=== PATIENT | female | born 1930 | race Caucasian/White ===

== ENCOUNTER 2016-11-28 15:18 | Inpatient (IN) | payer MEDICARE, MEDICAID ==
--- NOTE | 2016-11-28 15:43 | C.PDOC ---
History Of Present Illness Patient TATE from [place] for evaluation of SOB. As per daughter, who visits her daily, patient appeared to be breathing more quickly than usual and appeared SOB. Patient has h/o advanced Alzheimer's dementia, HTN, hyperlipidemia, hypothyroidism. Time Seen by Provider: 11/28/16 15:21 Chief Complaint (Nursing): Shortness Of Breath History Per: Family History/Exam Limitations: clinical condition Current Respiratory Medications: See Home Med List Severity: Moderate Past Medical History Reviewed: Historical Data, Nursing Documentation, Vital Signs Vital Signs: Last Vital Signs Temp 97.9 F 12/01/16 15:10 Pulse 69 12/01/16 16:00 Resp 20 12/01/16 15:10 BP 123/75 12/01/16 15:10 Pulse Ox 98 12/04/16 11:09 - Medical History PMH: Alzheimer's Disease, HTN, Hypercholesterolemia, Hypothyroidism, Chronic Kidney Disease (PT BORN WITH ONE KIDNEY) Family History: States: Other (noncontributory ) Review Of Systems Review Of Systems: ROS cannot be obtained secondary to pt's inabilty to answer questions. Physical Exam - Physical Exam Appears: Non-toxic, In Acute Distress (in mild repsiratory distress), Chronically Ill Skin: No Rash Oral Mucosa: Dry Cardiovascular: Rhythm Regular Respiratory: Accessory Muscle Use (mild), No Rales, No Rhonchi, No Wheezing Gastrointestinal/Abdominal: Normal Exam, Bowel Sounds, Soft, No Tenderness, Other (PEG tube intact, no surrounding erythema) Extremity: Other (right heel approx 2cm ulcer without erythema/fluctuance/ induration) ED Course And Treatment - Laboratory Results Result Diagrams: 12/01/16 06:30 12/01/16 06:47 ECG: Interpreted By Me, Viewed By Me (NSR 84 bpm, normal axis, Q waves III, aVF , no acute ST changes) O2 Sat by Pulse Oximetry: 98 (RA) Pulse Ox Interpretation: Normal Progress Note: Blood work, UA, CXR, influenza swab ordered. Code sepsis called. Patient given tylenol OK, IV NS bolus, broad spectrum IV antibiotics. senior living papers and daughter at bedside confirm DNR/DNI status. 5:30PM- Spoke with patient's daughter (Marcus Trejo) who is at bedside. Explained that patient's hypotension is not significantly improving with bolus of IV fluids. Second bolus ordered and discussed central line placement/vasopressors with daughter. She states she does not want central line inserted/vasopressors started. 5:45pm- Spoke with patient's son on the phone, Drew Tobar, he is in agreement with his sister, does not want central line inserted or pressors started. Patient's PMD Dr. Denny made aware of patient's condition - requests hospitalist admission. Spoke with Dr. Quintanilla (5:45pm), he agrees with admission to his service, is aware of patient's DNA/DNR status and decision of children to have central line inserted/poressors started. - Physician Consult Information Physician Contacted: Rosa Conde Outcome Of Conversation: Discussed patient with director of outreach at approx 5:20pm- he recommends no ICU admission at this time. Critical Care Time - Critical Care Note Total Time (in mins): 45 Documented critical care: time excludes all time spent performing seperately billable procedures. Disposition - Disposition Disposition: HOSPITALIZED Disposition Time: 17:51 Condition: STABLE - Clinical Impression Clinical Impression: Septic shock
[2016-11-28 15:45] VITALS: BMI 28.1
[2016-11-28] MEDS ORDERED: Cefepime 1 GM in Sodium Chloride 0.9% 50 ML IVPB STA (15:50)
[2016-11-28] MEDS ORDERED: Moxifloxacin IV 400mg/250ml NS 250 ML IVPB STA (15:50)
[2016-11-28 16:00] LABS: BASO # 0.2 K/uL (0.0-0.2); BASO % 1.6 % (0.0-2.0); EOS # 0.2 K/uL (0.0-0.7); EOS % 1.9 % (0.0-4.0); HEMATOCRIT 42.5 % (34.0-47.0); LYMPH % 20.6 % (20.0-40.0); MEAN CORPUSCULAR HEMOGLOBIN 30.3 pg (27.0-31.0); MEAN CORPUSCULAR HGB CONC 31.6 g/dL (33.0-37.0); MEAN PLATELET VOLUME 10.7 fL (7.2-11.7); MONO # 0.5 K/uL (0.0-0.8); MONO % 4.9 % (0.0-10.0); NRBC % 0.1 % (0.0-2.0); RED CELL DISTRIBUTION WIDTH 16.4 % (11.5-14.5); WHITE BLOOD COUNT 9.9 K/uL (4.8-10.8)
[2016-11-28 16:02] LABS: VENOUS BLOOD GAS BASE EXCESS 4.8 mmol/L (0.0-2.0); VENOUS BLOOD GAS PCO2 45 mmHg (40-60); VENOUS BLOOD PH 7.43 (7.32-7.43)
[2016-11-28 16:20] LABS: POTASSIUM 5.2 mmol/L (3.6-5.2)
[2016-11-28 16:22] LABS: ALB/GLOB RATIO 0.9 (1.0-2.1); BILIRUBIN,TOTAL 0.7 mg/dL (0.2-1.3); TOTAL PROTEIN 7.6 g/dL (6.3-8.3)
[2016-11-28 16:23] LABS: CALCIUM 8.8 mg/dl (8.6-10.4); MAGNESIUM 2.9 mg/dL (1.6-2.3); PHOSPHOROUS 4.5 mg/dL (2.5-4.5)
[2016-11-28] MEDS ORDERED: Cefepime IV 1 gm in Dextrose 50 ML IVPB STA (16:26)
[2016-11-28] MEDS ORDERED: Sodium Chloride 0.9% 2,000 ML ONE ×2 (16:27→17:27)
[2016-11-28 16:34] LABS: TROPONIN I 0.014 ng/mL (0.00-0.120)
[2016-11-28 16:54] LABS: RBC URINE 1 /hpf (0-3); URINE BACTERIA OCC (<OCC); URINE BILIRUBIN NEGATIVE (NEGATIVE); URINE BLOOD NEGATIVE (NEGATIVE); URINE COLOR YELLOW (YELLOW); URINE GLUCOSE (UA) 3+ mg/dL (Normal); URINE KETONE TRACE mg/dL (NEGATIVE); URINE LEUKOCYTE ESTERASE NEG Leu/uL (Negative); URINE PROTEIN 1+ mg/dL (NEGATIVE); WBC URINE 1 /hpf (0-5)
[2016-11-28] MEDS ORDERED: Moxifloxacin IV 400mg/250ml NS 250 ML IVPB ONE (16:55)
[2016-11-28] MEDS ORDERED: (Novolin R) Insulin Human Regular 100 units/ml vial IV ONE (17:00)
[2016-11-28] MEDS ORDERED: (Novolin R) Insulin Human Regular 100 units/ml vial ONE (17:27)
--- NOTE | 2016-11-28 17:29 | RAD ---
PROCEDURE: CHEST RADIOGRAPH, 1 VIEW HISTORY: SOB COMPARISON: None available. FINDINGS: LUNGS: Minor bibasilar atelectasis PLEURA: No pneumothorax or pleural fluid seen. CARDIOVASCULAR: Normal. OSSEOUS STRUCTURES: No significant abnormalities. VISUALIZED UPPER ABDOMEN: Normal. OTHER FINDINGS: None. IMPRESSION: Minor bibasilar atelectasis
--- NOTE | 2016-11-28 18:04 | CP.PCM.HP ---
<Rhys Davis - Last Filed: 11/28/16 18:37> History of Present Illness - History of Present Illness History of Present Illness: CC: "short of breath" HPI: Patient is a 86 year old female with a history of alziemer's dementia, htn , hyperlipedemia, nephrectomy, and hypothyroidism is here from the retirement because her daughter noticed she was very short of breath. Patient has been in retirement for 6 years due to her worsening dementia, she is non verbal. Patient's daughter is at bedside providing her history. PMH: see above PSH: feeding tube placed 7 months ago, nephrectomy FH: denies SH: Lives in retirement, is bed bound Present on Admission - Present on Admission Any Indicators Present on Admission: No History of DVT/PE: No History of Uncontrolled Diabetes: No Urinary Catheter: No Decubitus Ulcer Present: No History Surgical Site Infection Following: None Review of Systems - Review of Systems Systems not reviewed;Unavailable: Acuity of Condition, Dementia Past Patient History - Infectious Disease Hx of Infectious Diseases: None - Past Medical History & Family History Past Medical History?: Yes - Past Social History Smoking Status: Never Smoked - CARDIAC Hx Hypercholesterolemia: Yes Hx Hypertension: Yes - PULMONARY Hx Respiratory Disorders: No - NEUROLOGICAL Hx Alzheimer's Disease: Yes - HEENT Hx HEENT Problems: Yes Hx Cataracts: Yes - RENAL 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) - ENDOCRINE/METABOLIC Hx Hypothyroidism: Yes - HEMATOLOGICAL/ONCOLOGICAL Hx Blood Disorders: No - INTEGUMENTARY Hx Dermatological Problems: No - MUSCULOSKELETAL/RHEUMATOLOGICAL Hx Musculoskeletal Disorders: No - GASTROINTESTINAL Hx Gastrointestinal Disorders: Yes (WT LOSS, LOSS OF APPETITE) - GENITOURINARY/GYNECOLOGICAL Hx Genitourinary Disorders: Yes (BORN WITH 1 KIDNEY) - PSYCHIATRIC Hx Psychophysiologic Disorder: Yes Hx Substance Use: No - SURGICAL HISTORY Hx Surgeries: Yes Hx Hysterectomy: Yes Hx Orthopedic Surgery: Yes (LT HAND ) Other/Comment: PEG TUBE INSERTION - ANESTHESIA Hx Anesthesia: Yes Hx Anesthesia Reactions: No Hx Malignant Hyperthermia: No Meds Allergies/Adverse Reactions: Allergies Allergy/AdvReac Type Severity Reaction Status Date / Time No Known Allergies Allergy Verified 11/28/16 15:44 Physical Exam - Constitutional Appears: Toxic, In Acute Distress - Head Exam Head Exam: ATRAUMATIC, NORMAL INSPECTION, NORMOCEPHALIC - Eye Exam Eye Exam: absent: Scleral icterus Pupil Exam: NORMAL ACCOMODATION - ENT Exam ENT Exam: Mucous Membranes Dry - Respiratory Exam Respiratory Exam: Decreased Breath Sounds, Rales, Rhonchi. absent: Clear to Auscultation Bilateral, Wheezes - Cardiovascular Exam Additional comments: very soft heart sounds - GI/Abdominal Exam GI & Abdominal Exam: Soft Additional comments: feeding tube in place - Extremities Exam Extremities exam: Negative for: pedal edema - Back Exam Back exam: NORMAL INSPECTION - Psychiatric Exam Additional comments: non verbal - Skin Skin Exam: Dry Results - Vital Signs Recent Vital Signs: Last Vital Signs Temp 99.7 F H 11/28/16 17:00 Pulse 64 11/28/16 17:45 Resp 25 H 11/28/16 17:45 BP 81/39 L 11/28/16 17:45 Pulse Ox 98 11/28/16 17:50 - Labs Result Diagrams: 11/28/16 15:55 11/28/16 15:55 Assessment & Plan (1) Sepsis Assessment and Plan: Patient is admitted to tele/inp. She was given IV antibiotics in the ED and IV fluids. She had a fever and is also hypotensive and tachypenic. Will need to find the source of the infection, ordered CT of the chest/abdomen/pelvis with IV contrast. Patient on NS at 100 cc/hr Primaxin 500mg Q6h and Vanc 250mg q12h started Blood and urine cultures drawn Dr. Leggett consulted and his answering called with a message left. ABG, procalcintonin Patient is DNR/DNI! Status: Acute (2) Hypotension Status: Acute Comment: Patient has low voltage on the EKG, show may have preicardial effusion and or tamponade, no prior ekg avaliable to compare, ordered an echo and kenia panels. Monitor on Tele, follow up CT of the head. Patient also has a high risk for PE due to immobility and age. (3) Hypernatremia Assessment and Plan: Na is 159 Status: Acute (4) Hyperchloremia Assessment and Plan: Chlorine is 122 Status: Acute (5) History of nephrectomy, unilateral Status: Chronic (6) Dementia in Alzheimer's disease Assessment and Plan: continue her home Aricept, patient as feeding tube in place Status: Chronic (7) Hypothyroidism Assessment and Plan: TSH is 6.99, follow up free T4, continue home synthroid Status: Chronic (8) Diabetes mellitus Assessment and Plan: continue her home medication, sliding scale with accu checks, follow up a1c. Status: Chronic (9) Hyperlipidemia Assessment and Plan: continue home statin Status: Acute (10) Prophylactic measure Assessment and Plan: Protonix 40mg IVP Heparin 5000 untis sc q8h scd reposition every 2 hours, will need to look for pressure ulcers Status: Acute <Lionel Quintanilla H - Last Filed: 11/29/16 10:16> Results - Vital Signs Recent Vital Signs: Last Vital Signs Temp 97.1 F L 11/29/16 07:35 Pulse 57 L 11/29/16 07:35 Resp 18 11/29/16 07:35 BP 92/58 L 11/29/16 07:35 Pulse Ox 98 11/29/16 07:35 - Labs Result Diagrams: 11/29/16 07:56 11/29/16 07:56 Labs: Laboratory Results - last 24 hr 11/28/16 11/28/16 11/29/16 19:15 20:31 01:02 WBC RBC Hgb Hct MCV MCH MCHC RDW Plt Count MPV Neut % (Auto) Lymph % (Auto) [place] % (Auto) Eos % (Auto) Baso % (Auto) Neut # Lymph # [place] # Eos # Baso # Puncture Site Lra pCO2 42 pO2 120 H HCO3 20.2 L ABG pH 7.29 L ABG Total CO2 21.5 L ABG O2 Saturation 99.8 H ABG Base Excess -6.1 L Eddie Test Pos ABG Potassium 3.4 L Sodium 160.0 H* Chloride 133.0 H Glucose 151 H Lactate 1.4 Liter Flow 3.0 Crit Value Called To Dr kolton mc Crit Value Called By Isacc reddy Crit Value Read Back Y Blood Gas Notified Time 1924 Potassium Carbon Dioxide Anion Gap BUN Creatinine Est GFR ( Amer) Est GFR (Non-Af Amer) POC Glucose (mg/dL) 228 H Random Glucose Calcium Phosphorus Magnesium Total Bilirubin AST ALT Alkaline Phosphatase Total Creatine Kinase 281 H CK-MB (Mass) 2.33 Troponin I, Quant < 0.0120 Total Protein Albumin Globulin Albumin/Globulin Ratio Procalcitonin 0.10 L TSH 3rd Generation Arterial Blood Potassium 3.4 L Stool Leukocytes, Qual 11/29/16 11/29/16 11/29/16 06:38 07:56 08:10 WBC 7.1 RBC 3.24 L Hgb 10.0 L D Hct 31.3 L MCV 96.6 MCH 30.8 MCHC 31.9 L RDW 15.8 H Plt Count 156 MPV 10.8 Neut % (Auto) 63.5 Lymph % (Auto) 25.5 [place] % (Auto) 5.5 Eos % (Auto) 5.0 H Baso % (Auto) 0.5 Neut # 4.5 Lymph # 1.8 [place] # 0.4 Eos # 0.4 Baso # 0.0 Puncture Site pCO2 pO2 HCO3 ABG pH ABG Total CO2 ABG O2 Saturation ABG Base Excess Eddie Test ABG Potassium Sodium 154 H Chloride 127 H Glucose Lactate Liter Flow Crit Value Called To Crit Value Called By Crit Value Read Back Blood Gas Notified Time Potassium 3.1 L Carbon Dioxide 18 L Anion Gap 12 BUN 50 H Creatinine 0.7 Est GFR ( Amer) > 60 Est GFR (Non-Af Amer) > 60 POC Glucose (mg/dL) 128 H Random Glucose 99 Calcium 6.2 L Phosphorus 3.0 Magnesium 2.0 Total Bilirubin 0.2 AST 33 ALT 68 H D Alkaline Phosphatase 41 Total Creatine Kinase CK-MB (Mass) Troponin I, Quant Total Protein 5.2 L Albumin 2.2 L D Globulin 3.0 Albumin/Globulin Ratio 0.7 L Procalcitonin TSH 3rd Generation 3.24 Arterial Blood Potassium Stool Leukocytes, Qual Negative Attending/Attestation - Attestation I have personally seen and examined this patient.: Yes I have fully participated in the care of the patient.: Yes I have reviewed all pertinent clinical information: Yes Notes (Text): Medical Attending: Patient was seen and examined by me in the ER bed 9. Family member who is also staff at hospital, was present with me at bedside and we had an extensive conversation. I explained to family member that it did seem that she was having severe hypotenstion secondary from sepsis - the source of which was not entirely clear when we saw her - it may have been UTI however the UA while it does seem infection - isn't overwhelming terrible. This being said it is possible that given her age and comorbidites that even a small UTI can cause her to be very urosepsis. She does not have a WBC. She will need to be on abx as well as IVF bolus. We need to follow I and O - she will need a neal cath There also appears to be dehydration as well - the Na was very elevated as was the BUN. She has had several boluses in ER and continued on IVF From discussion with family, the patient is DNR and DNI, they do not want central line or pressor medications. The ER spoke with ICU and because of this ICU has advised to admit patient to the medical/telemetry floor instead. So I explained to family we will get additional imaging. There is a high likley [place] she could at any given moment. Besides what has been mentioned above , a PE is also a very real possibility. thank you Lionel Quintanilla
[2016-11-28] MEDS ORDERED: Sodium Chloride 0.45% 1,000 ML IV SCH (18:30)
[2016-11-28 19:27] LABS: ABG ALLEN TEST POS; DRAW SITE LRA
[2016-11-28] MEDS ORDERED: Iodixanol 320 MG/ML 100 ML BOTTLE IV ONE (19:42)
[2016-11-28] MEDS: Vancomycin 500mg/D5W 100 ml 100 ML IVPB SCH (19:43)
[2016-11-28] MEDS: (Novolin R) Insulin Human Regular 100 units/ml vial SC SCH (22:36)
[2016-11-29] MEDS: (Novolin R) Insulin Human Regular 100 units/ml vial SC SCH (07:30)
[2016-11-29] MEDS: Vancomycin 500mg/D5W 100 ml 100 ML IVPB SCH ×2 (07:40→19:30)
[2016-11-29] MEDS: Levothyroxine 125 MCG TAB PO SCH (07:45)
[2016-11-29 08:18] LABS: BASO % 0.5 % (0.0-2.0); EOS # 0.4 K/uL (0.0-0.7); HEMATOCRIT 31.3 % (34.0-47.0); LYMPH # 1.8 K/uL (1.0-4.3); LYMPH % 25.5 % (20.0-40.0); MEAN CELL VOLUME 96.6 fL (81.0-99.0); MEAN CORPUSCULAR HEMOGLOBIN 30.8 pg (27.0-31.0); MEAN CORPUSCULAR HGB CONC 31.9 g/dL (33.0-37.0); MEAN PLATELET VOLUME 10.8 fL (7.2-11.7); MONO # 0.4 K/uL (0.0-0.8); MONO % 5.5 % (0.0-10.0); RED CELL DISTRIBUTION WIDTH 15.8 % (11.5-14.5); WHITE BLOOD COUNT 7.1 K/uL (4.8-10.8)
[2016-11-29 08:19] LABS: CHLORIDE 127 mmol/L (98-107); POTASSIUM 3.1 mmol/L (3.6-5.2); SODIUM 154 mmol/L (132-148)
[2016-11-29 08:21] LABS: AST/SGOT 33 U/L (14-36); BILIRUBIN,TOTAL 0.2 mg/dL (0.2-1.3); CARBON DIOXIDE 18 mmol/L (22-30); GFR AFRICAN-AMERICAN > 60
[2016-11-29 08:22] LABS: ALKALINE PHOSPHATASE 41 U/L (38-126); ALT/SGPT 68 U/L (9-52); BLOOD UREA NITROGEN 50 mg/dL (7-17); CALCIUM 6.2 mg/dl (8.6-10.4); GLUCOSE,RANDOM 99 mg/dL (65-105); TOTAL PROTEIN 5.2 g/dL (6.3-8.3)
[2016-11-29 08:26] LABS: ALB/GLOB RATIO 0.7 (1.0-2.1)
[2016-11-29] MEDS ORDERED: Potassium Chloride 20 mEq/15 ml LIQ UD PEG ONE ×2 (08:36→12:00)
[2016-11-29 08:50] LABS: THYROID STIMULATING HORMONE 3.24 mIU/L (0.46-4.68)
[2016-11-29] MEDS ORDERED: Potassium Chloride 40 MEQ in Sodium Chloride 0.45% 1,000 ML IV SCH (09:00)
[2016-11-29 09:11] LABS: FECAL LEUKOCYTES NEGATIVE (NEGATIVE)
[2016-11-29] MEDS ORDERED: [UNRECOGNIZED DRUG - OTHER] TOP SCH (10:00)
[2016-11-29] MEDS ORDERED: ALOE TOP SCH (10:00)
[2016-11-29] MEDS ORDERED: ZINC OX TOP SCH (10:00)
[2016-11-29] MEDS ORDERED: VITS A D TOP SCH (10:00)
[2016-11-29] MEDS: Vitamin B Complex/Vitamin C Tab PO SCH ×2 (10:00→12:07)
[2016-11-29] MEDS ORDERED: Sodium Chloride 0.45% 1,000 ML IV SCH (10:32)
[2016-11-29 11:04] LABS: C DIFF TOXIN A B NEGATIVE (NEGATIVE)
--- NOTE | 2016-11-29 11:20 | CP.PCM.PN ---
<Sarahi Juan V - Last Filed: 11/29/16 14:27> Objective - Vital Signs/Intake and Output Vital Signs (last 24 hours): Temp Pulse Resp BP Pulse Ox 97.1 F L 57 L 18 92/58 L 98 11/29/16 07:35 11/29/16 07:35 11/29/16 07:35 11/29/16 07:35 11/29/16 07:35 - Medications Medications: Current Medications Donepezil HCl (Aricept) 10 mg PO DAILY [facility] Last Admin: 11/29/16 12:07 Dose: 10 mg Glipizide (Glucotrol) 5 mg PO BID [facility] Last Admin: 11/29/16 10:00 Dose: Not Given Heparin Sodium (Porcine) (Heparin) 5,000 units SC Q8 [facility] Last Admin: 11/29/16 07:46 Dose: 5,000 units Vancomycin HCl/Dextrose (Vancocin) 100 mls @ 67 mls/hr IVPB Q12H [facility] Stop: 12/03/16 19:01 Last Admin: 11/29/16 07:40 Dose: 67 mls/hr Imipenem/Cilastatin Sodium 500 (mg/ Sodium Chloride) 100 mls @ 100 mls/hr IVPB Q6H [facility] Last Admin: 11/29/16 12:30 Dose: 100 mls/hr Sodium Chloride (Sodium Chloride 0.45%) 1,000 mls @ 100 mls/hr IV .Q10H [facility] Last Admin: 11/29/16 10:35 Dose: Not Given Potassium Chloride/Dextrose/Sod Cl (Potassium Chl 20 Meq In D5-1/2ns) 1,000 mls @ 70 mls/hr IV .[id number] [facility] Levothyroxine Sodium (Synthroid) 125 mcg PO DAILY@0630 [facility] Last Admin: 11/29/16 07:45 Dose: 125 mcg Pantoprazole Sodium (Protonix Ec Tab) 40 mg PO DAILY [facility] Last Admin: 11/29/16 12:08 Dose: 40 mg Rosuvastatin Calcium (Crestor) 5 mg PO [facility] Vitamin B Complex/Vitamin C (Berocca) 1 tab PO DAILY [facility] Last Admin: 11/29/16 12:07 Dose: 1 tab - Labs Labs: 11/29/16 07:56 11/29/16 07:56 PT 11.3 SECONDS (9.7-12.2) 11/28/16 15:55 INR 1.0 11/28/16 15:55 APTT 28 SECONDS (21-34) 11/28/16 15:55 Attending/Attestation - Attestation I have personally seen and examined this patient.: Yes I have fully participated in the care of the patient.: Yes I have reviewed all pertinent clinical information, including history, physical exam and plan: Yes Notes (Text): Patient seen, examined, and case discussed with day-time resident. Patient seen this morning. Patient is nonverbal, bed bound four about 7 years, withdraws to pain. When I discuss with patient's daughter, Malissa, this is more or less how her mother has been for the past 7 years. She reports she was told by a doctor, cannot recall the name, that her mother has dementia, and she herself reports she had to take her mother to a long-term quite some time ago , because she had fallen twice and can no longer take care of herself. Daughter herself is unaware if patient has had a prior CT head done recently within the past 7 years when I approached her regarding CT head findings. She reports her mother did have a mini-stroke in the past. She also emphasized with me, she wants her mom to be comfortable and for nothing aggressive such as surgery but to keep her peaceful. I explained to her that if part of this is sepsis due to infection, it may be treatable with antibiotics and with fluid replacement with can bring the sodium down slowly. Given this hydrocephalus noted on CT head, its hard to determine how long she has had this with overlapping diagnoses of dementia. (1) Sepsis Assessment and Plan: * Patient is admitted to [facility]. She was given IV antibiotics in the ED and IV fluids. She had a fever and is also hypotensive and tachypenic. Will need to find the source of the infection, ordered CT of the chest/abdomen/pelvis with IV contrast, which is pending. * Blood cultures (11/28) pending * Urine culture (11/28): no growth * Ova and parasite: pending * Wound culture (Sacral): pending * Chest xray (11/29/16): poor inspiration with low lung volumes, mild crowded bronchovascular markings and mild bibasilar atelectasis * Chest xray (11/28/16): minor bibasilar atelectasis * Procalcitonin: 0.10 (low) * D51/2 NS 70 cc/hr * Primaxin 500mg IV Q 6hours (active 11/28/16) and Vancomycin 1 gram IV Q 12hours (active since 11/28/16) * Pending CT chest/abdomen/pelvis report Status: suspected (2) Obstructive hydrocephalus Status: Acute Comment: * CT head (11/28): extensive diffuse/coalescent low-attenuation changes extending from the periventricular into at deep and subcortical white matter both cerebral hemispheres. Significant dilatation of the lateral and 3rd ventricles with relatively normal appearing 4th ventricle~may represent extensive chronic white matter ischemic changes w severe ex vacuo dilatation of the ventricular system (more in further report) * No prior to compare to (3) Hypernatremia Assessment and Plan: * Nephrology (Dr. 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 Assessment and Plan: * Daughter reports she was told by a medical doctor she has about 7 years ago * Aricept 10mg PO daily Status: Chronic (7) Hypothyroidism Assessment and Plan: * TSH is 6.99, follow up free T4-->pending * Synthroid 125mcg PO qAM Status: Chronic (8) Diabetes mellitus Assessment and Plan: * [id number] ordered * held glipizide since patient was not on her feedings over night * Patient restarted feedings today; Isosource 20cc/hr monitor residual; goal is 60cc/hr * off sliding scale * accuchecks QAC and HS Status: Chronic (9) Hyperlipidemia Assessment and Plan: * Crestor 5mg POqHS * Order for fasting lipid panel Status: Acute (10) Prophylactic measure Assessment and Plan: * Protonix 40mg IVP * Heparin 5000 untis sc q8h * scds b/l * reposition every 2 hours, will need to look for pressure ulcers * Wound care for possible stage 2 sacral ulcer * Palliative care consult * DNR/DNI * Guerra inserted * monitor intake and outputs Status: Acute <Rhys Davis H - Last Filed: 11/29/16 17:27> Subjective - Date & Time of Evaluation Date of Evaluation: 11/29/16 Time of Evaluation: 10:00 - Subjective Subjective: Dr. Juan service note: Patient seen in room. She is non verbal but sems to be in breathing comfortable. She responds to painful stimuli and withdraws to pain Objective - Vital Signs/Intake and Output Vital Signs (last 24 hours): Temp Pulse Resp BP Pulse Ox 97.1 F L 57 L 18 92/58 L 98 11/29/16 07:35 11/29/16 07:35 11/29/16 07:35 11/29/16 07:35 11/29/16 07:35 - Medications Medications: Current Medications Donepezil HCl (Aricept) 10 mg PO DAILY [facility] Glipizide (Glucotrol) 5 mg PO BID [facility] Heparin Sodium (Porcine) (Heparin) 5,000 units SC Q8 [facility] Last Admin: 11/29/16 07:46 Dose: 5,000 units Vancomycin HCl/Dextrose (Vancocin) 100 mls @ 67 mls/hr IVPB Q12H [facility] Stop: 12/03/16 19:01 Last Admin: 11/29/16 07:40 Dose: 67 mls/hr Imipenem/Cilastatin Sodium 500 (mg/ Sodium Chloride) 100 mls @ 100 mls/hr IVPB Q6H [facility] Last Admin: 11/29/16 06:30 Dose: 100 mls/hr Sodium Chloride (Sodium Chloride 0.45%) 1,000 mls @ 100 mls/hr IV .Q10H [facility] Dextrose (Dextrose 5% In Water 1000 Ml) 1,000 mls @ 80 mls/hr IV .[id number] [facility] Levothyroxine Sodium (Synthroid) 125 mcg PO DAILY@0630 [facility] Last Admin: 11/29/16 07:45 Dose: 125 mcg Pantoprazole Sodium (Protonix Ec Tab) 40 mg PO DAILY [facility] Potassium Chloride (Potassium Chloride Oral Soln) 40 meq PEG ONCE ONE Stop: 11/29/16 12:01 Rosuvastatin Calcium (Crestor) 5 mg PO HS [facility] Vitamin B Complex/Vitamin C (Berocca) 1 tab PO DAILY [facility] - Labs Labs: 11/29/16 07:56 11/29/16 07:56 PT 11.3 SECONDS (9.7-12.2) 11/28/16 15:55 INR 1.0 11/28/16 15:55 APTT 28 SECONDS (21-34) 11/28/16 15:55 - Constitutional Appears: Chronically Ill - Head Exam Head Exam: NORMAL INSPECTION, NORMOCEPHALIC - Eye Exam Eye Exam: Normal appearance, PERRL Pupil Exam: NORMAL ACCOMODATION - Respiratory Exam Respiratory Exam: Clear to Ausculation Bilateral, Wheezes. absent: Rhonchi - Cardiovascular Exam Cardiovascular Exam: REGULAR RHYTHM, RRR, +S1, +S2. absent: Gallop, Rubs - GI/Abdominal Exam GI & Abdominal Exam: Soft Additional comments: Peg tube in place no signs of swelling, redness, or purluent discharge - Extremities Exam Extremities Exam: absent: Pedal Edema - Neurological Exam Neurological Exam: absent: Alert, Awake Additional comments: responds to painful stimuli - Skin Additional comments: stage 2 pressure ulcer around her sacrum. Assessment and Plan - Assessment and Plan (Free Text) Assessment: (1) Sepsis Assessment and Plan: 11/29: Will need to follow up on the blood, urine, and wound culture from the sacral ulcer, CT of the chest/abdomen/pelvis official read is pending. Blood pressure is stable. Procalcintonin level is low. Guerra was inserted this morning will need to monitor I&O closely. Follow up Vanc trough and also monitor kidney function as well. Day 2 of IV antibiotics Previous note Patient is admitted to [facility]. She was given IV antibiotics in the ED and IV fluids. She had a fever and is also hypotensive and tachypenic. Will need to find the source of the infection, ordered CT of the chest/abdomen/pelvis with IV contrast. Patient on NS at 100 cc/hr Primaxin 500mg Q6h and Vanc 250mg q12h started Blood and urine cultures drawn Dr. Leggett consulted and his answering called with a message left. ABG, procalcintonin Patient is DNR/DNI! Status: Acute 2. Hydrocephalus CT of the head shows evidence of hydrocephalus, will need to get a copy of an old CT scan to compare with. 3. Pressure ulcer: This could be source of infection, will get culture, follow up sensetivity and culture. Also reposition patient q2h and also have wound care nurse evaluation. (3) Hypotension Status: Acute Comment: 11/29: Echo is still pending, continue IV fluids. Patient has low voltage on the EKG, show may have preicardial effusion and or tamponade, no prior ekg avaliable to compare, ordered an echo and kenia panels. Monitor on Tele, follow up CT of the head. Patient also has a high risk for PE due to immobility and age. (4) Hypernatremia Assessment and Plan: 11/29: Na is 154 this am follow up chemistry labs q12h per Nephrology consult, Dr. Schmidt help appreciated. Follow urin lytes as well. Na is 159 Status: Acute (5) Hyperchloremia Assessment and Plan: 11/29: Chlorine is 127, continue to monitor. d/c half normal saline. 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 Status: Chronic (10) Hyperlipidemia Assessment and Plan: continue home statin Status: Chronic (11) Prophylactic measure Assessment and Plan: Protonix 40mg IVP Heparin 5000 untis sc q8h scd reposition every 2 hours, will need to look for pressure ulcers Status: Acute Plan: (1) Sepsis Assessment and Plan: 11/29: Turned patient over she has a stage 2 decubitis ulcer, continue with IV Primaxin and Vanc day 2, wound culture and nursing wound care continue to have her turned every 2 hours. Procalcintonin was low, ABG shows patient to be acidodic. Patient is admitted to tele/inp. She was given IV antibiotics in the ED and IV fluids. She had a fever and is also hypotensive and tachypenic. Will need to find the source of the infection, ordered CT of the chest/abdomen/pelvis with IV contrast. Patient on NS at 100 cc/hr Primaxin 500mg Q6h and Vanc 250mg q12h started Blood and urine cultures drawn Dr. Leggett consulted and his answering called with a message left. ABG, procalcintonin Patient is DNR/DNI! Status: Acute (2) Hypotension Status: Acute Comment: 11/29: Echo is pending, CT scan of the head shows enlarged ventricles, will consult Patient has low voltage on the EKG, show may have preicardial effusion and or tamponade, no prior ekg avaliable to compare, ordered an echo and kenia panels. Monitor on Tele, follow up CT of the head. Patient also has a high risk for PE due to immobility and age. (3) Hypernatremia Assessment and Plan: 11/29: Na today is 154, Nephrology consulted. Have started D5W 80 cc/hr per Dr. Pérez Nephrology consult. Urine lytes ordered as well. 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 Status: Chronic (9) Hyperlipidemia Assessment and Plan: continue home statin Status: Acute (10) Prophylactic measure Assessment and Plan: Protonix 40mg IVP Heparin 5000 untis sc q8h scd reposition every 2 hours, will need to look for pressure ulcers Status: Acute
--- NOTE | 2016-11-29 11:47 | CT ---
PROCEDURE: CT HEAD WITHOUT CONTRAST. HISTORY: ams, hypotensive COMPARISON: None available. TECHNIQUE: Axial computed tomography images were obtained through the head/brain without intravenous contrast. Radiation dose: Total exam DLP = 998.89 mGy-cm. This CT exam was performed using one or more of the following dose reduction techniques: Automated exposure control, adjustment of the mA and/or kV according to patient size, and/or use of iterative reconstruction technique. FINDINGS: HEMORRHAGE: No intracranial hemorrhage. BRAIN: Extensive diffuse/coalescent low-attenuation changes extending from the periventricular into the at deep and subcortical white matter both cerebral hemispheres. Changes could represent chronic sequela of small vessel disease. Note that the possibility of extensive white matter gliosis due to longstanding transependymal edema in not excluded. VENTRICLES: Significant dilatation of the lateral and 3rd ventricles with relatively normal-appearing 4th ventricle. Findings may represent extensive chronic white matter ischemic changes with a the severe ex vacuo dilatation of the ventricular system however the possibility of gliosis from chronic transependymal edema related to longstanding obstructive hydrocephalus to be considered as well. Normal pressure hydrocephalus may be considered if the clinical triad of dementia, ataxia and incontinence present. CALVARIUM: Unremarkable. PARANASAL SINUSES: Minor mucosal thickening seen within a few ethmoid air cells MASTOID AIR CELLS: Unremarkable as visualized. No inflammatory changes. OTHER FINDINGS: None. IMPRESSION: Extensive diffuse/coalescent low-attenuation changes extending from the periventricular into the at deep and subcortical white matter both cerebral hemispheres . Significant dilatation of the lateral and 3rd ventricles with relatively normal-appearing 4th ventricle. Findings may represent extensive chronic white matter ischemic changes with severe ex vacuo dilatation of the ventricular system however the possibility of gliosis from chronic transependymal edema related to longstanding obstructive hydrocephalus to be considered as well. Normal pressure hydrocephalus may be considered if the clinical triad of dementia, ataxia and incontinence present
[2016-11-29] MEDS: Pantoprazole 40 mg EC Tab PO SCH (12:08)
--- NOTE | 2016-11-29 13:42 | RAD ---
HISTORY: pleural effusions COMPARISON: 11/28/16 FINDINGS: LUNGS: Poor inspiration with low lung volumes, mild crowded bronchovascular markings and mild bibasilar atelectasis PLEURA: No significant pleural effusion identified, no pneumothorax apparent. CARDIOVASCULAR: Normal. OSSEOUS STRUCTURES: No significant abnormalities. VISUALIZED UPPER ABDOMEN: Normal. OTHER FINDINGS: None. IMPRESSION: Poor inspiration with low lung volumes, mild crowded bronchovascular markings and mild bibasilar atelectasis
--- NOTE | 2016-11-29 13:58 | CP.PCM.CON ---
History of Present Illness - History of Present Illness History of Present Illness: pt seen and examined, full consult is dictated #[id number] 1.hypernatremia, corrected na on admission was 161-162, and na today is 154 2.prerenal azotemia/ CAITLYN check urine lytes, osm, change ivf d5w to d51/2 ns 70- at 80 ml/hr f/u bmp q 12 hrs try to correct na not more than 8-10 meq/day Past Patient History - Infectious Disease Hx of Infectious Diseases: None - Past Medical History & Family History Past Medical History?: Yes - Past Social History Smoking Status: Never Smoked - CARDIAC Hx Hypercholesterolemia: Yes Hx Hypertension: Yes - PULMONARY Hx Respiratory Disorders: No - NEUROLOGICAL Hx Alzheimer's Disease: Yes - HEENT Hx HEENT Problems: Yes Hx Cataracts: Yes - RENAL 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) - ENDOCRINE/METABOLIC Hx Hypothyroidism: Yes - HEMATOLOGICAL/ONCOLOGICAL Hx Blood Disorders: No - INTEGUMENTARY Hx Dermatological Problems: No - MUSCULOSKELETAL/RHEUMATOLOGICAL Hx Musculoskeletal Disorders: No Hx Falls: No - GASTROINTESTINAL Hx Gastrointestinal Disorders: Yes (WT LOSS, LOSS OF APPETITE) - GENITOURINARY/GYNECOLOGICAL Hx Genitourinary Disorders: Yes (BORN WITH 1 KIDNEY) - PSYCHIATRIC Hx Psychophysiologic Disorder: Yes Hx Substance Use: No - SURGICAL HISTORY Hx Surgeries: Yes Hx Hysterectomy: Yes Hx Orthopedic Surgery: Yes (LT HAND ) Other/Comment: PEG TUBE INSERTION - ANESTHESIA Hx Anesthesia: Yes Hx Anesthesia Reactions: No Hx Malignant Hyperthermia: No Meds Allergies/Adverse Reactions: Allergies Allergy/AdvReac Type Severity Reaction Status Date / Time No Known Allergies Allergy Verified 11/28/16 15:44 - Medications Medications: Current Medications Donepezil HCl (Aricept) 10 mg PO DAILY [facility] Last Admin: 11/29/16 12:07 Dose: 10 mg Glipizide (Glucotrol) 5 mg PO BID [facility] Last Admin: 11/29/16 10:00 Dose: Not Given Heparin Sodium (Porcine) (Heparin) 5,000 units SC Q8 [facility] Last Admin: 11/29/16 07:46 Dose: 5,000 units Vancomycin HCl/Dextrose (Vancocin) 100 mls @ 67 mls/hr IVPB Q12H [facility] Stop: 12/03/16 19:01 Last Admin: 11/29/16 07:40 Dose: 67 mls/hr Imipenem/Cilastatin Sodium 500 (mg/ Sodium Chloride) 100 mls @ 100 mls/hr IVPB Q6H [facility] Last Admin: 11/29/16 12:30 Dose: 100 mls/hr Sodium Chloride (Sodium Chloride 0.45%) 1,000 mls @ 100 mls/hr IV .Q10H [facility] Last Admin: 11/29/16 10:35 Dose: Not Given Dextrose (Dextrose 5% In Water 1000 Ml) 1,000 mls @ 80 mls/hr IV .[id number] [facility] Last Admin: 11/29/16 11:15 Dose: 80 mls/hr Levothyroxine Sodium (Synthroid) 125 mcg PO DAILY@0630 [facility] Last Admin: 11/29/16 07:45 Dose: 125 mcg Pantoprazole Sodium (Protonix Ec Tab) 40 mg PO DAILY [facility] Last Admin: 11/29/16 12:08 Dose: 40 mg Rosuvastatin Calcium (Crestor) 5 mg PO [facility] Vitamin B Complex/Vitamin C (Berocca) 1 tab PO DAILY [facility] Last Admin: 11/29/16 12:07 Dose: 1 tab Results - Vital Signs Recent Vital Signs: Last Vital Signs Temp 97.1 F L 11/29/16 07:35 Pulse 57 L 11/29/16 07:35 Resp 18 11/29/16 07:35 BP 92/58 L 11/29/16 07:35 Pulse Ox 98 11/29/16 07:35 - Labs Result Diagrams: 11/29/16 07:56 11/29/16 07:56 Labs: Laboratory Results - last 24 hr 11/28/16 11/28/16 11/29/16 19:15 20:31 01:02 WBC RBC Hgb Hct MCV MCH MCHC RDW Plt Count MPV Neut % (Auto) Lymph % (Auto) [place] % (Auto) Eos % (Auto) Baso % (Auto) Neut # Lymph # [place] # Eos # Baso # Puncture Site Lra pCO2 42 pO2 120 H HCO3 20.2 L ABG pH 7.29 L ABG Total CO2 21.5 L ABG O2 Saturation 99.8 H ABG Base Excess -6.1 L Eddie Test Pos ABG Potassium 3.4 L Sodium 160.0 H* Chloride 133.0 H Glucose 151 H Lactate 1.4 Liter Flow 3.0 Crit Value Called To Dr kolton mc Crit Value Called By Isacc reddy Crit Value Read Back Y Blood Gas Notified Time 1924 Potassium Carbon Dioxide Anion Gap BUN Creatinine Est GFR ( Amer) Est GFR (Non-Af Amer) POC Glucose (mg/dL) 228 H Random Glucose Calcium Phosphorus Magnesium Total Bilirubin AST ALT Alkaline Phosphatase Total Creatine Kinase 281 H CK-MB (Mass) 2.33 Troponin I, Quant < 0.0120 Total Protein Albumin Globulin Albumin/Globulin Ratio Procalcitonin 0.10 L TSH 3rd Generation Arterial Blood Potassium 3.4 L Urine Osmolality Ur Random Sodium Stool Leukocytes, Qual C. difficile Ag & Toxin 11/29/16 11/29/16 11/29/16 06:38 07:56 08:10 WBC 7.1 RBC 3.24 L Hgb 10.0 L D Hct 31.3 L MCV 96.6 MCH 30.8 MCHC 31.9 L RDW 15.8 H Plt Count 156 MPV 10.8 Neut % (Auto) 63.5 Lymph % (Auto) 25.5 [place] % (Auto) 5.5 Eos % (Auto) 5.0 H Baso % (Auto) 0.5 Neut # 4.5 Lymph # 1.8 [place] # 0.4 Eos # 0.4 Baso # 0.0 Puncture Site pCO2 pO2 HCO3 ABG pH ABG Total CO2 ABG O2 Saturation ABG Base Excess Eddie Test ABG Potassium Sodium 154 H Chloride 127 H Glucose Lactate Liter Flow Crit Value Called To Crit Value Called By Crit Value Read Back Blood Gas Notified Time Potassium 3.1 L Carbon Dioxide 18 L Anion Gap 12 BUN 50 H Creatinine 0.7 Est GFR ( Amer) > 60 Est GFR (Non-Af Amer) > 60 POC Glucose (mg/dL) 128 H Random Glucose 99 Calcium 6.2 L Phosphorus 3.0 Magnesium 2.0 Total Bilirubin 0.2 AST 33 ALT 68 H D Alkaline Phosphatase 41 Total Creatine Kinase CK-MB (Mass) Troponin I, Quant Total Protein 5.2 L Albumin 2.2 L D Globulin 3.0 Albumin/Globulin Ratio 0.7 L Procalcitonin TSH 3rd Generation 3.24 Arterial Blood Potassium Urine Osmolality Ur Random Sodium Stool Leukocytes, Qual Negative C. difficile Ag & Toxin Negative 11/29/16 11/29/16 11:28 11:57 WBC RBC Hgb Hct MCV MCH MCHC RDW Plt Count MPV Neut % (Auto) Lymph % (Auto) [place] % (Auto) Eos % (Auto) Baso % (Auto) Neut # Lymph # [place] # Eos # Baso # Puncture Site pCO2 pO2 HCO3 ABG pH ABG Total CO2 ABG O2 Saturation ABG Base Excess Eddie Test ABG Potassium Sodium Chloride Glucose Lactate Liter Flow Crit Value Called To Crit Value Called By Crit Value Read Back Blood Gas Notified Time Potassium Carbon Dioxide Anion Gap BUN Creatinine Est GFR ( Amer) Est GFR (Non-Af Amer) POC Glucose (mg/dL) 146 H Random Glucose Calcium Phosphorus Magnesium Total Bilirubin AST ALT Alkaline Phosphatase Total Creatine Kinase CK-MB (Mass) Troponin I, Quant Total Protein Albumin Globulin Albumin/Globulin Ratio Procalcitonin TSH 3rd Generation Arterial Blood Potassium Urine Osmolality 742 Ur Random Sodium 60 Stool Leukocytes, Qual C. difficile Ag & Toxin
[2016-11-29] MEDS ORDERED: Potassium Ch 20mEq in D5-1/2NS 1,000 ML IV SCH (14:30)
--- NOTE | 2016-11-29 14:52 | CP.PCM.CON ---
History of Present Illness - History of Present Illness History of Present Illness: 86 year old female admitted from the assisted because of increasing SOB Found to be congested and hypotensive admitted for sepsis, dehydration ID consulted for this cultures still pending Patient has been in assisted for 6 years due to her worsening dementia, she is non verbal. PMH: alziemer's dementia, htn, hyperlipedemia, nephrectomy, and hypothyroidism PSH: feeding tube placed 7 months ago, nephrectomy FH: denies SH: Lives in assisted, is bed bound Review of Systems - Review of Systems Systems not reviewed;Unavailable: Altered Mental Status - Constitutional Constitutional: absent: As Per HPI, Anorexia, Chills, Daytime Sleepiness, Excessive Sweating, Fatigue, Fever, Frequent Falls, Headache, Increased Appetite , Lethargy, Malaise, Night Sweats, Snoring, Sleep Apnea, Weight Gain, Weight Loss, Weakness, Other - EENT Eyes: absent: As Per HPI, Blind Spots, Blurred Vision, Change in Vision, Decreased Night Vision, Diplopia, Discharge, Dry Eye, Exophthalmos, Floaters, Irritation, Itchy Eyes, Loss of Peripheral Vision, Pain, Photophobia, Requires Corrective Lenses, Sees Flashes, Spots in Vision, Tunnel Vision, Other Visual Disturbances, Loss of Vision, Other Ears: absent: As Per HPI, Decreased Hearing, Ear Discharge, Ear Pain, Tinnitus, Abnormal Hearing, Disequilibrium, Dizziness, Other Nose/Mouth/Throat: absent: As Per HPI, Epistaxis, Nasal Congestion, Nasal Discharge, Nasal Obstruction, Nasal Trauma, Nose Pain, Post Nasal Drip, Sinus Pain, Sinus Pressure, Bleeding Gums, Change in Voice, Dental Pain, Dry Mouth, Dysphagia, Halitosis, Hoarsness, Lip Swelling, Mouth Lesions, Mouth Pain, Odynophagia, Sore Throat, Throat Swelling, Tongue Swelling, Facial Pain, Neck Pain, Neck Mass, Other - Breasts Breasts: absent: As Per HPI, Change in Shape, Mass, Pain, Nipple Discharge, Nipple Inversion, Skin Changes, Swelling, Other - Cardiovascular Cardiovascular: As Per HPI - Respiratory Respiratory: Dyspnea - Gastrointestinal Gastrointestinal: absent: As Per HPI, Abdominal Pain, Belching, Bloating, Change in Bowel Habits, Change in Stool Character, Coffee Ground Emesis, Constipation, Cramping, Diarrhea, Dyspepsia, Dysphagia, Early Satiety, Excessive Flatus, Fecal Incontinence, Heartburn, Hematemesis, Hematochezia, Loose Stools, Melena, Nausea, Odynophagia, Temesmus, Vomiting, Other - Genitourinary Genitourinary: absent: As Per HPI, Change in Urinary Stream, Difficulty Urinating, Dysuria, Flank Pain, Hematuria, Pyuria, Nocturia, Urinary Incontinence, Urinary Frequency, Urinary Hesitance, Urinary Urgency, Voiding Freq/Small Amts, Freq UTI, Hx Renal/Bladder Calculi, Hx /Renal Surgery, Bladder Distension, Other - Reproductive: Female Reproductive:Female: absent: As Per HPI, Amenorrhea, Amenorrhea/ Control, Currently Menstual, Cycle <21 Days, Cycle >35 Days, Cycle Variable, Menses 1-7 Days, Menses >/= 8 Days, Menses Variable, Cycle > 4 Weeks Between, No Menses for 6 Months, Heavy Menses, Light Menses, Normal Menses, Spotting Between Cycles , S/P Hysterectomy, Menopausal, Post Menopausal, Premenarche, Abnormal Vaginal Bleeding, Dysmenorrhea, Dyspareunia, Genital Lesions, Genital Pruritis, Pelvic Pain, Prolapse Symptoms, Sexual Dysfunction, Vaginal Discharge, Vaginal Dryness , Vaginal Odor, Vaginal Pruritis, Other - Menstruation Menstruation: absent: As Per HPI, Amenorrhea, Amenorrhea/ Control, Currently Menstual, Cycle <21 Days, Cycle >35 Days, Cycle Variable, Menses 1-7 Days, Menses >/= 8 Days, Menses Variable, Cycle > 4 Weeks Between, No Menses for 6 Months, Heavy Menses, Light Menses, Normal Menses, Spotting Between Cycles , S/P Hysterectomy, Menopausal, Post Menopausal, Premenarche, Abnormal Vaginal Bleeding, Dysmenorrhea, Other - Musculoskeletal Musculoskeletal: absent: As Per HPI, Abnormal Gait, Arthralgias, Atrophy, Back Pain, Deformity, Joint Swelling, Limited Range of Motion, Loss of Height, Muscle Cramps, Muscle Weakness, Myalgias, Neck Pain, Numbness, Radiating Pain into Limb, Stiffness, Tingling, Other - Integumentary Integumentary: absent: As Per HPI, Acne, Alopecia, Bleeding Lesions, Change in Hair, Change in Nails, Change in Pigmentation, Changing Lesions, Dry Skin, Erythema, Furuncle, Hirsutism, Lesions, New Lesions, Non-Healing Lesions, Photosensitivity, Pruritus, Rash, Skin Pain, Skin Ulcer, Sores, Striae, Swelling , Unusual Bruising, Wounds, Jaundice, Other - Neurological Neurological: As Per HPI - Psychiatric Psychiatric: absent: As Per HPI, Abnormal Sleep Pattern, Anhedonia, Anxiety, Auditory Hallucinations, Behavioral Changes, Change in Appetite, Change in Libido, Confusion, Depression, Difficulty Concentrating, Hallucinations, Homicidal Ideation, Hopelessness, Irritability, Memory Loss, Mood Swings, Panic Attacks, Paranoia, Suicidal Ideation, Visual Hallucinations, Tactile Hallucinations, Other - Endocrine Endocrine: absent: As Per HPI, Change in Body Appearance, Change in Libido, Cold Intolorance, Deepening of Voice, Excessive Sweating, Fatigue, Flushing, Heat Intolorance, Increase in Ring/Shoe/Hat Size, Palpitations, Polydipsia, Polyphagia, Polyuria, Other - Hematologic/Lymphatic Hematologic: absent: As Per HPI, Easy Bleeding, Easy Bruising, Lymphadenopathy, Other Past Patient History - Infectious Disease Hx of Infectious Diseases: None - Past Medical History & Family History Past Medical History?: Yes - Past Social History Smoking Status: Never Smoked - CARDIAC Hx Hypercholesterolemia: Yes Hx Hypertension: Yes - PULMONARY Hx Respiratory Disorders: No - NEUROLOGICAL Hx Alzheimer's Disease: Yes - HEENT Hx HEENT Problems: Yes Hx Cataracts: Yes - RENAL 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) - ENDOCRINE/METABOLIC Hx Hypothyroidism: Yes - HEMATOLOGICAL/ONCOLOGICAL Hx Blood Disorders: No - INTEGUMENTARY Hx Dermatological Problems: No - MUSCULOSKELETAL/RHEUMATOLOGICAL Hx Musculoskeletal Disorders: No Hx Falls: No - GASTROINTESTINAL Hx Gastrointestinal Disorders: Yes (WT LOSS, LOSS OF APPETITE) - GENITOURINARY/GYNECOLOGICAL Hx Genitourinary Disorders: Yes (BORN WITH 1 KIDNEY) - PSYCHIATRIC Hx Psychophysiologic Disorder: Yes Hx Substance Use: No - SURGICAL HISTORY Hx Surgeries: Yes Hx Hysterectomy: Yes Hx Orthopedic Surgery: Yes (LT HAND ) Other/Comment: PEG TUBE INSERTION - ANESTHESIA Hx Anesthesia: Yes Hx Anesthesia Reactions: No Hx Malignant Hyperthermia: No Meds Allergies/Adverse Reactions: Allergies Allergy/AdvReac Type Severity Reaction Status Date / Time No Known Allergies Allergy Verified 11/28/16 15:44 - Medications Medications: Current Medications Donepezil HCl (Aricept) 10 mg PO DAILY NITIN Last Admin: 11/29/16 12:07 Dose: 10 mg Heparin Sodium (Porcine) (Heparin) 5,000 units SC Q8 [facility] Last Admin: 11/29/16 07:46 Dose: 5,000 units Vancomycin HCl/Dextrose (Vancocin) 100 mls @ 67 mls/hr IVPB Q12H [facility] Stop: 12/03/16 19:01 Last Admin: 11/29/16 07:40 Dose: 67 mls/hr Imipenem/Cilastatin Sodium 500 (mg/ Sodium Chloride) 100 mls @ 100 mls/hr IVPB Q6H [facility] Last Admin: 11/29/16 12:30 Dose: 100 mls/hr Sodium Chloride (Sodium Chloride 0.45%) 1,000 mls @ 100 mls/hr IV .Q10H [facility] Last Admin: 11/29/16 10:35 Dose: Not Given Potassium Chloride/Dextrose/Sod Cl (Potassium Chl 20 Meq In D5-1/2ns) 1,000 mls @ 70 mls/hr IV .[id number] [facility] Levothyroxine Sodium (Synthroid) 125 mcg PO DAILY@0630 [facility] Last Admin: 11/29/16 07:45 Dose: 125 mcg Pantoprazole Sodium (Protonix Ec Tab) 40 mg PO DAILY [facility] Last Admin: 11/29/16 12:08 Dose: 40 mg Rosuvastatin Calcium (Crestor) 5 mg PO [facility] Vitamin B Complex/Vitamin C (Berocca) 1 tab PO DAILY [facility] Last Admin: 11/29/16 12:07 Dose: 1 tab Physical Exam - Constitutional Appears: Confused, Cachectic, Chronically Ill - Head Exam Head Exam: ATRAUMATIC, NORMAL INSPECTION, NORMOCEPHALIC - Eye Exam Eye Exam: EOMI, PERRL. absent: Scleral icterus - ENT Exam ENT Exam: Mucous Membranes Dry, Normal External Ear Exam, Normal Oropharynx - Neck Exam Neck exam: Negative for: Lymphadenopathy, Thyromegaly - Respiratory Exam Respiratory Exam: Decreased Breath Sounds, Rales, Rhonchi - Cardiovascular Exam Cardiovascular Exam: Tachycardia, REGULAR RHYTHM, +S1, +S2 - GI/Abdominal Exam GI & Abdominal Exam: Diminished Bowel Sounds, Soft. absent: Tenderness - Rectal Exam Rectal Exam: Deferred - Exam Exam: NORMAL INSPECTION - Extremities Exam Extremities exam: Positive for: pedal pulses present. Negative for: calf tenderness, pedal edema, tenderness - Back Exam Back exam: absent: CVA tenderness (L), CVA tenderness (R), paraspinal tenderness - Neurological Exam Neurological exam: Altered - Psychiatric Exam Psychiatric exam: Depressed - Skin Skin Exam: Dry Results - Vital Signs Recent Vital Signs: Last Vital Signs Temp 97.1 F L 11/29/16 07:35 Pulse 57 L 11/29/16 07:35 Resp 18 11/29/16 07:35 BP 92/58 L 11/29/16 07:35 Pulse Ox 98 11/29/16 07:35 - Labs Result Diagrams: 11/29/16 07:56 11/29/16 07:56 Labs: Laboratory Results - last 24 hr 11/28/16 11/28/16 11/29/16 19:15 20:31 01:02 WBC RBC Hgb Hct MCV MCH MCHC RDW Plt Count MPV Neut % (Auto) Lymph % (Auto) Lamar % (Auto) Eos % (Auto) Baso % (Auto) Neut # Lymph # Lamar # Eos # Baso # Puncture Site Lra pCO2 42 pO2 120 H HCO3 20.2 L ABG pH 7.29 L ABG Total CO2 21.5 L ABG O2 Saturation 99.8 H ABG Base Excess -6.1 L Eddie Test Pos ABG Potassium 3.4 L Sodium 160.0 H* Chloride 133.0 H Glucose 151 H Lactate 1.4 Liter Flow 3.0 Crit Value Called To Dr kolton mc Crit Value Called By Isacc reddy Crit Value Read Back Y Blood Gas Notified Time 1924 Potassium Carbon Dioxide Anion Gap BUN Creatinine Est GFR ( Amer) Est GFR (Non-Af Amer) POC Glucose (mg/dL) 228 H Random Glucose Calcium Phosphorus Magnesium Total Bilirubin AST ALT Alkaline Phosphatase Total Creatine Kinase 281 H CK-MB (Mass) 2.33 Troponin I, Quant < 0.0120 Total Protein Albumin Globulin Albumin/Globulin Ratio Procalcitonin 0.10 L TSH 3rd Generation Arterial Blood Potassium 3.4 L Urine Osmolality Ur Random Sodium Stool Leukocytes, Qual C. difficile Ag & Toxin 11/29/16 11/29/16 11/29/16 06:38 07:56 08:10 WBC 7.1 RBC 3.24 L Hgb 10.0 L D Hct 31.3 L MCV 96.6 MCH 30.8 MCHC 31.9 L RDW 15.8 H Plt Count 156 MPV 10.8 Neut % (Auto) 63.5 Lymph % (Auto) 25.5 Lamar % (Auto) 5.5 Eos % (Auto) 5.0 H Baso % (Auto) 0.5 Neut # 4.5 Lymph # 1.8 Lamar # 0.4 Eos # 0.4 Baso # 0.0 Puncture Site pCO2 pO2 HCO3 ABG pH ABG Total CO2 ABG O2 Saturation ABG Base Excess Eddie Test ABG Potassium Sodium 154 H Chloride 127 H Glucose Lactate Liter Flow Crit Value Called To Crit Value Called By Crit Value Read Back Blood Gas Notified Time Potassium 3.1 L Carbon Dioxide 18 L Anion Gap 12 BUN 50 H Creatinine 0.7 Est GFR ( Amer) > 60 Est GFR (Non-Af Amer) > 60 POC Glucose (mg/dL) 128 H Random Glucose 99 Calcium 6.2 L Phosphorus 3.0 Magnesium 2.0 Total Bilirubin 0.2 AST 33 ALT 68 H D Alkaline Phosphatase 41 Total Creatine Kinase CK-MB (Mass) Troponin I, Quant Total Protein 5.2 L Albumin 2.2 L D Globulin 3.0 Albumin/Globulin Ratio 0.7 L Procalcitonin TSH 3rd Generation 3.24 Arterial Blood Potassium Urine Osmolality Ur Random Sodium Stool Leukocytes, Qual Negative C. difficile Ag & Toxin Negative 11/29/16 11/29/16 11:28 11:57 WBC RBC Hgb Hct MCV MCH MCHC RDW Plt Count MPV Neut % (Auto) Lymph % (Auto) Lamar % (Auto) Eos % (Auto) Baso % (Auto) Neut # Lymph # Lamar # Eos # Baso # Puncture Site pCO2 pO2 HCO3 ABG pH ABG Total CO2 ABG O2 Saturation ABG Base Excess Eddie Test ABG Potassium Sodium Chloride Glucose Lactate Liter Flow Crit Value Called To Crit Value Called By Crit Value Read Back Blood Gas Notified Time Potassium Carbon Dioxide Anion Gap BUN Creatinine Est GFR ( Amer) Est GFR (Non-Af Amer) POC Glucose (mg/dL) 146 H Random Glucose Calcium Phosphorus Magnesium Total Bilirubin AST ALT Alkaline Phosphatase Total Creatine Kinase CK-MB (Mass) Troponin I, Quant Total Protein Albumin Globulin Albumin/Globulin Ratio Procalcitonin TSH 3rd Generation Arterial Blood Potassium Urine Osmolality 742 Ur Random Sodium 60 Stool Leukocytes, Qual C. difficile Ag & Toxin Assessment & Plan - Assessment and Plan (Free Text) Plan: dehydration r/o sepsis hx nephrectomy azotemia advanced OBS hypothyroid cont iv rx , hydration, supportive care
[2016-11-29 15:42] VITALS: RESP 20
--- NOTE | 2016-11-29 18:01 | CT ---
PROCEDURE: CT Abdomen and Pelvis . HISTORY: sepsis, hypotensive COMPARISON: CT abdomen pelvis dated 04/29/2016 TECHNIQUE: Contiguous axial images of the chest, abdomen and pelvi following intravenous injection of approximately 100 cc Visipaque 320 contrast material. Coronal and Sagittal reformats generated. Radiation dose: Total exam DLP = 1168.96 mGy-cm. This CT exam was performed using one or more of the following dose reduction techniques: Automated exposure control, adjustment of the mA and/or kV according to patient size, and/or use of iterative reconstruction technique. FINDINGS: THORAX: Heart size normal. Mild left ventricular hypertrophy No significant pericardial effusion. Coronary artery calcifications. Ascending thoracic aorta measures approximately 2.8 cm and descending thoracic aorta measures approximately 2.1 cm. Three-vessel arch. Pulmonary trunk measures approximately 2.3 cm No significant mediastinal or hilar adenopathy. Air is present throughout of good portion of the esophagus. Mild right basilar atelectasis and or scarring with lesser changes seen in the lingular and middle lobe regions. 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 There also appears to be a fusion anomaly of the L3 segment. Anterior subluxation L4 over L5 with significant degenerative spondylosis. LIVER: Liver exhibits normal size. Moderate diffuse fatty hepatic infiltration. Re- demonstrated are several small low-attenuation foci within the right and left lobes of the liver the largest on the right lobe measuring up to 11.5 mm. Too small characterize though probably represent small cysts or hemangiomas. See go to GALLBLADDER AND BILE DUCTS: Gallbladder is physiologically distended. No evidence of intraluminal gallbladder calculi. PANCREAS: Pancreas is atrophic and fatty replaced. The is mild dilatation of the distal pancreatic duct however no obvious intraluminal gallbladder calculus identified SPLEEN: Unremarkable. No splenomegaly. Few small splenules. . ADRENALS: Unremarkable. KIDNEYS AND URETERS: Absent left kidney likely due to prior nephrectomy however clinical correlation recommended. . There is a small cyst upper pole right kidney measuring approximately 16 mm BLADDER: Urinary bladder is incompletely distended which may account for thick-walled appearance. Rule out cystitis REPRODUCTIVE: Status post hysterectomy APPENDIX: No evidence of acute appendicitis BOWEL: Evaluation of the bowel is limited due to the lack of oral contrast material. In situ gastric PEG tube. . Visualized loops of small bowel exhibit normal contour and caliber. No evidence acute mechanical small bowel obstruction. Large amount of stool is present within the sigmoid and rectum consistent with fecal retention/ constipation there are scattered colonic diverticula however no radiographic evidence of acute diverticulitis PERITONEUM: Unremarkable. No fluid collection. No free air. LYMPH NODES: Unremarkable. No enlarged lymph nodes. VASCULATURE: Calcified atherosclerotic plaque seen along the abdominal aorta and iliac arteries the. No aortic aneurysm. BONES: No fracture or destructive lesion. OTHER FINDINGS: None. IMPRESSION: Mild bibasilar atelectasis and/or scarring changes CT right greater than left. Mild fatty hepatic infiltration. Multiple low-attenuation foci scattered throughout the hepatic parenchyma on as above. In situ PEG tube. Absent left kidney possibly due to nephrectomy however clinical correlation recommended. Small cyst right kidney Congenital vertebral body anomalies. Degenerative spondylosis L4-L5 level as above.
--- NOTE | 2016-11-29 21:53 | CON ---
DATE: 11/29/2016 The patient is located in room 662, bed B. REQUESTING PHYSICIAN: Dr. Sarahi Juan REASON FOR RENAL CONSULTATION: Hyponatremia and acute renal failure, dehydration. HISTORY OF PRESENT ILLNESS: The patient is an 86-year-old elderly female with a past medical history significant for Alzheimer dementia, hypertension, hyperlipidemia, and hypothyroidism, resident of [facility] for the last 7 years, history of questionable CVA in the past, on PEG feeding for the last 7 months, bedbound, who was sent from the [facility] after her daughter noticing patient was having shortness of breath. Unable to get any history from the patient and chart reviewed and history obtained from the review of the chart and from the patient's daughter at bedside. The patient is nonverbal and bedridden all the time. The patient is not in acute distress. No history of vomiting. No history of swelling of the legs. PAST MEDICAL HISTORY: Significant for Alzheimer dementia, hypertension, hyperlipidemia and single functioning kidney, hypothyroidism and resident of [facility], questionable CVA, no history of coronary artery disease. PAST SURGICAL HISTORY: Status post PEG tube placement about 7 months ago. ALLERGIES: No known drug allergies. SOCIAL HISTORY: No smoking, no alcohol, no drugs. Resident of [facility]. FAMILY HISTORY: Not significant. CURRENT MEDICATIONS: Include, as follows: Aricept 10 mg daily and Crestor 5 mg at bedtime and subQ heparin 5000 q.8 hours and imipenem with cilastatin 500 mg IV q.6 hours, IV fluids D5 half normal saline with 20 mEq KCl at 70 mL per hour and Protonix 40 mg p.o. daily and Synthroid 125 mcg p.o. daily and vancomycin 500 mg q.12 hours. REVIEW OF SYSTEMS: Significant for shortness of breath and bedridden. Resident of [facility]. Nonverbal. All other review of systems reviewed and are negative. PHYSICAL EXAMINATION: As follows: VITAL SIGNS: Blood pressure this morning 92/58, pulse 57, respiration 18, temperature 97.1, saturation 98%. Height 4 feet 9 inches and weight is 130 pounds. GENERAL: The patient is an 86-year-old elderly female, moderately built, moderately nourished, not in acute distress. HEENT Conjunctivae pink. Sclerae anicteric. The patient is resisting to open her eyes. Pupils appear normal. Unable to open the mouth. NECK: No thyroid enlargement. LUNGS: Symmetric on both sides. Bilateral breath sounds present. No crackles. CARDIOVASCULAR: [place] at the fifth intercostal space midclavicular line. S1 and S2 audible. No murmur or gallop. ABDOMEN: The patient has a PEG tube present. Abdomen is soft, tympanic, no guarding, no rigidity, no hepatosplenomegaly. CENTRAL NERVOUS SYSTEM: The patient is not in acute distress, not responding to verbal stimuli. The patient is moving all extremities for painful stimuli. EXTREMITIES: No cyanosis, no clubbing, no edema. SKIN: Turgor is fair. LABORATORY DATA: Include, as follows: As of 11/28/2016, WBC 9.9, hemoglobin 13.4, hematocrit is 42.5, platelets 234. VBG, pH of 7.43, pCO2 of 45, pO2 of 31 and bicarb is 28.2. Sodium is 159, potassium 5.2, chloride 122, CO2 of 27, BUN 80, creatinine 1.2, and glucose 343 and calcium 8.8, phosphorus 4.5, magnesium 2.9, total bili 0.7, AST 73, ALT 121, alkaline phosphatase 157. Troponin 0.014. Total protein 7.6, albumin is 3.7. Venous blood potassium is 4.6 and TSH is 6.99 and second set of the troponins are 0.012. Corrected sodium on admission was 162. ABG, pH of 7.29 and pCO2 of 42 and pO2 of 120, bicarb is 20.2 and saturation 99.8. As of 11/29/2016, WBC 7.1, hemoglobin 10, hematocrit is 31.3, platelets 156. The sodium is 154, potassium 3.1 and chloride 127, CO2 of 18, BUN 50, creatinine 0.7, and glucose 128. Calcium is 6.2, phosphorus 3.0, magnesium 2.0 and AST 33, ALT 68, alkaline phosphatase 41. Total protein 5.2, albumin is 2.2 and repeat TSH is 3.24. Urinalysis as of 11/28, yellow, hazy, pH of 5, specific gravity 1.023, protein 1+, glucose 3+, ketones trace, blood negative, nitrites negative, bilirubin negative, urobilinogen 2.0, leukocyte esterase negative, WBC 1, RBC 1, bacteria occasional. OTHER LABORATORY DATA: Chest x-ray as of 11/28/2016, minor bibasilar atelectasis. CT of the abdomen, chest and pelvis impression absent left kidney , possibly due to nephrectomy; however, clinical correlation is recommended. Small cyst right kidney and congenital vertebral body anomalies, degenerative spondylosis L4-L5 level. Large amount of stool is present within the sigmoid and rectum consistent with fecal retention or constipation and scattered colonic diverticula. No radiographic evidence of acute diverticulitis. CT of the head, as of 11/28/2016, CT of the head impression, extensive diffuse and low attenuation changes extending from the periventricular into the deep and subcortical white matter of both cerebral hemispheres, significant dilatation of the lateral and third ventricles with relatively normal appearing fourth ventricle. Findings may represent extensive chronic white matter ischemic changes with severe dilatation of the ventricular system. The possibility of gliosis from chronic transependymal edema related to the longstanding obstructive hydrocephalus to be considered as well as normal pressure hydrocephalus. if Clinical triad of dementia, ataxia and incontinence present. SUMMARY: The patient is an 86-year-old elderly female with a history of hypertension, hyperlipidemia, hypothyroidism, dementia, resident of [facility] for the last 7 years. Was admitted with shortness of breath and found to have increased BUN and creatinine and also increased serum sodium. Corrected sodium was 164 on admission. 1. Hyponatremia, most likely secondary to intravascular volume depletion secondary to dehydration. 2. Acute renal failure. Picture consistent with acute renal failure and prerenal azotemia secondary to intravascular depletion. 3. Hypertension. 4. Hypothyroidism. 5. Dementia. 6. Hypokalemia. PLAN: Continue IV fluids D5W with half normal saline at 20 mEq KCl at 70-80 mL per hour. Continue D5W half normal saline with KCl and repeat BMP and magnesium level in a.m. Overall prognosis is guarded. Case discussed with the patient's family and attending, Dr. Sarahi Juan. Thank you for allowing me to participate in your patient's care. Rosario Andres MD cc: [id number] TT: 11/29/2016 21:52:07 Confirmation # [id number] Dictation # [id number] [facility] Center[facility]uel
[2016-11-30] MEDS: Levothyroxine 125 MCG TAB PO SCH (06:04)
[2016-11-30] MEDS: Vancomycin 500mg/D5W 100 ml 100 ML IVPB SCH ×2 (07:30→18:00)
[2016-11-30 07:36] LABS: FREE T4 0.84 ng/dL (0.78-2.19)
[2016-11-30] MEDS: Vitamin B Complex/Vitamin C Tab PO SCH (11:37)
[2016-11-30] MEDS: Pantoprazole 40 mg EC Tab PO SCH (11:37)
--- NOTE | 2016-11-30 12:02 | CP.PCM.PN ---
Subjective - Date & Time of Evaluation Date of Evaluation: 11/30/16 Time of Evaluation: 08:00 - Subjective Subjective: weak, bedridden, unresponsive congestwed Objective - Vital Signs/Intake and Output Vital Signs (last 24 hours): Temp Pulse Resp BP Pulse Ox 98.4 F 70 20 112/80 98 11/30/16 07:02 11/30/16 07:30 11/30/16 07:02 11/30/16 07:02 11/30/16 07:02 Intake and Output: 11/30/16 11/30/16 06:59 18:59 Intake Total 1510 Output Total 400 Balance 1110 - Medications Medications: Current Medications Donepezil HCl (Aricept) 10 mg PO DAILY [facility] Last Admin: 11/30/16 11:37 Dose: 10 mg Heparin Sodium (Porcine) (Heparin) 5,000 units SC Q8 [facility] Last Admin: 11/30/16 06:02 Dose: 5,000 units Vancomycin HCl/Dextrose (Vancocin) 100 mls @ 67 mls/hr IVPB Q12H [facility] Stop: 12/03/16 19:01 Last Admin: 11/30/16 07:30 Dose: 67 mls/hr Imipenem/Cilastatin Sodium 500 (mg/ Sodium Chloride) 100 mls @ 100 mls/hr IVPB Q6H [facility] Last Admin: 11/30/16 00:40 Dose: 100 mls/hr Sodium Chloride (Sodium Chloride 0.45%) 1,000 mls @ 100 mls/hr IV .Q10H [facility] Last Admin: 11/29/16 10:35 Dose: Not Given Potassium Chloride/Dextrose/Sod Cl (Potassium Chl 20 Meq In D5-1/2ns) 1,000 mls @ 70 mls/hr IV .[id number] [facility] Last Admin: 11/29/16 14:59 Dose: 70 mls/hr Levothyroxine Sodium (Synthroid) 125 mcg PO DAILY@0630 [facility] Last Admin: 11/30/16 06:04 Dose: 125 mcg Pantoprazole Sodium (Protonix Ec Tab) 40 mg PO DAILY [facility] Last Admin: 11/30/16 11:37 Dose: 40 mg Rosuvastatin Calcium (Crestor) 5 mg PO HS [facility] Last Admin: 11/29/16 22:03 Dose: 5 mg Vitamin B Complex/Vitamin C (Berocca) 1 tab PO DAILY [facility] Last Admin: 11/30/16 11:37 Dose: 1 tab - Labs Labs: 11/29/16 07:56 11/29/16 07:56 PT 11.3 SECONDS (9.7-12.2) 11/28/16 15:55 INR 1.0 11/28/16 15:55 APTT 28 SECONDS (21-34) 11/28/16 15:55 - Constitutional Appears: Confused, Chronically Ill - Head Exam Head Exam: NORMOCEPHALIC - Eye Exam Eye Exam: PERRL. absent: Scleral icterus - ENT Exam ENT Exam: Mucous Membranes Dry - Neck Exam Neck Exam: absent: Lymphadenopathy - Respiratory Exam Respiratory Exam: Decreased Breath Sounds, Rhonchi - Cardiovascular Exam Cardiovascular Exam: REGULAR RHYTHM, +S1, +S2 - GI/Abdominal Exam GI & Abdominal Exam: Distended, Soft. 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
--- NOTE | 2016-11-30 12:49 | CP.PCM.CON ---
History of Present Illness - History of Present Illness History of Present Illness: Palliative consult requested by Drake SUGGS Reason: Goals of care discussion Patient is a 86 yo female admitted from [facility] where her daughter, who visits daily, noticed patient being SOB. CXR on admission showed minor B/l atelectasis. The sacral wound pressure sore was positive for Gram + Cocci. Patient is on Vanco IV and Primaxin IV. Patient is afebrile, WBC 7.1 today. PMH: advanced Alzheimers, dementia, HTN, PEG, born with one kidney only Soc. Hx: NH resident Fam. Hx unknown Review of Systems - Review of Systems Systems not reviewed;Unavailable: Altered Mental Status Past Patient History - Infectious Disease Hx of Infectious Diseases: None - Past Medical History & Family History Past Medical History?: Yes - Past Social History Smoking Status: Never Smoked - CARDIAC Hx Hypercholesterolemia: Yes Hx Hypertension: Yes - PULMONARY Hx Respiratory Disorders: No - NEUROLOGICAL Hx Alzheimer's Disease: Yes - HEENT Hx HEENT Problems: Yes Hx Cataracts: Yes - RENAL 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) - ENDOCRINE/METABOLIC Hx Hypothyroidism: Yes - HEMATOLOGICAL/ONCOLOGICAL Hx Blood Disorders: No - INTEGUMENTARY Hx Dermatological Problems: No - MUSCULOSKELETAL/RHEUMATOLOGICAL Hx Musculoskeletal Disorders: No Hx Falls: No - GASTROINTESTINAL Hx Gastrointestinal Disorders: Yes (WT LOSS, LOSS OF APPETITE) - GENITOURINARY/GYNECOLOGICAL Hx Genitourinary Disorders: Yes (BORN WITH 1 KIDNEY) - PSYCHIATRIC Hx Psychophysiologic Disorder: Yes Hx Substance Use: No - SURGICAL HISTORY Hx Surgeries: Yes Hx Hysterectomy: Yes Hx Orthopedic Surgery: Yes (LT HAND ) Other/Comment: PEG TUBE INSERTION - ANESTHESIA Hx Anesthesia: Yes Hx Anesthesia Reactions: No Hx Malignant Hyperthermia: No Meds Allergies/Adverse Reactions: Allergies Allergy/AdvReac Type Severity Reaction Status Date / Time No Known Allergies Allergy Verified 11/28/16 15:44 - Medications Medications: Current Medications Donepezil HCl (Aricept) 10 mg PO DAILY [facility] Last Admin: 11/30/16 11:37 Dose: 10 mg Heparin Sodium (Porcine) (Heparin) 5,000 units SC Q8 [facility] Last Admin: 11/30/16 06:02 Dose: 5,000 units Vancomycin HCl/Dextrose (Vancocin) 100 mls @ 67 mls/hr IVPB Q12H [facility] Stop: 12/03/16 19:01 Last Admin: 11/30/16 07:30 Dose: 67 mls/hr Imipenem/Cilastatin Sodium 500 (mg/ Sodium Chloride) 100 mls @ 100 mls/hr IVPB Q6H [facility] Last Admin: 11/30/16 00:40 Dose: 100 mls/hr Sodium Chloride (Sodium Chloride 0.45%) 1,000 mls @ 100 mls/hr IV .Q10H [facility] Last Admin: 11/29/16 10:35 Dose: Not Given Potassium Chloride/Dextrose/Sod Cl (Potassium Chl 20 Meq In D5-1/2ns) 1,000 mls @ 70 mls/hr IV .[id number] [facility] Last Admin: 11/29/16 14:59 Dose: 70 mls/hr Levothyroxine Sodium (Synthroid) 125 mcg PO DAILY@0630 [facility] Last Admin: 11/30/16 06:04 Dose: 125 mcg Pantoprazole Sodium (Protonix Ec Tab) 40 mg PO DAILY [facility] Last Admin: 11/30/16 11:37 Dose: 40 mg Rosuvastatin Calcium (Crestor) 5 mg PO HS [facility] Last Admin: 11/29/16 22:03 Dose: 5 mg Vitamin B Complex/Vitamin C (Berocca) 1 tab PO DAILY [facility] Last Admin: 11/30/16 11:37 Dose: 1 tab Physical Exam - Constitutional Appears: Chronically Ill - Head Exam Head Exam: ATRAUMATIC, NORMAL INSPECTION, NORMOCEPHALIC - Eye Exam Eye Exam: EOMI, Normal appearance, PERRL Pupil Exam: NORMAL ACCOMODATION - ENT Exam ENT Exam: Mucous Membranes Dry, Normal Exam - Respiratory Exam Respiratory Exam: Decreased Breath Sounds, NORMAL BREATHING PATTERN - Cardiovascular Exam Cardiovascular Exam: REGULAR RHYTHM, +S1, +S2 - GI/Abdominal Exam GI & Abdominal Exam: Normal Bowel Sounds Additional comments: PEG - Rectal Exam Rectal Exam: Deferred - Exam Additional comments: Incontinent - Extremities Exam Additional comments: pressure sore to B/L heels, stage 1 to 2, Limited ROM to all extremities - Back Exam Back exam: NORMAL INSPECTION Additional comments: Sacral pressure sore - Neurological Exam Neurological exam: Alert, Motor Sensory Deficit - Psychiatric Exam Psychiatric exam: Flat Affect - Skin Skin Exam: Normal Color Additional comments: Sacral pressure sore Results - Vital Signs Recent Vital Signs: Last Vital Signs Temp 98.4 F 11/30/16 07:02 Pulse 70 04/24/17 11:48 Resp 20 11/30/16 07:02 BP 112/80 11/30/16 07:02 Pulse Ox 98 11/30/16 11:48 - Labs Result Diagrams: 11/29/16 07:56 11/29/16 07:56 Labs: Laboratory Results - last 24 hr 11/29/16 11/29/16 11/29/16 07:56 17:03 20:57 POC Glucose (mg/dL) 159 H 172 H Hemoglobin A1c 8.1 H Serum Osmolality Free T4 Vancomycin Trough C. difficile Ag & Toxin 11/30/16 11/30/16 11/30/16 00:36 06:40 06:41 POC Glucose (mg/dL) 242 H 279 H Hemoglobin A1c Serum Osmolality 328 H Free T4 0.84 Vancomycin Trough 14.9 H C. difficile Ag & Toxin 11/30/16 11/30/16 08:00 11:46 POC Glucose (mg/dL) 326 H Hemoglobin A1c Serum Osmolality Free T4 Vancomycin Trough C. difficile Ag & Toxin Negative Assessment & Plan - Assessment and Plan (Free Text) Assessment: Palliative consult Code status DNR/DNI as per face sheet from [place], but no supporting document on chart. PPS 10%. ROS unobtained due to AMS. I reviewed medical records, all diagnostic studies, examined patient in the bed and discussed goals of care with her daughter at bed side. ROS obtained frm the daughter. Patient is alert, reacting to touch, keeps eyes closed and is non verbal. Patient is not fallowing commends. Skin is pale, Hb 10.0 from 13.4 on admission. sacral presure sore infected with Gram + Cocci. patient is afebrile. patient resumes favorable position in bed and needs max assistance with repositioning. There is mild contraction of right hand. There is a foot droop. Right heel with DTI dry dressing. Left heel soft and tender to touch with DTI. Absent active ROM, some resistance with passive ROM. PEG in place, patient is not taking PO intake. Patient's daughter is very concerned with her mother's over all being , especially with sacral pressure sore. She understands her mother's complex Past medical Hx and is very rational with her expectations. Daughter wants all possible comfort provided for her mother and to allow her natural when her time comes. Daughter stated that she " signed some papers at [place]" , but did not know the name of it. She fully understands the DNR meaning and I assisted her with completing the POLST form calling for DNR/DNI. The daughter also wanted ICU to be avoided. Impression * Chronically ill patient with significantly destroyed quality of life due to advanced chronic disease * Daughter Marcus is very involved with care and concerned with mother's comfort * Daughter advocates for promotion of Natural without use of aggressive measures and would want us to avoid ICU care * Patient's profile from [place] indicate DNR/DNI with out supporting documents * Code status discussed again with daughter and DNR/DNI signed * Infected sacral pressure sore Suggestion * Agree with DNR/DNI * Would initiated Passive ROM Q shift to each extremity X 5 set each * Avoid pressure to sacral area, reposition to sides using wedge, Q 2 hr * Refer to wound nurse * Off load B/L heels * Aspiration precautions Thank you for consulting Palliative care. I will continue to fallow up with this patient on as needed basis.
--- NOTE | 2016-11-30 15:46 | CARD ---
APPROVED REPORT EXAM: Two-dimensional and M-mode echocardiogram with Doppler and color Doppler. Other Information Quality : LimitedRhythm : NSR INDICATION Dyspnea RISK FACTORS Hypertension Hyperlipidemia Diabetes M-Mode DIMENSIONS RVDd0.96 (2.1-3.2cm)Left Atrium (MM)3.12 (2.5-4.0cm) IVSd1.18 (0.7-1.1cm)Aortic Root2.73 (2.2-3.7cm) LVDd4.54 (4.0-5.6cm)Aortic Cusp Exc.1.64 (1.5-2.0cm) PWd0.96 (0.7-1.1cm)FS (%) 35 % LVDs2.95 (2.0-3.8cm)LVEF (%)64 (>50%) Aortic Valve AoV Peak Oxtzljml26.4cm/Neena Peak GR.3mmHg Mitral Valve MV E Mhlzhqwq64.9cm/sMV A Mlqxhzkk748.6cm/sE/A ratio0.7 TDI E/Lateral E'0.0E/Medial E'0.0 Tricuspid Valve TR Peak Cvelwrta741cg/sTR Peak Gr.[id number] LEFT VENTRICLE The left ventricle is normal size. There is borderline concentric left ventricular hypertrophy. The left ventricular function is normal. The left ventricular ejection fraction is within the normal range. There is normal LV segmental wall motion. Transmitral Doppler flow pattern is Grade I-abnormal relaxation pattern. RIGHT VENTRICLE The right ventricle is normal size. The right ventricle is mildly hypertrophied. The right ventricular systolic function is normal. ATRIA The left atrium size is normal. The right atrium size is normal. AORTIC VALVE The aortic valve is not well visualized. MITRAL VALVE There is no evidence of mitral valve prolapse. TRICUSPID VALVE There is mild to moderate pulmonary hypertension. GREAT VESSELS The aortic root is normal in size. The IVC is dilated. PERICARDIAL EFFUSION There is a trace loculated anterior pericardial effusion. <Conclusion> Poor Echo window The left ventricle is normal size. There is borderline concentric left ventricular hypertrophy. The left ventricular function is normal. The left ventricular ejection fraction is within the normal range. Transmitral Doppler flow pattern is Grade I-abnormal relaxation pattern. There is mild to moderate pulmonary hypertension.
[2016-11-30] MEDS ORDERED: Vitamins A & D Oint UD Foilpak TOP PRN (16:54)
--- NOTE | 2016-11-30 18:07 | CARD ---
APPROVED REPORT EKG Measurement Heart [id number] OK [id number] <Conclusion> Poor data quality, interpretation may be adversely affected Normal sinus rhythm Low voltage QRS Prolonged QT Abnormal ECG
--- NOTE | 2016-11-30 18:29 | CP.PCM.PN ---
<Jadon Lawler - Last Filed: 11/30/16 18:27> Subjective - Date & Time of Evaluation Date of Evaluation: 11/30/16 Time of Evaluation: 09:40 - Subjective Subjective: 86 year old female with a history of alziemer's dementia, HTN, HLD, nephrectomy , and hypothyroidism is here from the residential because her daughter noticed she was very short of breath. She is non verbal but seems to be in breathing comfortable. She responds to painful stimuli and withdraws to pain. However a ROS was unobtainable. Objective - Vital Signs/Intake and Output Vital Signs (last 24 hours): Temp Pulse Resp BP Pulse Ox 98.5 F 63 20 106/55 L 100 11/30/16 15:00 11/30/16 15:47 11/30/16 15:00 11/30/16 15:00 11/30/16 15:00 Intake and Output: 11/30/16 11/30/16 06:59 18:59 Intake Total 1510 Output Total 400 Balance 1110 - Medications Medications: Current Medications Donepezil HCl (Aricept) 10 mg PO DAILY [facility] Last Admin: 11/30/16 11:37 Dose: 10 mg Heparin Sodium (Porcine) (Heparin) 5,000 units SC Q8 [facility] Last Admin: 11/30/16 14:00 Dose: Not Given Vancomycin HCl/Dextrose (Vancocin) 100 mls @ 67 mls/hr IVPB Q12H [facility] Stop: 12/03/16 19:01 Last Admin: 11/30/16 18:00 Dose: 67 mls/hr Imipenem/Cilastatin Sodium 500 (mg/ Sodium Chloride) 100 mls @ 100 mls/hr IVPB Q6H [facility] Last Admin: 11/30/16 17:57 Dose: 100 mls/hr Sodium Chloride (Sodium Chloride 0.45%) 1,000 mls @ 100 mls/hr IV .Q10H [facility] Last Admin: 11/29/16 10:35 Dose: Not Given Levothyroxine Sodium (Synthroid) 125 mcg PO DAILY@0630 [facility] Last Admin: 11/30/16 06:04 Dose: 125 mcg Pantoprazole Sodium (Protonix Ec Tab) 40 mg PO DAILY [facility] Last Admin: 11/30/16 11:37 Dose: 40 mg Rosuvastatin Calcium (Crestor) 5 mg PO HS [facility] Last Admin: 11/29/16 22:03 Dose: 5 mg Vitamin A (Vitamin A & D Oint Ud Foilpak) 0.5 ea TOP Q4 PRN PRN Reason: Dry mouth Vitamin B Complex/Vitamin C (Berocca) 1 tab PO DAILY [facility] Last Admin: 11/30/16 11:37 Dose: 1 tab - Labs Labs: 11/29/16 07:56 11/29/16 07:56 PT 11.3 SECONDS (9.7-12.2) 11/28/16 15:55 INR 1.0 11/28/16 15:55 APTT 28 SECONDS (21-34) 11/28/16 15:55 - Constitutional Appears: No Acute Distress - Head Exam Head Exam: ATRAUMATIC - ENT Exam ENT Exam: Mucous Membranes Moist - Respiratory Exam Respiratory Exam: Wheezes, NORMAL BREATHING PATTERN - Cardiovascular Exam Cardiovascular Exam: REGULAR RHYTHM, RRR, +S1, +S2. absent: JVD - GI/Abdominal Exam GI & Abdominal Exam: Soft, Normal Bowel Sounds. absent: Tenderness - Extremities Exam Extremities Exam: Joint Swelling. absent: Pedal Edema - Neurological Exam Neurological Exam: Altered - Skin Skin Exam: Dry, Intact, Normal Color, Warm Assessment and Plan - Assessment and Plan (Free Text) Plan: (1) Sepsis Assessment and Plan: * Patient is [facility] [place] [facility]. She was given IV antibiotics in the ED and IV fluids. She had a fever and is also hypotensive and tachypenic. Will need to find the source of the infection, ordered CT of the chest/abdomen/pelvis with IV contrast, which is pending. * Blood cultures (11/28) No growth 24hrs * Urine culture (11/28): no growth * Ova and parasite: negative * Wound culture (Sacral): gram + cocci * Chest xray (11/29/16): poor inspiration with low lung volumes, mild crowded bronchovascular markings and mild bibasilar atelectasis * Chest xray (11/28/16): minor bibasilar atelectasis * Procalcitonin: 0.10 (low) * D51/2 NS 70 cc/hr * ID Consult -Dr. 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 Significant dilatation of the lateral and 3rd ventricles with relatively normal appearing 4th ventricle~may represent extensive chronic white matter ischemic changes w severe ex vacuo dilatation of the ventricular system (more in further report) * No prior to compare to, followed up with [facility] and no other imaging was obtainable (3) Hypernatremia Assessment and Plan: * Nephrology (Dr. Javier) on board -likely 2/2 to dehydration -D5 1/2 NS 100 cc/hr -prerenal azotemia/CAITLYN -monitor sodium Status: Acute (4) History of nephrectomy, unilateral Status: Chronic * monitor BUN/Cr while on Vancomycin * Vanco trough level 14.9 high (6) Dementia in Alzheimer's disease Assessment and Plan: * Daughter reports the pt. is currently at baseline and has been non verbal for 6 years -Pt. is starting to mumble now * Aricept 10mg PO daily Status: Chronic (7) Hypothyroidism Assessment and Plan: * TSH is 6.99, follow up free T4-->.84 normal * Synthroid 125mcg PO qAM Status: Chronic (8) Diabetes mellitus Assessment and Plan: * Gkesmqjptdy3h 8.1 high * started glipizide since patient on PEG feedings * Patient restarted feedings today;Diabetisource started at 20cc/hr with increase of 5cc/hr monitor residual; goal is 45cc/hr * off sliding scale * accuchecks QAC and HS Status: Chronic (9) Hyperlipidemia Assessment and Plan: * Crestor 5mg POqHS * Order for fasting lipid panel Status: Acute (10) Prophylactic measure Assessment and Plan: * Protonix 40mg IVP * Heparin 5000 untis sc q8h * scds b/l * reposition every 2 hours, will need to look for pressure ulcers * Wound care for possible stage 2 sacral ulcer * Palliative care consult * DNR/DNI * Guerra inserted * monitor intake and outputs <Marco Crews M - Last Filed: 12/01/16 16:31> Objective - Vital Signs/Intake and Output Vital Signs (last 24 hours): Temp Pulse Resp BP Pulse Ox 98.3 F 68 20 124/73 100 12/01/16 07:51 12/01/16 07:51 12/01/16 07:51 12/01/16 07:51 12/01/16 07:51 Intake and Output: 12/01/16 12/01/16 06:59 18:59 Intake Total 1320 Output Total 1025 Balance 295 - Medications Medications: Current Medications Donepezil HCl (Aricept) 10 mg PO DAILY [facility] Last Admin: 12/01/16 10:21 Dose: 10 mg Glipizide (Glucotrol) 2.5 mg PEG BID [facility] Last Admin: 12/01/16 10:21 Dose: 2.5 mg Heparin Sodium (Porcine) (Heparin) 5,000 units SC Q8 [facility] Last Admin: 12/01/16 14:00 Dose: Not Given Vancomycin HCl/Dextrose (Vancocin) 100 mls @ 67 mls/hr IVPB Q12H [facility] Stop: 12/03/16 19:01 Last Admin: 11/30/16 18:00 Dose: 67 mls/hr Imipenem/Cilastatin Sodium 500 (mg/ Sodium Chloride) 100 mls @ 100 mls/hr IVPB Q6H [facility] Last Admin: 12/01/16 12:30 Dose: 100 mls/hr Levothyroxine Sodium (Synthroid) 125 mcg PO DAILY@0630 [facility] Last Admin: 12/01/16 06:15 Dose: 125 mcg Pantoprazole Sodium (Protonix Ec Tab) 40 mg PO DAILY [facility] Last Admin: 12/01/16 10:21 Dose: 40 mg Rosuvastatin Calcium (Crestor) 5 mg PO HS [facility] Last Admin: 11/30/16 22:03 Dose: 5 mg Vitamin A (Vitamin A & D Oint Ud Foilpak) 0.5 ea TOP Q4 PRN PRN Reason: Dry mouth Last Admin: 11/30/16 22:03 Dose: 0.5 ea Vitamin B Complex/Vitamin C (Berocca) 1 tab PO DAILY [facility] Last Admin: 12/01/16 10:21 Dose: 1 tab - Labs Labs: 12/01/16 06:30 12/01/16 06:47 PT 11.3 SECONDS (9.7-12.2) 11/28/16 15:55 INR 1.0 11/28/16 15:55 APTT 28 SECONDS (21-34) 11/28/16 15:55 Attending/Attestation - Attestation I have personally seen and examined this patient.: Yes I have fully participated in the care of the patient.: Yes I have reviewed all pertinent clinical information, including history, physical exam and plan: Yes Notes (Text): 12/01/16 16:31 Patient was seen and examined at bedside with the resident I discussed the plan of care with the resident. Agree with the above-mentioned physical and assessment/plan by the resident.
[2016-11-30] MEDS ORDERED: GlipiZIDE 2.5 mg Tab PEG SCH ×2 (18:45→18:51)
--- NOTE | 2016-11-30 19:33 | CP.PCM.PN ---
Subjective - Date & Time of Evaluation Date of Evaluation: 11/30/16 Time of Evaluation: 19:33 - Subjective Subjective: pt seen and examined, follow up consult is dictated #[id number] c/w ivf bmp in am Objective - Vital Signs/Intake and Output Vital Signs (last 24 hours): Temp Pulse Resp BP Pulse Ox 98.5 F 63 20 106/55 L 100 11/30/16 15:00 11/30/16 15:47 11/30/16 15:00 11/30/16 15:00 11/30/16 15:00 - Medications Medications: Current Medications Donepezil HCl (Aricept) 10 mg PO DAILY [facility] Last Admin: 11/30/16 11:37 Dose: 10 mg Glipizide (Glucotrol) 2.5 mg PEG BID [facility] Heparin Sodium (Porcine) (Heparin) 5,000 units SC Q8 [facility] Last Admin: 11/30/16 14:00 Dose: Not Given Vancomycin HCl/Dextrose (Vancocin) 100 mls @ 67 mls/hr IVPB Q12H [facility] Stop: 12/03/16 19:01 Last Admin: 11/30/16 18:00 Dose: 67 mls/hr Imipenem/Cilastatin Sodium 500 (mg/ Sodium Chloride) 100 mls @ 100 mls/hr IVPB Q6H [facility] Last Admin: 11/30/16 17:57 Dose: 100 mls/hr Sodium Chloride (Sodium Chloride 0.45%) 1,000 mls @ 100 mls/hr IV .Q10H [facility] Last Admin: 11/29/16 10:35 Dose: Not Given Levothyroxine Sodium (Synthroid) 125 mcg PO DAILY@0630 [facility] Last Admin: 11/30/16 06:04 Dose: 125 mcg Pantoprazole Sodium (Protonix Ec Tab) 40 mg PO DAILY [facility] Last Admin: 11/30/16 11:37 Dose: 40 mg Rosuvastatin Calcium (Crestor) 5 mg PO HS [facility] Last Admin: 11/29/16 22:03 Dose: 5 mg Vitamin A (Vitamin A & D Oint Ud Foilpak) 0.5 ea TOP Q4 PRN PRN Reason: Dry mouth Vitamin B Complex/Vitamin C (Berocca) 1 tab PO DAILY [facility] Last Admin: 11/30/16 11:37 Dose: 1 tab - Labs Labs: 11/29/16 07:56 11/29/16 07:56 PT 11.3 SECONDS (9.7-12.2) 11/28/16 15:55 INR 1.0 11/28/16 15:55 APTT 28 SECONDS (21-34) 11/28/16 15:55
[2016-11-30 19:36] LABS: BASO % 0.7 % (0.0-2.0); EOS # 0.3 K/uL (0.0-0.7); HEMATOCRIT 30.7 % (34.0-47.0); LYMPH # 1.3 K/uL (1.0-4.3); LYMPH % 22.1 % (20.0-40.0); MEAN CELL VOLUME 95.2 fL (81.0-99.0); MEAN CORPUSCULAR HEMOGLOBIN 30.9 pg (27.0-31.0); MEAN CORPUSCULAR HGB CONC 32.5 g/dL (33.0-37.0); MEAN PLATELET VOLUME 10.6 fL (7.2-11.7); MONO # 0.4 K/uL (0.0-0.8); RED CELL DISTRIBUTION WIDTH 15.3 % (11.5-14.5); WHITE BLOOD COUNT 5.8 K/uL (4.8-10.8)
[2016-11-30 19:44] LABS: CHLORIDE 121 mmol/L (98-107)
[2016-11-30 19:45] LABS: POTASSIUM 3.8 mmol/L (3.6-5.2); SODIUM 147 mmol/L (132-148)
[2016-11-30 19:47] LABS: ALB/GLOB RATIO 0.8 (1.0-2.1); ALKALINE PHOSPHATASE 54 U/L (38-126); AST/SGOT 25 U/L (14-36); BILIRUBIN,TOTAL 0.2 mg/dL (0.2-1.3); BLOOD UREA NITROGEN 21 mg/dL (7-17); CARBON DIOXIDE 21 mmol/L (22-30); GFR AFRICAN-AMERICAN > 60; TOTAL PROTEIN 5.4 g/dL (6.3-8.3)
[2016-11-30 19:48] LABS: ALT/SGPT 44 U/L (9-52); CALCIUM 6.4 mg/dl (8.6-10.4); GLUCOSE,RANDOM 200 mg/dL (65-105)
--- NOTE | 2016-11-30 23:59 | CON ---
DATE: 11/30/2016 REQUESTING PHYSICIAN: Dr. Sarahi Juan. REASON FOR RENAL CONSULTATION: Acute renal failure, dehydration, hypernatremia. HISTORY OF PRESENT ILLNESS: The patient is an 86-year-old elderly female with a past medical history significant for dementia, hypertension, hyperlipidemia, single functioning kidney, hypothyroidism, and resident of a [facility] for the last 6 to 7 years, status post PEG tube placement about 7 months ago, who was admitted through the Emergency Room with shortness of breath and the patient was found to have hyponatremia and also increased BUN and creatinine. The patient is being hydrated and renal function is improving. The patient opens eyes for painful stimuli. PHYSICAL EXAMINATION: VITAL SIGNS: Blood pressure 106/55, pulse 70, respirations 20, temperature 98.5 , and saturation 100%. Height 4 feet 9 inches and weight is 130 pounds. GENERAL: The patient is an 86-year-old elderly female, moderately built, moderately nourished, not in any distress. HEENT: Conjunctivae pink. Sclerae anicteric. No thyroid enlargement. Trachea is midline. LUNGS: Symmetric on both sides. Bilateral breath sounds present. No crackles. CARDIOVASCULAR: [place] in the fifth intercostal space midclavicular line. S1 and S2 audible. No murmur or gallop. ABDOMEN: Normal in appearance, soft, tympanic. No guarding, no rigidity, no hepatosplenomegaly. CENTRAL NERVOUS SYSTEM: The patient is a very drowsy, tried to open eyes to deep painful stimuli. EXTREMITIES: No cyanosis, no clubbing, no edema. CURRENT MEDICATIONS: Include as follows: Aricept 10 mg daily, Crestor 5 mg p.o. at bedtime, subcutaneous heparin 5000 units q. 8 hours, imipenem with cilastatin 500 mg q. 6 hours, Protonix 40 mg p.o. daily, Synthroid 125 mcg p.o. daily, vancomycin 500 mg q. 12 hours and A and D ointment topical. LABORATORY DATA: Include as follows: As of 11/30/2016, WBC 5.8, hemoglobin 10, hematocrit is 30.7, and platelets 176. Sodium is 147, potassium 3.8, chloride 121, CO2 21, BUN 21, creatinine 0.6, and glucose is 200, total protein 5.4, albumin is 2.4. Alkaline phosphatase is 54, ALT 44, AST 25, total bilirubin 0.2 , calcium is 6.4 and corrected calcium is 7.628. Other laboratory data: Blood culture x 2 negative day 1 and urine culture is negative. Wound culture gram- positive cocci sacral wound, stool for ova and parasites negative. SUMMARY: The patient is an 86-year-old elderly female with a history of hypertension, hyperlipidemia, hypothyroidism, dementia, resident of [facility] for 7 years and bedridden, was admitted with shortness of breath and found to have increased BUN and creatinine and dehydration and acute renal failure. ASSESSMENT AND PLAN: 1. Hyponatremia secondary to intravascular depletion and dehydration. Renal serum sodium is improving gradually. 2. Acute renal failure, picture consistent with prerenal azotemia. Renal function also improving with gentle hydration. 3. Hypertension. Blood pressure is stable. Continue her current medication. 4. Dementia. Continue Aricept. 5. Sacral wound infection, positive for gram-positive cocci. Continue imipenem with cilastatin. Follow up with ID. Thank you for allowing me to participate in your patient's care. Rosario Andres MD cc: [id number] TT: 11/30/2016 23:59:13 Confirmation # [id number] Dictation # [id number] marilynn TREVINO
[2016-12-01] MEDS: Levothyroxine 125 MCG TAB PO SCH (06:15)
[2016-12-01 06:28] LABS: ALB/GLOB RATIO 0.9 (1.0-2.1); ALKALINE PHOSPHATASE 62 U/L (38-126); ALT/SGPT 45 U/L (9-52); AST/SGOT 28 U/L (14-36); BILIRUBIN,TOTAL 0.2 mg/dL (0.2-1.3); BLOOD UREA NITROGEN 16 mg/dL (7-17); CALCIUM 6.9 mg/dl (8.6-10.4); CARBON DIOXIDE 21 mmol/L (22-30); CHLORIDE 120 mmol/L (98-107); GFR AFRICAN-AMERICAN > 60; GLUCOSE,RANDOM 134 mg/dL (65-105); POTASSIUM 3.5 mmol/L (3.6-5.2); SODIUM 148 mmol/L (132-148); TOTAL PROTEIN 5.8 g/dL (6.3-8.3)
[2016-12-01 06:40] LABS: BASO % 0.4 % (0.0-2.0); EOS # 0.3 K/uL (0.0-0.7); EOS % 4.9 % (0.0-4.0); HEMATOCRIT 33.8 % (34.0-47.0); LYMPH # 1.3 K/uL (1.0-4.3); LYMPH % 21.8 % (20.0-40.0); MEAN CELL VOLUME 94.3 fL (81.0-99.0); MEAN CORPUSCULAR HEMOGLOBIN 30.4 pg (27.0-31.0); MEAN CORPUSCULAR HGB CONC 32.3 g/dL (33.0-37.0); MONO # 0.4 K/uL (0.0-0.8); MONO % 7.1 % (0.0-10.0); RED CELL DISTRIBUTION WIDTH 15.3 % (11.5-14.5); WHITE BLOOD COUNT 6.1 K/uL (4.8-10.8)
--- NOTE | 2016-12-01 09:52 | RAD ---
HISTORY: congestion COMPARISON: 11/29/2016 FINDINGS: LUNGS: Elevated right hemidiaphragm. Mild venous congestion. Biapical pleural thickening with upper lobe granulomatous changes. PLEURA: No significant pleural effusion identified, no pneumothorax apparent. CARDIOVASCULAR: Tortuous ectatic aorta. Calcification at the aortic knob. OSSEOUS STRUCTURES: No significant abnormalities. VISUALIZED UPPER ABDOMEN: Normal. OTHER FINDINGS: None. IMPRESSION: Elevated right hemidiaphragm. Mild venous congestion. Biapical pleural thickening with upper lobe granulomatous changes.
--- NOTE | 2016-12-01 10:14 | CP.PCM.PN ---
Subjective - Date & Time of Evaluation Date of Evaluation: 12/01/16 Time of Evaluation: 06:20 Objective - Vital Signs/Intake and Output Vital Signs (last 24 hours): Temp Pulse Resp BP Pulse Ox 98.3 F 68 20 124/73 100 12/01/16 07:51 12/01/16 07:51 12/01/16 07:51 12/01/16 07:51 12/01/16 07:51 Intake and Output: 12/01/16 12/01/16 06:59 18:59 Intake Total 1320 Output Total 1025 Balance 295 - Medications Medications: Current Medications Donepezil HCl (Aricept) 10 mg PO DAILY FORMERLY [facility], [facility] Last Admin: 11/30/16 11:37 Dose: 10 mg Glipizide (Glucotrol) 2.5 mg PEG BID [facility], [facility]1983 Heparin Sodium (Porcine) (Heparin) 5,000 units SC Q8 [facility], [facility] Last Admin: 12/01/16 06:15 Dose: 5,000 units Vancomycin HCl/Dextrose (Vancocin) 100 mls @ 67 mls/hr IVPB Q12H [facility], [facility]1983 Stop: 12/03/16 19:01 Last Admin: 11/30/16 18:00 Dose: 67 mls/hr Imipenem/Cilastatin Sodium 500 (mg/ Sodium Chloride) 100 mls @ 100 mls/hr IVPB Q6H [facility], [facility] Last Admin: 12/01/16 06:00 Dose: 100 mls/hr Levothyroxine Sodium (Synthroid) 125 mcg PO DAILY@0630 [facility], [facility] Last Admin: 12/01/16 06:15 Dose: 125 mcg Pantoprazole Sodium (Protonix Ec Tab) 40 mg PO DAILY [facility] Last Admin: 11/30/16 11:37 Dose: 40 mg Potassium Chloride (Potassium Chloride Oral Soln) 20 meq PEG ONCE ONE Stop: 12/01/16 10:16 Rosuvastatin Calcium (Crestor) 5 mg PO HS [facility] Last Admin: 11/30/16 22:03 Dose: 5 mg Vitamin A (Vitamin A & D Oint Ud Foilpak) 0.5 ea TOP Q4 PRN PRN Reason: Dry mouth Last Admin: 11/30/16 22:03 Dose: 0.5 ea Vitamin B Complex/Vitamin C (Berocca) 1 tab PO DAILY [facility] Last Admin: 11/30/16 11:37 Dose: 1 tab - Labs Labs: 12/01/16 06:30 04/25/17 06:47 PT 11.3 SECONDS (9.7-12.2) 11/28/16 15:55 INR 1.0 11/28/16 15:55 APTT 28 SECONDS (21-34) 11/28/16 15:55 - Constitutional Appears: No Acute Distress - Head Exam Head Exam: ATRAUMATIC, NORMOCEPHALIC - Respiratory Exam Respiratory Exam: Wheezes - Cardiovascular Exam Cardiovascular Exam: REGULAR RHYTHM, RRR. absent: JVD - GI/Abdominal Exam GI & Abdominal Exam: Soft, Normal Bowel Sounds - Skin Skin Exam: Dry, Intact, Normal Color, Warm
[2016-12-01] MEDS ORDERED: Potassium Chloride 20 mEq/15 ml LIQ UD PEG ONE (10:15)
[2016-12-01] MEDS: Vitamin B Complex/Vitamin C Tab PO SCH (10:21)
[2016-12-01] MEDS: Pantoprazole 40 mg EC Tab PO SCH (10:21)
[2016-12-01 11:03] LABS: CHLORIDE URINE 40 mmol/L (32-290)
[2016-12-01 16:58] VITALS: BP 123/75; TEMP 97.9
--- NOTE | 2016-12-01 18:13 | CP.PCM.DIS ---
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 Hospital Course - Lab Results Lab Results: Micro Results 11/29/16 12:02 Sacral Gram Stain - Final 11/29/16 12:02 Sacral Wound Culture - Preliminary Enterococcus Faecalis Gram Positive Cocci 11/29/16 08:10 Stool Ova and Parasite Concentrate Exam - Final Most Recent Lab Values WBC 6.1 K/uL (4.8-10.8) 12/01/16 06:30 RBC 3.59 Mil/uL (3.80-5.20) L 12/01/16 06:30 Hgb 10.9 g/dL (11.0-16.0) L 12/01/16 06:30 Hct 33.8 % (34.0-47.0) L 12/01/16 06:30 MCV 94.3 fL (81.0-99.0) 12/01/16 06:30 MCH 30.4 pg (27.0-31.0) 12/01/16 06:30 MCHC 32.3 g/dL (33.0-37.0) L 12/01/16 06:30 RDW 15.3 % (11.5-14.5) H 12/01/16 06:30 Plt Count 189 K/uL (130-400) 12/01/16 06:30 MPV 11.0 fL (7.2-11.7) 12/01/16 06:30 Neut % (Auto) 65.8 % (50.0-75.0) 12/01/16 06:30 Lymph % (Auto) 21.8 % (20.0-40.0) 12/01/16 06:30 [place] % (Auto) 7.1 % (0.0-10.0) 12/01/16 06:30 Eos % (Auto) 4.9 % (0.0-4.0) H 12/01/16 06:30 Baso % (Auto) 0.4 % (0.0-2.0) 12/01/16 06:30 Neut # 4.0 K/uL (1.8-7.0) 12/01/16 06:30 Lymph # 1.3 K/uL (1.0-4.3) 12/01/16 06:30 [place] # 0.4 K/uL (0.0-0.8) 12/01/16 06:30 Eos # 0.3 K/uL (0.0-0.7) 12/01/16 06:30 Baso # 0.0 K/uL (0.0-0.2) 12/01/16 06:30 PT 11.3 SECONDS (9.7-12.2) 11/28/16 15:55 INR 1.0 11/28/16 15:55 APTT 28 SECONDS (21-34) 11/28/16 15:55 Puncture Site Lra 11/28/16 19:15 pCO2 42 mm/Hg (35-45) 11/28/16 19:15 pO2 120 mm/Hg (80-100) H 11/28/16 19:15 HCO3 20.2 mmol/L (21-28) L 11/28/16 19:15 ABG pH 7.29 (7.35-7.45) L 11/28/16 19:15 ABG Total CO2 21.5 mmol/L (22-28) L 11/28/16 19:15 ABG O2 Saturation 99.8 % (95-98) H 11/28/16 19:15 ABG Base Excess -6.1 mmol/L (-2.0-3.0) L 11/28/16 19:15 Eddie Test Pos 11/28/16 19:15 ABG Potassium 3.4 mmol/L (3.6-5.2) L 11/28/16 19:15 VBG pH 7.43 (7.32-7.43) 11/28/16 15:55 VBG pCO2 45 mmHg (40-60) 11/28/16 15:55 VBG HCO3 28.2 mmol/L 11/28/16 15:55 VBG Total CO2 31.3 mmol/L (22-28) H 11/28/16 15:55 VBG O2 Sat (Calc) 82.2 % (40-65) H 11/28/16 15:55 VBG Base Excess 4.8 mmol/L (0.0-2.0) H 11/28/16 15:55 VBG Potassium 4.6 mmol/L (3.6-5.2) 11/28/16 15:55 Sodium 160.0 mmol/l (132-148) H* 11/28/16 19:15 Chloride 133.0 mmol/L (98-107) H 11/28/16 19:15 Glucose 151 mg/dl (65-105) H 11/28/16 19:15 Lactate 1.4 mmol/L (0.7-2.1) 11/28/16 19:15 Liter Flow 3.0 11/28/16 19:15 Crit Value Called To Dr kolton mc 11/28/16 19:15 Crit Value Called By Isacc reddy 11/28/16 19:15 Crit Value Read Back Y 11/28/16 19:15 Blood Gas Notified Time 192411/28/16 19:15 Sodium 148 mmol/L (132-148) 12/01/16 06:47 Potassium 3.5 mmol/L (3.6-5.2) L 12/01/16 06:47 Chloride 120 mmol/L (98-107) H 12/01/16 06:47 Carbon Dioxide 21 mmol/L (22-30) L 12/01/16 06:47 Anion Gap 11 (10-20) 12/01/16 06:47 BUN 16 mg/dL (7-17) 12/01/16 06:47 Creatinine 0.5 MG/DL (0.7-1.2) L 12/01/16 06:47 Est GFR ( Amer) > 60 12/01/16 06:47 Est GFR (Non-Af Amer) > 60 12/01/16 06:47 POC Glucose (mg/dL) 91 mg/dL (65-110) 12/01/16 16:16 Random Glucose 134 mg/dL (65-105) H 12/01/16 06:47 Hemoglobin A1c 8.1 % (4.2-6.5) H 11/29/16 07:56 Serum Osmolality 328 mosm/kg (272-300) H 11/30/16 06:40 Calcium 6.9 mg/dl (8.6-10.4) L 12/01/16 06:47 Phosphorus 3.0 mg/dL (2.5-4.5) 11/29/16 07:56 Magnesium 2.0 mg/dL (1.6-2.3) 11/29/16 07:56 Total Bilirubin 0.2 mg/dL (0.2-1.3) 12/01/16 06:47 AST 28 U/L (14-36) 12/01/16 06:47 ALT 45 U/L (9-52) 12/01/16 06:47 Alkaline Phosphatase 62 U/L (38-126) 12/01/16 06:47 Total Creatine Kinase 281 U/L (30-135) H 11/29/16 01:02 CK-MB (Mass) 2.33 ng/mL (0.0-3.38) 11/29/16 01:02 Troponin I 0.0140 ng/mL (0.00-0.120) 11/28/16 15:55 Troponin I, Quant < 0.0120 ng/mL (0.00-0.120) 11/29/16 01:02 Total Protein 5.8 g/dL (6.3-8.3) L 12/01/16 06:47 Albumin 2.7 g/dL (3.5-5.0) L 12/01/16 06:47 Globulin 3.1 gm/dL (2.2-3.9) 12/01/16 06:47 Albumin/Globulin Ratio 0.9 (1.0-2.1) L 12/01/16 06:47 Procalcitonin 0.10 NG/ML (0.19-0.49) L 11/29/16 01:02 Free T4 0.84 ng/dL (0.78-2.19) 11/30/16 06:40 TSH 3rd Generation 3.24 mIU/L (0.46-4.68) 11/29/16 07:56 Arterial Blood Potassium 3.4 mmol/L (3.6-5.2) L 11/28/16 19:15 Venous Blood Potassium 4.6 mmol/L (3.6-5.2) 11/28/16 15:55 Urine Color Yellow (YELLOW) 11/28/16 16:39 Urine Clarity Hazy (Clear) 11/28/16 16:39 Urine pH 5.0 (5.0-8.0) 11/28/16 16:39 Ur Specific [place] 1.023 (1.003-1.030) 11/28/16 16:39 Urine Protein 1+ mg/dL (NEGATIVE) H 11/28/16 16:39 Urine Glucose (UA) 3+ mg/dL (Normal) H 11/28/16 16:39 Urine Ketones Trace mg/dL (NEGATIVE) 11/28/16 16:39 Urine Blood Negative (NEGATIVE) 11/28/16 16:39 Urine Nitrate Negative (NEGATIVE) 11/28/16 16:39 Urine Bilirubin Negative (NEGATIVE) 11/28/16 16:39 Urine Urobilinogen 2.0 mg/dL (0.2-1.0) H 11/28/16 16:39 Ur Leukocyte Esterase Neg [place]/uL (Negative) 11/28/16 16:39 Urine WBC (Auto) 1 /hpf (0-5) 11/28/16 16:39 Urine RBC (Auto) 1 /hpf (0-3) 11/28/16 16:39 Ur Squamous Epith Cells 9 /hpf (0-5) H 11/28/16 16:39 Urine Bacteria Occ (<OCC) H 11/28/16 16:39 Hyaline Casts 6-10 /lpf (0-2) H 11/28/16 16:39 Urine Osmolality 742 mosm/kg (300-1000) 11/29/16 11:57 Ur Random Sodium 60 mmol/L 11/29/16 11:57 Urine Chloride 40 mmol/L (32-290) 11/29/16 13:03 Stool Leukocytes, Qual Negative (NEGATIVE) 11/29/16 08:10 Vancomycin Trough 16.2 ug/mL (5.0-10.0) H 12/01/16 06:47 C. difficile Ag & Toxin Negative (NEGATIVE) 11/30/16 08:00 Influenza Typ A,B (EIA) Negative for flu a/b (NEGATIVE) 11/28/16 15:59 - Hospital Course Hospital Course: 86 year old female with a history of alziemer's dementia, htn, hyperlipedemia, nephrectomy, and hypothyroidism was brought from the [facility] because her daughter noticed she was very short of breath. Patient has been in [facility] for 6 years due to her worsening dementia including being non verbal. She was given IV antibiotics in the ED and IV fluids. She had a fever and was hypotensive and tachypenic. 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 Pt. was also given IV fluids to help her hypotension and likely dehydration. During her stay her BP improved. She did have a sacral wound which was positive for Gram + cocci, which was likely normal bayron. CT head showed evidence of significant dilatation of the lateral and 3rd ventricles with relatively normal appearing 4th ventricle. A previous head CT was unavailable. 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 Nephrology was consulted and changed fluids to 1/2 normal saline. Over her course here, her labs/BP improved and fluids were eventually stopped. Blood/Urine/Stool cultures were negative for any type of infection. She was medically stable to be discharged back to the [facility] and per pt's daughter stated she was at her baseline. This is a brief account of her stay. For more details please refer to her chart. - Date & Time of H&P Date of H&P: 12/01/16 Time of H&P: 06:20 Discharge Exam - Head Exam Head Exam: ATRAUMATIC, NORMOCEPHALIC - Respiratory Exam Respiratory Exam: Wheezes, NORMAL BREATHING PATTERN - Cardiovascular Exam Cardiovascular Exam: REGULAR RHYTHM, RRR, +S1, +S2. absent: JVD - GI/Abdominal Exam GI & Abdominal Exam: Normal Bowel Sounds, Soft, Unremarkable. absent: Tenderness - Neurological Exam Neurological exam: Altered - Skin Skin Exam: Dry, Intact, Normal Color, Warm Discharge Plan - Discharge Medications Prescriptions: Ciprofloxacin [Cipro] 500 mg PEG BID #14 tab - Follow Up Plan Condition: SERIOUS Disposition: TRANSF TO SNF Instructions: Sepsis (GEN), Hypertension (DC) Additional Instructions: Pt. medically stable for discharge to [facility] Please take Ciprofloxacin twice daily for [address] 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 (5) Hypothyroidism Status: Chronic Hospital Course - Lab Results Lab Results: Micro Results 11/29/16 12:02 Sacral Gram Stain - Final 11/29/16 12:02 Sacral Wound Culture - Final Enterococcus Faecalis Methicillin Resistant S Aureus 11/29/16 08:10 Stool Ova and Parasite Concentrate Exam - Final Most Recent Lab Values WBC 6.1 K/uL (4.8-10.8) 12/01/16 06:30 RBC 3.59 Mil/uL (3.80-5.20) L 12/01/16 06:30 Hgb 10.9 g/dL (11.0-16.0) L 12/01/16 06:30 Hct 33.8 % (34.0-47.0) L 12/01/16 06:30 MCV 94.3 fL (81.0-99.0) 12/01/16 06:30 MCH 30.4 pg (27.0-31.0) 12/01/16 06:30 MCHC 32.3 g/dL (33.0-37.0) L 12/01/16 06:30 RDW 15.3 % (11.5-14.5) H 12/01/16 06:30 Plt Count 189 K/uL (130-400) 12/01/16 06:30 MPV 11.0 fL (7.2-11.7) 12/01/16 06:30 Neut % (Auto) 65.8 % (50.0-75.0) 12/01/16 06:30 Lymph % (Auto) 21.8 % (20.0-40.0) 12/01/16 06:30 [place] % (Auto) 7.1 % (0.0-10.0) 12/01/16 06:30 Eos % (Auto) 4.9 % (0.0-4.0) H 12/01/16 06:30 Baso % (Auto) 0.4 % (0.0-2.0) 12/01/16 06:30 Neut # 4.0 K/uL (1.8-7.0) 12/01/16 06:30 Lymph # 1.3 K/uL (1.0-4.3) 12/01/16 06:30 [place] # 0.4 K/uL (0.0-0.8) 12/01/16 06:30 Eos # 0.3 K/uL (0.0-0.7) 12/01/16 06:30 Baso # 0.0 K/uL (0.0-0.2) 12/01/16 06:30 PT 11.3 SECONDS (9.7-12.2) 11/28/16 15:55 INR 1.0 11/28/16 15:55 APTT 28 SECONDS (21-34) 11/28/16 15:55 Puncture Site Lra 11/28/16 19:15 pCO2 42 mm/Hg (35-45) 11/28/16 19:15 pO2 120 mm/Hg (80-100) H 11/28/16 19:15 HCO3 20.2 mmol/L (21-28) L 11/28/16 19:15 ABG pH 7.29 (7.35-7.45) L 11/28/16 19:15 ABG Total CO2 21.5 mmol/L (22-28) L 11/28/16 19:15 ABG O2 Saturation 99.8 % (95-98) H 11/28/16 19:15 ABG Base Excess -6.1 mmol/L (-2.0-3.0) L 11/28/16 19:15 Eddie Test Pos 11/28/16 19:15 ABG Potassium 3.4 mmol/L (3.6-5.2) L 11/28/16 19:15 VBG pH 7.43 (7.32-7.43) 11/28/16 15:55 VBG pCO2 45 mmHg (40-60) 11/28/16 15:55 VBG HCO3 28.2 mmol/L 11/28/16 15:55 VBG Total CO2 31.3 mmol/L (22-28) H 11/28/16 15:55 VBG O2 Sat (Calc) 82.2 % (40-65) H 11/28/16 15:55 VBG Base Excess 4.8 mmol/L (0.0-2.0) H 11/28/16 15:55 VBG Potassium 4.6 mmol/L (3.6-5.2) 11/28/16 15:55 Sodium 160.0 mmol/l (132-148) H* 11/28/16 19:15 Chloride 133.0 mmol/L (98-107) H 11/28/16 19:15 Glucose 151 mg/dl (65-105) H 11/28/16 19:15 Lactate 1.4 mmol/L (0.7-2.1) 11/28/16 19:15 Liter Flow 3.0 11/28/16 19:15 Crit Value Called To Dr kolton mc 11/28/16 19:15 Crit Value Called By Isacc reddy 11/28/16 19:15 Crit Value Read Back Y 11/28/16 19:15 Blood Gas Notified Time 192411/28/16 19:15 Sodium 148 mmol/L (132-148) 12/01/16 06:47 Potassium 3.5 mmol/L (3.6-5.2) L 12/01/16 06:47 Chloride 120 mmol/L (98-107) H 12/01/16 06:47 Carbon Dioxide 21 mmol/L (22-30) L 12/01/16 06:47 Anion Gap 11 (10-20) 12/01/16 06:47 BUN 16 mg/dL (7-17) 12/01/16 06:47 Creatinine 0.5 MG/DL (0.7-1.2) L 12/01/16 06:47 Est GFR ( Amer) > 60 12/01/16 06:47 Est GFR (Non-Af Amer) > 60 12/01/16 06:47 POC Glucose (mg/dL) 91 mg/dL (65-110) 12/01/16 16:16 Random Glucose 134 mg/dL (65-105) H 12/01/16 06:47 Hemoglobin A1c 8.1 % (4.2-6.5) H 11/29/16 07:56 Serum Osmolality 328 mosm/kg (272-300) H 11/30/16 06:40 Calcium 6.9 mg/dl (8.6-10.4) L 12/01/16 06:47 Phosphorus 3.0 mg/dL (2.5-4.5) 11/29/16 07:56 Magnesium 2.0 mg/dL (1.6-2.3) 11/29/16 07:56 Total Bilirubin 0.2 mg/dL (0.2-1.3) 12/01/16 06:47 AST 28 U/L (14-36) 12/01/16 06:47 ALT 45 U/L (9-52) 12/01/16 06:47 Alkaline Phosphatase 62 U/L (38-126) 12/01/16 06:47 Total Creatine Kinase 281 U/L (30-135) H 11/29/16 01:02 CK-MB (Mass) 2.33 ng/mL (0.0-3.38) 11/29/16 01:02 Troponin I 0.0140 ng/mL (0.00-0.120) 11/28/16 15:55 Troponin I, Quant < 0.0120 ng/mL (0.00-0.120) 11/29/16 01:02 Total Protein 5.8 g/dL (6.3-8.3) L 12/01/16 06:47 Albumin 2.7 g/dL (3.5-5.0) L 12/01/16 06:47 Globulin 3.1 gm/dL (2.2-3.9) 12/01/16 06:47 Albumin/Globulin Ratio 0.9 (1.0-2.1) L 12/01/16 06:47 Procalcitonin 0.10 NG/ML (0.19-0.49) L 11/29/16 01:02 Free T4 0.84 ng/dL (0.78-2.19) 11/30/16 06:40 TSH 3rd Generation 3.24 mIU/L (0.46-4.68) 11/29/16 07:56 Arterial Blood Potassium 3.4 mmol/L (3.6-5.2) L 11/28/16 19:15 Venous Blood Potassium 4.6 mmol/L (3.6-5.2) 11/28/16 15:55 Urine Color Yellow (YELLOW) 11/28/16 16:39 Urine Clarity Hazy (Clear) 11/28/16 16:39 Urine pH 5.0 (5.0-8.0) 11/28/16 16:39 Ur Specific [place] 1.023 (1.003-1.030) 11/28/16 16:39 Urine Protein 1+ mg/dL (NEGATIVE) H 11/28/16 16:39 Urine Glucose (UA) 3+ mg/dL (Normal) H 11/28/16 16:39 Urine Ketones Trace mg/dL (NEGATIVE) 11/28/16 16:39 Urine Blood Negative (NEGATIVE) 11/28/16 16:39 Urine Nitrate Negative (NEGATIVE) 11/28/16 16:39 Urine Bilirubin Negative (NEGATIVE) 11/28/16 16:39 Urine Urobilinogen 2.0 mg/dL (0.2-1.0) H 11/28/16 16:39 Ur Leukocyte Esterase Neg [place]/uL (Negative) 11/28/16 16:39 Urine WBC (Auto) 1 /hpf (0-5) 11/28/16 16:39 Urine RBC (Auto) 1 /hpf (0-3) 11/28/16 16:39 Ur Squamous Epith Cells 9 /hpf (0-5) H 11/28/16 16:39 Urine Bacteria Occ (<OCC) H 11/28/16 16:39 Hyaline Casts 6-10 /lpf (0-2) H 11/28/16 16:39 Urine Osmolality 742 mosm/kg (300-1000) 11/29/16 11:57 Ur Random Sodium 60 mmol/L 11/29/16 11:57 Urine Chloride 40 mmol/L (32-290) 11/29/16 13:03 Stool Leukocytes, Qual Negative (NEGATIVE) 11/29/16 08:10 Vancomycin Trough 16.2 ug/mL (5.0-10.0) H 12/01/16 06:47 C. difficile Ag & Toxin Negative (NEGATIVE) 11/30/16 08:00 Influenza Typ A,B (EIA) Negative for flu a/b (NEGATIVE) 11/28/16 15:59 Attending/Attestation - Attestation I have personally seen and examined this patient.: Yes I have fully participated in the care of the patient.: Yes I have reviewed all pertinent clinical information, including history, physical exam and plan: Yes Notes (Text): 12/02/16 18:02 Patient was seen and examined at bedside with the resident Patient is stable and at her baseline Hyponatremia resolved. We will discharge the patient to [facility] I discussed the discharge plan with the patient's family and they verbalized understanding I agree with the above discharge note by the resident with the necessary amendments.
[2016-12-01 18:20] VITALS: PULSE 69
--- NOTE | 2016-12-01 18:31 | CP.PCM.PN ---
Subjective - Date & Time of Evaluation Date of Evaluation: 12/01/16 Time of Evaluation: 18:29 - Subjective Subjective: pt seen and examined, follow up consult is dictated#[id number] serum na is 148 c/w free water by oeg 200 ml q 4 hrsd/w pt's daughter at bed side Objective - Vital Signs/Intake and Output Vital Signs (last 24 hours): Temp Pulse Resp BP Pulse Ox 97.9 F 69 20 123/75 99 12/01/16 15:10 12/01/16 16:00 12/01/16 15:10 12/01/16 15:10 12/01/16 15:10 Intake and Output: 12/01/16 12/01/16 06:59 18:59 Intake Total 1320 Output Total 1025 Balance 295 - Medications Medications: Current Medications Donepezil HCl (Aricept) 10 mg PO DAILY [facility] Last Admin: 12/01/16 10:21 Dose: 10 mg Glipizide (Glucotrol) 2.5 mg PEG BID [facility] Last Admin: 12/01/16 10:21 Dose: 2.5 mg Heparin Sodium (Porcine) (Heparin) 5,000 units SC Q8 [facility] Last Admin: 12/01/16 14:00 Dose: Not Given Vancomycin HCl/Dextrose (Vancocin) 100 mls @ 67 mls/hr IVPB Q12H [facility] Stop: 12/03/16 19:01 Last Admin: 11/30/16 18:00 Dose: 67 mls/hr Imipenem/Cilastatin Sodium 500 (mg/ Sodium Chloride) 100 mls @ 100 mls/hr IVPB Q6H [facility] Last Admin: 12/01/16 12:30 Dose: 100 mls/hr Levothyroxine Sodium (Synthroid) 125 mcg PO DAILY@0630 [facility] Last Admin: 12/01/16 06:15 Dose: 125 mcg Pantoprazole Sodium (Protonix Ec Tab) 40 mg PO DAILY [facility] Last Admin: 12/01/16 10:21 Dose: 40 mg Rosuvastatin Calcium (Crestor) 5 mg PO HS [facility] Last Admin: 11/30/16 22:03 Dose: 5 mg Vitamin A (Vitamin A & D Oint Ud Foilpak) 0.5 ea TOP Q4 PRN PRN Reason: Dry mouth Last Admin: 11/30/16 22:03 Dose: 0.5 ea Vitamin B Complex/Vitamin C (Berocca) 1 tab PO DAILY [facility] Last Admin: 12/01/16 10:21 Dose: 1 tab - Labs Labs: 12/01/16 06:30 12/01/16 06:47 PT 11.3 SECONDS (9.7-12.2) 11/28/16 15:55 INR 1.0 11/28/16 15:55 APTT 28 SECONDS (21-34) 11/28/16 15:55
--- NOTE | 2016-12-01 23:41 | PN ---
DATE: 12/01/2016 FOLLOWUP RENAL CONSULTATION LOCATION: The patient is located in room 662, bed B. REQUESTING PHYSICIAN: Dr. Sarahi Juan. REASON FOR FOLLOWUP: Hyponatremia and acute renal failure. HISTORY OF PRESENT ILLNESS: The patient is an 86-year-old elderly female with a past medical history significant for Alzheimer dementia, hypertension, hyperlipidemia, single functioning kidney, hypothyroidism, history of questionable CVA and bedridden for the last 6-7 years, status post PEG tube placement about 6-7 months ago, who was admitted with shortness of breath. The patient was found to have increased BUN and creatinine and also hyponatremia and dehydration. The patient was started on IV fluids. Serum sodium is improving. The patient is not in acute distress. Tried to respond to the patient's daughter's voice only. The patient is not in acute distress. PHYSICAL EXAMINATION: VITAL SIGNS: As follows: Blood pressure 123/75, pulse 68, respiration 20, temperature 97.9, saturation 99%, height 4 feet 9 inches and weight is 130 pounds. GENERAL: The patient is an 86-year-old female, moderately built, moderately nourished, not in distress. HEENT: Conjunctivae pink. Sclerae anicteric. Tongue is moist. NECK: Trachea is midline. LUNGS: Symmetric on both sides. Bilateral breath sounds present. No crackles. CARDIOVASCULAR: [place] in the fifth intercostal space midclavicular line. S1 and S2 audible. No murmur or gallop. ABDOMEN: Normal in appearance, soft, tympanic. No guarding, no rigidity. No hepatosplenomegaly. CENTRAL NERVOUS SYSTEM: The patient is arousable, not responding to verbal stimuli, sometimes tried to open eyes for the patient's daughter's voice. CURRENT MEDICATIONS: Include as follows: Aricept 10 mg daily, calcium gluconate IV piggyback x 1, Crestor 5 mg at bedtime, Glucotrol 2.5 mg p.o. b.i.d. by PEG, subcutaneous heparin 5000 q. 8 hours, imipenem and cilastatin 500 mg q. 6 hours, Protonix 40 mg daily, levothyroxine 125 mcg daily, vancomycin 500 mg q. 12 hours, vitamin E ointment topical q. 4 hours p.r.n. LABORATORY DATA: Include as follows: As of 12/01/2016, WBC 6.1, hemoglobin 10.9 , hematocrit is 33.8, platelets 189. Sodium 140, potassium 4.5, chloride 120, CO2 of 21, BUN 16, creatinine 0.5, glucose 134, calcium 6.9, total bilirubin 0.2 , AST 28 , alkaline phosphatase 62, total protein 5.8 and albumin is 2.7 and vancomycin trough level is 16.2. Urine culture is negative. Blood cultures negative. Wound culture positive for Enterococcus faecalis, sensitive to vancomycin. SUMMARY: The patient is an 86-year-old elderly female with a history of hypertension, hyperlipidemia, hypothyroidism, dementia, questionable CVA, bedridden and status post PEG tube placement about 6-7 months ago, was admitted with shortness of breath with increased BUN and creatinine and elevated serum sodium level. 1. Hyponatremia. Serum sodium is improving gradually. 2. Status post acute renal failure. Renal function is within normal limits. 3. Sacral decubiti. Continue antibiotics as per ID recommendations. 4. Hypertension. Blood pressure is stable. 5. Hypothyroidism. Continue levothyroxine. The patient is being discharged this evening back to the half-way. Continue antibiotics as per ID recommendation. We will follow with you. Thank you for allowing me to participate in your patient's care. I discussed with the patient's daughter at bedside and continue free water by PEG tube q. 4 hours 200 mL. Rosario Andres MD cc: [id number] TT: 12/01/2016 23:40:54 Confirmation # [id number] Dictation # [id number] marilynn TREVINO
[2016-12-04 11:04] VITALS: O2SAT 98
== END 2016-12-01 18:53 | DRG 872 ==
LOC: C.ER 15:18 → C.9E 17:51 → C.6T 21:21
PROVIDERS: ADMIT Hospitalist; ATTEND Hospitalist
DX: A41.9 Sepsis, unspecified organism (principal); N17.9 Acute kidney failure, unspecified; G91.1 Obstructive hydrocephalus; L89.159 Pressure ulcer of sacral region, unspecified stage; E87.0 Hyperosmolality and hypernatremia; Q60.0 Renal agenesis, unilateral; N39.0 Urinary tract infection, site not specified; E87.8 Other disorders of electrolyte and fluid balance, not elsewhere classified; G30.9 Alzheimer's disease, unspecified; F02.80 Dementia in other diseases classified elsewhere, unspecified severity, without behavioral disturbance, psychotic disturbance, mood disturbance, and anxiety; R65.20 Severe sepsis without septic shock; I10 Essential (primary) hypertension; E78.5 Hyperlipidemia, unspecified; E03.9 Hypothyroidism, unspecified; Z74.01 Bed confinement status; Z93.1 Gastrostomy status; Z66 Do not resuscitate; E11.9 Type 2 diabetes mellitus without complications; E86.0 Dehydration; E87.6 Hypokalemia; L89.622 Pressure ulcer of left heel, stage 2; L89.612 Pressure ulcer of right heel, stage 2; Z51.5 Encounter for palliative care

== ENCOUNTER 2016-12-15 21:55 | Inpatient (IN) | payer MEDICARE, MEDICAID ==
[2016-12-15 21:55] VITALS: BMI 28.1
[2016-12-15] MEDS ORDERED: Sodium Chloride 0.9% 1,000 ML IV ONE ×2 (22:21→23:57)
[2016-12-15] MEDS ORDERED: Piperacillin/Tazobact 3.375 gm 100 ML IVPB STA (22:21)
--- NOTE | 2016-12-15 22:35 | C.PDOC ---
History Of Present Illness A 86 year old female with a Hx of dementia, HTN, and Hyperlipidemia, presents to the ER for abnormal labs of elevated WBC count of 22, elevated BUN, and elevated creatinine levels. Patient came from a [facility] and family is at bed side and request no aggressive measures. No central line, request DNI/DNR. Patient is bed bound and confused and cannot give further hx at this time. noted recent admission for similar Time Seen by Provider: 12/15/16 22:13 Chief Complaint (Nursing): Abnormal Labs History Per: Family History/Exam Limitations: clinical condition Onset/Duration Of Symptoms: Hrs Current Symptoms Are (Timing): Still Present Severity: Mild Additional History Per: Family Past Medical History Reviewed: Historical Data, Nursing Documentation, Vital Signs Vital Signs: Last Vital Signs Temp 100.6 F H 12/15/16 23:29 Pulse 67 12/15/16 22:09 Resp 48 H 12/15/16 22:09 BP Pulse Ox 99 12/15/16 23:24 - Medical History PMH: Alzheimer's Disease, HTN, Hypercholesterolemia, Hyperlipidemia, Hypothyroidism, Chronic Kidney Disease (PT BORN WITH ONE KIDNEY) Family History: States: Unknown Family Hx - Social History Hx Alcohol Use: No Hx Substance Use: No - Immunization History Hx Tetanus Toxoid Vaccination: No Hx Influenza Vaccination: No Hx Pneumococcal Vaccination: No (2009) Review Of Systems Review Of Systems: ROS cannot be obtained secondary to pt's inabilty to answer questions. Constitutional: Positive for: Other (Abnormal labs) Physical Exam - Physical Exam Appears: Non-toxic, No Acute Distress, Confused Skin: Warm, Dry Head: Atraumatic, Normacephalic Respiratory: No Normal Breath Sounds (Tachypneic mild increase work of breathing. Course breathing sounds bilaterally.), Accessory Muscle Use Gastrointestinal/Abdominal: Soft, Other (Peg tube in abdomen) ED Course And Treatment - Laboratory Results Result Diagrams: 12/15/16 22:37 12/15/16 22:37 O2 Sat by Pulse Oximetry: 99 (RA) Pulse Ox Interpretation: Normal Medical Decision Making Medical Decision Making: sepsis/renal failure - will look for source, antibiotics, hydration, reassess Plans: -Bloods labs -EKG -CXR -Tylenol -IV fluids -Vancocin -Piperacillin -Reassess and disposition 1120: code sepsis called on arrival to er, with la 2.2, and sirs criteria. antibiotics, fluids ordered. pt still received 1st bolus of fluids, b/p improving from 86 systolic to 94 systolic. family requests no aggressive measures, no central line, dni dnr. cxr neg as read by me. pt accepted by hospitalist. will place on tele, as family does not wish for aggresive measures. b/p improving on 1st 500 ml. at this time, does not need 30/cc/kg bolus. will reassess after 1st liter Disposition - Disposition Disposition: HOSPITALIZED Disposition Time: 23:23 Condition: CRITICAL - Clinical Impression Clinical Impression: Sepsis, Renal failure - Scribe Statement The provider has reviewed the documentation as recorded by the Scribe Lizet amador All medical record entries made by the Scribe were at my direction and personally dictated by me. I have reviewed the chart and agree that the record accurately reflects my personal performance of the history, physical exam, medical decision making, and the department course for this patient. I have also personally directed, reviewed, and agree with the discharge instructions and disposition. Decision To Admit - Pt Status Changed To: Hospital Disposition Of: Inpatient - Admit Certification Admit to Inpatient:: After my assessment, the patient will require hospitalization for at least two midnights. This is because of the severity of symptoms shown, intensity of services needed, and/or the medical risk in this patient being treated as an outpatient. - InPatient: Physician Admission Certification: I certify that this patient requires 2 or more midnights of care for the following reason:: pt hypotensive, septic, new renal falure - . Bed Request Type: Telemetry Admitting Physician: Bob Pak Patient Diagnosis: Sepsis, Renal failure
[2016-12-15 22:40] LABS: VENOUS BLOOD GAS BASE EXCESS -1.8 mmol/L (0.0-2.0); VENOUS BLOOD GAS PCO2 48 mmHg (40-60); VENOUS BLOOD PH 7.32 (7.32-7.43)
[2016-12-15 22:40] LABS: BASO # 0.1 K/uL (0.0-0.2); BASO % 0.3 % (0.0-2.0); EOS % 0.2 % (0.0-4.0); LYMPH # 1.6 K/uL (1.0-4.3); MEAN PLATELET VOLUME 9.9 fL (7.2-11.7)
[2016-12-15 22:43] LABS: HEMATOCRIT 37.4 % (34.0-47.0); MEAN CELL VOLUME 95.6 fL (81.0-99.0); MEAN CORPUSCULAR HEMOGLOBIN 29.8 pg (27.0-31.0); MEAN CORPUSCULAR HGB CONC 31.2 g/dL (33.0-37.0); MONO % 4.5 % (0.0-10.0); RED CELL DISTRIBUTION WIDTH 17.1 % (11.5-14.5)
[2016-12-15 22:44] LABS: PLATELET COUNT 308 K/uL (130-400); WHITE BLOOD COUNT 22.3 K/uL (4.8-10.8)
[2016-12-15 22:53] LABS: POTASSIUM 4.8 mmol/L (3.6-5.2)
[2016-12-15 22:55] LABS: BILIRUBIN,TOTAL 0.6 mg/dL (0.2-1.3)
[2016-12-15 22:56] LABS: ALB/GLOB RATIO 0.9 (1.0-2.1); CALCIUM 7.3 mg/dl (8.6-10.4); TOTAL PROTEIN 7.6 g/dL (6.3-8.3)
[2016-12-15] MEDS ORDERED: Piperacillin/Tazobact 3.375 gm 100 ML IVPB ONE (23:00)
[2016-12-15 23:07] LABS: TROPONIN I 0.013 ng/mL (0.00-0.120)
[2016-12-15 23:13] LABS: RBC URINE 7 /hpf (0-3); TRANSITIONAL EPITHIAL < 1 /hpf (0-3); URINE BACTERIA OCC (<OCC); WBC URINE 5 /hpf (0-5)
[2016-12-15 23:14] LABS: URINE BLOOD 1+ (NEGATIVE)
[2016-12-15 23:14] LABS: BASOPHIL 1 % (0-2); TOTAL CELLS COUNTED 100
[2016-12-15 23:15] LABS: NEUTROPHIL 69 % (50-75)
[2016-12-15 23:15] LABS: URINE BILIRUBIN MODERATE (NEGATIVE); URINE COLOR YELLOW (YELLOW); URINE GLUCOSE (UA) 250 mg/dL (Normal); URINE KETONE 15 mg/dL (NEGATIVE); URINE LEUKOCYTE ESTERASE NEGATIVE Leu/uL (Negative); URINE PROTEIN NEGATIVE (NEGATIVE)
[2016-12-15 23:51] LABS: MYELOCYTE 1 % (0-0); REACTIVE LYMPHOCYTES 2 % (0-0)
[2016-12-15] MEDS ORDERED: Magnesium Hydroxide Susp 30 ml UD PEG PRN (23:59)
[2016-12-16] MEDS ORDERED: Albuterol-Ipratrop 3 mg / 0.5 (3 ml) UD INH STA (01:29)
[2016-12-16] MEDS: Sodium Chloride 0.9% 1,000 ML IV SCH ×3 (02:07→21:34)
--- NOTE | 2016-12-16 02:08 | CP.PCM.HP ---
<Enoc Prince - Last Filed: 12/16/16 02:05> History of Present Illness - History of Present Illness History of Present Illness: CC: Leukocytosis, Hypotension and Dehydration 86 F with past medical history of alziemer's dementia, htn, hyperlipedemia, nephrectomy, and hypothyroidism was brought in from the care home because her Leukocytosis, Hypotension and Dehydration. She was recently admitted for sepsis. Patient has been in care home for 6 years due to her worsening dementia, she is non verbal. Patient's daughter and grandaughter is at bedside providing her history. PMH: alziemer's dementia, htn, hyperlipedemia, nephrectomy, and hypothyroidism Meds: See EMR Allergy: NKDA PSH: feeding tube placed 7 months ago, nephrectomy Hosp: recently hospitalized for SOB and sepsis FH: denies SH: Lives in care home, is bed bound Present on Admission - Present on Admission Any Indicators Present on Admission: Yes History of DVT/PE: No History of Uncontrolled Diabetes: Yes Urinary Catheter: No Decubitus Ulcer Present: Yes (healed ulcer from previous admission) Decubitus Ulcer Location: sacrum Decubitus Ulcer Stage: Unstageable Review of Systems - Review of Systems Systems not reviewed;Unavailable: Acuity of Condition, Dementia Past Patient History - Infectious Disease Hx of Infectious Diseases: None - Past Medical History & Family History Past Medical History?: Yes - Past Social History Smoking Status: Never Smoked - CARDIAC Hx Hypercholesterolemia: Yes Hx Hypertension: Yes - PULMONARY Hx Respiratory Disorders: No - NEUROLOGICAL Hx Alzheimer's Disease: Yes - HEENT Hx HEENT Problems: Yes Hx Cataracts: Yes - RENAL 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) - ENDOCRINE/METABOLIC Hx Hypothyroidism: Yes - HEMATOLOGICAL/ONCOLOGICAL Hx Blood Disorders: No - INTEGUMENTARY Hx Dermatological Problems: No - MUSCULOSKELETAL/RHEUMATOLOGICAL Hx Musculoskeletal Disorders: No Hx Falls: No - GASTROINTESTINAL Hx Gastrointestinal Disorders: Yes (WT LOSS, LOSS OF APPETITE) - GENITOURINARY/GYNECOLOGICAL Hx Genitourinary Disorders: Yes (BORN WITH 1 KIDNEY) - PSYCHIATRIC Hx Substance Use: No - SURGICAL HISTORY Hx Surgeries: Yes Hx Hysterectomy: Yes Hx Orthopedic Surgery: Yes (LT HAND ) Other/Comment: PEG TUBE INSERTION - ANESTHESIA Hx Anesthesia: Yes Hx Anesthesia Reactions: No Hx Malignant Hyperthermia: No Meds Allergies/Adverse Reactions: Allergies Allergy/AdvReac Type Severity Reaction Status Date / Time No Known Allergies Allergy Verified 11/28/16 15:44 Physical Exam - Constitutional Appears: Toxic, In Acute Distress (shallow breathing) - Head Exam Head Exam: ATRAUMATIC, NORMOCEPHALIC - Eye Exam Eye Exam: Normal appearance - ENT Exam ENT Exam: Mucous Membranes Dry - Neck Exam Neck exam: Positive for: Normal Inspection - Respiratory Exam Respiratory Exam: Accessory Muscle Use, Decreased Breath Sounds, Rales, Rhonchi , Wheezes - Cardiovascular Exam Additional comments: faint heart sounds - GI/Abdominal Exam GI & Abdominal Exam: Soft Additional comments: feeding tube in place - Extremities Exam Extremities exam: Negative for: pedal edema - Neurological Exam Neurological exam: Altered - Psychiatric Exam Psychiatric exam: Flat Affect Additional comments: non verbal - Skin Skin Exam: Dry Results - Vital Signs Recent Vital Signs: Last Vital Signs Temp 99 F 12/16/16 00:57 Pulse 75 12/16/16 00:57 Resp 21 12/16/16 00:57 BP 94/40 L 12/16/16 00:57 Pulse Ox 100 12/16/16 00:57 - Labs Result Diagrams: 12/15/16 22:37 12/15/16 22:37 Labs: Laboratory Results - last 24 hr 12/16/16 00:28 Influenza Typ A,B (EIA) Negative for flu a/b Assessment & Plan - Assessment and Plan (Free Text) Plan: (1) Leukocytosis Assessment and Plan: Telemetry WBC 22.3 hypotensive and tachypenic. Will need to find the source of the infection NS 100 cc/hr Primaxin 500mg Q6h and Vancomycin started Blood and urine cultures drawn Infectious disease, Dr. Leggett consulted Patient is DNR/DNI (2) Hypotension NS 100 cc/hr Monitor BP (3) Dehydration Assessment and Plan: Na 142 BUN/Cr 128/4.2 NS 100 cc/hr (4) History of nephrectomy, unilateral Assessment and Plan: BUn/Cr 128/4.2 (5) Dementia in Alzheimer's disease Assessment and Plan: continue her home Aricept, patient as feeding tube in place (6) Hypothyroidism Assessment and Plan: TSH/T4 continue home synthroid (7) Diabetes mellitus Assessment and Plan: continue her home medication, sliding scale with accu checks, follow up Ha1c. (8) Hyperlipidemia Assessment and Plan: Crestor 10 mg PO HS (9) Prophylactic measure Assessment and Plan: Protonix 40mg IVP Heparin 5000 untis sc q8h scd reposition every 2 hours, will need to look for pressure ulcers Continue home medications <PakBob - Last Filed: 12/16/16 06:05> Results - Vital Signs Recent Vital Signs: Last Vital Signs Temp 99.8 F H 12/16/16 01:00 Pulse 73 12/16/16 01:00 Resp 22 12/16/16 01:00 BP 91/58 L 12/16/16 01:00 Pulse Ox 94 L 12/16/16 01:30 - Labs Result Diagrams: 12/15/16 22:37 12/15/16 22:37 Labs: Laboratory Results - last 24 hr 12/16/16 12/16/16 00:28 03:42 Lactic Acid 1.9 Influenza Typ A,B (EIA) Negative for flu a/b Assessment & Plan - Date & Time Date: 12/16/16 (I have seen and examined the patient. I agree with the findings and plan of care as documented by Dr. Prince. Patient meets SIRS criteria. Source of infection unknown. Check blood cultures x2. Consult to ID. Vanco and Primaxin for now. IVF for hypotension and dehydration. Monitor renal function. Patient DNR/DNI. Monitor for acute changes.) Time: 06:03 Attending/Attestation - Attestation I have personally seen and examined this patient.: Yes I have fully participated in the care of the patient.: Yes I have reviewed all pertinent clinical information: Yes
[2016-12-16] MEDS: Albuterol 0.083% Inhal Sol (2.5 mg/3 mL) UD IH SCH ×4 (02:29→20:19)
[2016-12-16] MEDS: Zinc Oxide Topical 30 gm Tube TOP SCH ×3 (05:09→21:32)
[2016-12-16] MEDS: Levothyroxine 125 MCG TAB PEG SCH (05:30)
[2016-12-16 06:40] LABS: BASO # 0.1 K/uL (0.0-0.2); BASO % 0.2 % (0.0-2.0); EOS # 0.1 K/uL (0.0-0.7); EOS % 0.3 % (0.0-4.0); HEMATOCRIT 34.6 % (34.0-47.0); LYMPH # 1.2 K/uL (1.0-4.3); LYMPH % 5.9 % (20.0-40.0); MEAN CELL VOLUME 96.3 fL (81.0-99.0); MEAN CORPUSCULAR HEMOGLOBIN 30.5 pg (27.0-31.0); MEAN CORPUSCULAR HGB CONC 31.6 g/dL (33.0-37.0); MEAN PLATELET VOLUME 9.5 fL (7.2-11.7); MONO # 0.9 K/uL (0.0-0.8); MONO % 4.5 % (0.0-10.0); PLATELET COUNT 221 K/uL (130-400); RED CELL DISTRIBUTION WIDTH 17.1 % (11.5-14.5)
[2016-12-16] MEDS: (Novolin R) Insulin Human Regular 100 units/ml vial SC SCH ×3 (08:22→21:34)
[2016-12-16 08:59] LABS: NEUTROPHIL 73 % (50-75); TOTAL CELLS COUNTED 100
[2016-12-16] MEDS: GlipiZIDE 2.5 mg Tab PEG SCH (09:35)
[2016-12-16] MEDS ORDERED: Enoxaparin 30 mg Syringe SC SCH (10:00)
[2016-12-16] MEDS ORDERED: Albuterol 0.083% Inhal Sol (2.5 mg/3 mL) UD IH SCH (10:00)
[2016-12-16] MEDS ORDERED: DEXTROSE 5% IVPB SCH (10:00)
[2016-12-16] MEDS ORDERED: IMIPENEM IVPB SCH (10:00)
[2016-12-16] MEDS ORDERED: Vancomycin 1 gm/NS 200 ml 1 GM/200 ML BAG IVPB ONE (10:00)
[2016-12-16] MEDS ORDERED: CILASTATIN IVPB SCH (10:00)
[2016-12-16] MEDS ORDERED: WATER IVPB SCH (10:00)
[2016-12-16 10:39] LABS: POTASSIUM 4.6 mmol/L (3.6-5.2)
[2016-12-16 10:41] LABS: ALB/GLOB RATIO 0.9 (1.0-2.1); BILIRUBIN,TOTAL 0.6 mg/dL (0.2-1.3); TOTAL PROTEIN 6.4 g/dL (6.3-8.3)
[2016-12-16 10:42] LABS: CALCIUM 6.5 mg/dl (8.6-10.4)
[2016-12-16 10:48] LABS: FECAL LEUKOCYTES NEGATIVE (NEGATIVE)
[2016-12-16 10:59] LABS: T4 5.11 ug/dL (5.5-11.0)
--- NOTE | 2016-12-16 10:59 | RAD ---
PROCEDURE: CHEST RADIOGRAPH, 1 VIEW HISTORY: chest pain COMPARISON: Comparison is made to 11/30/2016 FINDINGS: LUNGS: No evidence of new infiltrate or consolidation in the lungs. PLEURA: No pneumothorax or pleural fluid seen. CARDIOVASCULAR: Normal. OSSEOUS STRUCTURES: No significant abnormalities. VISUALIZED UPPER ABDOMEN: Normal. OTHER FINDINGS: None. IMPRESSION: No active disease.
[2016-12-16 11:13] LABS: THYROID STIMULATING HORMONE 4.11 mIU/L (0.46-4.68)
[2016-12-16 12:32] LABS: C DIFF TOXIN A B NEGATIVE (NEGATIVE)
[2016-12-16] MEDS: Enoxaparin 30 mg Syringe SC SCH (13:34)
[2016-12-16] MEDS ORDERED: Piperacill/Tazo 2.25gm in Dex 2.25 GM/50 ML BAG IVPB SCH (14:00)
[2016-12-16] MEDS: Piperacill/Tazo 2.25gm in Dex 2.25 GM/50 ML BAG IVPB SCH (15:37)
--- NOTE | 2016-12-16 15:49 | CP.PCM.CON ---
History of Present Illness - History of Present Illness History of Present Illness: history from chart and patient's daughter. pt is non verbal consulted for elevated bun / creatinine CC: Leukocytosis, Hypotension and Dehydration 86 F with past medical history of alziemer's dementia, htn, hyperlipedemia, nephrectomy, and hypothyroidism was brought in from the [facility] because her Leukocytosis, Hypotension and Dehydration. She was recently admitted for sepsis. Patient has been in [facility] for 6 years due to her worsening dementia, she is non verbal. Pt has a peg tube and gets tube feeds for the last 7 months. PMH: alziemer's dementia, htn, hyperlipedemia, nephrectomy, and hypothyroidism Meds: See EMR Allergy: NKDA PSH: feeding tube placed 7 months ago, nephrectomy Hosp: recently hospitalized for SOB and sepsis FH: denies SH: Lives in [facility], is bed bound Review of Systems - Review of Systems Systems not reviewed;Unavailable: Altered Mental Status Past Patient History - Infectious Disease Hx of Infectious Diseases: None - Past Medical History & Family History Past Medical History?: Yes - Past Social History Smoking Status: Never Smoked - CARDIAC Hx Hypercholesterolemia: Yes Hx Hypertension: Yes - PULMONARY Hx Respiratory Disorders: No - NEUROLOGICAL Hx Alzheimer's Disease: Yes - HEENT Hx HEENT Problems: Yes Hx Cataracts: Yes - RENAL 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) - ENDOCRINE/METABOLIC Hx Hypothyroidism: Yes - HEMATOLOGICAL/ONCOLOGICAL Hx Blood Disorders: No - INTEGUMENTARY Hx Dermatological Problems: No - MUSCULOSKELETAL/RHEUMATOLOGICAL Hx Musculoskeletal Disorders: No Hx Falls: No - GASTROINTESTINAL Hx Gastrointestinal Disorders: Yes (WT LOSS, LOSS OF APPETITE) - GENITOURINARY/GYNECOLOGICAL Hx Genitourinary Disorders: Yes (BORN WITH 1 KIDNEY) - PSYCHIATRIC Hx Substance Use: No - SURGICAL HISTORY Hx Surgeries: Yes Hx Hysterectomy: Yes Hx Orthopedic Surgery: Yes (LT HAND ) Other/Comment: PEG TUBE INSERTION - ANESTHESIA Hx Anesthesia: Yes Hx Anesthesia Reactions: No Hx Malignant Hyperthermia: No Meds Allergies/Adverse Reactions: Allergies Allergy/AdvReac Type Severity Reaction Status Date / Time No Known Allergies Allergy Verified 11/28/16 15:44 - Medications Medications: Current Medications Acetaminophen (Tylenol 650mg/20.3ml Solution Ud) 650 mg PEG Q6 PRN PRN Reason: Temperature Albuterol Sulfate (Albuterol 0.083% Inhal Erika (2.5 Mg/3 Ml) Ud) 2.5 mg IH RQ6 [facility] Last Admin: 12/16/16 13:30 Dose: 2.5 mg Carvedilol (Coreg) 3.125 mg PEG BID [facility] Clopidogrel Bisulfate (Plavix) 75 mg PEG DAILY [facility] Last Admin: 12/16/16 11:54 Dose: Not Given Donepezil HCl (Aricept) 10 mg PEG HS [facility] Enoxaparin Sodium (Lovenox) 30 mg SC DAILY [facility] Last Admin: 12/16/16 13:34 Dose: 30 mg Gemfibrozil (Lopid) 600 mg PO BID [facility] Last Admin: 12/16/16 11:54 Dose: Not Given Glipizide (Glucotrol) 0.5 mg PEG BID [facility] Last Admin: 12/16/16 09:35 Dose: Not Given Sodium Chloride (Sodium Chloride 0.9%) 1,000 mls @ 100 mls/hr IV .Q10H [facility] Last Admin: 12/16/16 02:07 Dose: 100 mls/hr Piperacillin Sod/Tazobactam Sod (Zosyn 2.25 Gm Iv Premix) 2.25 gm in 50 mls @ 100 mls/hr IVPB Q8H [facility] Last Admin: 12/16/16 15:37 Dose: 100 mls/hr Insulin Human Regular (Novolin R) 0 unit SC ACHS [facility] PRN Reason: Protocol Last Admin: 12/16/16 12:44 Dose: Not Given Levothyroxine Sodium (Synthroid) 125 mcg PEG DAILY@0630 [facility] Last Admin: 12/16/16 05:30 Dose: 125 mcg Loratadine (Claritin) 10 mg PO DAILY [facility] Last Admin: 12/16/16 11:54 Dose: Not Given Magnesium Hydroxide (Milk Of Magnesia) 30 ml PEG DAILY PRN PRN Reason: Constipation Modafinil (Provigil) 150 mg PEG DAILY [facility] Last Admin: 12/16/16 11:54 Dose: Not Given Petrolatum (Desitin Original) 0 gm TOP QSHIFT [facility] Last Admin: 12/16/16 05:09 Dose: 1 applic Rosuvastatin Calcium (Crestor) 10 mg PO [facility] Physical Exam - Constitutional Appears: Non-toxic, No Acute Distress, Chronically Ill - Head Exam Head Exam: NORMAL INSPECTION - Eye Exam Eye Exam: Normal appearance - ENT Exam ENT Exam: Mucous Membranes Dry - Neck Exam Neck exam: Positive for: Normal Inspection - Respiratory Exam Respiratory Exam: Decreased Breath Sounds, NORMAL BREATHING PATTERN - Cardiovascular Exam Cardiovascular Exam: REGULAR RHYTHM, RRR - GI/Abdominal Exam GI & Abdominal Exam: Distended (peg tube), Soft - Exam Exam: NORMAL INSPECTION (neal) - Back Exam Back exam: NORMAL INSPECTION - Neurological Exam Additional comments: lethargic, per daughter baseline Results - Vital Signs Recent Vital Signs: Last Vital Signs Temp 99.3 F 12/16/16 15:42 Pulse 98 H 12/16/16 15:42 Resp 20 12/16/16 15:42 BP 116/69 12/16/16 15:42 Pulse Ox 95 12/16/16 15:42 - Labs Result Diagrams: 12/16/16 06:25 12/16/16 06:25 Labs: Laboratory Results - last 24 hr 12/16/16 12/16/16 12/16/16 00:28 03:24 03:42 WBC RBC Hgb Hct MCV MCH MCHC RDW Plt Count MPV Neut % (Auto) Lymph % (Auto) [place] % (Auto) Eos % (Auto) Baso % (Auto) Neut # Lymph # [place] # Eos # Baso # Neutrophils % (Manual) Band Neutrophils % Lymphocytes % (Manual) Monocytes % (Manual) Platelet Estimate Hypochromasia (manual) Poikilocytosis (manual Anisocytosis (manual) PT INR APTT Sodium Potassium Chloride Carbon Dioxide Anion Gap BUN Creatinine Est GFR ( Amer) Est GFR (Non-Af Amer) POC Glucose (mg/dL) Random Glucose Lactic Acid 1.9 Calcium Total Bilirubin AST ALT Alkaline Phosphatase Total Creatine Kinase CK-MB (Mass) Troponin I, Quant Total Protein Albumin Globulin Albumin/Globulin Ratio Triglycerides Cholesterol LDL Cholesterol Direct HDL Cholesterol Procalcitonin Thyroxine (T4) TSH 3rd Generation Stool Leukocytes, Qual Negative C. difficile Ag & Toxin Negative Influenza Typ A,B (EIA) Negative for flu a/b 12/16/16 12/16/16 12/16/16 06:25 06:25 06:25 WBC 21.0 H RBC 3.59 L Hgb 11.0 Hct 34.6 MCV 96.3 MCH 30.5 MCHC 31.6 L RDW 17.1 H Plt Count 221 MPV 9.5 Neut % (Auto) 89.1 H Lymph % (Auto) 5.9 L [place] % (Auto) 4.5 Eos % (Auto) 0.3 Baso % (Auto) 0.2 Neut # 18.7 H Lymph # 1.2 [place] # 0.9 H Eos # 0.1 Baso # 0.1 Neutrophils % (Manual) 73 Band Neutrophils % 13 H* Lymphocytes % (Manual) 9 L Monocytes % (Manual) 5 Platelet Estimate Normal Hypochromasia (manual) Slight Poikilocytosis (manual Slight Anisocytosis (manual) Slight PT 11.2 INR 1.0 APTT 28 Sodium 147 Potassium 4.6 Chloride 113 H Carbon Dioxide 18 L Anion Gap 21 H BUN 139 H* D Creatinine 3.4 H Est GFR ( Amer) 16 Est GFR (Non-Af Amer) 13 POC Glucose (mg/dL) Random Glucose 176 H Lactic Acid Calcium 6.5 L Total Bilirubin 0.6 AST 35 ALT 25 Alkaline Phosphatase 57 Total Creatine Kinase 517 H CK-MB (Mass) 2.34 Troponin I, Quant 0.0230 Total Protein 6.4 Albumin 3.0 L Globulin 3.4 Albumin/Globulin Ratio 0.9 L Triglycerides 205 H Cholesterol 121 LDL Cholesterol Direct 49 HDL Cholesterol 21 L Procalcitonin Thyroxine (T4) 5.11 L TSH 3rd Generation 4.11 Stool Leukocytes, Qual C. difficile Ag & Toxin Influenza Typ A,B (EIA) 12/16/16 12/16/16 12/16/16 06:25 06:36 11:11 WBC RBC Hgb Hct MCV MCH MCHC RDW Plt Count MPV Neut % (Auto) Lymph % (Auto) [place] % (Auto) Eos % (Auto) Baso % (Auto) Neut # Lymph # [place] # Eos # Baso # Neutrophils % (Manual) Band Neutrophils % Lymphocytes % (Manual) Monocytes % (Manual) Platelet Estimate Hypochromasia (manual) Poikilocytosis (manual Anisocytosis (manual) PT INR APTT Sodium Potassium Chloride Carbon Dioxide Anion Gap BUN Creatinine Est GFR ( Amer) Est GFR (Non-Af Amer) POC Glucose (mg/dL) 233 H 260 H Random Glucose Lactic Acid Calcium Total Bilirubin AST ALT Alkaline Phosphatase Total Creatine Kinase CK-MB (Mass) Troponin I, Quant Total Protein Albumin Globulin Albumin/Globulin Ratio Triglycerides Cholesterol LDL Cholesterol Direct HDL Cholesterol Procalcitonin 1.30 H Thyroxine (T4) TSH 3rd Generation Stool Leukocytes, Qual C. difficile Ag & Toxin Influenza Typ A,B (EIA) 12/16/16 11:43 WBC RBC Hgb Hct MCV MCH MCHC RDW Plt Count MPV Neut % (Auto) Lymph % (Auto) [place] % (Auto) Eos % (Auto) Baso % (Auto) Neut # Lymph # [place] # Eos # Baso # Neutrophils % (Manual) Band Neutrophils % Lymphocytes % (Manual) Monocytes % (Manual) Platelet Estimate Hypochromasia (manual) Poikilocytosis (manual Anisocytosis (manual) PT INR APTT Sodium Potassium Chloride Carbon Dioxide Anion Gap BUN Creatinine Est GFR ( Amer) Est GFR (Non-Af Amer) POC Glucose (mg/dL) Random Glucose Lactic Acid Calcium Total Bilirubin AST ALT Alkaline Phosphatase Total Creatine Kinase 447 H CK-MB (Mass) 1.70 Troponin I, Quant 0.0140 Total Protein Albumin Globulin Albumin/Globulin Ratio Triglycerides Cholesterol LDL Cholesterol Direct HDL Cholesterol Procalcitonin Thyroxine (T4) TSH 3rd Generation Stool Leukocytes, Qual C. difficile Ag & Toxin Influenza Typ A,B (EIA) Assessment & Plan (1) Renal failure Status: Acute (2) Sepsis Status: Acute (3) Dehydration Status: Acute (4) Hypernatremia Status: Acute (5) Hypotension Status: Acute - Assessment and Plan (Free Text) Assessment: -recommend switch to 1/2NS, hypernatremic -renal tube feeds -recommend switch to heparin for dvt prophylaxis -urine and blood cultures -renal dosing of antibiotics -improving urine output and creatinine. watch renal function closely. Discussed condition w/ pt's daughter and poa. -poor prognosis
--- NOTE | 2016-12-16 15:54 | CP.PCM.CON ---
History of Present Illness - History of Present Illness History of Present Illness: 86 F with past medical history of alziemer's dementia, htn, hyperlipedemia, nephrectomy, and hypothyroidism was brought in from the alf because her Leukocytosis, Hypotension and Dehydration. She was recently admitted for sepsis. Patient has been in alf for 6 years due to her worsening dementia, she is non verbal. Patient's daughter and grandaughter is at bedside providing her history. PMH: alziemer's dementia, htn, hyperlipedemia, nephrectomy, and hypothyroidism Meds: See EMR Allergy: NKDA PSH: feeding tube placed 7 months ago, nephrectomy Hosp: recently hospitalized for SOB and sepsis FH: denies SH: Lives in alf, is bed bound Review of Systems - Constitutional Constitutional: As Per HPI, Anorexia - EENT Eyes: absent: As Per HPI, Blind Spots, Blurred Vision, Change in Vision, Decreased Night Vision, Diplopia, Discharge, Dry Eye, Exophthalmos, Floaters, Irritation, Itchy Eyes, Loss of Peripheral Vision, Pain, Photophobia, Requires Corrective Lenses, Sees Flashes, Spots in Vision, Tunnel Vision, Other Visual Disturbances, Loss of Vision, Other Ears: absent: As Per HPI, Decreased Hearing, Ear Discharge, Ear Pain, Tinnitus, Abnormal Hearing, Disequilibrium, Dizziness, Other Nose/Mouth/Throat: absent: As Per HPI, Epistaxis, Nasal Congestion, Nasal Discharge, Nasal Obstruction, Nasal Trauma, Nose Pain, Post Nasal Drip, Sinus Pain, Sinus Pressure, Bleeding Gums, Change in Voice, Dental Pain, Dry Mouth, Dysphagia, Halitosis, Hoarsness, Lip Swelling, Mouth Lesions, Mouth Pain, Odynophagia, Sore Throat, Throat Swelling, Tongue Swelling, Facial Pain, Neck Pain, Neck Mass, Other - Breasts Breasts: absent: As Per HPI, Change in Shape, Mass, Pain, Nipple Discharge, Nipple Inversion, Skin Changes, Swelling, Other - Cardiovascular Cardiovascular: absent: As Per HPI, Acrocyanosis, Chest Pain, Chest Pain at Rest , Chest Pain with Activity, Claudication, Diaphoresis, Dyspnea, Dyspnea on Exertion, Edema, Irregular Heart Rhythm, Pain Radiating to Arm/Neck/Jaw, Leg Edema, Leg Ulcers, Lightheadedness, Orthopnea, Palpitations, Paroxysmal Nocturnal Dyspnea, Pedal Edema, Radiating Pain, Rapid Heart Rate, Slow Heart Rate, Syncope, Other - Respiratory Respiratory: absent: As Per HPI, Cough, Dyspnea, Hemoptysis, Dyspnea on Exertion , Wheezing, Snoring, Stridor, Pain on Inspiration, Chest Congestion, Excessive Mucous Production, Change in Mucous Color, Pain with Coughing, Other - Gastrointestinal Gastrointestinal: absent: As Per HPI, Abdominal Pain, Belching, Bloating, Change in Bowel Habits, Change in Stool Character, Coffee Ground Emesis, Constipation, Cramping, Diarrhea, Dyspepsia, Dysphagia, Early Satiety, Excessive Flatus, Fecal Incontinence, Heartburn, Hematemesis, Hematochezia, Loose Stools, Melena, Nausea, Odynophagia, Temesmus, Vomiting, Other - Genitourinary Genitourinary: absent: As Per HPI, Change in Urinary Stream, Difficulty Urinating, Dysuria, Flank Pain, Hematuria, Pyuria, Nocturia, Urinary Incontinence, Urinary Frequency, Urinary Hesitance, Urinary Urgency, Voiding Freq/Small Amts, Freq UTI, Hx Renal/Bladder Calculi, Hx /Renal Surgery, Bladder Distension, Other - Reproductive: Female Reproductive:Female: absent: As Per HPI, Amenorrhea, Amenorrhea/ Control, Currently Menstual, Cycle <21 Days, Cycle >35 Days, Cycle Variable, Menses 1-7 Days, Menses >/= 8 Days, Menses Variable, Cycle > 4 Weeks Between, No Menses for 6 Months, Heavy Menses, Light Menses, Normal Menses, Spotting Between Cycles , S/P Hysterectomy, Menopausal, Post Menopausal, Premenarche, Abnormal Vaginal Bleeding, Dysmenorrhea, Dyspareunia, Genital Lesions, Genital Pruritis, Pelvic Pain, Prolapse Symptoms, Sexual Dysfunction, Vaginal Discharge, Vaginal Dryness , Vaginal Odor, Vaginal Pruritis, Other - Menstruation Menstruation: absent: As Per HPI, Amenorrhea, Amenorrhea/ Control, Currently Menstual, Cycle <21 Days, Cycle >35 Days, Cycle Variable, Menses 1-7 Days, Menses >/= 8 Days, Menses Variable, Cycle > 4 Weeks Between, No Menses for 6 Months, Heavy Menses, Light Menses, Normal Menses, Spotting Between Cycles , S/P Hysterectomy, Menopausal, Post Menopausal, Premenarche, Abnormal Vaginal Bleeding, Dysmenorrhea, Other - Musculoskeletal Musculoskeletal: absent: As Per HPI, Abnormal Gait, Arthralgias, Atrophy, Back Pain, Deformity, Joint Swelling, Limited Range of Motion, Loss of Height, Muscle Cramps, Muscle Weakness, Myalgias, Neck Pain, Numbness, Radiating Pain into Limb, Stiffness, Tingling, Other - Integumentary Integumentary: absent: As Per HPI, Acne, Alopecia, Bleeding Lesions, Change in Hair, Change in Nails, Change in Pigmentation, Changing Lesions, Dry Skin, Erythema, Furuncle, Hirsutism, Lesions, New Lesions, Non-Healing Lesions, Photosensitivity, Pruritus, Rash, Skin Pain, Skin Ulcer, Sores, Striae, Swelling , Unusual Bruising, Wounds, Jaundice, Other - Neurological Neurological: absent: As Per HPI, Abnormal Gait, Abnormal Hearing, Abnormal Movements, Abnormal Speech, Behavioral Changes, Burning Sensations, Confusion, Convulsions, Disequilibrium, Dizziness, Numbness, Focal Weakness, Frequent Falls , Headaches, Lack of Coordination, Loss of Vision, Memory Loss, Paresthesias, Radicular Pain, Restless Legs, Sensory Deficit, Syncope, Tingling, Tremor, Vertigo, Weakness, Other Visual Disturbances, Other - Psychiatric Psychiatric: absent: As Per HPI, Abnormal Sleep Pattern, Anhedonia, Anxiety, Auditory Hallucinations, Behavioral Changes, Change in Appetite, Change in Libido, Confusion, Depression, Difficulty Concentrating, Hallucinations, Homicidal Ideation, Hopelessness, Irritability, Memory Loss, Mood Swings, Panic Attacks, Paranoia, Suicidal Ideation, Visual Hallucinations, Tactile Hallucinations, Other - Endocrine Endocrine: absent: As Per HPI, Change in Body Appearance, Change in Libido, Cold Intolorance, Deepening of Voice, Excessive Sweating, Fatigue, Flushing, Heat Intolorance, Increase in Ring/Shoe/Hat Size, Palpitations, Polydipsia, Polyphagia, Polyuria, Other - Hematologic/Lymphatic Hematologic: absent: As Per HPI, Easy Bleeding, Easy Bruising, Lymphadenopathy, Other Past Patient History - Infectious Disease Hx of Infectious Diseases: None - Past Medical History & Family History Past Medical History?: Yes - Past Social History Smoking Status: Never Smoked - CARDIAC Hx Hypercholesterolemia: Yes Hx Hypertension: Yes - PULMONARY Hx Respiratory Disorders: No - NEUROLOGICAL Hx Alzheimer's Disease: Yes - HEENT Hx HEENT Problems: Yes Hx Cataracts: Yes - RENAL 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) - ENDOCRINE/METABOLIC Hx Hypothyroidism: Yes - HEMATOLOGICAL/ONCOLOGICAL Hx Blood Disorders: No - INTEGUMENTARY Hx Dermatological Problems: No - MUSCULOSKELETAL/RHEUMATOLOGICAL Hx Musculoskeletal Disorders: No Hx Falls: No - GASTROINTESTINAL Hx Gastrointestinal Disorders: Yes (WT LOSS, LOSS OF APPETITE) - GENITOURINARY/GYNECOLOGICAL Hx Genitourinary Disorders: Yes (BORN WITH 1 KIDNEY) - PSYCHIATRIC Hx Substance Use: No - SURGICAL HISTORY Hx Surgeries: Yes Hx Hysterectomy: Yes Hx Orthopedic Surgery: Yes (LT HAND ) Other/Comment: PEG TUBE INSERTION - ANESTHESIA Hx Anesthesia: Yes Hx Anesthesia Reactions: No Hx Malignant Hyperthermia: No Meds Allergies/Adverse Reactions: Allergies Allergy/AdvReac Type Severity Reaction Status Date / Time No Known Allergies Allergy Verified 11/28/16 15:44 - Medications Medications: Current Medications Acetaminophen (Tylenol 650mg/20.3ml Solution Ud) 650 mg PEG Q6 PRN PRN Reason: Temperature Albuterol Sulfate (Albuterol 0.083% Inhal Erika (2.5 Mg/3 Ml) Ud) 2.5 mg IH RQ6 [facility] Last Admin: 12/16/16 13:30 Dose: 2.5 mg Carvedilol (Coreg) 3.125 mg PEG BID [facility] Clopidogrel Bisulfate (Plavix) 75 mg PEG DAILY [facility] Last Admin: 12/16/16 11:54 Dose: Not Given Donepezil HCl (Aricept) 10 mg PEG HS [facility] Enoxaparin Sodium (Lovenox) 30 mg SC DAILY [facility] Last Admin: 12/16/16 13:34 Dose: 30 mg Gemfibrozil (Lopid) 600 mg PO BID [facility] Last Admin: 12/16/16 11:54 Dose: Not Given Glipizide (Glucotrol) 0.5 mg PEG BID [facility] Last Admin: 12/16/16 09:35 Dose: Not Given Sodium Chloride (Sodium Chloride 0.9%) 1,000 mls @ 100 mls/hr IV .Q10H [facility] Last Admin: 12/16/16 02:07 Dose: 100 mls/hr Piperacillin Sod/Tazobactam Sod (Zosyn 2.25 Gm Iv Premix) 2.25 gm in 50 mls @ 100 mls/hr IVPB Q8H [facility] Last Admin: 12/16/16 15:37 Dose: 100 mls/hr Insulin Human Regular (Novolin R) 0 unit SC ACHS [facility] PRN Reason: Protocol Last Admin: 12/16/16 12:44 Dose: Not Given Levothyroxine Sodium (Synthroid) 125 mcg PEG DAILY@0630 [facility] Last Admin: 12/16/16 05:30 Dose: 125 mcg Loratadine (Claritin) 10 mg PO DAILY [facility] Last Admin: 12/16/16 11:54 Dose: Not Given Magnesium Hydroxide (Milk Of Magnesia) 30 ml PEG DAILY PRN PRN Reason: Constipation Modafinil (Provigil) 150 mg PEG DAILY [facility] Last Admin: 12/16/16 11:54 Dose: Not Given Petrolatum (Desitin Original) 0 gm TOP QSHIFT [facility] Last Admin: 12/16/16 05:09 Dose: 1 applic Rosuvastatin Calcium (Crestor) 10 mg PO [facility] Physical Exam - Constitutional Appears: Non-toxic, Cachectic, Chronically Ill - Head Exam Head Exam: NORMOCEPHALIC - Eye Exam Eye Exam: PERRL. absent: Scleral icterus - ENT Exam ENT Exam: Mucous Membranes Dry, Normal External Ear Exam, Normal Oropharynx - Neck Exam Neck exam: Negative for: Lymphadenopathy, Thyromegaly - Respiratory Exam Respiratory Exam: Decreased Breath Sounds, Clear to Auscultation Bilateral - Cardiovascular Exam Cardiovascular Exam: REGULAR RHYTHM, +S1, +S2 - GI/Abdominal Exam GI & Abdominal Exam: Diminished Bowel Sounds, Soft. absent: Tenderness - Rectal Exam Rectal Exam: Deferred - Exam Exam: NORMAL INSPECTION - Extremities Exam Extremities exam: Negative for: calf tenderness, pedal edema - Back Exam Back exam: absent: CVA tenderness (L), CVA tenderness (R) - Neurological Exam Neurological exam: Altered - Psychiatric Exam Psychiatric exam: Depressed Results - Vital Signs Recent Vital Signs: Last Vital Signs Temp 99.3 F 12/16/16 15:42 Pulse 98 H 12/16/16 15:42 Resp 20 12/16/16 15:42 BP 116/69 12/16/16 15:42 Pulse Ox 95 12/16/16 15:42 - Labs Result Diagrams: 12/16/16 06:25 12/16/16 06:25 Labs: Laboratory Results - last 24 hr 12/16/16 12/16/16 12/16/16 00:28 03:24 03:42 WBC RBC Hgb Hct MCV MCH MCHC RDW Plt Count MPV Neut % (Auto) Lymph % (Auto) [place] % (Auto) Eos % (Auto) Baso % (Auto) Neut # Lymph # [place] # Eos # Baso # Neutrophils % (Manual) Band Neutrophils % Lymphocytes % (Manual) Monocytes % (Manual) Platelet Estimate Hypochromasia (manual) Poikilocytosis (manual Anisocytosis (manual) PT INR APTT Sodium Potassium Chloride Carbon Dioxide Anion Gap BUN Creatinine Est GFR ( Amer) Est GFR (Non-Af Amer) POC Glucose (mg/dL) Random Glucose Lactic Acid 1.9 Calcium Total Bilirubin AST ALT Alkaline Phosphatase Total Creatine Kinase CK-MB (Mass) Troponin I, Quant Total Protein Albumin Globulin Albumin/Globulin Ratio Triglycerides Cholesterol LDL Cholesterol Direct HDL Cholesterol Procalcitonin Thyroxine (T4) TSH 3rd Generation Stool Leukocytes, Qual Negative C. difficile Ag & Toxin Negative Influenza Typ A,B (EIA) Negative for flu a/b 12/16/16 12/16/16 12/16/16 06:25 06:25 06:25 WBC 21.0 H RBC 3.59 L Hgb 11.0 Hct 34.6 MCV 96.3 MCH 30.5 MCHC 31.6 L RDW 17.1 H Plt Count 221 MPV 9.5 Neut % (Auto) 89.1 H Lymph % (Auto) 5.9 L [place] % (Auto) 4.5 Eos % (Auto) 0.3 Baso % (Auto) 0.2 Neut # 18.7 H Lymph # 1.2 [place] # 0.9 H Eos # 0.1 Baso # 0.1 Neutrophils % (Manual) 73 Band Neutrophils % 13 H* Lymphocytes % (Manual) 9 L Monocytes % (Manual) 5 Platelet Estimate Normal Hypochromasia (manual) Slight Poikilocytosis (manual Slight Anisocytosis (manual) Slight PT 11.2 INR 1.0 APTT 28 Sodium 147 Potassium 4.6 Chloride 113 H Carbon Dioxide 18 L Anion Gap 21 H BUN 139 H* D Creatinine 3.4 H Est GFR ( Amer) 16 Est GFR (Non-Af Amer) 13 POC Glucose (mg/dL) Random Glucose 176 H Lactic Acid Calcium 6.5 L Total Bilirubin 0.6 AST 35 ALT 25 Alkaline Phosphatase 57 Total Creatine Kinase 517 H CK-MB (Mass) 2.34 Troponin I, Quant 0.0230 Total Protein 6.4 Albumin 3.0 L Globulin 3.4 Albumin/Globulin Ratio 0.9 L Triglycerides 205 H Cholesterol 121 LDL Cholesterol Direct 49 HDL Cholesterol 21 L Procalcitonin Thyroxine (T4) 5.11 L TSH 3rd Generation 4.11 Stool Leukocytes, Qual C. difficile Ag & Toxin Influenza Typ A,B (EIA) 12/16/16 12/16/16 12/16/16 06:25 06:36 11:11 WBC RBC Hgb Hct MCV MCH MCHC RDW Plt Count MPV Neut % (Auto) Lymph % (Auto) [place] % (Auto) Eos % (Auto) Baso % (Auto) Neut # Lymph # [place] # Eos # Baso # Neutrophils % (Manual) Band Neutrophils % Lymphocytes % (Manual) Monocytes % (Manual) Platelet Estimate Hypochromasia (manual) Poikilocytosis (manual Anisocytosis (manual) PT INR APTT Sodium Potassium Chloride Carbon Dioxide Anion Gap BUN Creatinine Est GFR ( Amer) Est GFR (Non-Af Amer) POC Glucose (mg/dL) 233 H 260 H Random Glucose Lactic Acid Calcium Total Bilirubin AST ALT Alkaline Phosphatase Total Creatine Kinase CK-MB (Mass) Troponin I, Quant Total Protein Albumin Globulin Albumin/Globulin Ratio Triglycerides Cholesterol LDL Cholesterol Direct HDL Cholesterol Procalcitonin 1.30 H Thyroxine (T4) TSH 3rd Generation Stool Leukocytes, Qual C. difficile Ag & Toxin Influenza Typ A,B (EIA) 12/16/16 11:43 WBC RBC Hgb Hct MCV MCH MCHC RDW Plt Count MPV Neut % (Auto) Lymph % (Auto) [place] % (Auto) Eos % (Auto) Baso % (Auto) Neut # Lymph # [place] # Eos # Baso # Neutrophils % (Manual) Band Neutrophils % Lymphocytes % (Manual) Monocytes % (Manual) Platelet Estimate Hypochromasia (manual) Poikilocytosis (manual Anisocytosis (manual) PT INR APTT Sodium Potassium Chloride Carbon Dioxide Anion Gap BUN Creatinine Est GFR ( Amer) Est GFR (Non-Af Amer) POC Glucose (mg/dL) Random Glucose Lactic Acid Calcium Total Bilirubin AST ALT Alkaline Phosphatase Total Creatine Kinase 447 H CK-MB (Mass) 1.70 Troponin I, Quant 0.0140 Total Protein Albumin Globulin Albumin/Globulin Ratio Triglycerides Cholesterol LDL Cholesterol Direct HDL Cholesterol Procalcitonin Thyroxine (T4) TSH 3rd Generation Stool Leukocytes, Qual C. difficile Ag & Toxin Influenza Typ A,B (EIA) Assessment & Plan - Assessment and Plan (Free Text) Plan: SEPSIS DECUBITI OBS ESRD UTI POOR PROGNOSIS ADD ANA
[2016-12-16] MEDS: Acetaminophen 650mg/20.3ml solution UD PEG PRN (21:32)
[2016-12-17] MEDS: Albuterol 0.083% Inhal Sol (2.5 mg/3 mL) UD IH SCH ×4 (01:12→19:06)
[2016-12-17] MEDS: Piperacill/Tazo 2.25gm in Dex 2.25 GM/50 ML BAG IVPB SCH ×3 (03:20→16:42)
[2016-12-17] MEDS: Levothyroxine 125 MCG TAB PEG SCH (06:29)
[2016-12-17] MEDS: Zinc Oxide Topical 30 gm Tube TOP SCH ×3 (06:29→21:54)
[2016-12-17] MEDS: Sodium Chloride 0.9% 1,000 ML IV SCH (06:54)
[2016-12-17 08:44] LABS: BASO % 0.3 % (0.0-2.0); EOS % 0.1 % (0.0-4.0); HEMATOCRIT 32.1 % (34.0-47.0); LYMPH # 0.8 K/uL (1.0-4.3); LYMPH % 4.9 % (20.0-40.0); MEAN CELL VOLUME 95.9 fL (81.0-99.0); MEAN CORPUSCULAR HEMOGLOBIN 30.1 pg (27.0-31.0); MEAN CORPUSCULAR HGB CONC 31.4 g/dL (33.0-37.0); MEAN PLATELET VOLUME 10.3 fL (7.2-11.7); MONO # 0.9 K/uL (0.0-0.8); MONO % 5.5 % (0.0-10.0); PLATELET COUNT 227 K/uL (130-400); WHITE BLOOD COUNT 16.9 K/uL (4.8-10.8)
[2016-12-17 08:55] LABS: POTASSIUM 3.6 mmol/L (3.6-5.2)
[2016-12-17 08:57] LABS: ALB/GLOB RATIO 0.8 (1.0-2.1); BILIRUBIN,TOTAL 0.7 mg/dL (0.2-1.3); PHOSPHOROUS 2.4 mg/dL (2.5-4.5); TOTAL PROTEIN 6.5 g/dL (6.3-8.3)
[2016-12-17 08:58] LABS: CALCIUM 6.9 mg/dl (8.6-10.4)
[2016-12-17] MEDS: Enoxaparin 30 mg Syringe SC SCH (09:40)
[2016-12-17 09:43] LABS: NEUTROPHIL 82 % (50-75); TOTAL CELLS COUNTED 100
[2016-12-17] MEDS: (Novolog) Insulin Aspart, Recombinant 100 u/ml 10 ml vial SC SCH ×3 (09:48→21:51)
[2016-12-17] MEDS: Sodium Chloride 0.45% 1,000 ML IV SCH ×2 (09:58→20:17)
--- NOTE | 2016-12-17 10:47 | CP.PCM.PN ---
Subjective - Date & Time of Evaluation Date of Evaluation: 12/17/16 Time of Evaluation: 10:44 - Subjective Subjective: Renal function improving with IV fluids Changed to 1/2NS due to hypernatremia Source of sepsis unclear- discussed with PMD Remains nonverbal Objective - Vital Signs/Intake and Output Vital Signs (last 24 hours): Temp Pulse Resp BP Pulse Ox 99.6 F 96 H 18 121/71 100 12/17/16 07:20 12/17/16 07:20 12/17/16 07:20 12/17/16 07:20 12/17/16 07:20 Intake and Output: 12/17/16 12/17/16 06:59 18:59 Intake Total 410 Output Total 450 Balance -40 - Medications Medications: Current Medications Acetaminophen (Tylenol 650mg/20.3ml Solution Ud) 650 mg PEG Q6 PRN PRN Reason: Temperature Last Admin: 12/16/16 21:32 Dose: 650 mg Albuterol Sulfate (Albuterol 0.083% Inhal Erika (2.5 Mg/3 Ml) Ud) 2.5 mg IH RQ6 [facility] Last Admin: 12/17/16 07:28 Dose: 2.5 mg Carvedilol (Coreg) 3.125 mg PEG BID [facility] Clopidogrel Bisulfate (Plavix) 75 mg PEG DAILY [facility] Last Admin: 12/17/16 09:40 Dose: 75 mg Donepezil HCl (Aricept) 10 mg PEG HS [facility] Last Admin: 12/16/16 21:33 Dose: 10 mg Enoxaparin Sodium (Lovenox) 30 mg SC DAILY [facility] Last Admin: 12/17/16 09:40 Dose: 30 mg Gemfibrozil (Lopid) 600 mg PO BID [facility] Last Admin: 12/16/16 11:54 Dose: Not Given Glipizide (Glucotrol) 0.5 mg PEG BID [facility] Last Admin: 12/16/16 09:35 Dose: Not Given Piperacillin Sod/Tazobactam Sod (Zosyn 2.25 Gm Iv Premix) 2.25 gm in 50 mls @ 100 mls/hr IVPB Q8H [facility] Last Admin: 12/17/16 09:41 Dose: 100 mls/hr Sodium Chloride (Sodium Chloride 0.45%) 1,000 mls @ 100 mls/hr IV .Q10H [facility] Last Admin: 12/17/16 09:58 Dose: 100 mls/hr Vancomycin/Sodium Chloride (Vancocin) 1 gm in 200 mls @ 133.333 mls/hr IVPB Q24H [facility] Insulin Aspart (Novolog) 0 unit SC Q6H [facility] PRN Reason: Protocol Last Admin: 12/17/16 09:48 Dose: 6 unit Levothyroxine Sodium (Synthroid) 125 mcg PEG DAILY@0630 [facility] Last Admin: 12/17/16 06:29 Dose: 125 mcg Loratadine (Claritin) 10 mg PO DAILY [facility] Last Admin: 12/17/16 09:40 Dose: 10 mg Magnesium Hydroxide (Milk Of Magnesia) 30 ml PEG DAILY PRN PRN Reason: Constipation Modafinil (Provigil) 150 mg PEG DAILY [facility] Last Admin: 12/16/16 11:54 Dose: Not Given Petrolatum (Desitin Original) 0 gm TOP QSHIFT [facility] Last Admin: 12/17/16 06:29 Dose: 1 applic Rosuvastatin Calcium (Crestor) 10 mg PO HS [facility] Last Admin: 12/16/16 21:33 Dose: 10 mg - Labs Labs: 12/17/16 08:09 12/17/16 08:09 PT 11.2 SECONDS (9.7-12.2) 12/16/16 06:25 INR 1.0 12/16/16 06:25 APTT 28 SECONDS (21-34) 12/16/16 06:25 - Constitutional Appears: Chronically Ill - Head Exam Head Exam: ATRAUMATIC, NORMAL INSPECTION - Eye Exam Eye Exam: EOMI, Normal appearance - Neck Exam Neck Exam: Normal Inspection. absent: Tenderness - Respiratory Exam Respiratory Exam: Decreased Breath Sounds, Clear to Ausculation Bilateral - Cardiovascular Exam Cardiovascular Exam: REGULAR RHYTHM, +S1 - GI/Abdominal Exam GI & Abdominal Exam: Distended, Soft - Extremities Exam Extremities Exam: Normal Inspection. absent: Tenderness - Neurological Exam Neurological Exam: Altered, Motor Sensory Deficit - Skin Skin Exam: Dry, Warm Assessment and Plan (1) CAITLYN (acute kidney injury) Status: Acute (2) Sepsis Status: Acute (3) Dementia in Alzheimer's disease Status: Chronic (4) History of nephrectomy, unilateral Status: Chronic - Assessment and Plan (Free Text) Plan: Same IV fluids Follow up chemistries closely IV ABs as per primary
--- NOTE | 2016-12-17 10:51 | US ---
Limited abdomen/renal ultrasound Indication: Renal failure Comparison: CT of the chest, abdomen, and pelvis with contrast performed 11/28/16 Findings: Examination is markedly limited due to patient condition and difficulty with breath hold. The liver measures approximately 15.4 cm in sagittal dimension. Echogenic liver may be seen in setting of hepatic parenchymal disease or fatty infiltration. Multiple hepatic lesions demonstrated on CT performed 422 2016 could not be appreciated for further assessed on this limited study. The main portal vein appears patent with normal directional flow. There is no evidence of intrahepatic ductal dilatation. The common bile duct appears within normal limits of caliber, measuring 5 mm. There is no evidence of gallbladder-wall thickening, pericholecystic fluid, or stones. The patient was not focally tender over the gallbladder. The pancreas was not visualized. The right kidney measures 10.1 x 5.4 x 5.3 cm. No obstructing calculus or hydronephrosis identified. Right upper pole probable renal cyst measures approximately 1.9 x 1.4 x 2.2 cm. The left kidney is not visualized. The abdominal aorta and IVC are not visualized. Impression: Limited study as above. Echogenic liver may be seen in setting of hepatic parenchymal disease or fatty infiltration. Probable right upper pole renal cyst measures approximately 1.9 x 1.4 x 2.2 cm. The left kidney is not visualized ; correlate clinically.
[2016-12-17] MEDS: GlipiZIDE 2.5 mg Tab PEG SCH (11:26)
[2016-12-17] MEDS: Vancomycin 1 gm/NS 200 ml 1 GM/200 ML BAG IVPB SCH (13:20)
--- NOTE | 2016-12-17 13:28 | CP.PCM.PN ---
<Haja Barney - Last Filed: 12/17/16 13:28> Subjective - Date & Time of Evaluation Date of Evaluation: 12/17/16 Time of Evaluation: 13:25 - Subjective Subjective: Med progress note. Attending: Dr. Crews Pt seen and examined at bedside. No acute distress. Pt non verbal. Pt does have fever today, still no source of infection. Will order CT chest. Objective - Vital Signs/Intake and Output Vital Signs (last 24 hours): Temp Pulse Resp BP Pulse Ox 99.6 F 96 H 18 121/71 100 12/17/16 07:20 12/17/16 07:20 12/17/16 07:20 12/17/16 07:20 12/17/16 07:20 Intake and Output: 12/17/16 12/17/16 06:59 18:59 Intake Total 410 Output Total 450 Balance -40 - Medications Medications: Current Medications Acetaminophen (Tylenol 650mg/20.3ml Solution Ud) 650 mg PEG Q6 PRN PRN Reason: Temperature Last Admin: 12/16/16 21:32 Dose: 650 mg Albuterol Sulfate (Albuterol 0.083% Inhal Erika (2.5 Mg/3 Ml) Ud) 2.5 mg IH RQ6 [facility] Last Admin: 12/17/16 07:28 Dose: 2.5 mg Carvedilol (Coreg) 3.125 mg PEG BID [facility] Clopidogrel Bisulfate (Plavix) 75 mg PEG DAILY [facility] Last Admin: 12/17/16 09:40 Dose: 75 mg Donepezil HCl (Aricept) 10 mg PEG HS [facility] Last Admin: 12/16/16 21:33 Dose: 10 mg Enoxaparin Sodium (Lovenox) 30 mg SC DAILY [facility] Last Admin: 12/17/16 09:40 Dose: 30 mg Gemfibrozil (Lopid) 600 mg PO BID [facility] Last Admin: 12/16/16 11:54 Dose: Not Given Glipizide (Glucotrol) 0.5 mg PEG BID [facility] Last Admin: 12/17/16 11:26 Dose: Not Given Piperacillin Sod/Tazobactam Sod (Zosyn 2.25 Gm Iv Premix) 2.25 gm in 50 mls @ 100 mls/hr IVPB Q8H [facility] Last Admin: 12/17/16 09:41 Dose: 100 mls/hr Sodium Chloride (Sodium Chloride 0.45%) 1,000 mls @ 100 mls/hr IV .Q10H [facility] Last Admin: 12/17/16 09:58 Dose: 100 mls/hr Vancomycin/Sodium Chloride (Vancocin) 1 gm in 200 mls @ 133.333 mls/hr IVPB Q24H [facility] Last Admin: 12/17/16 13:20 Dose: 133.333 mls/hr Insulin Aspart (Novolog) 0 unit SC Q6H [facility] PRN Reason: Protocol Last Admin: 12/17/16 09:48 Dose: 6 unit Levothyroxine Sodium (Synthroid) 125 mcg PEG DAILY@0630 [facility] Last Admin: 12/17/16 06:29 Dose: 125 mcg Loratadine (Claritin) 10 mg PO DAILY [facility] Last Admin: 12/17/16 09:40 Dose: 10 mg Magnesium Hydroxide (Milk Of Magnesia) 30 ml PEG DAILY PRN PRN Reason: Constipation Modafinil (Provigil) 150 mg PEG DAILY [facility] Last Admin: 12/16/16 11:54 Dose: Not Given Petrolatum (Desitin Original) 0 gm TOP QSHIFT [facility] Last Admin: 12/17/16 06:29 Dose: 1 applic Rosuvastatin Calcium (Crestor) 10 mg PO HS [facility] Last Admin: 12/16/16 21:33 Dose: 10 mg - Labs Labs: 12/17/16 08:09 12/17/16 08:09 PT 11.2 SECONDS (9.7-12.2) 12/16/16 06:25 INR 1.0 12/16/16 06:25 APTT 28 SECONDS (21-34) 12/16/16 06:25 - Constitutional Appears: Non-toxic, No Acute Distress - Head Exam Head Exam: ATRAUMATIC, NORMAL INSPECTION, NORMOCEPHALIC - Eye Exam Eye Exam: EOMI - ENT Exam ENT Exam: Mucous Membranes Moist - Neck Exam Neck Exam: Full ROM, Normal Inspection - Respiratory Exam Respiratory Exam: NORMAL BREATHING PATTERN. absent: Respiratory Distress - Cardiovascular Exam Cardiovascular Exam: +S1, +S2 - GI/Abdominal Exam GI & Abdominal Exam: Soft, Normal Bowel Sounds. absent: Tenderness - Extremities Exam Extremities Exam: Normal Inspection. absent: Pedal Edema - Neurological Exam Neurological Exam: Altered. absent: Alert, Oriented x3 - Psychiatric Exam Additional comments: Unable to assess- pt non verbal - Skin Skin Exam: Dry, Intact, Normal Color, Warm Assessment and Plan - Assessment and Plan (Free Text) Assessment: (1) Leukocytosis Telemetry WBC 16.9, trending down initially hypotensive and tachypenic. Will need to find the source of the infection 1/2 NS 100 cc/hr continue vanco day 1 and zosyn day 2 Blood and urine cultures drawn, negative thus far Infectious disease, Dr. Leggett consulted Patient is DNR/DNI we are ordering ct chest without contrast (2) Hypotension/hypernatremia 1/2 NS 100 cc/hr Monitor BP pt no longer hypotensive (3) Dehydration nephro has been consulted recs (4) solitary kidney nephrology consult. recs appreciated. 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 (8) Hyperlipidemia Crestor 10 mg PO HS (9) Prophylactic measure lovenox daily we will increase tube feeds to [address] Crews <Marco Crews - Last Filed: 12/18/16 15:44> Objective - Vital Signs/Intake and Output Vital Signs (last 24 hours): Temp Pulse Resp BP Pulse Ox 99.6 F 90 40 H 148/75 96 12/18/16 11:00 12/18/16 09:54 12/18/16 09:54 12/18/16 09:54 12/18/16 09:54 Intake and Output: 12/18/16 12/18/16 06:59 18:59 Intake Total 1040 Output Total 800 Balance 240 - Medications Medications: Current Medications Acetaminophen (Tylenol 650mg/20.3ml Solution Ud) 650 mg PEG Q6 PRN PRN Reason: Temperature Last Admin: 12/18/16 10:00 Dose: 650 mg Albuterol Sulfate (Albuterol 0.083% Inhal Erika (2.5 Mg/3 Ml) Ud) 2.5 mg IH RQ6 [facility] Last Admin: 12/18/16 07:55 Dose: 2.5 mg Carvedilol (Coreg) 3.125 mg PEG BID [facility] Clopidogrel Bisulfate (Plavix) 75 mg PEG DAILY [facility] Last Admin: 12/18/16 10:50 Dose: 75 mg Enoxaparin Sodium (Lovenox) 30 mg SC DAILY [facility] Last Admin: 12/18/16 10:50 Dose: 30 mg Glipizide (Glucotrol) 0.5 mg PEG BID [facility] Last Admin: 12/17/16 11:26 Dose: Not Given Vancomycin/Sodium Chloride (Vancocin) 1 gm in 200 mls @ 133.333 mls/hr IVPB Q24H [facility] Last Admin: 12/18/16 10:00 Dose: 133.333 mls/hr Piperacillin Sod/Tazobactam Sod (Zosyn 3.375 Gm Iv Premix) 3.375 gm in 50 mls @ 100 mls/hr IVPB Q6H [facility] Last Admin: 12/18/16 14:33 Dose: 100 mls/hr Dextrose (Dextrose 5% In Water 1000 Ml) 1,000 mls @ 75 mls/hr IV .[id number] [facility] Insulin Aspart (Novolog) 0 unit SC Q6 [facility] PRN Reason: Protocol Levothyroxine Sodium (Synthroid) 125 mcg PEG DAILY@0630 [facility] Last Admin: 12/18/16 05:33 Dose: 125 mcg Loratadine (Claritin) 10 mg PO DAILY [facility] Last Admin: 12/18/16 09:54 Dose: Not Given Magnesium Hydroxide (Milk Of Magnesia) 30 ml PEG DAILY PRN PRN Reason: Constipation Modafinil (Provigil) 150 mg PEG DAILY [facility] Last Admin: 12/16/16 11:54 Dose: Not Given Petrolatum (Desitin Original) 0 gm TOP QSHIFT [facility] Last Admin: 12/18/16 14:15 Dose: 1 applic Rosuvastatin Calcium (Crestor) 10 mg PO HS [facility] Last Admin: 12/17/16 21:53 Dose: 10 mg - Labs Labs: 12/18/16 06:23 12/18/16 06:23 PT 11.2 SECONDS (9.7-12.2) 12/16/16 06:25 INR 1.0 12/16/16 06:25 APTT 28 SECONDS (21-34) 12/16/16 06:25 Attending/Attestation - Attestation I have personally seen and examined this patient.: Yes I have fully participated in the care of the patient.: Yes I have reviewed all pertinent clinical information, including history, physical exam and plan: Yes Notes (Text): 12/18/16 15:43 Patient was seen and examined at bedside with the resident Continue IV antibiotics for sepsis Follow up CT scan of the abdomen and pelvis report. Renal function is improving. Patient remains hypernatremic. Change the fluid to half normal saline. Nephrology and ID evaluation and follow-up seen and appreciated. I discussed the plan of care with the resident and agree with the above history and physical and assessment/plan by the resident.
--- NOTE | 2016-12-17 15:08 | CT ---
CT chest without IV contrast Indication: Leukocytosis Technique: Contiguous axial images were obtained through the chest without intravenous contrast enhancement. Sagittal and coronal reconstructions were generated and reviewed. This CT exam was performed using 1 or more of the falling dose reduction techniques: Automated exposure control, adjustment of the MAA and/or kV according to patient size, and/or use of iterative reconstruction technique. Radiation dose (DLP): 578.75 MGy-cm. Comparison: CT of the chest, abdomen, and pelvis with contrast performed 11/28/16 Findings: The noncontrast mediastinal and hilar vascular structures appear grossly unremarkable. Cardiomegaly. Dense atherosclerotic calcifications of the aorta. Evaluation limited by respiratory artifact. Bibasilar atelectasis. Trace bilateral pleural effusions. No pneumothorax. Limited visualization of the noncontrast upper abdomen demonstrates extensive peripancreatic inflammatory stranding and pancreatic edema at the pancreatic head/uncinate process suspicious for acute pancreatitis. Probable splenules. Several low-density hepatic lesions, possibly cysts or hemangiomas. Left kidney is not identified. Peg tube tract noted without gastrostomy tube present. Degenerative changes. Scoliosis. T12 vertebral body abnormality, presumably related to remote fracture. Impression: Bibasilar atelectasis. Trace bilateral pleural effusions. Limited visualization of the noncontrast upper abdomen reveals extensive peripancreatic inflammatory stranding and pancreatic edema at the pancreatic head/uncinate process suspicious for acute pancreatitis. Recommend correlation with amylase and lipase. Peg tube tract noted without gastrostomy tube present. Correlate clinically. T12 vertebral body abnormality presumably related to remote fracture.
--- NOTE | 2016-12-17 16:50 | CARD ---
APPROVED REPORT EKG Measurement Heart [id number] <Conclusion> Normal sinus rhythm Low voltage QRS Cannot rule out Anterior infarct, age undetermined Abnormal ECG
[2016-12-17] MEDS: Acetaminophen 650mg/20.3ml solution UD PEG PRN (18:21)
--- NOTE | 2016-12-17 19:08 | CP.PCM.PN ---
Subjective - Date & Time of Evaluation Date of Evaluation: 12/17/16 Time of Evaluation: 08:00 - Subjective Subjective: cultures neg thuds far iv rx reordered cont rx Objective - Vital Signs/Intake and Output Vital Signs (last 24 hours): Temp Pulse Resp BP Pulse Ox 99.0 F 89 24 134/74 98 12/17/16 18:21 12/17/16 16:00 12/17/16 17:41 12/17/16 15:51 12/17/16 15:51 - Medications Medications: Current Medications Acetaminophen (Tylenol 650mg/20.3ml Solution Ud) 650 mg PEG Q6 PRN PRN Reason: Temperature Last Admin: 12/17/16 18:21 Dose: 650 mg Albuterol Sulfate (Albuterol 0.083% Inhal Erika (2.5 Mg/3 Ml) Ud) 2.5 mg IH RQ6 [facility] Last Admin: 12/17/16 19:06 Dose: 2.5 mg Carvedilol (Coreg) 3.125 mg PEG BID [facility] Clopidogrel Bisulfate (Plavix) 75 mg PEG DAILY [facility] Last Admin: 12/17/16 09:40 Dose: 75 mg Donepezil HCl (Aricept) 10 mg PEG HS [facility] Last Admin: 12/16/16 21:33 Dose: 10 mg Enoxaparin Sodium (Lovenox) 30 mg SC DAILY [facility] Last Admin: 12/17/16 09:40 Dose: 30 mg Gemfibrozil (Lopid) 600 mg PO BID [facility] Last Admin: 12/16/16 11:54 Dose: Not Given Glipizide (Glucotrol) 0.5 mg PEG BID [facility] Last Admin: 12/17/16 11:26 Dose: Not Given Piperacillin Sod/Tazobactam Sod (Zosyn 2.25 Gm Iv Premix) 2.25 gm in 50 mls @ 100 mls/hr IVPB Q8H [facility] Last Admin: 12/17/16 16:42 Dose: 100 mls/hr Sodium Chloride (Sodium Chloride 0.45%) 1,000 mls @ 100 mls/hr IV .Q10H [facility] Last Admin: 12/17/16 09:58 Dose: 100 mls/hr Vancomycin/Sodium Chloride (Vancocin) 1 gm in 200 mls @ 133.333 mls/hr IVPB Q24H [facility] Last Admin: 12/17/16 13:20 Dose: 133.333 mls/hr Insulin Aspart (Novolog) 0 unit SC Q6H [facility] PRN Reason: Protocol Last Admin: 12/17/16 17:35 Dose: 3 unit Levothyroxine Sodium (Synthroid) 125 mcg PEG DAILY@0630 [facility] Last Admin: 12/17/16 06:29 Dose: 125 mcg Loratadine (Claritin) 10 mg PO DAILY [facility] Last Admin: 12/17/16 09:40 Dose: 10 mg Magnesium Hydroxide (Milk Of Magnesia) 30 ml PEG DAILY PRN PRN Reason: Constipation Modafinil (Provigil) 150 mg PEG DAILY [facility] Last Admin: 12/16/16 11:54 Dose: Not Given Petrolatum (Desitin Original) 0 gm TOP QSHIFT [facility] Last Admin: 12/17/16 14:30 Dose: 1 applic Rosuvastatin Calcium (Crestor) 10 mg PO HS [facility] Last Admin: 12/16/16 21:33 Dose: 10 mg - Labs Labs: 12/17/16 08:09 12/17/16 08:09 PT 11.2 SECONDS (9.7-12.2) 12/16/16 06:25 INR 1.0 12/16/16 06:25 APTT 28 SECONDS (21-34) 12/16/16 06:25 - Constitutional Appears: Non-toxic, Confused, Cachectic, Chronically Ill - Head Exam Head Exam: NORMOCEPHALIC - Eye Exam Eye Exam: PERRL. absent: Scleral icterus - ENT Exam ENT Exam: Mucous Membranes Dry - Neck Exam Neck Exam: absent: Lymphadenopathy - Respiratory Exam Respiratory Exam: Decreased Breath Sounds, Rhonchi - Cardiovascular Exam Cardiovascular Exam: REGULAR RHYTHM, +S1, +S2 - GI/Abdominal Exam GI & Abdominal Exam: Distended, Soft. absent: Tenderness - Rectal Exam Rectal Exam: Deferred Assessment and Plan - Assessment and Plan (Free Text) Plan: cont empiric rx for sepsis
[2016-12-18] MEDS: Piperacill/Tazo 2.25gm in Dex 2.25 GM/50 ML BAG IVPB SCH ×2 (00:33→08:35)
[2016-12-18] MEDS: Acetaminophen 650mg/20.3ml solution UD PEG PRN ×2 (00:37→10:00)
[2016-12-18] MEDS: Albuterol 0.083% Inhal Sol (2.5 mg/3 mL) UD IH SCH ×4 (01:00→21:34)
[2016-12-18] MEDS: Zinc Oxide Topical 30 gm Tube TOP SCH ×3 (05:31→21:54)
[2016-12-18] MEDS: Levothyroxine 125 MCG TAB PEG SCH (05:33)
[2016-12-18] MEDS: Sodium Chloride 0.45% 1,000 ML IV SCH (05:41)
[2016-12-18 06:33] LABS: BASO # 0.1 K/uL (0.0-0.2); BASO % 0.4 % (0.0-2.0); EOS # 0.1 K/uL (0.0-0.7); EOS % 0.4 % (0.0-4.0); HEMATOCRIT 31.4 % (34.0-47.0); LYMPH % 5.8 % (20.0-40.0); MEAN CORPUSCULAR HEMOGLOBIN 30.3 pg (27.0-31.0); MEAN CORPUSCULAR HGB CONC 31.2 g/dL (33.0-37.0); MEAN PLATELET VOLUME 11.2 fL (7.2-11.7); MONO % 5.7 % (0.0-10.0); PLATELET COUNT 194 K/uL (130-400); RED CELL DISTRIBUTION WIDTH 17.4 % (11.5-14.5); WHITE BLOOD COUNT 18.1 K/uL (4.8-10.8)
[2016-12-18 06:42] LABS: CHLORIDE 128 mmol/L (98-107); POTASSIUM 3.2 mmol/L (3.6-5.2); SODIUM 155 mmol/L (132-148)
[2016-12-18 06:44] LABS: ALB/GLOB RATIO 0.8 (1.0-2.1); ALKALINE PHOSPHATASE 68 U/L (38-126); AST/SGOT 28 U/L (14-36); BILIRUBIN,TOTAL 0.6 mg/dL (0.2-1.3); CARBON DIOXIDE 22 mmol/L (22-30); GFR AFRICAN-AMERICAN > 60
[2016-12-18 06:45] LABS: ALT/SGPT 28 U/L (9-52); BLOOD UREA NITROGEN 50 mg/dL (7-17); CALCIUM 6.9 mg/dl (8.6-10.4); GLUCOSE,RANDOM 267 mg/dL (65-105); MAGNESIUM 2.7 mg/dL (1.6-2.3); PHOSPHOROUS 2.3 mg/dL (2.5-4.5)
[2016-12-18 08:25] LABS: NEUTROPHIL 81 % (50-75); TOTAL CELLS COUNTED 100
[2016-12-18] MEDS: (Novolog) Insulin Aspart, Recombinant 100 u/ml 10 ml vial SC SCH ×3 (08:54→18:26)
[2016-12-18] MEDS: Vancomycin 1 gm/NS 200 ml 1 GM/200 ML BAG IVPB SCH (10:00)
[2016-12-18] MEDS ORDERED: Sodium Chloride 0.45% 1,000 ML IV SCH (10:18)
[2016-12-18] MEDS: Enoxaparin 30 mg Syringe SC SCH (10:50)
[2016-12-18] MEDS ORDERED: Potassium Chloride 20 mEq/15 ml LIQ UD PEG STA (11:01)
--- NOTE | 2016-12-18 11:20 | CP.PCM.PN ---
<Haja Barney - Last Filed: 12/18/16 11:20> Subjective - Date & Time of Evaluation Date of Evaluation: 12/18/16 Time of Evaluation: 11:20 - Subjective Subjective: Med progress note. Attending: Dr. Crews Objective - Vital Signs/Intake and Output Vital Signs (last 24 hours): Temp Pulse Resp BP Pulse Ox 100.2 F H 90 40 H 148/75 96 12/18/16 10:00 12/18/16 09:54 12/18/16 09:54 12/18/16 09:54 12/18/16 09:54 Intake and Output: 12/18/16 12/18/16 06:59 18:59 Intake Total 1040 Output Total 800 Balance 240 - Medications Medications: Current Medications Acetaminophen (Tylenol 650mg/20.3ml Solution Ud) 650 mg PEG Q6 PRN PRN Reason: Temperature Last Admin: 12/18/16 10:00 Dose: 650 mg Albuterol Sulfate (Albuterol 0.083% Inhal Erika (2.5 Mg/3 Ml) Ud) 2.5 mg IH RQ6 [facility] Last Admin: 12/18/16 07:55 Dose: 2.5 mg Carvedilol (Coreg) 3.125 mg PEG BID [facility] Clopidogrel Bisulfate (Plavix) 75 mg PEG DAILY [facility] Last Admin: 12/18/16 10:50 Dose: 75 mg Donepezil HCl (Aricept) 10 mg PEG HS [facility] Last Admin: 12/17/16 21:53 Dose: 10 mg Enoxaparin Sodium (Lovenox) 30 mg SC DAILY [facility] Last Admin: 12/18/16 10:50 Dose: 30 mg Gemfibrozil (Lopid) 600 mg PO BID [facility] Last Admin: 12/16/16 11:54 Dose: Not Given Glipizide (Glucotrol) 0.5 mg PEG BID [facility] Last Admin: 12/17/16 11:26 Dose: Not Given Vancomycin/Sodium Chloride (Vancocin) 1 gm in 200 mls @ 133.333 mls/hr IVPB Q24H [facility] Last Admin: 12/18/16 10:00 Dose: 133.333 mls/hr Piperacillin Sod/Tazobactam Sod (Zosyn 3.375 Gm Iv Premix) 3.375 gm in 50 mls @ 100 mls/hr IVPB Q6H [facility] Sodium Chloride (Sodium Chloride 0.45%) 1,000 mls @ 125 mls/hr IV .Q8H [facility] Last Admin: 12/18/16 10:37 Dose: 125 mls/hr Insulin Aspart (Novolog) 0 unit SC Q6H [facility] PRN Reason: Protocol Last Admin: 12/18/16 08:54 Dose: 6 unit Levothyroxine Sodium (Synthroid) 125 mcg PEG DAILY@0630 [facility] Last Admin: 12/18/16 05:33 Dose: 125 mcg Loratadine (Claritin) 10 mg PO DAILY [facility] Last Admin: 12/18/16 09:54 Dose: Not Given Magnesium Hydroxide (Milk Of Magnesia) 30 ml PEG DAILY PRN PRN Reason: Constipation Modafinil (Provigil) 150 mg PEG DAILY [facility] Last Admin: 12/16/16 11:54 Dose: Not Given Petrolatum (Desitin Original) 0 gm TOP QSHIFT [facility] Last Admin: 12/18/16 05:31 Dose: 1 applic Rosuvastatin Calcium (Crestor) 10 mg PO HS [facility] Last Admin: 12/17/16 21:53 Dose: 10 mg - Labs Labs: 12/18/16 06:23 12/18/16 06:23 PT 11.2 SECONDS (9.7-12.2) 12/16/16 06:25 INR 1.0 12/16/16 06:25 APTT 28 SECONDS (21-34) 12/16/16 06:25 - Constitutional Appears: Non-toxic, No Acute Distress - Head Exam Head Exam: ATRAUMATIC, NORMAL INSPECTION, NORMOCEPHALIC - Eye Exam Eye Exam: EOMI - ENT Exam ENT Exam: Mucous Membranes Moist - Neck Exam Neck Exam: Full ROM, Normal Inspection. absent: Lymphadenopathy - Respiratory Exam Additional comments: Tachypneic - Cardiovascular Exam Cardiovascular Exam: REGULAR RHYTHM, +S1, +S2 - GI/Abdominal Exam GI & Abdominal Exam: Tenderness Additional comments: Tenderness epigastric area - Extremities Exam Extremities Exam: Normal Inspection - Neurological Exam Neurological Exam: absent: Alert, Awake, Oriented x3 - Psychiatric Exam Additional comments: Unable to assess - Skin Skin Exam: Dry, Intact, Normal Color, Warm Assessment and Plan - Assessment and Plan (Free Text) Assessment: (1) Leukocytosis Telemetry WBC now 18.1, trending up initially hypotensive and tachypenic. Will need to find the source of white count 1/2 NS 100 cc/hr>>> increase to 125 continue vanco day 2 and zosyn day 3 Blood and urine cultures drawn, negative thus far Infectious disease, Dr. Leggett consulted Patient is DNR/DNI we are ordering ct chest without contrast>>> ct chest shows bibasilar atelectasis, trace b/l effusions, suspicious for acute pancreatitis continue tylenol prn (2) Hypotension/hypernatremia 1/2 NS 125 cc/hr Monitor BP pt no longer hypotensive (3) Dehydration nephro has been consulted recs appreciated. -CR normal today (4) solitary kidney nephrology consult. recs appreciated. 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 (8) Hyperlipidemia Crestor 10 mg PO HS (9) Prophylactic measure lovenox daily we will stop tube feeds we will dc telemetry discussed with Dr. Crews <Marco Crews - Last Filed: 12/28/16 13:31> Objective - Vital Signs/Intake and Output Vital Signs (last 24 hours): Temp Pulse Resp BP Pulse Ox 98 F 78 20 145/72 96 12/28/16 07:15 12/28/16 07:15 12/28/16 07:15 12/28/16 07:15 12/28/16 07:15 - Medications Medications: Current Medications Acetaminophen (Tylenol 650mg/20.3ml Solution Ud) 650 mg PEG Q6 PRN PRN Reason: Temperature Last Admin: 12/24/16 21:00 Dose: 650 mg Albuterol/Ipratropium (Duoneb 3 Mg/0.5 Mg (3 Ml) Ud) 3 ml INH RQ6 [facility] Last Admin: 12/28/16 01:36 Dose: Not Given Bacitracin (Bacitracin) 1 gm TOP QSHIFT [facility] Last Admin: 12/28/16 05:38 Dose: 1 applic Carvedilol (Coreg) 3.125 mg PEG DAILY [facility] Clopidogrel Bisulfate (Plavix) 75 mg PEG DAILY [facility] Last Admin: 12/28/16 10:38 Dose: 75 mg Glipizide (Glucotrol) 0.5 mg PEG BID [facility] Last Admin: 12/17/16 11:26 Dose: Not Given Piperacillin Sod/Tazobactam Sod (Zosyn 3.375 Gm Iv Premix) 3.375 gm in 50 mls @ 100 mls/hr IVPB Q6H [facility] Last Admin: 12/28/16 10:38 Dose: 100 mls/hr Vancomycin HCl 1 gm/ Sodium (Chloride) 250 mls @ 166.7 mls/hr IVPB Q24H [facility] Last Admin: 12/27/16 14:28 Dose: 166.7 mls/hr Potassium Chloride 20 meq/ (Dextrose/Sodium Chloride) 1,010 mls @ 80 mls/hr IV .[id number] [facility] Last Admin: 12/28/16 12:37 Dose: 80 mls/hr Insulin Aspart (Novolog) 0 unit SC Q6 [facility] PRN Reason: Protocol Last Admin: 12/28/16 12:37 Dose: 4 unit Levothyroxine Sodium (Synthroid) 125 mcg PEG DAILY@0630 [facility] Last Admin: 12/28/16 05:38 Dose: 125 mcg Loratadine (Claritin) 10 mg PO DAILY [facility] Last Admin: 12/28/16 10:38 Dose: 10 mg Magnesium Hydroxide (Milk Of Magnesia) 30 ml PEG DAILY PRN PRN Reason: Constipation Metronidazole (Flagyl) 500 mg PEG Q8 [facility] Last Admin: 12/28/16 05:38 Dose: 500 mg Modafinil (Provigil) 150 mg PEG DAILY [facility] Last Admin: 12/16/16 11:54 Dose: Not Given Petrolatum (Desitin Original) 0 gm TOP QSHIFT [facility] Last Admin: 12/28/16 05:34 Dose: 1 applic Rosuvastatin Calcium (Crestor) 10 mg PO HS [facility] Last Admin: 12/27/16 22:25 Dose: 10 mg Sodium Phosphate (K-Phos Neutral) 250 mg PO DAILY [facility] Last Admin: 12/28/16 10:38 Dose: 250 mg - Labs Labs: 12/28/16 06:56 12/28/16 06:56 PT 11.2 SECONDS (9.7-12.2) 12/16/16 06:25 INR 1.0 12/16/16 06:25 APTT 28 SECONDS (21-34) 12/16/16 06:25 Attending/Attestation - Attestation I have personally seen and examined this patient.: Yes I have fully participated in the care of the patient.: Yes I have reviewed all pertinent clinical information, including history, physical exam and plan: Yes Notes (Text): 12/28/16 13:30 Patient was seen and examined at bedside with the resident This a late computer entry I discussed the plan of care with the resident and agree with with the history and physical and assessment/plan by the resident.
--- NOTE | 2016-12-18 14:18 | CP.PCM.PN ---
Subjective - Date & Time of Evaluation Date of Evaluation: 12/18/16 Time of Evaluation: 14:16 - Subjective Subjective: Remains lethargic Off GT feeds - CT scan suggestive of pancreatitis CAITLYN improved; BUN still elevated Hypernatremia worse- will need IV D5W fluis- cannot obtain free water as pt NPO Objective - Vital Signs/Intake and Output Vital Signs (last 24 hours): Temp Pulse Resp BP Pulse Ox 100.2 F H 90 40 H 148/75 96 12/18/16 10:00 12/18/16 09:54 12/18/16 09:54 12/18/16 09:54 12/18/16 09:54 Intake and Output: 12/18/16 12/18/16 06:59 18:59 Intake Total 1040 Output Total 800 Balance 240 - Medications Medications: Current Medications Acetaminophen (Tylenol 650mg/20.3ml Solution Ud) 650 mg PEG Q6 PRN PRN Reason: Temperature Last Admin: 12/18/16 10:00 Dose: 650 mg Albuterol Sulfate (Albuterol 0.083% Inhal Erika (2.5 Mg/3 Ml) Ud) 2.5 mg IH RQ6 [facility] Last Admin: 12/18/16 07:55 Dose: 2.5 mg Carvedilol (Coreg) 3.125 mg PEG BID [facility] Clopidogrel Bisulfate (Plavix) 75 mg PEG DAILY [facility] Last Admin: 12/18/16 10:50 Dose: 75 mg Donepezil HCl (Aricept) 10 mg PEG HS [facility] Last Admin: 12/17/16 21:53 Dose: 10 mg Enoxaparin Sodium (Lovenox) 30 mg SC DAILY [facility] Last Admin: 12/18/16 10:50 Dose: 30 mg Gemfibrozil (Lopid) 600 mg PO BID [facility] Last Admin: 12/16/16 11:54 Dose: Not Given Glipizide (Glucotrol) 0.5 mg PEG BID [facility] Last Admin: 12/17/16 11:26 Dose: Not Given Vancomycin/Sodium Chloride (Vancocin) 1 gm in 200 mls @ 133.333 mls/hr IVPB Q24H [facility] Last Admin: 12/18/16 10:00 Dose: 133.333 mls/hr Piperacillin Sod/Tazobactam Sod (Zosyn 3.375 Gm Iv Premix) 3.375 gm in 50 mls @ 100 mls/hr IVPB Q6H [facility] Sodium Chloride (Sodium Chloride 0.45%) 1,000 mls @ 125 mls/hr IV .Q8H [facility] Last Admin: 12/18/16 10:37 Dose: 125 mls/hr Insulin Aspart (Novolog) 0 unit SC Q6H [facility] PRN Reason: Protocol Last Admin: 12/18/16 11:58 Dose: 6 unit Levothyroxine Sodium (Synthroid) 125 mcg PEG DAILY@0630 [facility] Last Admin: 12/18/16 05:33 Dose: 125 mcg Loratadine (Claritin) 10 mg PO DAILY [facility] Last Admin: 12/18/16 09:54 Dose: Not Given Magnesium Hydroxide (Milk Of Magnesia) 30 ml PEG DAILY PRN PRN Reason: Constipation Modafinil (Provigil) 150 mg PEG DAILY [facility] Last Admin: 12/16/16 11:54 Dose: Not Given Petrolatum (Desitin Original) 0 gm TOP QSHIFT [facility] Last Admin: 12/18/16 14:15 Dose: 1 applic Rosuvastatin Calcium (Crestor) 10 mg PO HS [facility] Last Admin: 12/17/16 21:53 Dose: 10 mg - Labs Labs: 12/18/16 06:23 12/18/16 06:23 PT 11.2 SECONDS (9.7-12.2) 12/16/16 06:25 INR 1.0 12/16/16 06:25 APTT 28 SECONDS (21-34) 12/16/16 06:25 - Constitutional Appears: No Acute Distress, Chronically Ill - Head Exam Head Exam: ATRAUMATIC, NORMAL INSPECTION - Neck Exam Neck Exam: Normal Inspection. absent: Tenderness - Respiratory Exam Respiratory Exam: Clear to Ausculation Bilateral, NORMAL BREATHING PATTERN - Cardiovascular Exam Cardiovascular Exam: REGULAR RHYTHM, +S1 - GI/Abdominal Exam GI & Abdominal Exam: Soft. absent: Tenderness - Extremities Exam Extremities Exam: Normal Inspection. absent: Tenderness - Neurological Exam Neurological Exam: Altered, Motor Sensory Deficit - Skin Skin Exam: Dry, Warm Assessment and Plan (1) CAITLYN (acute kidney injury) Status: Acute (2) Sepsis Status: Acute (3) Dementia in Alzheimer's disease Status: Chronic (4) History of nephrectomy, unilateral Status: Chronic (5) Hypernatremia Status: Acute - Assessment and Plan (Free Text) Plan: Change IVs to D5W fluids- 75 ml qh- cover BSs Stop lopid, aricept Monitor lytes, renal function closely
[2016-12-18] MEDS: Piperacill/Tazo 3.375gm in Dex 3.375 GM/50 ML BAG IVPB SCH ×2 (14:33→20:30)
--- NOTE | 2016-12-18 18:44 | CP.PCM.PN ---
Subjective - Date & Time of Evaluation Date of Evaluation: 12/18/16 Time of Evaluation: 08:00 - Subjective Subjective: cultures neg thus far remains obtunded Objective - Vital Signs/Intake and Output Vital Signs (last 24 hours): Temp Pulse Resp BP Pulse Ox 98.8 F 82 20 144/75 98 12/18/16 15:25 12/18/16 15:25 12/18/16 15:25 12/18/16 15:25 12/18/16 15:25 Intake and Output: 12/18/16 12/18/16 06:59 18:59 Intake Total 1040 1065 Output Total 800 400 Balance 240 665 - Medications Medications: Current Medications Acetaminophen (Tylenol 650mg/20.3ml Solution Ud) 650 mg PEG Q6 PRN PRN Reason: Temperature Last Admin: 12/18/16 10:00 Dose: 650 mg Albuterol Sulfate (Albuterol 0.083% Inhal Erika (2.5 Mg/3 Ml) Ud) 2.5 mg IH RQ6 [facility] Last Admin: 12/18/16 15:25 Dose: 2.5 mg Carvedilol (Coreg) 3.125 mg PEG BID [facility] Clopidogrel Bisulfate (Plavix) 75 mg PEG DAILY [facility] Last Admin: 12/18/16 10:50 Dose: 75 mg Enoxaparin Sodium (Lovenox) 30 mg SC DAILY [facility] Last Admin: 12/18/16 10:50 Dose: 30 mg Glipizide (Glucotrol) 0.5 mg PEG BID [facility] Last Admin: 12/17/16 11:26 Dose: Not Given Vancomycin/Sodium Chloride (Vancocin) 1 gm in 200 mls @ 133.333 mls/hr IVPB Q24H [facility] Last Admin: 12/18/16 10:00 Dose: 133.333 mls/hr Piperacillin Sod/Tazobactam Sod (Zosyn 3.375 Gm Iv Premix) 3.375 gm in 50 mls @ 100 mls/hr IVPB Q6H [facility] Last Admin: 12/18/16 14:33 Dose: 100 mls/hr Dextrose (Dextrose 5% In Water 1000 Ml) 1,000 mls @ 75 mls/hr IV .[id number] [facility] Last Admin: 12/18/16 16:18 Dose: 75 mls/hr Insulin Aspart (Novolog) 0 unit SC Q6 [facility] PRN Reason: Protocol Last Admin: 12/18/16 18:26 Dose: 3 unit Levothyroxine Sodium (Synthroid) 125 mcg PEG DAILY@0630 [facility] Last Admin: 12/18/16 05:33 Dose: 125 mcg Loratadine (Claritin) 10 mg PO DAILY [facility] Last Admin: 12/18/16 09:54 Dose: Not Given Magnesium Hydroxide (Milk Of Magnesia) 30 ml PEG DAILY PRN PRN Reason: Constipation Modafinil (Provigil) 150 mg PEG DAILY [facility] Last Admin: 12/16/16 11:54 Dose: Not Given Petrolatum (Desitin Original) 0 gm TOP QSHIFT [facility] Last Admin: 12/18/16 14:15 Dose: 1 applic Rosuvastatin Calcium (Crestor) 10 mg PO HS [facility] Last Admin: 12/17/16 21:53 Dose: 10 mg - Labs Labs: 12/18/16 06:23 12/18/16 06:23 PT 11.2 SECONDS (9.7-12.2) 12/16/16 06:25 INR 1.0 12/16/16 06:25 APTT 28 SECONDS (21-34) 12/16/16 06:25 - Constitutional Appears: Non-toxic, Confused, Chronically Ill - Head Exam Head Exam: NORMOCEPHALIC - Eye Exam Eye Exam: PERRL. absent: Scleral icterus - ENT Exam ENT Exam: Mucous Membranes Dry - Neck Exam Neck Exam: absent: Lymphadenopathy - Respiratory Exam Respiratory Exam: Decreased Breath Sounds, Rhonchi - Cardiovascular Exam Cardiovascular Exam: REGULAR RHYTHM, +S1, +S2 - GI/Abdominal Exam GI & Abdominal Exam: Distended, Soft. absent: Tenderness - Rectal Exam Rectal Exam: Deferred - Exam Exam: NORMAL INSPECTION - Extremities Exam Extremities Exam: absent: Pedal Edema - Back Exam Back Exam: absent: CVA tenderness (L), CVA tenderness (R) - Neurological Exam Neurological Exam: Alert, Awake, Normal Gait, Oriented x3 Neuro motor strength exam: Left Upper Extremity: 4, Right Upper Extremity: 4, Left Lower Extremity: 4, Right Lower Extremity: 4 - Psychiatric Exam Psychiatric exam: Depressed - Skin Skin Exam: Dry, Intact Assessment and Plan (1) CAITLYN (acute kidney injury) Status: Acute (2) Renal failure Status: Acute (3) Sepsis Status: Acute (4) Dehydration Status: Acute - Assessment and Plan (Free Text) Assessment: iv rx renewed
[2016-12-19] MEDS: (Novolog) Insulin Aspart, Recombinant 100 u/ml 10 ml vial SC SCH ×4 (00:31→18:28)
[2016-12-19] MEDS: Piperacill/Tazo 3.375gm in Dex 3.375 GM/50 ML BAG IVPB SCH ×4 (01:45→19:24)
[2016-12-19] MEDS: Albuterol 0.083% Inhal Sol (2.5 mg/3 mL) UD IH SCH ×4 (02:10→19:38)
[2016-12-19] MEDS: Zinc Oxide Topical 30 gm Tube TOP SCH ×3 (05:16→22:00)
[2016-12-19] MEDS: Levothyroxine 125 MCG TAB PEG SCH (06:07)
[2016-12-19 08:50] LABS: BASO % 0.2 % (0.0-2.0); EOS # 0.1 K/uL (0.0-0.7); EOS % 0.8 % (0.0-4.0); HEMATOCRIT 28.7 % (34.0-47.0); LYMPH # 0.9 K/uL (1.0-4.3); LYMPH % 6.5 % (20.0-40.0); MEAN CELL VOLUME 96.7 fL (81.0-99.0); MEAN CORPUSCULAR HEMOGLOBIN 30.4 pg (27.0-31.0); MEAN CORPUSCULAR HGB CONC 31.5 g/dL (33.0-37.0); MEAN PLATELET VOLUME 10.6 fL (7.2-11.7); MONO # 0.8 K/uL (0.0-0.8); MONO % 5.9 % (0.0-10.0); PLATELET COUNT 209 K/uL (130-400); WHITE BLOOD COUNT 13.6 K/uL (4.8-10.8)
[2016-12-19 08:57] LABS: CHLORIDE 129 mmol/L (98-107)
[2016-12-19 08:58] LABS: SODIUM 159 mmol/L (132-148)
[2016-12-19 09:00] LABS: ALB/GLOB RATIO 0.7 (1.0-2.1); ALKALINE PHOSPHATASE 63 U/L (38-126); ALT/SGPT 24 U/L (9-52); AST/SGOT 26 U/L (14-36); BILIRUBIN,TOTAL 0.5 mg/dL (0.2-1.3); BLOOD UREA NITROGEN 29 mg/dL (7-17); CARBON DIOXIDE 23 mmol/L (22-30); GFR AFRICAN-AMERICAN > 60; TOTAL PROTEIN 6.1 g/dL (6.3-8.3)
[2016-12-19 09:01] LABS: CALCIUM 7.9 mg/dl (8.6-10.4); GLUCOSE,RANDOM 227 mg/dL (65-105); MAGNESIUM 2.5 mg/dL (1.6-2.3); PHOSPHOROUS 1.7 mg/dL (2.5-4.5)
--- NOTE | 2016-12-19 09:38 | CP.PCM.PN ---
Subjective - Date & Time of Evaluation Date of Evaluation: 12/19/16 Time of Evaluation: 09:36 - Subjective Subjective: Remains obtunded ZG=6052 ml More dyspneic Culture negative K, phos needs repletion Objective - Vital Signs/Intake and Output Vital Signs (last 24 hours): Temp Pulse Resp BP Pulse Ox 98.2 F 84 20 133/76 100 12/19/16 08:09 12/19/16 08:09 12/19/16 08:09 12/19/16 08:09 12/19/16 08:09 Intake and Output: 12/19/16 12/19/16 06:59 18:59 Output Total 850 Balance -850 - Medications Medications: Current Medications Acetaminophen (Tylenol 650mg/20.3ml Solution Ud) 650 mg PEG Q6 PRN PRN Reason: Temperature Last Admin: 12/18/16 10:00 Dose: 650 mg Albuterol Sulfate (Albuterol 0.083% Inhal Erika (2.5 Mg/3 Ml) Ud) 2.5 mg IH RQ6 [facility] Last Admin: 12/19/16 08:24 Dose: 2.5 mg Carvedilol (Coreg) 3.125 mg PEG BID [facility] Clopidogrel Bisulfate (Plavix) 75 mg PEG DAILY [facility] Last Admin: 12/18/16 10:50 Dose: 75 mg Enoxaparin Sodium (Lovenox) 30 mg SC DAILY [facility] Last Admin: 12/18/16 10:50 Dose: 30 mg Glipizide (Glucotrol) 0.5 mg PEG BID [facility] Last Admin: 12/17/16 11:26 Dose: Not Given Vancomycin/Sodium Chloride (Vancocin) 1 gm in 200 mls @ 133.333 mls/hr IVPB Q24H [facility] Last Admin: 12/18/16 10:00 Dose: 133.333 mls/hr Piperacillin Sod/Tazobactam Sod (Zosyn 3.375 Gm Iv Premix) 3.375 gm in 50 mls @ 100 mls/hr IVPB Q6H [facility] Last Admin: 12/19/16 01:45 Dose: 100 mls/hr Dextrose (Dextrose 5% In Water 1000 Ml) 1,000 mls @ 75 mls/hr IV .[id number] [facility] Last Admin: 12/19/16 05:18 Dose: 75 mls/hr Insulin Aspart (Novolog) 0 unit SC Q6 [facility] PRN Reason: Protocol Last Admin: 12/19/16 06:07 Dose: 6 unit Levothyroxine Sodium (Synthroid) 125 mcg PEG DAILY@0630 [facility] Last Admin: 12/19/16 06:07 Dose: 125 mcg Loratadine (Claritin) 10 mg PO DAILY [facility] Last Admin: 12/18/16 09:54 Dose: Not Given Magnesium Hydroxide (Milk Of Magnesia) 30 ml PEG DAILY PRN PRN Reason: Constipation Modafinil (Provigil) 150 mg PEG DAILY [facility] Last Admin: 12/16/16 11:54 Dose: Not Given Petrolatum (Desitin Original) 0 gm TOP QSHIFT [facility] Last Admin: 12/19/16 05:16 Dose: 1 applic Rosuvastatin Calcium (Crestor) 10 mg PO HS [facility] Last Admin: 12/18/16 21:55 Dose: 10 mg - Labs Labs: 12/19/16 08:30 12/19/16 08:30 PT 11.2 SECONDS (9.7-12.2) 12/16/16 06:25 INR 1.0 12/16/16 06:25 APTT 28 SECONDS (21-34) 12/16/16 06:25 - Constitutional Appears: Toxic, Chronically Ill - Head Exam Head Exam: ATRAUMATIC, NORMAL INSPECTION - Neck Exam Neck Exam: Normal Inspection. absent: Tenderness - Respiratory Exam Respiratory Exam: Clear to Ausculation Bilateral, Respiratory Distress - Cardiovascular Exam Cardiovascular Exam: Tachycardia, +S1 - GI/Abdominal Exam GI & Abdominal Exam: Soft, Hypoactive Bowel Sounds - Extremities Exam Extremities Exam: Normal Inspection. 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
[2016-12-19] MEDS ORDERED: Potassium Phosphate 15 MMOLE in Dextrose 5% In Water 250 ML IVPB ONE (09:41)
[2016-12-19] MEDS: Enoxaparin 30 mg Syringe SC SCH (11:06)
[2016-12-19] MEDS: Vancomycin 1 gm/NS 200 ml 1 GM/200 ML BAG IVPB SCH (11:18)
[2016-12-19 11:24] LABS: BASOPHIL 1 % (0-2); NEUTROPHIL 85 % (50-75); TOTAL CELLS COUNTED 100
[2016-12-19 11:25] LABS: LARGE PLATELETS PRESENT
--- NOTE | 2016-12-19 12:48 | CP.PCM.PN ---
<Haja Barney - Last Filed: 12/19/16 12:48> Subjective - Date & Time of Evaluation Date of Evaluation: 12/19/16 Time of Evaluation: 12:45 - Subjective Subjective: Med progress note. Attending: Dr. Martinez Pt seen and examined at bedside. No acute distress. No events overnight. pt obtunded. White count trending down, increased D5W, will order cat scan of abdomen/pelvis Objective - Vital Signs/Intake and Output Vital Signs (last 24 hours): Temp Pulse Resp BP Pulse Ox 98.2 F 84 20 133/76 100 12/19/16 08:09 12/19/16 08:09 12/19/16 08:09 12/19/16 08:09 12/19/16 08:09 Intake and Output: 12/19/16 12/19/16 06:59 18:59 Output Total 850 Balance -850 - Medications Medications: Current Medications Acetaminophen (Tylenol 650mg/20.3ml Solution Ud) 650 mg PEG Q6 PRN PRN Reason: Temperature Last Admin: 12/18/16 10:00 Dose: 650 mg Albuterol Sulfate (Albuterol 0.083% Inhal Erika (2.5 Mg/3 Ml) Ud) 2.5 mg IH RQ6 [facility] Last Admin: 12/19/16 08:24 Dose: 2.5 mg Carvedilol (Coreg) 3.125 mg PEG BID [facility] Clopidogrel Bisulfate (Plavix) 75 mg PEG DAILY [facility] Last Admin: 12/19/16 11:06 Dose: 75 mg Enoxaparin Sodium (Lovenox) 30 mg SC DAILY [facility] Last Admin: 12/19/16 11:06 Dose: 30 mg Glipizide (Glucotrol) 0.5 mg PEG BID [facility] Last Admin: 12/17/16 11:26 Dose: Not Given Vancomycin/Sodium Chloride (Vancocin) 1 gm in 200 mls @ 133.333 mls/hr IVPB Q24H [facility] Last Admin: 12/19/16 11:18 Dose: 133.333 mls/hr Piperacillin Sod/Tazobactam Sod (Zosyn 3.375 Gm Iv Premix) 3.375 gm in 50 mls @ 100 mls/hr IVPB Q6H [facility] Last Admin: 12/19/16 11:03 Dose: 100 mls/hr Dextrose (Dextrose 5% In Water 1000 Ml) 1,000 mls @ 100 mls/hr IV .Q10H [facility] Last Admin: 12/19/16 11:05 Dose: 100 mls/hr Potassium Phosphate 15 mmole/ (Dextrose) 255 mls @ 42.5 mls/hr IVPB ONCE ONE Stop: 12/19/16 15:40 Last Admin: 12/19/16 11:07 Dose: 42.5 mls/hr Insulin Aspart (Novolog) 0 unit SC Q6 [facility] PRN Reason: Protocol Last Admin: 12/19/16 06:07 Dose: 6 unit Levothyroxine Sodium (Synthroid) 125 mcg PEG DAILY@0630 [facility] Last Admin: 12/19/16 06:07 Dose: 125 mcg Loratadine (Claritin) 10 mg PO DAILY [facility] Last Admin: 12/19/16 11:06 Dose: 10 mg Magnesium Hydroxide (Milk Of Magnesia) 30 ml PEG DAILY PRN PRN Reason: Constipation Modafinil (Provigil) 150 mg PEG DAILY [facility] Last Admin: 12/16/16 11:54 Dose: Not Given Petrolatum (Desitin Original) 0 gm TOP QSHIFT [facility] Last Admin: 12/19/16 05:16 Dose: 1 applic Rosuvastatin Calcium (Crestor) 10 mg PO HS [facility] Last Admin: 12/18/16 21:55 Dose: 10 mg - Labs Labs: 12/19/16 08:30 12/19/16 08:30 PT 11.2 SECONDS (9.7-12.2) 12/16/16 06:25 INR 1.0 12/16/16 06:25 APTT 28 SECONDS (21-34) 12/16/16 06:25 - Constitutional Appears: No Acute Distress - Head Exam Head Exam: ATRAUMATIC, NORMAL INSPECTION, NORMOCEPHALIC - Eye Exam Eye Exam: EOMI - Neck Exam Neck Exam: Full ROM, Normal Inspection. absent: Lymphadenopathy - Respiratory Exam Respiratory Exam: NORMAL BREATHING PATTERN. absent: Respiratory Distress - Cardiovascular Exam Cardiovascular Exam: REGULAR RHYTHM, +S1, +S2 - GI/Abdominal Exam GI & Abdominal Exam: Soft, Tenderness Additional comments: Tender epigastric area - Extremities Exam Extremities Exam: Full ROM, Normal Inspection - Neurological Exam Neurological Exam: Altered. absent: Alert, Awake - Psychiatric Exam Additional comments: Unable to assess- obtunded - Skin Skin Exam: Dry, Intact, Normal Color, Warm Assessment and Plan - Assessment and Plan (Free Text) Assessment: This is an 86 yo female who initially presented from [facility], obtunded, with leukocytosis and hypotension (1) Leukocytosis DC Telemetry WBC now 13.6, trending down initially hypotensive and tachypenic. Will need to find the source of white count>> likely pancreatitis we change fluids to D5W 100/hr continue vanco day 3 and zosyn day 5 Blood and urine cultures drawn, negative thus far; stool culture negative Infectious disease, Dr. Leggett consulted Patient is DNR/DNI we are ordering ct chest without contrast>>> ct chest shows bibasilar atelectasis, trace b/l effusions, suspicious for acute pancreatitis f/u ct abdomen pelvis continue tylenol prn (2) Hypotension/hypernatremia fluids now D5W 100 cc/hr Monitor BP pt no longer hypotensive coreg on hold (3) Dehydration nephro has been consulted recs appreciated. -CR normal today (4) solitary kidney nephrology consult. recs appreciated. 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 (8) Hyperlipidemia Crestor 10 mg PO HS (9) Prophylactic measure lovenox daily we will stop tube feeds we will dc telemetry continue plavix daily we will replete K and Phos discussed with Dr. Crews <Marco Crews - Last Filed: 12/28/16 13:19> Objective - Vital Signs/Intake and Output Vital Signs (last 24 hours): Temp Pulse Resp BP Pulse Ox 98.8 F 79 20 141/77 98 12/20/16 08:00 12/20/16 08:00 12/20/16 08:00 12/20/16 08:00 12/20/16 08:00 Intake and Output: 12/20/16 12/20/16 06:59 18:59 Intake Total 800 Output Total 300 Balance 500 - Medications Medications: Current Medications Acetaminophen (Tylenol 650mg/20.3ml Solution Ud) 650 mg PEG Q6 PRN PRN Reason: Temperature Last Admin: 12/18/16 10:00 Dose: 650 mg Albuterol Sulfate (Albuterol 0.083% Inhal Erika (2.5 Mg/3 Ml) Ud) 2.5 mg IH RQ6 [facility] Last Admin: 12/20/16 08:12 Dose: 2.5 mg Carvedilol (Coreg) 3.125 mg PEG BID [facility] Clopidogrel Bisulfate (Plavix) 75 mg PEG DAILY [facility] Last Admin: 12/20/16 10:18 Dose: 75 mg Enoxaparin Sodium (Lovenox) 30 mg SC DAILY [facility] Last Admin: 12/20/16 10:17 Dose: 30 mg Glipizide (Glucotrol) 0.5 mg PEG BID [facility] Last Admin: 12/17/16 11:26 Dose: Not Given Vancomycin/Sodium Chloride (Vancocin) 1 gm in 200 mls @ 133.333 mls/hr IVPB Q24H [facility] Last Admin: 12/20/16 10:20 Dose: 133.333 mls/hr Piperacillin Sod/Tazobactam Sod (Zosyn 3.375 Gm Iv Premix) 3.375 gm in 50 mls @ 100 mls/hr IVPB Q6H [facility] Last Admin: 12/20/16 10:21 Dose: 100 mls/hr Dextrose (Dextrose 5% In Water 1000 Ml) 1,000 mls @ 100 mls/hr IV .Q10H [facility] Last Admin: 12/20/16 05:44 Dose: Not Given Potassium Chloride (Potassium Chloride 20 Meq/100 Ml) 20 meq in 100 mls @ 50 mls/hr IVPB ONCE ONE Stop: 12/20/16 12:30 Last Admin: 12/20/16 10:23 Dose: 50 mls/hr Insulin Aspart (Novolog) 0 unit SC Q6 [facility] PRN Reason: Protocol Last Admin: 12/20/16 07:28 Dose: 4 unit Levothyroxine Sodium (Synthroid) 125 mcg PEG DAILY@0630 [facility] Last Admin: 12/20/16 05:50 Dose: Not Given Loratadine (Claritin) 10 mg PO DAILY [facility] Last Admin: 12/20/16 10:18 Dose: 10 mg Magnesium Hydroxide (Milk Of Magnesia) 30 ml PEG DAILY PRN PRN Reason: Constipation Modafinil (Provigil) 150 mg PEG DAILY [facility] Last Admin: 12/16/16 11:54 Dose: Not Given Petrolatum (Desitin Original) 0 gm TOP QSHIFT [facility] Last Admin: 12/20/16 06:30 Dose: 1 applic Rosuvastatin Calcium (Crestor) 10 mg PO HS [facility] Last Admin: 12/19/16 21:29 Dose: Not Given - Labs Labs: 12/20/16 07:38 12/20/16 07:38 PT 11.2 SECONDS (9.7-12.2) 12/16/16 06:25 INR 1.0 12/16/16 06:25 APTT 28 SECONDS (21-34) 12/16/16 06:25 Attending/Attestation - Attestation I have personally seen and examined this patient.: Yes I have fully participated in the care of the patient.: Yes I have reviewed all pertinent clinical information, including history, physical exam and plan: Yes Notes (Text): 12/20/16 11:31 Patient was seen and examined at bedside Continue antibiotics for sepsis. No obvious source of infection. WBC is trending down. We we will obtain CT scan of the abdomen and pelvis with IV contrast to rule out acute pancreatitis Replace electrolytes as needed Patient on D5W for hypernatremia Management as per nephrology Discussed the plan of care with the resident and agree with the above history and physical and assessment/plan
[2016-12-19] MEDS ORDERED: Iodixanol 320 MG/ML 100 ML BOTTLE IV ONE (17:24)
--- NOTE | 2016-12-19 17:40 | RAD ---
HISTORY: dyspnea COMPARISON: Comparison is made to the previous study dated 12/15/2016 FINDINGS: LUNGS: Opacity at the left lower lung may represent atelectasis P PLEURA: No significant pleural effusion identified, no pneumothorax apparent. CARDIOVASCULAR: Normal. OSSEOUS STRUCTURES: No significant abnormalities. VISUALIZED UPPER ABDOMEN: Normal. OTHER FINDINGS: None. IMPRESSION: Left lower lobe opacity may represent atelectasis versus pneumonia.
--- NOTE | 2016-12-19 19:15 | CT ---
EXAM: CT Abdomen and Pelvis With Intravenous Contrast CLINICAL HISTORY: 86 years old, female; Pain; Abdominal pain; Generalized; Additional info: Pancreatitis TECHNIQUE: Axial computed tomography images of the abdomen and pelvis with intravenous contrast. This CT exam was performed using one or more of the following dose reduction techniques: automated exposure control, adjustment of the mA and/or kV according to patient size, and/or use of iterative reconstruction technique. Coronal and sagittal reformatted images were created and reviewed. CONTRAST: 100 mL of [id number] administered intravenously. EXAM DATE/TIME: 12/19/2016 6:10 PM COMPARISON: Prior CT abdomen and pelvis of 11/28/2016 FINDINGS: LIMITATIONS: Exam is limited by moderate to marked streak/motion artifact. LOWER THORAX: Very small left pleural effusion. ABDOMEN: LIVER: Scattered small low density liver lesions, most likely representing cysts. GALLBLADDER AND BILE DUCTS: No CT evidence of acute cholecystitis. No evidence of significant biliary ductal dilatation. PANCREAS: See below. Pancreatic duct is mildly dilated, in the proximal pancreas. Body and tail of the pancreas appear atrophic. No evidence of a focal peripancreatic fluid collection. SPLEEN: No acute abnormality of the spleen identified. ADRENALS: No acute abnormality of the adrenal glands identified. 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 1.7 cm low density lesion in the right kidney, most likely a cyst. STOMACH AND BOWEL: See below. Moderate wall thickening of the third duodenal segment. No free air to suggest duodenal perforation. Rectum is stool-filled and is moderately dilated. Its wall is thickened. There is infiltration of the perirectal fat. There is a small amount of nearby free fluid, in the presacral region. 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 Colon is fluid-filled, without evidence of significant wall thickening or dilatation. This finding can be seen in the setting of diarrhea. Colonic diverticulosis, with no evidence of acute diverticulitis. Otherwise, no significant abnormality of the bowel is identified. No evidence of small bowel obstruction. APPENDIX: Normal appendix is not seen, however, there are no significant inflammatory changes visualized in the expected location of the appendix to suggest appendicitis. Recommend clinical correlation. PELVIS: BLADDER: Catheter and air are seen in the bladder lumen. The bladder is decompressed. REPRODUCTIVE: Uterus is surgically absent. ABDOMEN and PELVIS: INTRAPERITONEAL SPACE: Small amount of abdominal and pelvic free fluid No evidence of free air. RETROPERITONEAL SPACE: Moderate amount of fluid is seen in the retroperitoneum, abutting the pancreatic head inferiorly and the third duodenal segment. There is also a small amount of more diffuse retroperitoneal fluid more inferiorly, in the pelvic retroperitoneal space. BONES/JOINTS: Bony structures appear demineralized. 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 Grade 1 spondylolisthesis of L4 over L5. SOFT TISSUES: Right inguinal hernia, containing small bowel loop and fluid. No evidence of associated bowel obstruction. No CT findings to suggest hernia incarceration, although clinical exam is more sensitive for detection of hernia incarceration. VASCULATURE: Atherosclerotic calcification. No evidence of abdominal aortic aneurysm or dissection. LYMPH NODES: No evidence of diffuse lymphadenopathy. TUBES, LINES AND DEVICES: Percutaneous gastrostomy is in place. This does not appear to be malpositioned. IMPRESSION: - Retroperitoneal fluid, moderate in amount, abutting the pancreatic head and duodenum. This is most likely secondary to acute pancreatitis. Recommend correlation with pancreatic enzyme values, however. If there is no laboratory evidence of acute pancreatitis, the findings could instead be secondary to duodenitis. - Findings highly suspicious for stercoral proctitis. - Small amount of abdominal and pelvic free fluid. - Very small left pleural effusion. - Otherwise, no evidence of significant acute process. - Right inguinal hernia, containing a small bowel loop and fluid. - Limited exam due to motion artifact. - See above for remaining findings.
[2016-12-20] MEDS: (Novolog) Insulin Aspart, Recombinant 100 u/ml 10 ml vial SC SCH ×4 (01:01→18:50)
[2016-12-20] MEDS: Albuterol 0.083% Inhal Sol (2.5 mg/3 mL) UD IH SCH ×4 (01:40→19:24)
[2016-12-20] MEDS: Piperacill/Tazo 3.375gm in Dex 3.375 GM/50 ML BAG IVPB SCH ×4 (01:45→21:54)
[2016-12-20] MEDS: Levothyroxine 125 MCG TAB PEG SCH (05:50)
[2016-12-20] MEDS: Zinc Oxide Topical 30 gm Tube TOP SCH ×3 (06:30→21:45)
[2016-12-20 07:52] LABS: BASO % 0.4 % (0.0-2.0); EOS # 0.3 K/uL (0.0-0.7); EOS % 2.8 % (0.0-4.0); HEMATOCRIT 27.5 % (34.0-47.0); MEAN CELL VOLUME 96.3 fL (81.0-99.0); MEAN CORPUSCULAR HEMOGLOBIN 30.6 pg (27.0-31.0); MEAN CORPUSCULAR HGB CONC 31.8 g/dL (33.0-37.0); MEAN PLATELET VOLUME 10.7 fL (7.2-11.7); MONO # 0.7 K/uL (0.0-0.8); MONO % 5.7 % (0.0-10.0); PLATELET COUNT 220 K/uL (130-400); RED CELL DISTRIBUTION WIDTH 17.1 % (11.5-14.5); WHITE BLOOD COUNT 12.4 K/uL (4.8-10.8)
[2016-12-20 08:04] LABS: POTASSIUM 2.7 mmol/L (3.6-5.2)
[2016-12-20 08:06] LABS: BILIRUBIN,TOTAL 0.6 mg/dL (0.2-1.3)
[2016-12-20 08:07] LABS: ALB/GLOB RATIO 0.7 (1.0-2.1); PHOSPHOROUS 2.5 mg/dL (2.5-4.5); TOTAL PROTEIN 5.9 g/dL (6.3-8.3)
[2016-12-20 08:08] LABS: MAGNESIUM 2.2 mg/dL (1.6-2.3)
[2016-12-20] MEDS ORDERED: Potassium Chloride 20 mEq/15 ml LIQ UD PEG STA (08:26)
[2016-12-20 10:03] LABS: EOSINOPHIL 2 % (0-4); NEUTROPHIL 77 % (50-75); TOTAL CELLS COUNTED 100
[2016-12-20] MEDS: Enoxaparin 30 mg Syringe SC SCH (10:17)
[2016-12-20] MEDS: Vancomycin 1 gm/NS 200 ml 1 GM/200 ML BAG IVPB SCH (10:20)
--- NOTE | 2016-12-20 12:46 | CP.PCM.PN ---
<Haja Barney - Last Filed: 12/20/16 12:46> Subjective - Date & Time of Evaluation Date of Evaluation: 12/20/16 Time of Evaluation: 12:45 - Subjective Subjective: Med progress note. Attending: Dr. Crews Pt seen and examined at bedside. Pt obtunded. Respirations are improved. Questionable whether pt has pancreatitis as lipase is normal. Labs improving. Afebrile, vss. Objective - Vital Signs/Intake and Output Vital Signs (last 24 hours): Temp Pulse Resp BP Pulse Ox 98.8 F 79 20 141/77 98 12/20/16 08:00 12/20/16 08:00 12/20/16 08:00 12/20/16 08:00 12/20/16 08:00 Intake and Output: 12/20/16 12/20/16 06:59 18:59 Intake Total 800 Output Total 300 Balance 500 - Medications Medications: Current Medications Acetaminophen (Tylenol 650mg/20.3ml Solution Ud) 650 mg PEG Q6 PRN PRN Reason: Temperature Last Admin: 12/18/16 10:00 Dose: 650 mg Albuterol Sulfate (Albuterol 0.083% Inhal Erika (2.5 Mg/3 Ml) Ud) 2.5 mg IH RQ6 [facility] Last Admin: 12/20/16 08:12 Dose: 2.5 mg Carvedilol (Coreg) 3.125 mg PEG BID [facility] Clopidogrel Bisulfate (Plavix) 75 mg PEG DAILY [facility] Last Admin: 12/20/16 10:18 Dose: 75 mg Enoxaparin Sodium (Lovenox) 30 mg SC DAILY [facility] Last Admin: 12/20/16 10:17 Dose: 30 mg Glipizide (Glucotrol) 0.5 mg PEG BID [facility] Last Admin: 12/17/16 11:26 Dose: Not Given Vancomycin/Sodium Chloride (Vancocin) 1 gm in 200 mls @ 133.333 mls/hr IVPB Q24H [facility] Last Admin: 12/20/16 10:20 Dose: 133.333 mls/hr Piperacillin Sod/Tazobactam Sod (Zosyn 3.375 Gm Iv Premix) 3.375 gm in 50 mls @ 100 mls/hr IVPB Q6H [facility] Last Admin: 12/20/16 10:21 Dose: 100 mls/hr Dextrose (Dextrose 5% In Water 1000 Ml) 1,000 mls @ 100 mls/hr IV .Q10H [facility] Last Admin: 12/20/16 05:44 Dose: Not Given Insulin Aspart (Novolog) 0 unit SC Q6 NITIN PRN Reason: Protocol Last Admin: 12/20/16 07:28 Dose: 4 unit Levothyroxine Sodium (Synthroid) 125 mcg PEG DAILY@0630 [facility] Last Admin: 12/20/16 05:50 Dose: Not Given Loratadine (Claritin) 10 mg PO DAILY [facility] Last Admin: 12/20/16 10:18 Dose: 10 mg Magnesium Hydroxide (Milk Of Magnesia) 30 ml PEG DAILY PRN PRN Reason: Constipation Modafinil (Provigil) 150 mg PEG DAILY [facility] Last Admin: 12/16/16 11:54 Dose: Not Given Petrolatum (Desitin Original) 0 gm TOP QSHIFT [facility] Last Admin: 12/20/16 06:30 Dose: 1 applic Rosuvastatin Calcium (Crestor) 10 mg PO HS [facility] Last Admin: 12/19/16 21:29 Dose: Not Given - Labs Labs: 12/20/16 07:38 12/20/16 07:38 PT 11.2 SECONDS (9.7-12.2) 12/16/16 06:25 INR 1.0 12/16/16 06:25 APTT 28 SECONDS (21-34) 12/16/16 06:25 - Constitutional Appears: Non-toxic, No Acute Distress - Head Exam Head Exam: ATRAUMATIC, NORMAL INSPECTION, NORMOCEPHALIC - Eye Exam Eye Exam: EOMI - ENT Exam ENT Exam: Mucous Membranes Moist - Neck Exam Neck Exam: Full ROM, Normal Inspection - Respiratory Exam Respiratory Exam: NORMAL BREATHING PATTERN. absent: Respiratory Distress - Cardiovascular Exam Cardiovascular Exam: +S1, +S2 - GI/Abdominal Exam GI & Abdominal Exam: Tenderness Additional comments: tenderness epigastric area - Extremities Exam Extremities Exam: Full ROM, Normal Inspection - Neurological Exam Neurological Exam: Altered. absent: Alert, Awake, Oriented x3 - Psychiatric Exam Additional comments: Unable to assess - Skin Skin Exam: Dry, Intact, Normal Color, Warm Assessment and Plan - Assessment and Plan (Free Text) Assessment: This is an 86 yo female who initially presented from senior care, obtunded, with leukocytosis and hypotension (1) Leukocytosis DC Telemetry WBC now 12.4, trending down initially hypotensive and tachypenic. Will need to find the source of white count>> questionable pancreatitis, lipase nl we change fluids to D5W 100/hr continue vanco day 4 and zosyn day 6 Blood and urine cultures drawn, negative thus far; stool culture negative ; ova , parasites negative Infectious disease, Dr. Leggett consulted Patient is DNR/DNI we are ordering ct chest without contrast>>> ct chest shows bibasilar atelectasis, trace b/l effusions, suspicious for acute pancreatitis f/u ct abdomen pelvis >>>> shows retroperitoneal fluid/proctitis, right inguinal hernia, small pleural effusion ( see full report) continue tylenol prn restart tube feeds (2) Hypotension/hypernatremia fluids now D5W 100 cc/hr Monitor BP pt no longer hypotensive coreg on hold (3) Dehydration nephro has been consulted recs appreciated. -CR normal today (4) solitary kidney nephrology consult. recs appreciated. 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 (8) Hyperlipidemia Crestor 10 mg PO HS (9) Prophylactic measure lovenox daily restart tube feeds we will dc telemetry continue plavix daily we will replete K and Phos, we will replete electrolytes discussed with Dr. Crews <Marco Crews - Last Filed: 12/28/16 13:36> Objective - Vital Signs/Intake and Output Vital Signs (last 24 hours): Temp Pulse Resp BP Pulse Ox 98 F 78 20 145/72 96 12/28/16 07:15 12/28/16 07:15 12/28/16 07:15 12/28/16 07:15 12/28/16 07:15 - Medications Medications: Current Medications Acetaminophen (Tylenol 650mg/20.3ml Solution Ud) 650 mg PEG Q6 PRN PRN Reason: Temperature Last Admin: 12/24/16 21:00 Dose: 650 mg Albuterol/Ipratropium (Duoneb 3 Mg/0.5 Mg (3 Ml) Ud) 3 ml INH RQ6 [facility]IT[facility] Last Admin: 12/28/16 01:36 Dose: Not Given Bacitracin (Bacitracin) 1 gm TOP QSHIFT [facility] Last Admin: 12/28/16 05:38 Dose: 1 applic Carvedilol (Coreg) 3.125 mg PEG DAILY [facility] Clopidogrel Bisulfate (Plavix) 75 mg PEG DAILY [facility] Last Admin: 12/28/16 10:38 Dose: 75 mg Glipizide (Glucotrol) 0.5 mg PEG BID [facility] Last Admin: 12/17/16 11:26 Dose: Not Given Piperacillin Sod/Tazobactam Sod (Zosyn 3.375 Gm Iv Premix) 3.375 gm in 50 mls @ 100 mls/hr IVPB Q6H [facility] Last Admin: 12/28/16 10:38 Dose: 100 mls/hr Vancomycin HCl 1 gm/ Sodium (Chloride) 250 mls @ 166.7 mls/hr IVPB Q24H [facility] Last Admin: 12/27/16 14:28 Dose: 166.7 mls/hr Potassium Chloride 20 meq/ (Dextrose/Sodium Chloride) 1,010 mls @ 80 mls/hr IV .[id number] COUNT [facility]CLUDES [facility] Last Admin: 12/28/16 12:37 Dose: 80 mls/hr Insulin Aspart (Novolog) 0 unit SC Q6 [facility] PRN Reason: Protocol Last Admin: 12/28/16 12:37 Dose: 4 unit Levothyroxine Sodium (Synthroid) 125 mcg PEG DAILY@0630 [facility] Last Admin: 12/28/16 05:38 Dose: 125 mcg Loratadine (Claritin) 10 mg PO DAILY [facility] Last Admin: 12/28/16 10:38 Dose: 10 mg Magnesium Hydroxide (Milk Of Magnesia) 30 ml PEG DAILY PRN PRN Reason: Constipation Metronidazole (Flagyl) 500 mg PEG Q8 [facility] Last Admin: 12/28/16 05:38 Dose: 500 mg Modafinil (Provigil) 150 mg PEG DAILY [facility] Last Admin: 12/16/16 11:54 Dose: Not Given [facility]rolatum (Desitin Original) [facility] Last Admin: 12/28/16 05:34 Dose: 1 applic Rosuvastatin Calcium (Crestor) 10 mg PO [facility] Last Admin: 12/27/16 22:25 Dose: 10 mg Sodium Phosphate (K-Phos Neutral) 250 mg PO DAILY [facility] Last Admin: 12/28/16 10:38 Dose: 250 mg - Labs Labs: 12/28/16 06:56 12/28/16 06:56 PT 11.2 SECONDS (9.7-12.2) 12/16/16 06:25 INR 1.0 12/16/16 06:25 APTT 28 SECONDS (21-34) 12/16/16 06:25 Attending/Attestation - Attestation I have personally seen and examined this patient.: Yes I have fully participated in the care of the patient.: Yes I have reviewed all pertinent clinical information, including history, physical exam and plan: Yes Notes (Text): 12/28/16 13:36 Patient was seen and examined at bedside with the resident This is a late computer entry I discussed the plan of care with the resident and I agree with the above history and physical and assessment/plan but the resident.
--- NOTE | 2016-12-20 14:41 | CP.PCM.PN ---
Subjective - Date & Time of Evaluation Date of Evaluation: 12/20/16 Time of Evaluation: 09:00 - Subjective Subjective: NO NEW CULTURES RX IN PROGRESS VANCO LEVEL NOTED Objective - Vital Signs/Intake and Output Vital Signs (last 24 hours): Temp Pulse Resp BP Pulse Ox 98.8 F 79 20 141/77 98 12/20/16 08:00 12/20/16 08:00 12/20/16 08:00 12/20/16 08:00 12/20/16 08:00 Intake and Output: 12/20/16 12/20/16 06:59 18:59 Intake Total 800 Output Total 300 Balance 500 - Medications Medications: Current Medications Acetaminophen (Tylenol 650mg/20.3ml Solution Ud) 650 mg PEG Q6 PRN PRN Reason: Temperature Last Admin: 12/18/16 10:00 Dose: 650 mg Albuterol Sulfate (Albuterol 0.083% Inhal Erika (2.5 Mg/3 Ml) Ud) 2.5 mg IH RQ6 [facility] Last Admin: 12/20/16 13:30 Dose: Not Given Carvedilol (Coreg) 3.125 mg PEG BID [facility] Clopidogrel Bisulfate (Plavix) 75 mg PEG DAILY [facility] Last Admin: 12/20/16 10:18 Dose: 75 mg Enoxaparin Sodium (Lovenox) 30 mg SC DAILY [facility] Last Admin: 12/20/16 10:17 Dose: 30 mg Glipizide (Glucotrol) 0.5 mg PEG BID [facility] Last Admin: 12/17/16 11:26 Dose: Not Given Vancomycin/Sodium Chloride (Vancocin) 1 gm in 200 mls @ 133.333 mls/hr IVPB Q24H [facility] Last Admin: 12/20/16 10:20 Dose: 133.333 mls/hr Piperacillin Sod/Tazobactam Sod (Zosyn 3.375 Gm Iv Premix) 3.375 gm in 50 mls @ 100 mls/hr IVPB Q6H [facility] Last Admin: 12/20/16 13:48 Dose: 100 mls/hr Dextrose (Dextrose 5% In Water 1000 Ml) 1,000 mls @ 100 mls/hr IV .Q10H [facility] Last Admin: 12/20/16 05:44 Dose: Not Given Insulin Aspart (Novolog) 0 unit SC Q6 NITIN PRN Reason: Protocol Last Admin: 12/20/16 12:15 Dose: 3 unit Levothyroxine Sodium (Synthroid) 125 mcg PEG DAILY@0630 [facility] Last Admin: 12/20/16 05:50 Dose: Not Given Loratadine (Claritin) 10 mg PO DAILY [facility] Last Admin: 12/20/16 10:18 Dose: 10 mg Magnesium Hydroxide (Milk Of Magnesia) 30 ml PEG DAILY PRN PRN Reason: Constipation Modafinil (Provigil) 150 mg PEG DAILY [facility] Last Admin: 12/16/16 11:54 Dose: Not Given Petrolatum (Desitin Original) 0 gm TOP QSHIFT [facility] Last Admin: 12/20/16 13:46 Dose: 1 applic Rosuvastatin Calcium (Crestor) 10 mg PO HS [facility] Last Admin: 12/19/16 21:29 Dose: Not Given - Labs Labs: 12/20/16 07:38 12/20/16 07:38 PT 11.2 SECONDS (9.7-12.2) 12/16/16 06:25 INR 1.0 12/16/16 06:25 APTT 28 SECONDS (21-34) 12/16/16 06:25 - Constitutional Appears: Confused, Chronically Ill - Head Exam Head Exam: ATRAUMATIC, NORMAL INSPECTION, NORMOCEPHALIC - Eye Exam Eye Exam: PERRL. absent: Scleral icterus - ENT Exam ENT Exam: Mucous Membranes Dry - Neck Exam Neck Exam: absent: Lymphadenopathy - Respiratory Exam Respiratory Exam: Decreased Breath Sounds, Rhonchi - Cardiovascular Exam Cardiovascular Exam: REGULAR RHYTHM, +S1, +S2 - GI/Abdominal Exam GI & Abdominal Exam: Distended, Soft - Rectal Exam Rectal Exam: Deferred - Exam Exam: NORMAL INSPECTION - Extremities Exam Extremities Exam: absent: Calf Tenderness, Pedal Edema - Back Exam Back Exam: absent: CVA tenderness (L) - Neurological Exam Neurological Exam: Altered - Psychiatric Exam Psychiatric exam: Depressed Assessment and Plan (1) CAITLYN (acute kidney injury) Status: Acute (2) Renal failure Status: Acute (3) Sepsis Status: Acute (4) Dehydration Status: Acute
[2016-12-20] MEDS: Acetaminophen 650mg/20.3ml solution UD PEG PRN (21:48)
[2016-12-21] MEDS: (Novolog) Insulin Aspart, Recombinant 100 u/ml 10 ml vial SC SCH ×5 (00:30→23:57)
[2016-12-21] MEDS: Piperacill/Tazo 3.375gm in Dex 3.375 GM/50 ML BAG IVPB SCH ×4 (01:16→20:00)
[2016-12-21] MEDS: Albuterol 0.083% Inhal Sol (2.5 mg/3 mL) UD IH SCH (01:36)
[2016-12-21] MEDS: Zinc Oxide Topical 30 gm Tube TOP SCH ×3 (06:29→21:51)
[2016-12-21] MEDS: Levothyroxine 125 MCG TAB PEG SCH ×2 (06:30→07:05)
[2016-12-21] MEDS: Acetaminophen 650mg/20.3ml solution UD PEG PRN (06:39)
[2016-12-21 07:13] LABS: RED CELL DISTRIBUTION WIDTH 16.9 % (11.5-14.5)
[2016-12-21 07:33] LABS: POTASSIUM 3.6 mmol/L (3.6-5.2)
[2016-12-21 07:35] LABS: ALB/GLOB RATIO 0.7 (1.0-2.1); BILIRUBIN,TOTAL 0.5 mg/dL (0.2-1.3); TOTAL PROTEIN 5.9 g/dL (6.3-8.3)
[2016-12-21 07:36] LABS: CALCIUM 8.1 mg/dl (8.6-10.4); PHOSPHOROUS 3.5 mg/dL (2.5-4.5)
[2016-12-21 07:47] LABS: HEMATOCRIT 27.5 % (34.0-47.0); MEAN CORPUSCULAR HEMOGLOBIN 30.3 pg (27.0-31.0); MEAN CORPUSCULAR HGB CONC 31.2 g/dL (33.0-37.0); MEAN PLATELET VOLUME 10.8 fL (7.2-11.7); WHITE BLOOD COUNT 11.7 K/uL (4.8-10.8)
[2016-12-21 09:38] LABS: EOS # 0.7 K/uL (0.0-0.7); LYMPH # 1.2 K/uL (1.0-4.3); MONO # 0.5 K/uL (0.0-0.8)
[2016-12-21] MEDS: Vancomycin 1 gm/NS 200 ml 1 GM/200 ML BAG IVPB SCH (10:57)
[2016-12-21] MEDS: Enoxaparin 30 mg Syringe SC SCH (10:57)
--- NOTE | 2016-12-21 11:58 | CP.PCM.PN ---
Subjective - Date & Time of Evaluation Date of Evaluation: 12/21/16 Time of Evaluation: 11:55 - Subjective Subjective: Remains nonverbal Less dyspneic CXR consistent with likely pneumonia Na sl better at 156 Renal function stable Objective - Vital Signs/Intake and Output Vital Signs (last 24 hours): Temp Pulse Resp BP Pulse Ox 99.1 F 73 20 122/63 100 12/21/16 07:10 12/21/16 07:10 12/21/16 07:10 12/21/16 07:10 12/21/16 07:10 Intake and Output: 12/21/16 12/21/16 06:59 18:59 Intake Total 1370 Output Total 600 Balance 770 - Medications Medications: Current Medications Acetaminophen (Tylenol 650mg/20.3ml Solution Ud) 650 mg PEG Q6 PRN PRN Reason: Temperature Last Admin: 12/21/16 06:39 Dose: 650 mg Carvedilol (Coreg) 3.125 mg PEG BID [facility] Clopidogrel Bisulfate (Plavix) 75 mg PEG DAILY [facility] Last Admin: 12/21/16 10:56 Dose: 75 mg Enoxaparin Sodium (Lovenox) 30 mg SC DAILY [facility] Last Admin: 12/21/16 10:57 Dose: 30 mg Glipizide (Glucotrol) 0.5 mg PEG BID [facility] Last Admin: 12/17/16 11:26 Dose: Not Given Vancomycin/Sodium Chloride (Vancocin) 1 gm in 200 mls @ 133.333 mls/hr IVPB Q24H [facility] Last Admin: 12/21/16 10:57 Dose: 133.333 mls/hr Piperacillin Sod/Tazobactam Sod (Zosyn 3.375 Gm Iv Premix) 3.375 gm in 50 mls @ 100 mls/hr IVPB Q6H [facility] Last Admin: 12/21/16 08:55 Dose: 100 mls/hr Dextrose (Dextrose 5% In Water 1000 Ml) 1,000 mls @ 100 mls/hr IV .Q10H [facility] Last Admin: 12/21/16 11:34 Dose: Not Given Insulin Aspart (Novolog) 0 unit SC Q6 NITIN PRN Reason: Protocol Last Admin: 12/21/16 07:00 Dose: 4 unit Levothyroxine Sodium (Synthroid) 125 mcg PEG DAILY@0630 [facility] Last Admin: 12/21/16 06:30 Dose: 125 mcg Loratadine (Claritin) 10 mg PO DAILY [facility] Last Admin: 12/21/16 10:57 Dose: 10 mg Magnesium Hydroxide (Milk Of Magnesia) 30 ml PEG DAILY PRN PRN Reason: Constipation Modafinil (Provigil) 150 mg PEG DAILY [facility] Last Admin: 12/16/16 11:54 Dose: Not Given Petrolatum (Desitin Original) 0 gm TOP QSHIFT [facility] Last Admin: 12/21/16 06:29 Dose: 1 applic Rosuvastatin Calcium (Crestor) 10 mg PO HS [facility] Last Admin: 12/20/16 21:45 Dose: 10 mg - Labs Labs: 12/21/16 07:05 12/21/16 07:05 PT 11.2 SECONDS (9.7-12.2) 12/16/16 06:25 INR 1.0 12/16/16 06:25 APTT 28 SECONDS (21-34) 12/16/16 06:25 - Constitutional Appears: No Acute Distress, Chronically Ill - Head Exam Head Exam: ATRAUMATIC, NORMAL INSPECTION - Neck Exam Neck Exam: Normal Inspection. absent: Tenderness - Respiratory Exam Respiratory Exam: Clear to Ausculation Bilateral, NORMAL BREATHING PATTERN - Cardiovascular Exam Cardiovascular Exam: REGULAR RHYTHM, +S1 - GI/Abdominal Exam GI & Abdominal Exam: Soft. absent: Tenderness - Extremities Exam Extremities Exam: Normal Inspection. absent: Tenderness - Neurological Exam Neurological Exam: Altered, Motor Sensory Deficit - Skin Skin Exam: Dry, Warm Assessment and Plan (1) CAITLYN (acute kidney injury) Status: Acute (2) Sepsis Status: Acute (3) Dementia in Alzheimer's disease Status: Chronic (4) History of nephrectomy, unilateral Status: Chronic (5) Hypernatremia Status: Acute - Assessment and Plan (Free Text) Plan: Continue IV D5W IV ABs as per ID Add free water via PEG follow up chemistries
--- NOTE | 2016-12-21 12:16 | CP.PCM.PN ---
Subjective - Date & Time of Evaluation Date of Evaluation: 12/21/16 Time of Evaluation: 10:00 - Subjective Subjective: rx for pneumonia in progress Objective - Vital Signs/Intake and Output Vital Signs (last 24 hours): Temp Pulse Resp BP Pulse Ox 99.1 F 73 20 122/63 100 12/21/16 07:10 12/21/16 07:10 12/21/16 07:10 12/21/16 07:10 12/21/16 07:10 Intake and Output: 12/21/16 12/21/16 06:59 18:59 Intake Total 1370 Output Total 600 Balance 770 - Medications Medications: Current Medications Acetaminophen (Tylenol 650mg/20.3ml Solution Ud) 650 mg PEG Q6 PRN PRN Reason: Temperature Last Admin: 12/21/16 06:39 Dose: 650 mg Carvedilol (Coreg) 3.125 mg PEG BID [facility] Clopidogrel Bisulfate (Plavix) 75 mg PEG DAILY [facility] Last Admin: 12/21/16 10:56 Dose: 75 mg Enoxaparin Sodium (Lovenox) 30 mg SC DAILY [facility] Last Admin: 12/21/16 10:57 Dose: 30 mg Glipizide (Glucotrol) 0.5 mg PEG BID [facility] Last Admin: 12/17/16 11:26 Dose: Not Given Vancomycin/Sodium Chloride (Vancocin) 1 gm in 200 mls @ 133.333 mls/hr IVPB Q24H [facility] Last Admin: 12/21/16 10:57 Dose: 133.333 mls/hr Piperacillin Sod/Tazobactam Sod (Zosyn 3.375 Gm Iv Premix) 3.375 gm in 50 mls @ 100 mls/hr IVPB Q6H [facility] Last Admin: 12/21/16 08:55 Dose: 100 mls/hr Dextrose (Dextrose 5% In Water 1000 Ml) 1,000 mls @ 100 mls/hr IV .Q10H [facility]PL[facility] Last Admin: 12/21/16 11:34 Dose: Not Given Insulin Aspart (Novolog) 0 unit SC Q6 NITIN PRN Reason: Protocol Last Admin: 12/21/16 07:00 Dose: 4 unit Levothyroxine Sodium (Synthroid) 125 mcg PEG DAILY@0630 [facility] Last Admin: 12/21/16 06:30 Dose: 125 mcg Loratadine (Claritin) 10 mg PO DAILY [facility] Last Admin: 12/21/16 10:57 Dose: 10 mg Magnesium Hydroxide (Milk Of Magnesia) 30 ml PEG DAILY PRN PRN Reason: Constipation Modafinil (Provigil) 150 mg PEG DAILY [facility] Last Admin: 12/16/16 11:54 Dose: Not Given Petrolatum (Desitin Original) 0 gm TOP QSHIFT [facility]PL[facility] Last Admin: 12/21/16 06:29 Dose: 1 applic Rosuvastatin Calcium (Crestor) 10 mg PO HS [facility] Last Admin: 12/20/16 21:45 Dose: 10 mg - Labs Labs: 12/21/16 07:05 12/21/16 07:05 PT 11.2 SECONDS (9.7-12.2) 12/16/16 06:25 INR 1.0 12/16/16 06:25 APTT 28 SECONDS (21-34) 12/16/16 06:25 - Constitutional Appears: Non-toxic, Confused, Cachectic - Head Exam Head Exam: NORMOCEPHALIC - Eye Exam Eye Exam: PERRL. absent: Scleral icterus - ENT Exam ENT Exam: Mucous Membranes Dry, Normal Oropharynx - Neck Exam Neck Exam: absent: Lymphadenopathy - Respiratory Exam Respiratory Exam: Decreased Breath Sounds, Rhonchi - Cardiovascular Exam Cardiovascular Exam: REGULAR RHYTHM, +S1, +S2 - GI/Abdominal Exam GI & Abdominal Exam: Distended, Soft. absent: Tenderness Assessment and Plan (1) CAITLYN (acute kidney injury) Status: Acute (2) Renal failure Status: Acute (3) Sepsis Status: Acute (4) Dehydration Status: Acute (5) Pneumonia Status: Acute (6) Pneumonia Status: Acute - Assessment and Plan (Free Text) Plan: cont iv rx
--- NOTE | 2016-12-21 18:12 | CP.PCM.PN ---
<Haja Barney - Last Filed: 12/21/16 18:13> Subjective - Date & Time of Evaluation Date of Evaluation: 12/21/16 Time of Evaluation: 18:10 - Subjective Subjective: Med progress note. Attending: Dr. Garsia Pt seen and examined at bedside. Pt obtunded but did become more alert after name was called. Continue to lower sodium, will consult GI for futher clarification regarding pancreas. Objective - Vital Signs/Intake and Output Vital Signs (last 24 hours): Temp Pulse Resp BP Pulse Ox 98.6 F 78 20 119/67 100 12/21/16 15:58 12/21/16 15:58 12/21/16 15:58 12/21/16 15:58 12/21/16 15:58 Intake and Output: 12/21/16 12/21/16 06:59 18:59 Intake Total 1370 Output Total 600 Balance 770 - Medications Medications: Current Medications Acetaminophen (Tylenol 650mg/20.3ml Solution Ud) 650 mg PEG Q6 PRN PRN Reason: Temperature Last Admin: 12/21/16 06:39 Dose: 650 mg Carvedilol (Coreg) 3.125 mg PEG BID [facility] Clopidogrel Bisulfate (Plavix) 75 mg PEG DAILY [facility] Last Admin: 12/21/16 10:56 Dose: 75 mg Enoxaparin Sodium (Lovenox) 30 mg SC DAILY [facility] Last Admin: 12/21/16 10:57 Dose: 30 mg Glipizide (Glucotrol) 0.5 mg PEG BID [facility] Last Admin: 12/17/16 11:26 Dose: Not Given Vancomycin/Sodium Chloride (Vancocin) 1 gm in 200 mls @ 133.333 mls/hr IVPB Q24H [facility] Last Admin: 12/21/16 10:57 Dose: 133.333 mls/hr Piperacillin Sod/Tazobactam Sod (Zosyn 3.375 Gm Iv Premix) 3.375 gm in 50 mls @ 100 mls/hr IVPB Q6H [facility] Last Admin: 12/21/16 13:08 Dose: 100 mls/hr Dextrose (Dextrose 5% In Water 1000 Ml) 1,000 mls @ 100 mls/hr IV .Q10H [facility] Last Admin: 12/21/16 11:34 Dose: Not Given Insulin Aspart (Novolog) 0 unit SC Q6 NITIN PRN Reason: Protocol Last Admin: 12/21/16 12:45 Dose: 4 unit Levothyroxine Sodium (Synthroid) 125 mcg PEG DAILY@0630 [facility] Last Admin: 12/21/16 06:30 Dose: 125 mcg Loratadine (Claritin) 10 mg PO DAILY [facility] Last Admin: 12/21/16 10:57 Dose: 10 mg Magnesium Hydroxide (Milk Of Magnesia) 30 ml PEG DAILY PRN PRN Reason: Constipation Modafinil (Provigil) 150 mg PEG DAILY [facility] Last Admin: 12/16/16 11:54 Dose: Not Given Petrolatum (Desitin Original) 0 gm TOP QSHIFT [facility] Last Admin: 12/21/16 13:08 Dose: 1 applic Rosuvastatin Calcium (Crestor) 10 mg PO HS [facility] Last Admin: 12/20/16 21:45 Dose: 10 mg - Labs Labs: 12/21/16 07:05 12/21/16 07:05 PT 11.2 SECONDS (9.7-12.2) 12/16/16 06:25 INR 1.0 12/16/16 06:25 APTT 28 SECONDS (21-34) 12/16/16 06:25 - Constitutional Appears: Non-toxic, No Acute Distress - Head Exam Head Exam: ATRAUMATIC, NORMAL INSPECTION, NORMOCEPHALIC - Eye Exam Eye Exam: EOMI - ENT Exam ENT Exam: Mucous Membranes Moist - Respiratory Exam Respiratory Exam: NORMAL BREATHING PATTERN. absent: Respiratory Distress - Cardiovascular Exam Cardiovascular Exam: +S1, +S2 - GI/Abdominal Exam GI & Abdominal Exam: Tenderness, Normal Bowel Sounds - Extremities Exam Extremities Exam: Full ROM, Normal Inspection - Neurological Exam Neurological Exam: Altered - Psychiatric Exam Psychiatric exam: Normal Affect, Normal Mood Additional comments: Unable to assess. - Skin Skin Exam: Dry, Intact, Normal Color, Warm Assessment and Plan - Assessment and Plan (Free Text) Assessment: This is an 86 yo female who initially presented from half-way, obtunded, with leukocytosis and hypotension (1) Leukocytosis/Pneumonia DC Telemetry WBC now 11.7, trending down initially hypotensive and tachypenic. Will need to find the source of white count>> questionable pancreatitis, lipase nl we change fluids to D5W 100/hr continue vanco day 5 and zosyn day 7 Blood and urine cultures drawn, negative thus far; stool culture negative ; ova , parasites negative Infectious disease, Dr. Leggett consulted Patient is DNR/DNI we are ordering ct chest without contrast>>> ct chest shows bibasilar atelectasis, trace b/l effusions, suspicious for acute pancreatitis f/u ct abdomen pelvis >>>> shows retroperitoneal fluid/proctitis, right inguinal hernia, small pleural effusion ( see full report) continue tylenol prn restart tube feeds , will add free water will f/u ID for length abx GI consult. Dr. Mata. recs appreciated. (2) Hypotension/hypernatremia fluids now D5W 100 cc/hr Monitor BP pt no longer hypotensive coreg on hold will not bring down na too rapidly, look for change in mental status (3) Dehydration nephro has been consulted recs appreciated. -CR normal today (4) solitary kidney nephrology consult. recs appreciated. 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 (8) Hyperlipidemia Crestor 10 mg PO HS (9) Prophylactic measure lovenox daily restart tube feeds we will dc telemetry continue plavix daily we will replete K and Phos, we will replete electrolytes discussed with Dr. Garsia <Cash Garsia - Last Filed: 01/20/17 16:19> Objective - Vital Signs/Intake and Output Vital Signs (last 24 hours): Temp Pulse Resp BP Pulse Ox 99.2 F 86 20 146/73 96 12/29/16 16:00 12/29/16 16:00 12/29/16 16:00 12/29/16 16:00 12/29/16 16:00 - Labs Labs: 12/29/16 06:15 12/29/16 06:15 PT 11.2 SECONDS (9.7-12.2) 12/16/16 06:25 INR 1.0 12/16/16 06:25 APTT 28 SECONDS (21-34) 12/16/16 06:25 Attending/Attestation - Attestation I have personally seen and examined this patient.: Yes I have fully participated in the care of the patient.: Yes I have reviewed all pertinent clinical information, including history, physical exam and plan: Yes Notes (Text): Patient Seen and examined with the resident. Agree with the resident's evaluation, assessment and plan. This is an 86 yo female who initially presented from half-way, obtunded, with leukocytosis and hypotension Leukocytosis/Pneumonia Hypotension/hypernatremia Dehydration solitary kidney Dementia in Alzheimer's disease Hypothyroidism Diabetes mellitus
[2016-12-22] MEDS: Piperacill/Tazo 3.375gm in Dex 3.375 GM/50 ML BAG IVPB SCH ×4 (02:05→23:12)
[2016-12-22] MEDS: Levothyroxine 125 MCG TAB PEG SCH (05:38)
[2016-12-22] MEDS: Zinc Oxide Topical 30 gm Tube TOP SCH ×3 (06:09→23:12)
[2016-12-22] MEDS: (Novolog) Insulin Aspart, Recombinant 100 u/ml 10 ml vial SC SCH ×4 (06:28→23:56)
[2016-12-22 08:43] LABS: BASO # 0.1 K/uL (0.0-0.2); BASO % 0.7 % (0.0-2.0); MONO # 0.5 K/uL (0.0-0.8)
[2016-12-22 08:49] LABS: EOS # 0.8 K/uL (0.0-0.7); EOS % 5.1 % (0.0-4.0); HEMATOCRIT 30.5 % (34.0-47.0); LYMPH # 1.3 K/uL (1.0-4.3); LYMPH % 8.7 % (20.0-40.0); MEAN CELL VOLUME 96.3 fL (81.0-99.0); MEAN CORPUSCULAR HEMOGLOBIN 30.6 pg (27.0-31.0); MEAN CORPUSCULAR HGB CONC 31.8 g/dL (33.0-37.0); MEAN PLATELET VOLUME 11.1 fL (7.2-11.7); MONO % 3.4 % (0.0-10.0); NRBC % 1.2 % (0.0-2.0); PLATELET COUNT 286 K/uL (130-400); RED CELL DISTRIBUTION WIDTH 16.9 % (11.5-14.5); WHITE BLOOD COUNT 14.8 K/uL (4.8-10.8)
[2016-12-22 08:59] LABS: POTASSIUM 3.8 mmol/L (3.6-5.2)
[2016-12-22 09:01] LABS: ALB/GLOB RATIO 0.6 (1.0-2.1); BILIRUBIN,TOTAL 0.8 mg/dL (0.2-1.3); TOTAL PROTEIN 6.5 g/dL (6.3-8.3)
[2016-12-22 09:02] LABS: PHOSPHOROUS 3.7 mg/dL (2.5-4.5)
[2016-12-22 09:03] LABS: MAGNESIUM 1.7 mg/dL (1.6-2.3)
[2016-12-22 09:28] LABS: EOSINOPHIL 5 % (0-4); NEUTROPHIL 79 % (50-75); TOTAL CELLS COUNTED 100
[2016-12-22] MEDS: Enoxaparin 30 mg Syringe SC SCH (10:10)
--- NOTE | 2016-12-22 10:57 | CP.PCM.PN ---
Subjective - Date & Time of Evaluation Date of Evaluation: 12/22/16 Time of Evaluation: 10:56 - Subjective Subjective: seen and examined, labs noted non verbal tube feeds Objective - Vital Signs/Intake and Output Vital Signs (last 24 hours): Temp Pulse Resp BP Pulse Ox 98.7 F 88 20 122/60 98 12/22/16 08:13 12/22/16 08:13 12/22/16 08:13 12/22/16 08:13 12/22/16 08:13 Intake and Output: 12/22/16 12/22/16 06:59 18:59 Intake Total 1500 Output Total 750 Balance 750 - Medications Medications: Current Medications Acetaminophen (Tylenol 650mg/20.3ml Solution Ud) 650 mg PEG Q6 PRN PRN Reason: Temperature Last Admin: 12/21/16 06:39 Dose: 650 mg Carvedilol (Coreg) 3.125 mg PEG BID [facility] Clopidogrel Bisulfate (Plavix) 75 mg PEG DAILY [facility] Last Admin: 12/22/16 10:11 Dose: 75 mg Enoxaparin Sodium (Lovenox) 30 mg SC DAILY [facility] Last Admin: 12/22/16 10:10 Dose: 30 mg Glipizide (Glucotrol) 0.5 mg PEG BID [facility] Last Admin: 12/17/16 11:26 Dose: Not Given Vancomycin/Sodium Chloride (Vancocin) 1 gm in 200 mls @ 133.333 mls/hr IVPB Q24H [facility] Last Admin: 12/21/16 10:57 Dose: 133.333 mls/hr Piperacillin Sod/Tazobactam Sod (Zosyn 3.375 Gm Iv Premix) 3.375 gm in 50 mls @ 100 mls/hr IVPB Q6H [facility] Last Admin: 12/22/16 08:34 Dose: 100 mls/hr Dextrose (Dextrose 5% In Water 1000 Ml) 1,000 mls @ 100 mls/hr IV .Q10H [facility] Last Admin: 12/22/16 09:03 Dose: Not Given Insulin Aspart (Novolog) 0 unit SC Q6 NITIN PRN Reason: Protocol Last Admin: 12/22/16 06:28 Dose: 4 unit Levothyroxine Sodium (Synthroid) 125 mcg PEG DAILY@0630 [facility] Last Admin: 12/22/16 05:38 Dose: 125 mcg Loratadine (Claritin) 10 mg PO DAILY [facility] Last Admin: 12/22/16 10:11 Dose: 10 mg Magnesium Hydroxide (Milk Of Magnesia) 30 ml PEG DAILY PRN PRN Reason: Constipation Metronidazole (Flagyl) 500 mg PEG Q8 [facility] Last Admin: 12/22/16 10:13 Dose: 500 mg Modafinil (Provigil) 150 mg PEG DAILY [facility] Last Admin: 12/16/16 11:54 Dose: Not Given Petrolatum (Desitin Original) 0 gm TOP QSHIFT [facility] Last Admin: 12/22/16 06:09 Dose: 1 applic Rosuvastatin Calcium (Crestor) 10 mg PO HS [facility] Last Admin: 12/21/16 21:50 Dose: 10 mg - Labs Labs: 12/22/16 08:32 12/22/16 08:32 PT 11.2 SECONDS (9.7-12.2) 12/16/16 06:25 INR 1.0 12/16/16 06:25 APTT 28 SECONDS (21-34) 12/16/16 06:25 - Constitutional Appears: No Acute Distress, Cachectic, Chronically Ill - Head Exam Head Exam: NORMAL INSPECTION - Eye Exam Eye Exam: Normal appearance - ENT Exam ENT Exam: Mucous Membranes Dry - Neck Exam Neck Exam: Normal Inspection - Respiratory Exam Respiratory Exam: Decreased Breath Sounds (bases) - Cardiovascular Exam Cardiovascular Exam: REGULAR RHYTHM, RRR - GI/Abdominal Exam GI & Abdominal Exam: Soft, Diminished Bowel Sounds (peg tube) - Back Exam Back Exam: NORMAL INSPECTION Assessment and Plan (1) Renal failure Status: Acute (2) Sepsis Status: Acute (3) Dehydration Status: Acute (4) Hypernatremia Status: Acute (5) Hypotension Status: Acute - Assessment and Plan (Free Text) Assessment: increase free water via peg maintain [id number] stble renal function ?elevated lipase
[2016-12-22] MEDS: Vancomycin 1 gm/NS 200 ml 1 GM/200 ML BAG IVPB SCH (12:08)
--- NOTE | 2016-12-22 12:29 | CP.PCM.PN ---
Subjective - Date & Time of Evaluation Date of Evaluation: 12/22/16 Time of Evaluation: 07:00 - Subjective Subjective: remians afebrile obtunded nad Objective - Vital Signs/Intake and Output Vital Signs (last 24 hours): Temp Pulse Resp BP Pulse Ox 98.7 F 88 20 122/60 98 12/22/16 08:13 12/22/16 08:13 12/22/16 08:13 12/22/16 08:13 12/22/16 08:13 Intake and Output: 12/22/16 12/22/16 06:59 18:59 Intake Total 1500 Output Total 750 Balance 750 - Medications Medications: Current Medications Acetaminophen (Tylenol 650mg/20.3ml Solution Ud) 650 mg PEG Q6 PRN PRN Reason: Temperature Last Admin: 12/21/16 06:39 Dose: 650 mg Carvedilol (Coreg) 3.125 mg PEG BID [facility] Clopidogrel Bisulfate (Plavix) 75 mg PEG DAILY [facility] Last Admin: 12/22/16 10:11 Dose: 75 mg Enoxaparin Sodium (Lovenox) 30 mg SC DAILY [facility] Last Admin: 12/22/16 10:10 Dose: 30 mg Glipizide (Glucotrol) 0.5 mg PEG BID [facility] Last Admin: 12/17/16 11:26 Dose: Not Given Vancomycin/Sodium Chloride (Vancocin) 1 gm in 200 mls @ 133.333 mls/hr IVPB Q24H [facility] Last Admin: 12/22/16 12:08 Dose: 133.333 mls/hr Piperacillin Sod/Tazobactam Sod (Zosyn 3.375 Gm Iv Premix) 3.375 gm in 50 mls @ 100 mls/hr IVPB Q6H [facility] Last Admin: 12/22/16 08:34 Dose: 100 mls/hr Dextrose (Dextrose 5% In Water 1000 Ml) 1,000 mls @ 100 mls/hr IV .Q10H [facility] Last Admin: 12/22/16 09:03 Dose: Not Given Insulin Aspart (Novolog) 0 unit SC Q6 NITIN PRN Reason: Protocol Last Admin: 12/22/16 11:47 Dose: 6 unit Levothyroxine Sodium (Synthroid) 125 mcg PEG DAILY@0630 [facility] Last Admin: 12/22/16 05:38 Dose: 125 mcg Loratadine (Claritin) 10 mg PO DAILY [facility] Last Admin: 12/22/16 10:11 Dose: 10 mg Magnesium Hydroxide (Milk Of Magnesia) 30 ml PEG DAILY PRN PRN Reason: Constipation Metronidazole (Flagyl) 500 mg PEG Q8 [facility] Last Admin: 12/22/16 10:13 Dose: 500 mg Modafinil (Provigil) 150 mg PEG DAILY [facility] Last Admin: 12/16/16 11:54 Dose: Not Given Petrolatum (Desitin Original) 0 gm TOP QSHIFT [facility] Last Admin: 12/22/16 06:09 Dose: 1 applic Rosuvastatin Calcium (Crestor) 10 mg PO HS [facility] Last Admin: 12/21/16 21:50 Dose: 10 mg - Labs Labs: 12/22/16 08:32 12/22/16 08:32 PT 11.2 SECONDS (9.7-12.2) 12/16/16 06:25 INR 1.0 12/16/16 06:25 APTT 28 SECONDS (21-34) 12/16/16 06:25 - Constitutional Appears: Non-toxic, Confused, Cachectic, Chronically Ill - Head Exam Head Exam: NORMOCEPHALIC - Eye Exam Eye Exam: absent: Scleral icterus - ENT Exam ENT Exam: Mucous Membranes Dry - Neck Exam Neck Exam: absent: Lymphadenopathy - Respiratory Exam Respiratory Exam: Decreased Breath Sounds, Rhonchi - Cardiovascular Exam Cardiovascular Exam: REGULAR RHYTHM, +S1, +S2 - GI/Abdominal Exam GI & Abdominal Exam: Distended, Soft. absent: Tenderness - Rectal Exam Rectal Exam: Deferred - Exam Exam: NORMAL INSPECTION - Extremities Exam Extremities Exam: absent: Pedal Edema - Back Exam Back Exam: absent: CVA tenderness (L), CVA tenderness (R) - Neurological Exam Neurological Exam: Altered - Skin Skin Exam: Dry Assessment and Plan (1) CAITLYN (acute kidney injury) Status: Acute (2) Renal failure Status: Acute (3) Sepsis Status: Acute (4) Dehydration Status: Acute (5) Pneumonia Status: Acute (6) Pneumonia Status: Acute - Assessment and Plan (Free Text) Assessment: cont rx pneumonia/sepsis
--- NOTE | 2016-12-22 14:18 | CP.PCM.PN ---
<Haja Barney - Last Filed: 12/22/16 14:21> Subjective - Date & Time of Evaluation Date of Evaluation: 12/22/16 Time of Evaluation: 14:15 - Subjective Subjective: Med progress note. Attending: Dr. Garsia Pt seen and examined at bedside. No acute distress. No events overnight. Will order Picc line. Pt obtunded. Na coming down. Pt afebrile, vss. Objective - Vital Signs/Intake and Output Vital Signs (last 24 hours): Temp Pulse Resp BP Pulse Ox 98.7 F 88 20 122/60 98 12/22/16 08:13 12/22/16 08:13 12/22/16 08:13 12/22/16 08:13 12/22/16 08:13 Intake and Output: 12/22/16 12/22/16 06:59 18:59 Intake Total 1500 Output Total 750 Balance 750 - Medications Medications: Current Medications Acetaminophen (Tylenol 650mg/20.3ml Solution Ud) 650 mg PEG Q6 PRN PRN Reason: Temperature Last Admin: 12/21/16 06:39 Dose: 650 mg Carvedilol (Coreg) 3.125 mg PEG BID [facility] Clopidogrel Bisulfate (Plavix) 75 mg PEG DAILY [facility] Last Admin: 12/22/16 10:11 Dose: 75 mg Enoxaparin Sodium (Lovenox) 30 mg SC DAILY [facility] Last Admin: 12/22/16 10:10 Dose: 30 mg Glipizide (Glucotrol) 0.5 mg PEG BID [facility] Last Admin: 12/17/16 11:26 Dose: Not Given Vancomycin/Sodium Chloride (Vancocin) 1 gm in 200 mls @ 133.333 mls/hr IVPB Q24H [facility] Last Admin: 12/22/16 12:08 Dose: 133.333 mls/hr Piperacillin Sod/Tazobactam Sod (Zosyn 3.375 Gm Iv Premix) 3.375 gm in 50 mls @ 100 mls/hr IVPB Q6H [facility] Last Admin: 12/22/16 08:34 Dose: 100 mls/hr Dextrose (Dextrose 5% In Water 1000 Ml) 1,000 mls @ 100 mls/hr IV .Q10H [facility] Last Admin: 12/22/16 09:03 Dose: Not Given Insulin Aspart (Novolog) 0 unit SC Q6 [facility] PRN Reason: Protocol Last Admin: 12/22/16 11:47 Dose: 6 unit Levothyroxine Sodium (Synthroid) 125 mcg PEG DAILY@0630 [facility] Last Admin: 12/22/16 05:38 Dose: 125 mcg Loratadine (Claritin) 10 mg PO DAILY [facility] Last Admin: 12/22/16 10:11 Dose: 10 mg Magnesium Hydroxide (Milk Of Magnesia) 30 ml PEG DAILY PRN PRN Reason: Constipation Metronidazole (Flagyl) 500 mg PEG Q8 [facility] Last Admin: 12/22/16 10:13 Dose: 500 mg Modafinil (Provigil) 150 mg PEG DAILY [facility] Last Admin: 12/16/16 11:54 Dose: Not Given Petrolatum (Desitin Original) 0 gm TOP QSHIFT [facility] Last Admin: 12/22/16 06:09 Dose: 1 applic Rosuvastatin Calcium (Crestor) 10 mg PO HS [facility] Last Admin: 12/21/16 21:50 Dose: 10 mg - Labs Labs: 12/22/16 08:32 12/22/16 08:32 PT 11.2 SECONDS (9.7-12.2) 12/16/16 06:25 INR 1.0 12/16/16 06:25 APTT 28 SECONDS (21-34) 12/16/16 06:25 - Constitutional Appears: Non-toxic, No Acute Distress - Head Exam Head Exam: ATRAUMATIC, NORMAL INSPECTION, NORMOCEPHALIC - Eye Exam Eye Exam: EOMI - ENT Exam ENT Exam: Mucous Membranes Moist - Neck Exam Neck Exam: Full ROM, Normal Inspection - Respiratory Exam Respiratory Exam: NORMAL BREATHING PATTERN. absent: Respiratory Distress - Cardiovascular Exam Cardiovascular Exam: +S1, +S2 - GI/Abdominal Exam GI & Abdominal Exam: Soft, Normal Bowel Sounds. absent: Tenderness - Extremities Exam Extremities Exam: Full ROM, Normal Inspection - Back Exam Back Exam: NORMAL INSPECTION - Psychiatric Exam Additional comments: Unable to assess - Skin Skin Exam: Dry, Intact, Normal Color, Warm Assessment and Plan - Assessment and Plan (Free Text) Assessment: This is an 86 yo female who initially presented from senior living, obtunded, with leukocytosis and hypotension (1) Leukocytosis/Pneumonia DC Telemetry WBC now 14.8 initially hypotensive and tachypenic. Will need to find the source of white count>> questionable pancreatitis, lipase nl we change fluids to D5W 100/hr continue vanco day 6 and zosyn day 8 Blood and urine cultures drawn, negative thus far; stool culture negative ; ova , parasites negative Infectious disease, Dr. Leggett consulted Patient is DNR/DNI we are ordering ct chest without contrast>>> ct chest shows bibasilar atelectasis, trace b/l effusions, suspicious for acute pancreatitis f/u ct abdomen pelvis >>>> shows retroperitoneal fluid/proctitis, right inguinal hernia, small pleural effusion ( see full report) continue tylenol prn we have restarted tube feeds , will add free water will f/u ID for length abx>> will order picc line GI consult. Dr. Hoffmann. recs appreciated. (2) Hypotension/hypernatremia fluids now D5W 100 cc/hr Monitor BP pt no longer hypotensive coreg on hold will not bring down na too rapidly, look for change in mental status Na trending down (3) Dehydration nephro has been consulted recs appreciated. -CR normal today (4) solitary kidney nephrology consult. recs appreciated. 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 (8) Hyperlipidemia Crestor 10 mg PO HS (9) Prophylactic measure lovenox daily we have restarted tube feeds we will dc telemetry continue plavix daily we will replete K and Phos, we will replete electrolytes discussed with Dr. Garsia <Cash Garsia - Last Filed: 01/20/17 16:19> Objective - Vital Signs/Intake and Output Vital Signs (last 24 hours): Temp Pulse Resp BP Pulse Ox 99.2 F 86 20 146/73 96 12/29/16 16:00 12/29/16 16:00 12/29/16 16:00 12/29/16 16:00 12/29/16 16:00 - Labs Labs: 12/29/16 06:15 12/29/16 06:15 PT 11.2 SECONDS (9.7-12.2) 12/16/16 06:25 INR 1.0 12/16/16 06:25 APTT 28 SECONDS (21-34) 12/16/16 06:25 Attending/Attestation - Attestation I have personally seen and examined this patient.: Yes I have fully participated in the care of the patient.: Yes I have reviewed all pertinent clinical information, including history, physical exam and plan: Yes Notes (Text): Patient Seen and examined with the resident. Agree with the resident's evaluation, assessment and plan. This is an 86 yo female who initially presented from senior living, obtunded, with leukocytosis and hypotension Leukocytosis/Pneumonia Hypotension/hypernatremia Dehydration solitary kidney Dementia in Alzheimer's disease Hypothyroidism Diabetes mellitus
--- NOTE | 2016-12-22 18:46 | CP.PCM.CON ---
History of Present Illness - History of Present Illness History of Present Illness: This is an 86 year old woman admitted from [facility] for dehydration, hypotension, and leukocystosis. GI consultation is requested for possible pancreaittis. Patient is non-verbal and history is obtained from the chart. PEG was placed by Dr. Christensen 04/29/2016 for progressive loss of weight. She was recently admitted 11/28/2016 for shortness of breath, and was found to be dehydrated. Cultures of blood and stool were negative. A CT scan 11/28/2016 showed atrophic pancreas and mild dilatation of the distal pancreatic duct. She was readmitted 12/15/2016 with the aforementioned complaints. She was febrile to 100.6 with a systolic BP 86. WBC count was 22,300. The CT scan was repeated, and again showed atrophy of the pancreas and dilatation of the pancreatic duct. In addition, fluid in the retroperitoneum next to the pancreatic head was reported. There was thickening of the wall of the rectum consistent with stercoral proctitis. A small amount of free peritoneal fluid was seen. The radioilogist suggested that the retroperitoneal fluid could be due to pancreatitis. 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) - ENDOCRINE/METABOLIC Hx Hypothyroidism: Yes - HEMATOLOGICAL/ONCOLOGICAL Hx Blood Disorders: No - INTEGUMENTARY Hx Dermatological Problems: No - MUSCULOSKELETAL/RHEUMATOLOGICAL Hx Musculoskeletal Disorders: No Hx Falls: No - GASTROINTESTINAL Hx Gastrointestinal Disorders: Yes (WT LOSS, LOSS OF APPETITE) - GENITOURINARY/GYNECOLOGICAL Hx Genitourinary Disorders: Yes (BORN WITH 1 KIDNEY) - PSYCHIATRIC Hx Substance Use: No - SURGICAL HISTORY Hx Surgeries: Yes Hx Hysterectomy: Yes Hx Orthopedic Surgery: Yes (LT HAND ) Other/Comment: PEG TUBE INSERTION - ANESTHESIA Hx Anesthesia: Yes Hx Anesthesia Reactions: No Hx Malignant Hyperthermia: No Meds Allergies/Adverse Reactions: Allergies Allergy/AdvReac Type Severity Reaction Status Date / Time No Known Allergies Allergy Verified 11/28/16 15:44 - Medications Medications: Current Medications Acetaminophen (Tylenol 650mg/20.3ml Solution Ud) 650 mg PEG Q6 PRN PRN Reason: Temperature Last Admin: 12/21/16 06:39 Dose: 650 mg Carvedilol (Coreg) 3.125 mg PEG BID [facility] Clopidogrel Bisulfate (Plavix) 75 mg PEG DAILY [facility] Last Admin: 12/22/16 10:11 Dose: 75 mg Enoxaparin Sodium (Lovenox) 30 mg SC DAILY [facility] Last Admin: 12/22/16 10:10 Dose: 30 mg Glipizide (Glucotrol) 0.5 mg PEG BID [facility] Last Admin: 12/17/16 11:26 Dose: Not Given Vancomycin/Sodium Chloride (Vancocin) 1 gm in 200 mls @ 133.333 mls/hr IVPB Q24H [facility] Last Admin: 12/22/16 12:08 Dose: 133.333 mls/hr Piperacillin Sod/Tazobactam Sod (Zosyn 3.375 Gm Iv Premix) 3.375 gm in 50 mls @ 100 mls/hr IVPB Q6H [facility] Last Admin: 12/22/16 14:31 Dose: 100 mls/hr Dextrose (Dextrose 5% In Water 1000 Ml) 1,000 mls @ 100 mls/hr IV .Q10H [facility] Last Admin: 12/22/16 17:55 Dose: 100 mls/hr Insulin Aspart (Novolog) 0 unit SC Q6 NITIN PRN Reason: Protocol Last Admin: 12/22/16 17:58 Dose: 3 unit Levothyroxine Sodium (Synthroid) 125 mcg PEG DAILY@0630 [facility] Last Admin: 12/22/16 05:38 Dose: 125 mcg Loratadine (Claritin) 10 mg PO DAILY [facility] Last Admin: 12/22/16 10:11 Dose: 10 mg Magnesium Hydroxide (Milk Of Magnesia) 30 ml PEG DAILY PRN PRN Reason: Constipation Metronidazole (Flagyl) 500 mg PEG Q8 [facility] Last Admin: 12/22/16 14:31 Dose: 500 mg Modafinil (Provigil) 150 mg PEG DAILY [facility] Last Admin: 12/16/16 11:54 Dose: Not Given Petrolatum (Desitin Original) 0 gm TOP QSHIFT [facility] Last Admin: 12/22/16 14:32 Dose: 1 applic Rosuvastatin Calcium (Crestor) 10 mg PO HS [facility] Last Admin: 12/21/16 21:50 Dose: 10 mg Physical Exam - Constitutional Appears: Confused - Head Exam Head Exam: ATRAUMATIC, NORMOCEPHALIC - Neck Exam Neck exam: Negative for: Lymphadenopathy, Thyromegaly - Respiratory Exam Respiratory Exam: NORMAL BREATHING PATTERN. absent: Rales, Rhonchi, Wheezes - Cardiovascular Exam Cardiovascular Exam: REGULAR RHYTHM, +S1, +S2. absent: Gallop, Rubs, Systolic Murmur - GI/Abdominal Exam GI & Abdominal Exam: Normal Bowel Sounds, Soft. absent: Organomegaly, Tenderness Additional comments: Gastrostomy site clean and dry. - Rectal Exam Rectal Exam: Deferred - Extremities Exam Extremities exam: Negative for: calf tenderness Results - Vital Signs Recent Vital Signs: Last Vital Signs Temp 99.3 F 12/22/16 16:00 Pulse 74 12/22/16 16:00 Resp 20 12/22/16 16:00 BP 105/56 L 12/22/16 16:00 Pulse Ox 100 12/22/16 16:00 - Labs Result Diagrams: 12/22/16 08:32 12/22/16 08:32 Labs: Laboratory Results - last 24 hr 12/21/16 12/22/16 12/22/16 23:50 06:20 08:32 WBC 14.8 H RBC 3.17 L Hgb 9.7 L Hct 30.5 L MCV 96.3 MCH 30.6 MCHC 31.8 L RDW 16.9 H Plt Count 286 MPV 11.1 Neut % (Auto) 82.1 H Lymph % (Auto) 8.7 L Lamb % (Auto) 3.4 Eos % (Auto) 5.1 H Baso % (Auto) 0.7 Neut # 12.2 H Lymph # 1.3 Lamb # 0.5 Eos # 0.8 H Baso # 0.1 Neutrophils % (Manual) 79 H Band Neutrophils % 3 H Lymphocytes % (Manual) 7 L Monocytes % (Manual) 6 Eosinophils % (Manual) 5 H Platelet Estimate Normal Hypochromasia (manual) Slight Poikilocytosis (manual Slight Anisocytosis (manual) Slight Microcytosis (manual) Slight Sodium Potassium Chloride Carbon Dioxide Anion Gap BUN Creatinine Est GFR ( Amer) Est GFR (Non-Af Amer) POC Glucose (mg/dL) 225 H 250 H Random Glucose Calcium Phosphorus Magnesium Total Bilirubin AST ALT Alkaline Phosphatase Total Protein Albumin Globulin Albumin/Globulin Ratio Amylase Lipase Vancomycin Trough 12/22/16 12/22/16 12/22/16 08:32 08:32 11:41 WBC RBC Hgb Hct MCV MCH MCHC RDW Plt Count MPV Neut % (Auto) Lymph % (Auto) Lamb % (Auto) Eos % (Auto) Baso % (Auto) Neut # Lymph # Lamb # Eos # Baso # Neutrophils % (Manual) Band Neutrophils % Lymphocytes % (Manual) Monocytes % (Manual) Eosinophils % (Manual) Platelet Estimate Hypochromasia (manual) Poikilocytosis (manual Anisocytosis (manual) Microcytosis (manual) Sodium 149 H Potassium 3.8 Chloride 116 H Carbon Dioxide 24 Anion Gap 12 BUN 25 H Creatinine 1.1 Est GFR ( Amer) 57 Est GFR (Non-Af Amer) 47 POC Glucose (mg/dL) 314 H Random Glucose 223 H Calcium 8.0 L Phosphorus 3.7 Magnesium 1.7 Total Bilirubin 0.8 AST 43 H D ALT 32 Alkaline Phosphatase 59 Total Protein 6.5 Albumin 2.5 L Globulin 4.0 H Albumin/Globulin Ratio 0.6 L Amylase 74 Lipase 302 H Vancomycin Trough 13.6 H 12/22/16 16:43 WBC RBC Hgb Hct MCV MCH MCHC RDW Plt Count MPV Neut % (Auto) Lymph % (Auto) Lamb % (Auto) Eos % (Auto) Baso % (Auto) Neut # Lymph # Lamb # Eos # Baso # Neutrophils % (Manual) Band Neutrophils % Lymphocytes % (Manual) Monocytes % (Manual) Eosinophils % (Manual) Platelet Estimate Hypochromasia (manual) Poikilocytosis (manual Anisocytosis (manual) Microcytosis (manual) Sodium Potassium Chloride Carbon Dioxide Anion Gap BUN Creatinine Est GFR ( Amer) Est GFR (Non-Af Amer) POC Glucose (mg/dL) 243 H Random Glucose Calcium Phosphorus Magnesium Total Bilirubin AST ALT Alkaline Phosphatase Total Protein Albumin Globulin Albumin/Globulin Ratio Amylase Lipase Vancomycin Trough Assessment & Plan (1) Abnormal CT of the abdomen Assessment and Plan: CT scan shows retroperitoneal fluid adjacent to the pancreas, but amylase and lipase levels are near-normal. She does not appear to have any abdominal pain, so it is difficult to make a diagnosis of acute pancreatitis. I would recommend repeating the CT scan later in the week. Status: Acute
[2016-12-23] MEDS: Piperacill/Tazo 3.375gm in Dex 3.375 GM/50 ML BAG IVPB SCH ×4 (02:39→21:25)
[2016-12-23] MEDS: Levothyroxine 125 MCG TAB PEG SCH (05:42)
[2016-12-23] MEDS: Zinc Oxide Topical 30 gm Tube TOP SCH ×3 (05:42→21:25)
[2016-12-23] MEDS: (Novolog) Insulin Aspart, Recombinant 100 u/ml 10 ml vial SC SCH ×3 (05:49→18:46)
[2016-12-23 08:14] LABS: BASO % 0.3 % (0.0-2.0); EOS # 0.4 K/uL (0.0-0.7); EOS % 2.8 % (0.0-4.0); HEMATOCRIT 24.8 % (34.0-47.0); LYMPH # 1.1 K/uL (1.0-4.3); LYMPH % 8.5 % (20.0-40.0); MEAN CELL VOLUME 94.8 fL (81.0-99.0); MEAN CORPUSCULAR HEMOGLOBIN 30.4 pg (27.0-31.0); MEAN PLATELET VOLUME 10.6 fL (7.2-11.7); MONO # 0.6 K/uL (0.0-0.8); MONO % 4.3 % (0.0-10.0); NRBC % 0.1 % (0.0-2.0); PLATELET COUNT 242 K/uL (130-400); RED CELL DISTRIBUTION WIDTH 15.4 % (11.5-14.5); WHITE BLOOD COUNT 12.9 K/uL (4.8-10.8)
[2016-12-23 08:27] LABS: CHLORIDE 108 mmol/L (98-107); SODIUM 142 mmol/L (132-148)
[2016-12-23 08:29] LABS: AST/SGOT 27 U/L (14-36); BILIRUBIN,TOTAL 0.4 mg/dL (0.2-1.3); CARBON DIOXIDE 24 mmol/L (22-30); GFR AFRICAN-AMERICAN > 60
[2016-12-23 08:30] LABS: ALKALINE PHOSPHATASE 61 U/L (38-126); ALT/SGPT 26 U/L (9-52); BLOOD UREA NITROGEN 20 mg/dL (7-17); GLUCOSE,RANDOM 243 mg/dL (65-105); PHOSPHOROUS 3.2 mg/dL (2.5-4.5); TOTAL PROTEIN 5.6 g/dL (6.3-8.3)
[2016-12-23 08:31] LABS: MAGNESIUM 1.7 mg/dL (1.6-2.3)
[2016-12-23 08:35] LABS: ALB/GLOB RATIO 0.8 (1.0-2.1)
[2016-12-23 08:36] LABS: POTASSIUM 2.7 mmol/L (3.6-5.2)
[2016-12-23 09:53] LABS: BASOPHIL 1 % (0-2); EOSINOPHIL 1 % (0-4); NEUTROPHIL 77 % (50-75); TOTAL CELLS COUNTED 100
[2016-12-23] MEDS: Enoxaparin 30 mg Syringe SC SCH (09:54)
[2016-12-23] MEDS: Vancomycin 1 gm/NS 200 ml 1 GM/200 ML BAG IVPB SCH (10:00)
--- NOTE | 2016-12-23 13:29 | RAD ---
HISTORY: verify right PICC COMPARISON: 12/19/2016 FINDINGS: LUNGS: Linear opacities adjacent to left hilum likely atelectasis. No pulmonary infiltrate. PLEURA: No significant pleural effusion identified, no pneumothorax apparent. CARDIOVASCULAR: New right PICC catheter terminates at approximately the level of the cavoatrial junction. OSSEOUS STRUCTURES: No significant abnormalities. VISUALIZED UPPER ABDOMEN: Normal. OTHER FINDINGS: None. IMPRESSION: New right PICC catheter. This terminates at approximately the level of the cavoatrial junction. Probable linear atelectasis adjacent to left hilum. .
--- NOTE | 2016-12-23 13:33 | CP.PCM.PN ---
Subjective - Date & Time of Evaluation Date of Evaluation: 12/23/16 Time of Evaluation: 13:30 - Subjective Subjective: Appears same, remains nonverbal Hypernatremia correctd; K was repleted today BP stable now Renal function stable Objective - Vital Signs/Intake and Output Vital Signs (last 24 hours): Temp Pulse Resp BP Pulse Ox 99.3 F 77 18 94/69 L 100 12/23/16 09:07 12/23/16 09:07 12/23/16 09:07 12/23/16 09:07 12/23/16 09:07 Intake and Output: 12/23/16 12/23/16 06:59 18:59 Output Total 1075 Balance -1075 - Medications Medications: Current Medications Acetaminophen (Tylenol 650mg/20.3ml Solution Ud) 650 mg PEG Q6 PRN PRN Reason: Temperature Last Admin: 12/21/16 06:39 Dose: 650 mg Carvedilol (Coreg) 3.125 mg PEG BID [facility] Clopidogrel Bisulfate (Plavix) 75 mg PEG DAILY [facility] Last Admin: 12/23/16 09:54 Dose: 75 mg Enoxaparin Sodium (Lovenox) 30 mg SC DAILY [facility] Last Admin: 12/23/16 09:54 Dose: 30 mg Glipizide (Glucotrol) 0.5 mg PEG BID [facility] Last Admin: 12/17/16 11:26 Dose: Not Given Piperacillin Sod/Tazobactam Sod (Zosyn 3.375 Gm Iv Premix) 3.375 gm in 50 mls @ 100 mls/hr IVPB Q6H [facility] Last Admin: 12/23/16 09:56 Dose: 100 mls/hr Dextrose (Dextrose 5% In Water 1000 Ml) 1,000 mls @ 100 mls/hr IV .Q10H [facility] Last Admin: 12/22/16 17:55 Dose: 100 mls/hr Insulin Aspart (Novolog) 0 unit SC Q6 NITIN PRN Reason: Protocol Last Admin: 12/23/16 05:49 Dose: 6 unit Levothyroxine Sodium (Synthroid) 125 mcg PEG DAILY@0630 [facility] Last Admin: 12/23/16 05:42 Dose: 125 mcg Loratadine (Claritin) 10 mg PO DAILY [facility] Last Admin: 12/23/16 09:54 Dose: 10 mg Magnesium Hydroxide (Milk Of Magnesia) 30 ml PEG DAILY PRN PRN Reason: Constipation Metronidazole (Flagyl) 500 mg PEG Q8 [facility] Last Admin: 12/22/16 23:12 Dose: 500 mg Modafinil (Provigil) 150 mg PEG DAILY [facility] Last Admin: 12/16/16 11:54 Dose: Not Given Petrolatum (Desitin Original) 0 gm TOP QSHIFT [facility] Last Admin: 12/23/16 05:42 Dose: 1 applic Rosuvastatin Calcium (Crestor) 10 mg PO HS [facility] Last Admin: 12/22/16 23:11 Dose: 10 mg - Labs Labs: 12/23/16 08:08 12/23/16 08:08 PT 11.2 SECONDS (9.7-12.2) 12/16/16 06:25 INR 1.0 12/16/16 06:25 APTT 28 SECONDS (21-34) 12/16/16 06:25 - Constitutional Appears: No Acute Distress, Chronically Ill - Head Exam Head Exam: ATRAUMATIC, NORMAL INSPECTION - Eye Exam Eye Exam: EOMI, Normal appearance - Neck Exam Neck Exam: Normal Inspection. absent: Tenderness - Respiratory Exam Respiratory Exam: Clear to Ausculation Bilateral, NORMAL BREATHING PATTERN - Cardiovascular Exam Cardiovascular Exam: REGULAR RHYTHM, +S1 - GI/Abdominal Exam GI & Abdominal Exam: Soft. absent: Tenderness - Extremities Exam Extremities Exam: Normal Inspection. 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
--- NOTE | 2016-12-23 15:42 | CP.PCM.DIS ---
<Haja Barney - Last Filed: 12/23/16 15:54> Provider - Provider Date of Admission: 12/15/16 23:20 Attending physician: Bob Pak MD Consults: Consults. 1. GI- [place]oopack 2. Nephro- Iker 3. ID- Mangia Time Spent in preparation of Discharge (in minutes): 45 Hospital Course - Lab Results Lab Results: Micro Results 12/16/16 03:29 Stool Stool Culture - Final NO SALMONELLA, SHIGELLA OR CAMPYLOBACTER ISOLATED. 12/16/16 03:29 Stool Ova and Parasite Concentrate Exam - Final Most Recent Lab Values WBC 12.9 K/uL (4.8-10.8) H 12/23/16 08:08 RBC 2.62 Mil/uL (3.80-5.20) L 12/23/16 08:08 Hgb 7.9 g/dL (11.0-16.0) L 12/23/16 08:08 Hct 24.8 % (34.0-47.0) L 12/23/16 08:08 MCV 94.8 fL (81.0-99.0) 12/23/16 08:08 MCH 30.4 pg (27.0-31.0) 12/23/16 08:08 MCHC 32.0 g/dL (33.0-37.0) L 12/23/16 08:08 RDW 15.4 % (11.5-14.5) H 12/23/16 08:08 Plt Count 242 K/uL (130-400) 12/23/16 08:08 MPV 10.6 fL (7.2-11.7) 12/23/16 08:08 Neut % (Auto) 84.1 % (50.0-75.0) H 12/23/16 08:08 Lymph % (Auto) 8.5 % (20.0-40.0) L 12/23/16 08:08 Caroline % (Auto) 4.3 % (0.0-10.0) 12/23/16 08:08 Eos % (Auto) 2.8 % (0.0-4.0) 12/23/16 08:08 Baso % (Auto) 0.3 % (0.0-2.0) 12/23/16 08:08 Neut # 10.9 K/uL (1.8-7.0) H 12/23/16 08:08 Lymph # 1.1 K/uL (1.0-4.3) 12/23/16 08:08 Caroline # 0.6 K/uL (0.0-0.8) 12/23/16 08:08 Eos # 0.4 K/uL (0.0-0.7) 12/23/16 08:08 Baso # 0.0 K/uL (0.0-0.2) 12/23/16 08:08 Neutrophils % (Manual) 77 % (50-75) H 12/23/16 08:08 Band Neutrophils % 8 % (0-2) H 12/23/16 08:08 Lymphocytes % (Manual) 12 % (20-40) L 12/23/16 08:08 Reactive Lymphs % 2 % (0-0) H 12/15/16 22:37 Monocytes % (Manual) 1 % (0-10) 12/23/16 08:08 Eosinophils % (Manual) 1 % (0-4) 12/23/16 08:08 Basophils % (Manual) 1 % (0-2) 12/23/16 08:08 Myelocytes % 1 % (0-0) H 12/15/16 22:37 Platelet Estimate Normal (NORMAL) 12/23/16 08:08 Large Platelets Present 12/19/16 08:30 Polychromasia Slight 12/19/16 08:30 Hypochromasia (manual) Slight 12/22/16 08:32 Poikilocytosis (manual Slight 12/22/16 08:32 Anisocytosis (manual) Slight 12/23/16 08:08 Microcytosis (manual) Slight 12/22/16 08:32 Tear Drop Cells Slight 12/15/16 22:37 Ovalocytes Slight 12/20/16 07:38 PT 11.2 SECONDS (9.7-12.2) 12/16/16 06:25 INR 1.0 12/16/16 06:25 APTT 28 SECONDS (21-34) 12/16/16 06:25 pO2 27 mm/Hg (30-55) L 12/15/16 22:35 VBG pH 7.32 (7.32-7.43) 12/15/16 22:35 VBG pCO2 48 mmHg (40-60) 12/15/16 22:35 VBG HCO3 22.1 mmol/L 12/15/16 22:35 VBG Total CO2 26.2 mmol/L (22-28) 12/15/16 22:35 VBG O2 Sat (Calc) 55.2 % (40-65) 12/15/16 22:35 VBG Base Excess -1.8 mmol/L (0.0-2.0) L 12/15/16 22:35 VBG Potassium 4.9 mmol/L (3.6-5.2) 12/15/16 22:35 Sodium 146.0 mmol/l (132-148) 12/15/16 22:35 Chloride 109.0 mmol/L (98-107) H 12/15/16 22:35 Glucose 323 mg/dl (65-105) H 12/15/16 22:35 Lactate 2.2 mmol/L (0.7-2.1) H 12/15/16 22:35 Sodium 142 mmol/L (132-148) 12/23/16 08:08 Potassium 2.7 mmol/L (3.6-5.2) L 12/23/16 08:08 Chloride 108 mmol/L (98-107) H 12/23/16 08:08 Carbon Dioxide 24 mmol/L (22-30) 12/23/16 08:08 Anion Gap 13 (10-20) 12/23/16 08:08 BUN 20 mg/dL (7-17) H 12/23/16 08:08 Creatinine 0.9 MG/DL (0.7-1.2) 12/23/16 08:08 Est GFR ( Amer) > 60 12/23/16 08:08 Est GFR (Non-Af Amer) 60 12/23/16 08:08 POC Glucose (mg/dL) 242 mg/dL (65-110) H 12/23/16 12:09 Random Glucose 243 mg/dL (65-105) H 12/23/16 08:08 Lactic Acid 1.9 mmol/L (0.7-2.1) 12/16/16 03:42 Calcium 7.0 mg/dl (8.6-10.4) L 12/23/16 08:08 Phosphorus 3.2 mg/dL (2.5-4.5) 12/23/16 08:08 Magnesium 1.7 mg/dL (1.6-2.3) 12/23/16 08:08 Total Bilirubin 0.4 mg/dL (0.2-1.3) 12/23/16 08:08 AST 27 U/L (14-36) 12/23/16 08:08 ALT 26 U/L (9-52) 12/23/16 08:08 Alkaline Phosphatase 61 U/L (38-126) 12/23/16 08:08 Total Creatine Kinase 447 U/L (30-135) H 12/16/16 11:43 CK-MB (Mass) 1.70 ng/mL (0.0-3.38) 12/16/16 11:43 Troponin I 0.0130 ng/mL (0.00-0.120) 12/15/16 22:37 Troponin I, Quant 0.0140 ng/mL (0.00-0.120) 12/16/16 11:43 Total Protein 5.6 g/dL (6.3-8.3) L 12/23/16 08:08 Albumin 2.4 g/dL (3.5-5.0) L 12/23/16 08:08 Globulin 3.2 gm/dL (2.2-3.9) 12/23/16 08:08 Albumin/Globulin Ratio 0.8 (1.0-2.1) L 12/23/16 08:08 Triglycerides 205 mg/dL (0-149) H 12/16/16 06:25 Cholesterol 121 mg/dL (0-199) 12/16/16 06:25 LDL Cholesterol Direct 49 mg/dL (0-129) 12/16/16 06:25 HDL Cholesterol 21 mg/dL (30-70) L 12/16/16 06:25 Amylase 74 U/L (30-110) 12/22/16 08:32 Lipase 302 U/L (23-300) H 12/22/16 08:32 Procalcitonin 1.30 NG/ML (0.19-0.49) H 12/16/16 06:25 Thyroxine (T4) 5.11 ug/dL (5.5-11.0) L 12/16/16 06:25 TSH 3rd Generation 4.11 mIU/L (0.46-4.68) 12/16/16 06:25 Venous Blood Potassium 4.9 mmol/L (3.6-5.2) 12/15/16 22:35 Urine Color Yellow (YELLOW) 12/15/16 22:57 Urine Clarity Hazy (Clear) 12/15/16 22:57 Urine pH 5.0 (5.0-8.0) 12/15/16 22:57 Ur Specific Holcomb > 1.030 (1.003-1.030) H 12/15/16 22:57 Urine Protein Negative mg/dL (NEGATIVE) 12/15/16 22:57 Urine Glucose (UA) 250 mg/dL (Normal) 12/15/16 22:57 Urine Ketones 15 mg/dL (NEGATIVE) 12/15/16 22:57 Urine Blood 1+ (NEGATIVE) H 12/15/16 22:57 Urine Nitrate Negative (NEGATIVE) 12/15/16 22:57 Urine Bilirubin Moderate (NEGATIVE) 12/15/16 22:57 Urine Urobilinogen 1.0 mg/dL (0.2-1.0) 12/15/16 22:57 Ur Leukocyte Esterase Negative Alden/uL (Negative) 12/15/16 22:57 Urine WBC (Auto) 5 /hpf (0-5) 12/15/16 22:57 Urine RBC (Auto) 7 /hpf (0-3) H 12/15/16 22:57 Ur Squamous Epith Cells 4 /hpf (0-5) 12/15/16 22:57 Ur Transition Epith Cell < 1 /hpf (0-3) 12/15/16 22:57 Urine Bacteria Occ (<OCC) H 12/15/16 22:57 Stool Leukocytes, Qual Negative (NEGATIVE) 12/16/16 03:24 Vancomycin Trough 13.6 ug/mL (5.0-10.0) H 12/22/16 08:32 Random Vancomycin 11.49 ug/mL 12/17/16 08:09 C. difficile Ag & Toxin Negative (NEGATIVE) 12/16/16 03:24 Influenza Typ A,B (EIA) Negative for flu a/b (NEGATIVE) 12/16/16 00:28 - Hospital Course Hospital Course: Attending: Dr. Garsia/Dr. Crews Consults 1. GI- [place]ack 2. Nephro- Iker 3. ID- Mangia Admit date 12/16/16 DC date: 12/23/16 Stable upon discharge Discharge dx: 1. PNA 2. Leukocytosis 3. Hypernatremia 4. Dehydration 5. Solitary kidney 6. Dementia 7. Hypothyroid 8. DM 9. HLD Procedures- PICC No complications HPI: see h/p Lab data: see lab Hospital course: This is an 86 yo female who [facility] presented from jail, obtunded, with leukocytosis and hypotension (1) Leukocytosis/Pneumonia initially placed on telemetry>> discontinued WBC trended down, on day of dc 12.9 initially hypotensive and tachypenic. Will need to find the source of white count>> questionable pancreatitis, lipase nl, pt diagnosed with pna per cxr fluids were started, changed to d5w for hypernatremia pt placed on vanco, zosyn, flagyl>>> pt got picc will continue vanco, zosyn for 7 more days Blood and urine cultures drawn, negative thus far; stool culture negative ; ova , parasites negative Infectious disease, Dr. Leggett consulted Patient is DNR/DNI we are ordering ct chest without contrast>>> ct chest shows bibasilar atelectasis, trace b/l effusions, suspicious for acute pancreatitis f/u ct abdomen pelvis >>>> shows retroperitoneal fluid/proctitis, right inguinal hernia, small pleural effusion ( see full report) continue tylenol prn pt had been on tube feeds, diabetisource>> stopped, then we have restarted tube feeds , will add free water flushes GI consult was placed. Dr. Hoffmann. recs appreciated for questionable pancreatitis>> recommended f/u cat scan (2) Hypotension/hypernatremia fluids changed D5W 100 cc/hr>> na normalized, mental status improved>> discontinued Monitor BP pt no longer hypotensive coreg placed on hold (3) Dehydration nephro was consulted recs appreciated. nephro monitored hypernatremia which was corrected (4) solitary kidney nephrology consult. recs appreciated. 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 (8) Hyperlipidemia Crestor 10 mg was given (9) Prophylactic measure lovenox daily pt placed on tube feeds- diabetisource- with free water flushes continue plavix daily we will replete K and Phos, we will replete electrolytes>> all electrolytes repleted discharged back to [facility] Discharge meds 1. lovenox 30 daily 2. plavix 75 daily 3. aricept 10 hs 4. tylenol 650 q 6 5. albuterol q 6 6. ISS 7. synthroid 125 mcg daily 8. claritin 10 daily 9. zosyn 3.375 iv q 6 10. crestor 10 hs 11. desitin ointment 12. vanco 1 g daily Discharge instructions Pt medically stable for discharge. will need f/u cxr, also vanco and zosyn for addn 7 days. dc neal before going. - Date & Time of H&P Date of H&P: 12/16/16 Time of H&P: 02:05 Discharge Exam - Head Exam Head Exam: ATRAUMATIC, NORMAL INSPECTION - Eye Exam Eye Exam: EOMI - ENT Exam ENT Exam: Mucous Membranes Moist - Neck Exam Neck exam: Full Rom, Normal Inspection - Respiratory Exam Respiratory Exam: NORMAL BREATHING PATTERN, UNREMARKABLE - Cardiovascular Exam Cardiovascular Exam: REGULAR RHYTHM, +S1, +S2 - GI/Abdominal Exam GI & Abdominal Exam: Normal Bowel Sounds - Extremities Exam Extremities exam: full ROM, normal inspection - Neurological Exam Neurological exam: Altered - Psychiatric Exam Additional comments: Unable to assess - Skin Skin Exam: Dry, Intact, Normal Color, Warm Discharge Plan - Follow Up Plan Condition: STABLE Disposition: REHAB FACILITY/REHAB UNIT Instructions: Acute Kidney Injury (DC), Sepsis (GEN) <Cash Garsia - Last Filed: 01/20/17 16:20> Provider - Provider Date of Admission: 12/15/16 23:20 Attending physician: Bob Pak MD Hospital Course - Lab Results Lab Results: Micro Results 12/25/16 09:04 Blood Blood Culture - Final NO GROWTH AFTER 5 DAYS 12/25/16 09:04 Blood Gram Stain - Final TEST NOT PERFORMED 12/25/16 09:04 Blood Blood Culture - Final NO GROWTH AFTER 5 DAYS 12/25/16 09:04 Blood Gram Stain - Final TEST NOT PERFORMED 12/16/16 03:29 Stool Stool Culture - Final NO SALMONELLA, SHIGELLA OR CAMPYLOBACTER ISOLATED. 12/16/16 03:29 Stool Ova and Parasite Concentrate Exam - Final Most Recent Lab Values WBC 9.0 K/uL (4.8-10.8) 12/29/16 06:15 RBC 3.38 Mil/uL (3.80-5.20) L 12/29/16 06:15 Hgb 10.3 g/dL (11.0-16.0) L 12/29/16 06:15 Hct 31.0 % (34.0-47.0) L 12/29/16 06:15 MCV 91.7 fL (81.0-99.0) 12/29/16 06:15 MCH 30.5 pg (27.0-31.0) 12/29/16 06:15 MCHC 33.3 g/dL (33.0-37.0) 12/29/16 06:15 RDW 15.4 % (11.5-14.5) H 12/29/16 06:15 Plt Count 393 K/uL (130-400) 12/29/16 06:15 MPV 8.9 fL (7.2-11.7) 12/29/16 06:15 Neut % (Auto) 76.7 % (50.0-75.0) H 12/29/16 06:15 Lymph % (Auto) 10.8 % (20.0-40.0) L 12/29/16 06:15 Caroline % (Auto) 8.7 % (0.0-10.0) 12/29/16 06:15 Eos % (Auto) 3.2 % (0.0-4.0) 12/29/16 06:15 Baso % (Auto) 0.6 % (0.0-2.0) 12/29/16 06:15 Neut # 6.9 K/uL (1.8-7.0) 12/29/16 06:15 Lymph # 1.0 K/uL (1.0-4.3) 12/29/16 06:15 Caroline # 0.8 K/uL (0.0-0.8) 12/29/16 06:15 Eos # 0.3 K/uL (0.0-0.7) 12/29/16 06:15 Baso # 0.1 K/uL (0.0-0.2) 12/29/16 06:15 Neutrophils % (Manual) 85 % (50-75) H 12/26/16 07:10 Band Neutrophils % 2 % (0-2) 12/26/16 07:10 Lymphocytes % (Manual) 5 % (20-40) L 12/26/16 07:10 Reactive Lymphs % 1 % (0-0) H 12/26/16 07:10 Monocytes % (Manual) 5 % (0-10) 12/26/16 07:10 Eosinophils % (Manual) 1 % (0-4) 12/26/16 07:10 Basophils % (Manual) 1 % (0-2) 12/26/16 07:10 Myelocytes % 1 % (0-0) H 12/15/16 22:37 Toxic Granulation Present 12/26/16 07:10 Platelet Estimate Normal (NORMAL) 12/26/16 07:10 Large Platelets Present 12/26/16 07:10 Giant Platelets Present 12/26/16 07:10 Polychromasia Slight 12/26/16 07:10 Hypochromasia (manual) Slight 12/26/16 07:10 Poikilocytosis (manual Slight 12/26/16 07:10 Basophilic Stippling Slight 12/26/16 07:10 Anisocytosis (manual) Slight 12/26/16 07:10 Microcytosis (manual) Slight 12/22/16 08:32 Tear Drop Cells Slight 12/15/16 22:37 Ovalocytes Slight 12/26/16 07:10 PT 11.2 SECONDS (9.7-12.2) 12/16/16 06:25 INR 1.0 12/16/16 06:25 APTT 28 SECONDS (21-34) 12/16/16 06:25 Puncture Site Rradial 12/27/16 15:30 pCO2 39 mm/Hg (35-45) 12/27/16 15:30 pO2 87 mm/Hg (80-100) 12/27/16 15:30 HCO3 28.3 mmol/L (21-28) H 12/27/16 15:30 ABG pH 7.47 (7.35-7.45) H 12/27/16 15:30 ABG Total CO2 29.6 mmol/L (22-28) H 12/27/16 15:30 ABG O2 Saturation 98.8 % (95-98) H 12/27/16 15:30 ABG Base Excess 4.4 mmol/L (-2.0-3.0) H 12/27/16 15:30 ABG Hemoglobin 11.1 g/dL (11.7-17.4) L 12/27/16 15:30 ABG Carboxyhemoglobin 1.7 % (0.5-1.5) H 12/27/16 15:30 POC ABG HHb (Measured) 1.2 % (0.0-5.0) 12/27/16 15:30 ABG Methemoglobin 1.1 % (0.0-3.0) 12/27/16 15:30 Eddie Test Pos 12/27/16 15:30 VBG pH 7.32 (7.32-7.43) 12/15/16 22:35 VBG pCO2 48 mmHg (40-60) 12/15/16 22:35 VBG HCO3 22.1 mmol/L 12/15/16 22:35 VBG Total CO2 26.2 mmol/L (22-28) 12/15/16 22:35 VBG O2 Sat (Calc) 55.2 % (40-65) 12/15/16 22:35 VBG Base Excess -1.8 mmol/L (0.0-2.0) L 12/15/16 22:35 VBG Potassium 4.9 mmol/L (3.6-5.2) 12/15/16 22:35 A-a O2 Difference 92.0 mm/Hg 12/27/16 15: Respiratory Index 1.1 12/27/16 15:30 Hgb O2 Saturation 95.9 % (95.0-98.0) 12/27/16 15:30 Sodium 146.0 mmol/l (132-148) 12/15/16 22:35 Chloride 109.0 mmol/L (98-107) H 12/15/16 22:35 Glucose 323 mg/dl (65-105) H 12/15/16 22:35 Lactate 2.2 mmol/L (0.7-2.1) H 12/15/16 22:35 Liter Flow 3.0 12/27/16 15:30 FiO2 32.0 % 12/27/16 15:30 Sodium 140 mmol/L (132-148) 12/29/16 06:15 Potassium 4.0 mmol/L (3.6-5.2) 12/29/16 06:15 Chloride 105 mmol/L (98-107) 12/29/16 06:15 Carbon Dioxide 29 mmol/L (22-30) 12/29/16 06:15 Anion Gap 9 (10-20) L 12/29/16 06:15 BUN 14 mg/dL (7-17) 12/29/16 06:15 Creatinine 0.8 MG/DL (0.7-1.2) 12/29/16 06:15 Est GFR ( Amer) > 60 12/29/16 06:15 Est GFR (Non-Af Amer) > 60 12/29/16 06:15 POC Glucose (mg/dL) 273 mg/dL (65-110) H 12/29/16 11:06 Random Glucose 295 mg/dL (65-105) H 12/29/16 06:15 Lactic Acid 1.9 mmol/L (0.7-2.1) 12/16/16 03:42 Calcium 7.6 mg/dl (8.6-10.4) L 12/29/16 06:15 Phosphorus 2.5 mg/dL (2.5-4.5) 12/29/16 06:15 Magnesium 1.8 mg/dL (1.6-2.3) 12/29/16 06:15 Total Bilirubin 0.4 mg/dL (0.2-1.3) 12/29/16 06:15 AST 24 U/L (14-36) 12/29/16 06:15 ALT 26 U/L (9-52) 12/29/16 06:15 Alkaline Phosphatase 72 U/L (38-126) 12/29/16 06:15 Total Creatine Kinase 447 U/L (30-135) H 12/16/16 11:43 CK-MB (Mass) 1.70 ng/mL (0.0-3.38) 12/16/16 11:43 Troponin I 0.0130 ng/mL (0.00-0.120) 12/15/16 22:37 Troponin I, Quant 0.0140 ng/mL (0.00-0.120) 12/16/16 11:43 Total Protein 5.5 g/dL (6.3-8.3) L 12/29/16 06:15 Albumin 2.3 g/dL (3.5-5.0) L 12/29/16 06:15 Globulin 3.2 gm/dL (2.2-3.9) 12/29/16 06:15 Albumin/Globulin Ratio 0.7 (1.0-2.1) L 12/29/16 06:15 Triglycerides 205 mg/dL (0-149) H 12/16/16 06:25 Cholesterol 121 mg/dL (0-199) 12/16/16 06:25 LDL Cholesterol Direct 49 mg/dL (0-129) 12/16/16 06:25 HDL Cholesterol 21 mg/dL (30-70) L 12/16/16 06:25 Amylase 74 U/L (30-110) 12/22/16 08:32 Lipase 267 U/L (23-300) 12/29/16 06:15 Procalcitonin 1.30 NG/ML (0.19-0.49) H 12/16/16 06:25 Thyroxine (T4) 5.11 ug/dL (5.5-11.0) L 12/16/16 06:25 TSH 3rd Generation 4.11 mIU/L (0.46-4.68) 12/16/16 06:25 Venous Blood Potassium 4.9 mmol/L (3.6-5.2) 12/15/16 22:35 Urine Color Yellow (YELLOW) 12/15/16 22:57 Urine Clarity Hazy (Clear) 12/15/16 22:57 Urine pH 5.0 (5.0-8.0) 12/15/16 22:57 Ur Specific Holcomb > 1.030 (1.003-1.030) H 12/15/16 22:57 Urine Protein Negative mg/dL (NEGATIVE) 12/15/16 22:57 Urine Glucose (UA) 250 mg/dL (Normal) 12/15/16 22:57 Urine Ketones 15 mg/dL (NEGATIVE) 12/15/16 22:57 Urine Blood 1+ (NEGATIVE) H 12/15/16 22:57 Urine Nitrate Negative (NEGATIVE) 12/15/16 22:57 Urine Bilirubin Moderate (NEGATIVE) 12/15/16 22:57 Urine Urobilinogen 1.0 mg/dL (0.2-1.0) 12/15/16 22:57 Ur Leukocyte Esterase Negative Alden/uL (Negative) 12/15/16 22:57 Urine WBC (Auto) 5 /hpf (0-5) 12/15/16 22:57 Urine RBC (Auto) 7 /hpf (0-3) H 12/15/16 22:57 Ur Squamous Epith Cells 4 /hpf (0-5) 12/15/16 22:57 Ur Transition Epith Cell < 1 /hpf (0-3) 12/15/16 22:57 Urine Bacteria Occ (<OCC) H 12/15/16 22:57 Stool Occult Blood Negative (NEGATIVE) 12/27/16 21:03 Stool Leukocytes, Qual Negative (NEGATIVE) 12/16/16 03:24 Vancomycin Trough 13.6 ug/mL (5.0-10.0) H 12/22/16 08:32 Random Vancomycin 11.49 ug/mL 12/17/16 08:09 C. difficile Ag & Toxin Negative (NEGATIVE) 12/16/16 03:24 Influenza Typ A,B (EIA) Negative for flu a/b (NEGATIVE) 12/16/16 00:28 Blood Type A POSITIVE 12/24/16 18:20 Blood Type Confirm A POSITIVE 12/24/16 18:20 Antibody Screen Negative 12/24/16 18:20 Attending/Attestation - Attestation I have personally seen and examined this patient.: Yes I have fully participated in the care of the patient.: Yes I have reviewed all pertinent clinical information, including history, physical exam and plan: Yes Notes (Text): Patient Seen and examined with the resident. Agree with the resident's evaluation, assessment and plan. This is an 86 yo female who initially presented from jail, obtunded, with leukocytosis and hypotension Leukocytosis/Pneumonia Hypotension/hypernatremia Dehydration solitary kidney Dementia in Alzheimer's disease Hypothyroidism Diabetes mellitus
--- NOTE | 2016-12-23 16:04 | CP.PCM.PN ---
Subjective - Date & Time of Evaluation Date of Evaluation: 12/23/16 Time of Evaluation: 16:01 - Subjective Subjective: Patient's mental status is unchanged. Objective - Vital Signs/Intake and Output Vital Signs (last 24 hours): Temp Pulse Resp BP Pulse Ox 98.5 F 76 18 116/54 L 98 12/23/16 15:19 12/23/16 15:19 12/23/16 15:19 12/23/16 15:19 12/23/16 15:19 Intake and Output: 12/23/16 12/23/16 06:59 18:59 Output Total 1075 250 Balance -1075 -250 - Medications Medications: Current Medications Acetaminophen (Tylenol 650mg/20.3ml Solution Ud) 650 mg PEG Q6 PRN PRN Reason: Temperature Last Admin: 12/21/16 06:39 Dose: 650 mg Carvedilol (Coreg) 3.125 mg PEG DAILY [facility] Clopidogrel Bisulfate (Plavix) 75 mg PEG DAILY [facility] Last Admin: 12/23/16 09:54 Dose: 75 mg Glipizide (Glucotrol) 0.5 mg PEG BID [facility] Last Admin: 12/17/16 11:26 Dose: Not Given Piperacillin Sod/Tazobactam Sod (Zosyn 3.375 Gm Iv Premix) 3.375 gm in 50 mls @ 100 mls/hr IVPB Q6H [facility] Last Admin: 12/23/16 14:07 Dose: 100 mls/hr Insulin Aspart (Novolog) 0 unit SC Q6 NITIN PRN Reason: Protocol Last Admin: 12/23/16 12:30 Dose: 3 unit Levothyroxine Sodium (Synthroid) 125 mcg PEG DAILY@0630 [facility] Last Admin: 12/23/16 05:42 Dose: 125 mcg Loratadine (Claritin) 10 mg PO DAILY [facility] Last Admin: 12/23/16 09:54 Dose: 10 mg Magnesium Hydroxide (Milk Of Magnesia) 30 ml PEG DAILY PRN PRN Reason: Constipation Metronidazole (Flagyl) 500 mg PEG Q8 [facility] Last Admin: 12/23/16 13:51 Dose: 500 mg Modafinil (Provigil) 150 mg PEG DAILY [facility] Last Admin: 12/16/16 11:54 Dose: Not Given Petrolatum (Desitin Original) 0 gm TOP QSHIFT [facility] Last Admin: 12/23/16 14:05 Dose: 1 applic Rosuvastatin Calcium (Crestor) 10 mg PO HS NITIN Last Admin: 12/22/16 23:11 Dose: 10 mg - Labs Labs: 12/23/16 08:08 12/23/16 08:08 PT 11.2 SECONDS (9.7-12.2) 12/16/16 06:25 INR 1.0 12/16/16 06:25 APTT 28 SECONDS (21-34) 12/16/16 06:25 - Constitutional Appears: No Acute Distress - Head Exam Head Exam: ATRAUMATIC, NORMOCEPHALIC - Neck Exam Neck Exam: absent: Lymphadenopathy, Thyromegaly - Respiratory Exam Respiratory Exam: NORMAL BREATHING PATTERN. absent: Rales, Rhonchi, Wheezes - Cardiovascular Exam Cardiovascular Exam: REGULAR RHYTHM, +S1, +S2. absent: Gallop, Rubs, Murmur - GI/Abdominal Exam GI & Abdominal Exam: Soft, Normal Bowel Sounds. absent: Tenderness, Organomegaly Additional comments: Gastrostomy tube in epigastrium - Rectal Exam Rectal Exam: Deferred - Extremities Exam Extremities Exam: Pedal Edema Assessment and Plan (1) Abnormal CT of the abdomen Assessment & Plan: The fluid adjacent to the pancreas on CT is not diagnostic of pancreatitis. Recommend repeat amylase, lipase, CT scan. Status: Acute
[2016-12-23 16:29] LABS: POTASSIUM 2.7 mmol/L (3.6-5.2)
[2016-12-23 16:31] LABS: ALB/GLOB RATIO 0.7 (1.0-2.1); BILIRUBIN,TOTAL 0.3 mg/dL (0.2-1.3); TOTAL PROTEIN 5.5 g/dL (6.3-8.3)
[2016-12-23 16:32] LABS: CALCIUM 7.4 mg/dl (8.6-10.4)
[2016-12-23] MEDS: Magnesium Sulfate 1 gm in D5W 1 GM/100 ML BAG IVPB SCH ×2 (17:51→18:44)
[2016-12-23] MEDS: Bacitracin Ointment 30 GM TUBE TOP SCH (21:24)
[2016-12-24 00:35] LABS: ALB/GLOB RATIO 0.6 (1.0-2.1); ALKALINE PHOSPHATASE 67 U/L (38-126); ALT/SGPT 36 U/L (9-52); AST/SGOT 29 U/L (14-36); BILIRUBIN,TOTAL 0.3 mg/dL (0.2-1.3); BLOOD UREA NITROGEN 18 mg/dL (7-17); CALCIUM 7.6 mg/dl (8.6-10.4); CARBON DIOXIDE 29 mmol/L (22-30); CHLORIDE 107 mmol/L (98-107); GFR AFRICAN-AMERICAN > 60; GLUCOSE,RANDOM 212 mg/dL (65-105); POTASSIUM 3.3 mmol/L (3.6-5.2); SODIUM 141 mmol/L (132-148); TOTAL PROTEIN 5.4 g/dL (6.3-8.3)
[2016-12-24] MEDS: Piperacill/Tazo 3.375gm in Dex 3.375 GM/50 ML BAG IVPB SCH ×2 (01:45→21:49)
[2016-12-24] MEDS: Bacitracin Ointment 30 GM TUBE TOP SCH ×2 (05:35→21:50)
[2016-12-24] MEDS: Levothyroxine 125 MCG TAB PEG SCH (05:40)
[2016-12-24] MEDS: Zinc Oxide Topical 30 gm Tube TOP SCH ×2 (06:05→21:50)
[2016-12-24] MEDS: Acetaminophen 650mg/20.3ml solution UD PEG PRN (21:00)
[2016-12-24] MEDS ORDERED: Piperacillin/Tazobact 3.375 GM in Sodium Chloride 100 ML IVPB SCH (21:30)
[2016-12-24 23:53] LABS: BASO % 0.1 % (0.0-2.0); EOS # 0.3 K/uL (0.0-0.7); EOS % 2.6 % (0.0-4.0); HEMATOCRIT 22.6 % (34.0-47.0); LYMPH # 0.9 K/uL (1.0-4.3); LYMPH % 7.5 % (20.0-40.0); MEAN CELL VOLUME 94.6 fL (81.0-99.0); MEAN CORPUSCULAR HEMOGLOBIN 30.4 pg (27.0-31.0); MEAN CORPUSCULAR HGB CONC 32.1 g/dL (33.0-37.0); MONO # 0.5 K/uL (0.0-0.8); MONO % 4.2 % (0.0-10.0); NRBC % 0.1 % (0.0-2.0); PLATELET COUNT 295 K/uL (130-400); RED CELL DISTRIBUTION WIDTH 15.7 % (11.5-14.5); WHITE BLOOD COUNT 11.7 K/uL (4.8-10.8)
[2016-12-25] MEDS: (Novolog) Insulin Aspart, Recombinant 100 u/ml 10 ml vial SC SCH ×4 (00:10→18:45)
[2016-12-25 00:39] LABS: BLOOD UREA NITROGEN 17 mg/dL (7-17); CALCIUM 7.6 mg/dl (8.6-10.4); CARBON DIOXIDE 28 mmol/L (22-30); CHLORIDE 107 mmol/L (98-107); GFR AFRICAN-AMERICAN > 60; GLUCOSE,RANDOM 241 mg/dL (65-105); MAGNESIUM 2.1 mg/dL (1.6-2.3); POTASSIUM 3.3 mmol/L (3.6-5.2); SODIUM 142 mmol/L (132-148)
[2016-12-25] MEDS: Piperacill/Tazo 3.375gm in Dex 3.375 GM/50 ML BAG IVPB SCH ×4 (03:07→22:26)
[2016-12-25] MEDS: Zinc Oxide Topical 30 gm Tube TOP SCH ×3 (05:33→22:39)
[2016-12-25] MEDS: Levothyroxine 125 MCG TAB PEG SCH (06:13)
[2016-12-25] MEDS: Bacitracin Ointment 30 GM TUBE TOP SCH ×3 (06:16→22:29)
--- NOTE | 2016-12-25 08:16 | CP.PCM.PN ---
Subjective - Date & Time of Evaluation Date of Evaluation: 12/25/16 Time of Evaluation: 08:13 - Subjective Subjective: Mental status is unchanged. Transfer to [place] was postponed secondary to hypokalemia and drop in HGB. Objective - Vital Signs/Intake and Output Vital Signs (last 24 hours): Temp Pulse Resp BP Pulse Ox 97.3 F L 79 20 145/79 98 12/25/16 07:15 12/25/16 07:15 12/25/16 07:15 12/25/16 07:15 12/25/16 00:05 Intake and Output: 12/25/16 12/25/16 06:59 18:59 Intake Total 100 100 Balance 100 100 - Medications Medications: Current Medications Acetaminophen (Tylenol 650mg/20.3ml Solution Ud) 650 mg PEG Q6 PRN PRN Reason: Temperature Last Admin: 12/24/16 21:00 Dose: 650 mg Bacitracin (Bacitracin) 1 gm TOP QSHIFT [facility] Last Admin: 12/25/16 06:16 Dose: 1 applic Carvedilol (Coreg) 3.125 mg PEG DAILY [facility] Clopidogrel Bisulfate (Plavix) 75 mg PEG DAILY [facility] Last Admin: 12/23/16 09:54 Dose: 75 mg Glipizide (Glucotrol) 0.5 mg PEG BID [facility] Last Admin: 12/17/16 11:26 Dose: Not Given Piperacillin Sod/Tazobactam Sod (Zosyn 3.375 Gm Iv Premix) 3.375 gm in 50 mls @ 100 mls/hr IVPB Q6H [facility] Last Admin: 12/25/16 03:07 Dose: 100 mls/hr Insulin Aspart (Novolog) 0 unit SC Q6 [facility] PRN Reason: Protocol Last Admin: 12/25/16 05:49 Dose: 6 unit Levothyroxine Sodium (Synthroid) 125 mcg PEG DAILY@0630 [facility] Last Admin: 12/25/16 06:13 Dose: 125 mcg Loratadine (Claritin) 10 mg PO DAILY [facility] Last Admin: 12/23/16 09:54 Dose: 10 mg Magnesium Hydroxide (Milk Of Magnesia) 30 ml PEG DAILY PRN PRN Reason: Constipation Metronidazole (Flagyl) 500 mg PEG Q8 [facility] Last Admin: 12/24/16 21:48 Dose: 500 mg Modafinil (Provigil) 150 mg PEG DAILY [facility] Last Admin: 12/16/16 11:54 Dose: Not Given Petrolatum (Desitin Original) 0 gm TOP QSHIFT [facility] Last Admin: 12/25/16 05:33 Dose: 1 applic Rosuvastatin Calcium (Crestor) 10 mg PO HS [facility] Last Admin: 12/24/16 21:47 Dose: 10 mg - Labs Labs: 12/24/16 15:00 12/24/16 15:00 PT 11.2 SECONDS (9.7-12.2) 12/16/16 06:25 INR 1.0 12/16/16 06:25 APTT 28 SECONDS (21-34) 12/16/16 06:25 - Constitutional Appears: No Acute Distress - Head Exam Head Exam: ATRAUMATIC, NORMOCEPHALIC - Eye Exam Eye Exam: EOMI, PERRL - Neck Exam Neck Exam: absent: Lymphadenopathy, Thyromegaly - Respiratory Exam Respiratory Exam: NORMAL BREATHING PATTERN. absent: Rales, Rhonchi, Wheezes - Cardiovascular Exam Cardiovascular Exam: REGULAR RHYTHM, +S1, +S2. absent: Rubs, Murmur - GI/Abdominal Exam GI & Abdominal Exam: Soft, Normal Bowel Sounds. absent: Tenderness, Mass, Organomegaly Additional comments: G tube in epigastrium - Rectal Exam Rectal Exam: Deferred - Extremities Exam Extremities Exam: Pedal Edema Assessment and Plan (1) Anemia Assessment & Plan: The HGB dropped from 9.0 to 7.2 between 12/19 and 12/24 while renal function was improving and without melena or BRBPR. Will repeat stool guaiac and CT scan to rule out retroperitoneal or intraperitoneal hematoma. Status: Acute
[2016-12-25] MEDS ORDERED: Iohexol 240 (50 ml) PO ONE (08:30)
[2016-12-25 08:57] LABS: EOSINOPHIL 4 % (0-4); NEUTROPHIL 88 % (50-75); TOTAL CELLS COUNTED 100
[2016-12-25 12:23] LABS: BASO % 0.3 % (0.0-2.0); EOS # 0.3 K/uL (0.0-0.7); EOS % 2.6 % (0.0-4.0); HEMATOCRIT 33.2 % (34.0-47.0); LYMPH # 0.9 K/uL (1.0-4.3); LYMPH % 7.2 % (20.0-40.0); MEAN CORPUSCULAR HGB CONC 33.1 g/dL (33.0-37.0); MEAN PLATELET VOLUME 10.1 fL (7.2-11.7); MONO # 0.6 K/uL (0.0-0.8); MONO % 5.1 % (0.0-10.0); PLATELET COUNT 325 K/uL (130-400); RED CELL DISTRIBUTION WIDTH 15.9 % (11.5-14.5); WHITE BLOOD COUNT 12.7 K/uL (4.8-10.8)
[2016-12-25 12:26] LABS: MEAN CELL VOLUME 90.6 fL (81.0-99.0)
[2016-12-25 12:42] LABS: CHLORIDE 107 mmol/L (98-107); POTASSIUM 3.5 mmol/L (3.6-5.2); SODIUM 142 mmol/L (132-148)
[2016-12-25 12:44] LABS: BILIRUBIN,TOTAL 0.5 mg/dL (0.2-1.3); GFR AFRICAN-AMERICAN > 60
[2016-12-25 12:45] LABS: ALB/GLOB RATIO 0.7 (1.0-2.1); ALKALINE PHOSPHATASE 70 U/L (38-126); ALT/SGPT 35 U/L (9-52); AST/SGOT 44 U/L (14-36); BLOOD UREA NITROGEN 20 mg/dL (7-17); CARBON DIOXIDE 29 mmol/L (22-30); GLUCOSE,RANDOM 206 mg/dL (65-105); PHOSPHOROUS 2.3 mg/dL (2.5-4.5); TOTAL PROTEIN 5.9 g/dL (6.3-8.3)
[2016-12-25 12:46] LABS: CALCIUM 7.8 mg/dl (8.6-10.4); MAGNESIUM 2.1 mg/dL (1.6-2.3)
--- NOTE | 2016-12-25 12:55 | CP.PCM.PN ---
Subjective - Date & Time of Evaluation Date of Evaluation: 12/25/16 Time of Evaluation: 12:52 - Subjective Subjective: Events noted; discharge on hold- Hg dropped s/p blood transfusion prbcs K repleted but still low Remains nonverbal on GT feeds Objective - Vital Signs/Intake and Output Vital Signs (last 24 hours): Temp Pulse Resp BP Pulse Ox 97.3 F L 79 17 145/79 99 12/25/16 07:20 12/25/16 07:20 12/25/16 07:20 12/25/16 07:20 12/25/16 07:20 Intake and Output: 12/25/16 12/25/16 06:59 18:59 Intake Total 100 100 Balance 100 100 - Medications Medications: Current Medications Acetaminophen (Tylenol 650mg/20.3ml Solution Ud) 650 mg PEG Q6 PRN PRN Reason: Temperature Last Admin: 12/24/16 21:00 Dose: 650 mg [facility] Last Admin: 12/25/16 06:16 Dose: 1 applic Carvedilol (Coreg) 3.125 mg PEG DAILY [facility] Clopidogrel Bisulfate (Plavix) 75 mg PEG DAILY [facility] Last Admin: 12/25/16 10:10 Dose: 75 mg Glipizide (Glucotrol) 0.5 mg PEG BID [facility] Last Admin: 12/17/16 11:26 Dose: Not Given Piperacillin Sod/Tazobactam Sod (Zosyn 3.375 Gm Iv Premix) 3.375 gm in 50 mls @ 100 mls/hr IVPB Q6H [facility] Last Admin: 12/25/16 10:10 Dose: 100 mls/hr Insulin Aspart (Novolog) 0 unit SC Q6 [facility] PRN Reason: Protocol Last Admin: 12/25/16 12:47 Dose: 3 unit Levothyroxine Sodium (Synthroid) 125 mcg PEG DAILY@0630 [facility] Last Admin: 12/25/16 06:13 Dose: 125 mcg Loratadine (Claritin) 10 mg PO DAILY [facility] Last Admin: 12/25/16 10:10 Dose: 10 mg Magnesium Hydroxide (Milk Of Magnesia) 30 ml PEG DAILY PRN PRN Reason: Constipation Metronidazole (Flagyl) 500 mg PEG Q8 [facility] Last Admin: 12/24/16 21:48 Dose: 500 mg Modafinil (Provigil) 150 mg PEG DAILY [facility] Last Admin: 12/16/16 11:54 Dose: Not Given Petrolatum (Desitin Original) 0 gm TOP QSHIFT [facility] Last Admin: 12/25/16 05:33 Dose: 1 applic Rosuvastatin Calcium (Crestor) 10 mg PO HS [facility] Last Admin: 12/24/16 21:47 Dose: 10 mg - Labs Labs: 12/25/16 12:08 12/25/16 12:08 PT 11.2 SECONDS (9.7-12.2) 12/16/16 06:25 INR 1.0 12/16/16 06:25 APTT 28 SECONDS (21-34) 12/16/16 06:25 - Constitutional Appears: Non-toxic, Chronically Ill - Head Exam Head Exam: ATRAUMATIC, NORMAL INSPECTION - Neck Exam Neck Exam: Normal Inspection. absent: Tenderness - Respiratory Exam Respiratory Exam: Clear to Ausculation Bilateral, NORMAL BREATHING PATTERN - Cardiovascular Exam Cardiovascular Exam: REGULAR RHYTHM, +S1 - GI/Abdominal Exam GI & Abdominal Exam: Soft. absent: Tenderness - Extremities Exam Extremities Exam: Normal Inspection. 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
[2016-12-25 12:59] LABS: EOSINOPHIL 1 % (0-4); NEUTROPHIL 76 % (50-75); TOTAL CELLS COUNTED 100
[2016-12-25 13:00] LABS: LARGE PLATELETS PRESENT
[2016-12-25] MEDS ORDERED: Potassium Chloride 20 mEq/15 ml LIQ UD GT ONE (13:00)
[2016-12-25] MEDS ORDERED: Iodixanol 320 MG/ML 100 ML BOTTLE IV ONE (14:42)
--- NOTE | 2016-12-25 14:58 | CP.PCM.PN ---
<Haja Barney - Last Filed: 12/25/16 15:04> Subjective - Date & Time of Evaluation Date of Evaluation: 12/25/16 Time of Evaluation: 15:00 - Subjective Subjective: Med progress note. Attending: Dr. Garsia Pt seen and examined at bedside. No acute distress. Pt did spike fever overnight , will redraw blood cultures. Will restart vanco, continue zosyn and flagyl. Objective - Vital Signs/Intake and Output Vital Signs (last 24 hours): Temp Pulse Resp BP Pulse Ox 97.3 F L 79 17 145/79 99 12/25/16 07:20 12/25/16 07:20 12/25/16 07:20 12/25/16 07:20 12/25/16 07:20 Intake and Output: 12/25/16 12/25/16 06:59 18:59 Intake Total 100 100 Balance 100 100 - Medications Medications: Current Medications Acetaminophen (Tylenol 650mg/20.3ml Solution Ud) 650 mg PEG Q6 PRN PRN Reason: Temperature Last Admin: 12/24/16 21:00 Dose: 650 mg Bacitracin (Bacitracin) 1 gm TOP QSHIFT [facility] Last Admin: 12/25/16 14:05 Dose: 1 applic Carvedilol (Coreg) 3.125 mg PEG DAILY [facility] Clopidogrel Bisulfate (Plavix) 75 mg PEG DAILY [facility] Last Admin: 12/25/16 10:10 Dose: 75 mg Glipizide (Glucotrol) 0.5 mg PEG BID [facility] Last Admin: 12/17/16 11:26 Dose: Not Given Piperacillin Sod/Tazobactam Sod (Zosyn 3.375 Gm Iv Premix) 3.375 gm in 50 mls @ 100 mls/hr IVPB Q6H [facility] Last Admin: 12/25/16 10:10 Dose: 100 mls/hr Vancomycin HCl 1 gm/ Sodium (Chloride) 250 mls @ 166.7 mls/hr IVPB Q24H [facility] Insulin Aspart (Novolog) 0 unit SC Q6 [facility] PRN Reason: Protocol Last Admin: 12/25/16 12:47 Dose: 3 unit Levothyroxine Sodium (Synthroid) 125 mcg PEG DAILY@0630 [facility] Last Admin: 12/25/16 06:13 Dose: 125 mcg Loratadine (Claritin) 10 mg PO DAILY [facility] Last Admin: 12/25/16 10:10 Dose: 10 mg Magnesium Hydroxide (Milk Of Magnesia) 30 ml PEG DAILY PRN PRN Reason: Constipation Metronidazole (Flagyl) 500 mg PEG Q8 [facility] Last Admin: 12/25/16 14:05 Dose: 500 mg Modafinil (Provigil) 150 mg PEG DAILY [facility] Last Admin: 12/16/16 11:54 Dose: Not Given Petrolatum (Desitin Original) 0 gm TOP QSHIFT [facility] Last Admin: 12/25/16 14:07 Dose: 1 applic Rosuvastatin Calcium (Crestor) 10 mg PO HS [facility] Last Admin: 12/24/16 21:47 Dose: 10 mg Sodium Phosphate (K-Phos Neutral) 250 mg PO DAILY [facility] Last Admin: 12/25/16 14:32 Dose: 250 mg - Labs Labs: 12/25/16 12:08 12/25/16 12:08 PT 11.2 SECONDS (9.7-12.2) 12/16/16 06:25 INR 1.0 12/16/16 06:25 APTT 28 SECONDS (21-34) 12/16/16 06:25 - Constitutional Appears: Non-toxic, No Acute Distress - Head Exam Head Exam: ATRAUMATIC, NORMAL INSPECTION, NORMOCEPHALIC - ENT Exam ENT Exam: Mucous Membranes Moist - Neck Exam Neck Exam: Full ROM, Normal Inspection - Respiratory Exam Respiratory Exam: Rhonchi. absent: Respiratory Distress - Cardiovascular Exam Cardiovascular Exam: +S1, +S2 - GI/Abdominal Exam GI & Abdominal Exam: Soft, Normal Bowel Sounds. absent: Tenderness - Extremities Exam Extremities Exam: Full ROM, Normal Inspection - Neurological Exam Neurological Exam: Altered. absent: Oriented x3 - Psychiatric Exam Additional comments: Unable to assess - Skin Skin Exam: Dry, Intact, Normal Color, Warm Assessment and Plan - Assessment and Plan (Free Text) Assessment: This is an 86 yo female who initially presented from half-way, obtunded, with leukocytosis and hypotension (1) Fever WBC now 12.7 initially hypotensive and tachypenic. Will need to find the source of white count>> questionable pancreatitis, lipase nl continue zosyn 3375 g IV q 6 will restart vanco 1 g daily will continue flagyl via peg 500 every 8 hours Blood and urine cultures drawn, negative thus far; stool culture negative ; ova , parasites negative will redraw blood cultures, those are pending Infectious disease, Dr. Leggett consulted Patient is DNR/DNI we are ordering ct chest without contrast>>> ct chest shows bibasilar atelectasis, trace b/l effusions, suspicious for acute pancreatitis f/u ct abdomen pelvis >>>> shows retroperitoneal fluid/proctitis, right inguinal hernia, small pleural effusion ( see full report) continue tylenol prn we have restarted tube feeds (patient is on diabetisource) , continue free water flushes pt is s/p picc line will repeat ua monitor to make sure pt is afebrile for 24 hrs. (2) Questionable pancreatitis -findings on ct were suggestive of pancreatitis -will redraw lipase -repeat ct abdomen pending (3) Hypotension/hypernatremia Monitor BP pt no longer hypotensive coreg on hold Na trending down, now normalized nephrology. Dr. Dong. recs appreciated. (4) Dehydration nephro has been consulted recs appreciated. -CR .8 today (5) solitary kidney nephrology consult. recs appreciated. continue to monitor (6) Dementia in Alzheimer's disease continue her home Aricept, patient as feeding tube in place (6) Hypothyroidism TSH/T4: TSH is wnl; T4 is low 5.11 continue home synthroid through PEG (7) Diabetes mellitus sliding scale with accu checks (8) Hyperlipidemia Crestor 10 mg PEG HS (9) Prophylactic measure lovenox daily we have restarted tube feeds continue plavix daily we will replete K and Phos, we will replete electrolytes discussed with Dr. Garsia <Cash Garsia - Last Filed: 01/20/17 16:21> Objective - Vital Signs/Intake and Output Vital Signs (last 24 hours): Temp Pulse Resp BP Pulse Ox 99.2 F 86 20 146/73 96 12/29/16 16:00 12/29/16 16:00 12/29/16 16:00 12/29/16 16:00 12/29/16 16:00 - Labs Labs: 12/29/16 06:15 12/29/16 06:15 PT 11.2 SECONDS (9.7-12.2) 12/16/16 06:25 INR 1.0 12/16/16 06:25 APTT 28 SECONDS (21-34) 12/16/16 06:25 Attending/Attestation - Attestation I have personally seen and examined this patient.: Yes I have fully participated in the care of the patient.: Yes I have reviewed all pertinent clinical information, including history, physical exam and plan: Yes Notes (Text): Patient Seen and examined with the resident. Agree with the resident's evaluation, assessment and plan. This is an 86 yo female who initially presented from half-way, obtunded, with leukocytosis and hypotension Leukocytosis/Pneumonia Hypotension/hypernatremia Dehydration solitary kidney Dementia in Alzheimer's disease Hypothyroidism Diabetes mellitus
--- NOTE | 2016-12-25 16:00 | CT ---
PROCEDURE: CT Abdomen and Pelvis with contrast HISTORY: Pancreatitis, drop in hemoglobin COMPARISON: None. TECHNIQUE: Contrast dose: 100 mL Visipaque 320 Radiation dose: Total exam DLP = 1023.19 mGy-cm. This CT exam was performed using one or more of the following dose reduction techniques: Automated exposure control, adjustment of the mA and/or kV according to patient size, and/or use of iterative reconstruction technique. FINDINGS: LOWER THORAX: Small bilateral pleural effusion. Minimal bilateral lower lobe compressive atelectasis. LIVER: Normal size, contour. Diffusely diminished attenuation consistent with fatty infiltration. Multiple small nonspecific low-attenuation rounded lesions, unchanged from prior. No biliary ductal GALLBLADDER AND BILE DUCTS: Dilatation. PANCREAS: No mass. Mild dilatation of pancreatic duct in the head and body of the pancreas. Fluid seen posterior to pancreatic head and inferior pancreatic body. There is mild loculation of this fluid. Consistent with recent pancreatitis. SPLEEN: Unremarkable. ADRENALS: Unremarkable. No mass. KIDNEYS AND URETERS: Status post left nephrectomy. Right upper pole cortical cyst, 1.8 cm. No right renal calculus or hydronephrosis. VASCULATURE: Unremarkable. No aortic aneurysm. BOWEL: Mural thickening of the 3rd duodenum and mild thickening of the 2nd duodenum, consistent with adjacent pancreatic exudate. No bowel obstruction. Sigmoid diverticulosis. No evidence of diverticulitis. APPENDIX: Normal appendix. PERITONEUM: Trace fluid in cul-de-sac and right paracolic gutter. Right inguinal hernia containing a nonobstructed loop of small bowel. LYMPH NODES: Unremarkable. No enlarged lymph nodes. BLADDER: Poorly distended. No gross abnormality. REPRODUCTIVE: Status post hysterectomy BONES: Lumbar levoscoliosis. Grade 1 anterolisthesis at L5-S1. No spondylolysis. Ankylosis of L3 and L4 vertebrae. Butterfly vertebra at T12. OTHER FINDINGS: None. IMPRESSION: Fluid inferior pancreatic body and posterior pancreatic head consistent with recent acute pancreatitis. Mild pancreatic ductal dilatation common nonspecific. Mural thickening of 2nd and 3rd duodenum consistent with adjacent pancreatic exudate. No bowel obstruction. Right inguinal hernia containing nonobstructed loop of small bowel. Small bilateral pleural effusion and minimal compressive atelectasis in both lower lobes. No findings to explain recently decreasing hemoglobin. Additional minor findings as above.
[2016-12-26] MEDS: (Novolog) Insulin Aspart, Recombinant 100 u/ml 10 ml vial SC SCH ×4 (00:16→18:14)
[2016-12-26] MEDS: Piperacill/Tazo 3.375gm in Dex 3.375 GM/50 ML BAG IVPB SCH ×4 (03:35→22:17)
[2016-12-26] MEDS: Levothyroxine 125 MCG TAB PEG SCH (06:13)
[2016-12-26] MEDS: Zinc Oxide Topical 30 gm Tube TOP SCH ×3 (06:13→22:16)
[2016-12-26] MEDS: Bacitracin Ointment 30 GM TUBE TOP SCH ×3 (06:20→22:16)
[2016-12-26 07:20] LABS: BASO # 0.1 K/uL (0.0-0.2); BASO % 0.5 % (0.0-2.0); EOS # 0.3 K/uL (0.0-0.7); EOS % 2.6 % (0.0-4.0); HEMATOCRIT 31.2 % (34.0-47.0); LYMPH # 1.1 K/uL (1.0-4.3); MEAN CELL VOLUME 90.2 fL (81.0-99.0); MEAN CORPUSCULAR HEMOGLOBIN 30.2 pg (27.0-31.0); MEAN CORPUSCULAR HGB CONC 33.4 g/dL (33.0-37.0); MEAN PLATELET VOLUME 9.6 fL (7.2-11.7); MONO # 0.7 K/uL (0.0-0.8); MONO % 5.5 % (0.0-10.0); PLATELET COUNT 341 K/uL (130-400); RED CELL DISTRIBUTION WIDTH 15.7 % (11.5-14.5); WHITE BLOOD COUNT 12.1 K/uL (4.8-10.8)
[2016-12-26 08:09] LABS: CHLORIDE 105 mmol/L (98-107)
[2016-12-26 08:10] LABS: POTASSIUM 3.3 mmol/L (3.6-5.2); SODIUM 143 mmol/L (132-148)
[2016-12-26 08:12] LABS: BILIRUBIN,TOTAL 0.4 mg/dL (0.2-1.3); CARBON DIOXIDE 31 mmol/L (22-30); GFR AFRICAN-AMERICAN > 60
[2016-12-26 08:13] LABS: ALB/GLOB RATIO 0.7 (1.0-2.1); ALKALINE PHOSPHATASE 71 U/L (38-126); ALT/SGPT 30 U/L (9-52); AST/SGOT 43 U/L (14-36); BLOOD UREA NITROGEN 18 mg/dL (7-17); CALCIUM 7.8 mg/dl (8.6-10.4); GLUCOSE,RANDOM 209 mg/dL (65-105); PHOSPHOROUS 2.6 mg/dL (2.5-4.5); TOTAL PROTEIN 5.8 g/dL (6.3-8.3)
[2016-12-26 09:24] LABS: BASOPHIL 1 % (0-2); EOSINOPHIL 1 % (0-4); NEUTROPHIL 85 % (50-75); REACTIVE LYMPHOCYTES 1 % (0-0); TOTAL CELLS COUNTED 100
[2016-12-26 09:25] LABS: LARGE PLATELETS PRESENT
[2016-12-26 09:28] LABS: GIANT PLATELETS PRESENT
--- NOTE | 2016-12-26 10:05 | CP.PCM.PN ---
Subjective - Date & Time of Evaluation Date of Evaluation: 12/26/16 Time of Evaluation: 10:15 - Subjective Subjective: afebrile renal function stable mag 2 k 3.3 comfortable in bed not talking or responding to commands ROS see above Objective - Vital Signs/Intake and Output Vital Signs (last 24 hours): Temp Pulse Resp BP Pulse Ox 99.0 F 87 18 146/75 98 12/26/16 08:41 12/26/16 08:41 12/26/16 08:41 12/26/16 08:41 12/26/16 08:41 Intake and Output: 12/26/16 12/26/16 06:59 18:59 Intake Total 1130 Balance 1130 - Medications Medications: Current Medications Acetaminophen (Tylenol 650mg/20.3ml Solution Ud) 650 mg PEG Q6 PRN PRN Reason: Temperature Last Admin: 12/24/16 21:00 Dose: 650 mg Bacitracin (Bacitracin) 1 gm TOP QSHIFT [facility] Last Admin: 12/26/16 06:20 Dose: 1 applic Carvedilol (Coreg) 3.125 mg PEG DAILY [facility] Clopidogrel Bisulfate (Plavix) 75 mg PEG DAILY [facility] Last Admin: 12/25/16 10:10 Dose: 75 mg Glipizide (Glucotrol) 0.5 mg PEG BID [facility] Last Admin: 12/17/16 11:26 Dose: Not Given Piperacillin Sod/Tazobactam Sod (Zosyn 3.375 Gm Iv Premix) 3.375 gm in 50 mls @ 100 mls/hr IVPB Q6H [facility] Last Admin: 12/25/16 22:26 Dose: 100 mls/hr Vancomycin HCl 1 gm/ Sodium (Chloride) 250 mls @ 166.7 mls/hr IVPB Q24H [facility] Last Admin: 12/25/16 16:00 Dose: 166.7 mls/hr Insulin Aspart (Novolog) 0 unit SC Q6 [facility] PRN Reason: Protocol Last Admin: 12/26/16 06:12 Dose: 3 unit Levothyroxine Sodium (Synthroid) 125 mcg PEG DAILY@0630 [facility] Last Admin: 12/26/16 06:13 Dose: 125 mcg Loratadine (Claritin) 10 mg PO DAILY [facility] Last Admin: 12/25/16 10:10 Dose: 10 mg Magnesium Hydroxide (Milk Of Magnesia) 30 ml PEG DAILY PRN PRN Reason: Constipation Metronidazole (Flagyl) 500 mg PEG Q8 [facility] Last Admin: 12/26/16 05:49 Dose: 500 mg Modafinil (Provigil) 150 mg PEG DAILY [facility] Last Admin: 12/16/16 11:54 Dose: Not Given Petrolatum (Desitin Original) 0 gm TOP QSHIFT [facility] Last Admin: 12/26/16 06:13 Dose: 1 applic Rosuvastatin Calcium (Crestor) 10 mg PO HS [facility] Last Admin: 12/25/16 22:39 Dose: 10 mg Sodium Phosphate (K-Phos Neutral) 250 mg PO DAILY [facility] Last Admin: 12/25/16 14:32 Dose: 250 mg - Labs Labs: 12/26/16 07:10 12/26/16 07:10 PT 11.2 SECONDS (9.7-12.2) 12/16/16 06:25 INR 1.0 12/16/16 06:25 APTT 28 SECONDS (21-34) 12/16/16 06:25 - Constitutional Appears: No Acute Distress - Respiratory Exam Respiratory Exam: Clear to Ausculation Bilateral. absent: Accessory Muscle Use - Cardiovascular Exam Cardiovascular Exam: REGULAR RHYTHM - GI/Abdominal Exam GI & Abdominal Exam: Soft. 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
--- NOTE | 2016-12-26 10:07 | CP.PCM.PN ---
Subjective - Date & Time of Evaluation Date of Evaluation: 12/26/16 Time of Evaluation: 10:03 - Subjective Subjective: Mental status unchanged. Hemoglobin post transfusion up to 11.0, now 10.4 this morning. Objective - Vital Signs/Intake and Output Vital Signs (last 24 hours): Temp Pulse Resp BP Pulse Ox 99.0 F 87 18 146/75 98 12/26/16 08:41 12/26/16 08:41 12/26/16 08:41 12/26/16 08:41 12/26/16 08:41 Intake and Output: 12/26/16 12/26/16 06:59 18:59 Intake Total 1130 Balance 1130 - Medications Medications: Current Medications Acetaminophen (Tylenol 650mg/20.3ml Solution Ud) 650 mg PEG Q6 PRN PRN Reason: Temperature Last Admin: 12/24/16 21:00 Dose: 650 mg Bacitracin (Bacitracin) 1 gm TOP QSHIFT [facility] Last Admin: 12/26/16 06:20 Dose: 1 applic Carvedilol (Coreg) 3.125 mg PEG DAILY [facility] Clopidogrel Bisulfate (Plavix) 75 mg PEG DAILY [facility] Last Admin: 12/25/16 10:10 Dose: 75 mg Glipizide (Glucotrol) 0.5 mg PEG BID [facility] Last Admin: 12/17/16 11:26 Dose: Not Given Piperacillin Sod/Tazobactam Sod (Zosyn 3.375 Gm Iv Premix) 3.375 gm in 50 mls @ 100 mls/hr IVPB Q6H [facility] Last Admin: 12/25/16 22:26 Dose: 100 mls/hr Vancomycin HCl 1 gm/ Sodium (Chloride) 250 mls @ 166.7 mls/hr IVPB Q24H [facility] Last Admin: 12/25/16 16:00 Dose: 166.7 mls/hr Insulin Aspart (Novolog) 0 unit SC Q6 [facility] PRN Reason: Protocol Last Admin: 12/26/16 06:12 Dose: 3 unit Levothyroxine Sodium (Synthroid) 125 mcg PEG DAILY@0630 [facility] Last Admin: 12/26/16 06:13 Dose: 125 mcg Loratadine (Claritin) 10 mg PO DAILY [facility] Last Admin: 12/25/16 10:10 Dose: 10 mg Magnesium Hydroxide (Milk Of Magnesia) 30 ml PEG DAILY PRN PRN Reason: Constipation Metronidazole (Flagyl) 500 mg PEG Q8 [facility] Last Admin: 12/26/16 05:49 Dose: 500 mg Modafinil (Provigil) 150 mg PEG DAILY [facility] Last Admin: 12/16/16 11:54 Dose: Not Given Petrolatum (Desitin Original) 0 gm TOP QSHIFT [facility] Last Admin: 12/26/16 06:13 Dose: 1 applic Rosuvastatin Calcium (Crestor) 10 mg PO HS [facility] Last Admin: 12/25/16 22:39 Dose: 10 mg Sodium Phosphate (K-Phos Neutral) 250 mg PO DAILY [facility] Last Admin: 12/25/16 14:32 Dose: 250 mg - Labs Labs: 12/26/16 07:10 12/26/16 07:10 PT 11.2 SECONDS (9.7-12.2) 12/16/16 06:25 INR 1.0 12/16/16 06:25 APTT 28 SECONDS (21-34) 12/16/16 06:25 - Constitutional Appears: Other - Head Exam Head Exam: ATRAUMATIC, NORMOCEPHALIC - Neck Exam Neck Exam: absent: Lymphadenopathy, Thyromegaly - Respiratory Exam Respiratory Exam: NORMAL BREATHING PATTERN. absent: Rales, Rhonchi, Wheezes - Cardiovascular Exam Cardiovascular Exam: REGULAR RHYTHM, +S1, +S2. absent: Gallop, Rubs, Murmur - GI/Abdominal Exam GI & Abdominal Exam: Soft, Normal Bowel Sounds. absent: Tenderness, Organomegaly Additional comments: G tube in epigastrium - Rectal Exam Rectal Exam: Deferred - Extremities Exam Extremities Exam: Pedal Edema Assessment and Plan (1) Anemia Assessment & Plan: Repeat CT scan shows dilatation of PD, fluid posterior to pancreatic head and inferior to pancreatic body, mildly loculated, mural thickening of the second and third portions of duodenum. However, we have no documentation of elevations of amylase or lipase to the range expected with acute pancreatitis. Will treat as hemorrhagic pancreatits. Consider CT angiogram if hemoglobin drops again. Status: Acute
[2016-12-26] MEDS ORDERED: Potassium Chloride 20 mEq ER Tab PO ONE (11:35)
[2016-12-26] MEDS ORDERED: Potassium Chloride 20 mEq/15 ml LIQ UD PO ONE (12:15)
--- NOTE | 2016-12-26 13:30 | CP.PCM.PN ---
<Tal Mccormick - Last Filed: 12/26/16 13:27> Subjective - Date & Time of Evaluation Date of Evaluation: 12/26/16 Time of Evaluation: 09:00 - Subjective Subjective: PGY2 on medicine Dr. Garsia service: Pt seen and examined at bedside this morning. No acute events overnight per RN. Pt clinically unchanged, not following commands and remains nonverbal. Objective - Vital Signs/Intake and Output Vital Signs (last 24 hours): Temp Pulse Resp BP Pulse Ox 99.0 F 87 18 146/75 98 12/26/16 08:41 12/26/16 08:41 12/26/16 08:41 12/26/16 08:41 12/26/16 08:41 Intake and Output: 12/26/16 12/26/16 06:59 18:59 Intake Total 1130 Balance 1130 - Medications Medications: Current Medications Acetaminophen (Tylenol 650mg/20.3ml Solution Ud) 650 mg PEG Q6 PRN PRN Reason: Temperature Last Admin: 12/24/16 21:00 Dose: 650 mg Bacitracin (Bacitracin) 1 gm TOP QSHIFT [facility] Last Admin: 12/26/16 06:20 Dose: 1 applic Carvedilol (Coreg) 3.125 mg PEG DAILY [facility] Clopidogrel Bisulfate (Plavix) 75 mg PEG DAILY [facility] Last Admin: 12/26/16 10:35 Dose: 75 mg Glipizide (Glucotrol) 0.5 mg PEG BID [facility] Last Admin: 12/17/16 11:26 Dose: Not Given Piperacillin Sod/Tazobactam Sod (Zosyn 3.375 Gm Iv Premix) 3.375 gm in 50 mls @ 100 mls/hr IVPB Q6H [facility] Last Admin: 12/26/16 10:36 Dose: 100 mls/hr Vancomycin HCl 1 gm/ Sodium (Chloride) 250 mls @ 166.7 mls/hr IVPB Q24H [facility] Last Admin: 12/25/16 16:00 Dose: 166.7 mls/hr Insulin Aspart (Novolog) 0 unit SC Q6 NITIN PRN Reason: Protocol Last Admin: 12/26/16 06:12 Dose: 3 unit Levothyroxine Sodium (Synthroid) 125 mcg PEG DAILY@0630 [facility] Last Admin: 12/26/16 06:13 Dose: 125 mcg Loratadine (Claritin) 10 mg PO DAILY [facility] Last Admin: 12/26/16 10:35 Dose: 10 mg Magnesium Hydroxide (Milk Of Magnesia) 30 ml PEG DAILY PRN PRN Reason: Constipation Metronidazole (Flagyl) 500 mg PEG Q8 [facility] Last Admin: 12/26/16 05:49 Dose: 500 mg Modafinil (Provigil) 150 mg PEG DAILY [facility] Last Admin: 12/16/16 11:54 Dose: Not Given Petrolatum (Desitin Original) 0 gm TOP QSHIFT [facility] Last Admin: 12/26/16 06:13 Dose: 1 applic Rosuvastatin Calcium (Crestor) 10 mg PO HS [facility] Last Admin: 12/25/16 22:39 Dose: 10 mg Sodium Phosphate (K-Phos Neutral) 250 mg PO DAILY [facility] Last Admin: 12/26/16 10:35 Dose: 250 mg - Labs Labs: 12/26/16 07:10 12/26/16 07:10 PT 11.2 SECONDS (9.7-12.2) 12/16/16 06:25 INR 1.0 12/16/16 06:25 APTT 28 SECONDS (21-34) 12/16/16 06:25 - Constitutional Appears: Non-toxic, No Acute Distress - Head Exam Head Exam: NORMAL INSPECTION, NORMOCEPHALIC - Eye Exam Eye Exam: Normal appearance Pupil Exam: NORMAL ACCOMODATION - ENT Exam ENT Exam: Mucous Membranes Moist - Respiratory Exam Respiratory Exam: Clear to Ausculation Bilateral, NORMAL BREATHING PATTERN. absent: Rhonchi, Wheezes - Cardiovascular Exam Cardiovascular Exam: REGULAR RHYTHM, +S1, +S2. absent: Gallop, Rubs - GI/Abdominal Exam GI & Abdominal Exam: Soft, Normal Bowel Sounds Additional comments: on PEG feeding - Neurological Exam Neurological Exam: Awake. absent: Alert, Oriented x3 Additional comments: Pt exhibits primitive reflex, including sucking and grasping - Skin Skin Exam: Intact Assessment and Plan - Assessment and Plan (Free Text) Assessment: This is an 86 yo female who initially presented from [facility], obtunded, with leukocytosis and hypotension Fever WBC stable at around 12 Afebrile in past 24 hours initially hypotensive and tachypenic. Will need to find the source of white count>> questionable pancreatitis, lipase nl continue zosyn 3.375 g IV q 6 Continue vanco 1 g daily Continue flagyl via peg 500 every 8 hours Blood and urine cultures drawn, negative thus far; stool culture negative ; ova , parasites negative will redraw blood cultures, those are pending Infectious disease, Dr. Leggett consulted Patient is DNR/DNI we are ordering ct chest without contrast>>> ct chest shows bibasilar atelectasis, trace b/l effusions, suspicious for acute pancreatitis f/u ct abdomen pelvis >>>> shows retroperitoneal fluid/proctitis, right inguinal hernia, small pleural effusion ( see full report) continue tylenol prn we have restarted tube feeds (patient is on diabetisource) , continue free water flushes pt is s/p picc line Questionable pancreatitis -findings on ct were suggestive of pancreatitis -will redraw lipase -repeat ct abdomen pending Hypotension/hypernatremia Monitor BP pt no longer hypotensive coreg on hold Na trending down, now normalized nephrology. Dr. Dong. recs appreciated. Dehydration nephro has been consulted recs appreciated. -CR .8 today Solitary kidney nephrology consult. recs appreciated. 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 F/U repeat head CT. Hypothyroidism TSH/T4: TSH is wnl; T4 is low 5.11 continue home synthroid through PEG Diabetes mellitus sliding scale with accu checks Hyperlipidemia Crestor 10 mg PEG HS Prophylactic measure lovenox daily we have restarted tube feeds continue plavix daily we will replete K and Phos, we will replete electrolytes discussed with Dr. Garsia <Cash Garsia - Last Filed: 01/20/17 16:21> Objective - Vital Signs/Intake and Output Vital Signs (last 24 hours): Temp Pulse Resp BP Pulse Ox 99.2 F 86 20 146/73 96 12/29/16 16:00 12/29/16 16:00 12/29/16 16:00 12/29/16 16:00 12/29/16 16:00 - Labs Labs: 12/29/16 06:15 12/29/16 06:15 PT 11.2 SECONDS (9.7-12.2) 12/16/16 06:25 INR 1.0 12/16/16 06:25 APTT 28 SECONDS (21-34) 12/16/16 06:25 Attending/Attestation - Attestation I have personally seen and examined this patient.: Yes I have fully participated in the care of the patient.: Yes I have reviewed all pertinent clinical information, including history, physical exam and plan: Yes Notes (Text): Patient Seen and examined with the resident. Agree with the resident's evaluation, assessment and plan. This is an 86 yo female who initially presented from [facility], obtunded, with leukocytosis and hypotension Leukocytosis/Pneumonia Hypotension/hypernatremia Dehydration solitary kidney Dementia in Alzheimer's disease Hypothyroidism Diabetes mellitus
[2016-12-27] MEDS: (Novolog) Insulin Aspart, Recombinant 100 u/ml 10 ml vial SC SCH ×4 (00:04→18:48)
[2016-12-27] MEDS: Piperacill/Tazo 3.375gm in Dex 3.375 GM/50 ML BAG IVPB SCH ×4 (03:30→22:28)
[2016-12-27] MEDS: Bacitracin Ointment 30 GM TUBE TOP SCH ×2 (05:27→22:26)
[2016-12-27] MEDS: Zinc Oxide Topical 30 gm Tube TOP SCH ×2 (05:27→22:26)
[2016-12-27] MEDS: Levothyroxine 125 MCG TAB PEG SCH (05:33)
[2016-12-27 07:22] LABS: BASO % 0.4 % (0.0-2.0); EOS # 0.3 K/uL (0.0-0.7); EOS % 2.7 % (0.0-4.0); HEMATOCRIT 33.4 % (34.0-47.0); LYMPH # 1.1 K/uL (1.0-4.3); LYMPH % 10.2 % (20.0-40.0); MEAN CELL VOLUME 91.3 fL (81.0-99.0); MEAN CORPUSCULAR HEMOGLOBIN 30.1 pg (27.0-31.0); MEAN PLATELET VOLUME 9.8 fL (7.2-11.7); MONO # 0.7 K/uL (0.0-0.8); MONO % 5.9 % (0.0-10.0); NRBC % 0.1 % (0.0-2.0); RED CELL DISTRIBUTION WIDTH 15.4 % (11.5-14.5); WHITE BLOOD COUNT 11.1 K/uL (4.8-10.8)
[2016-12-27 07:53] LABS: CHLORIDE 107 mmol/L (98-107); POTASSIUM 3.7 mmol/L (3.6-5.2); SODIUM 143 mmol/L (132-148)
[2016-12-27 07:55] LABS: ALB/GLOB RATIO 0.7 (1.0-2.1); ALKALINE PHOSPHATASE 70 U/L (38-126); AST/SGOT 47 U/L (14-36); BILIRUBIN,TOTAL 0.4 mg/dL (0.2-1.3); CARBON DIOXIDE 30 mmol/L (22-30); GFR AFRICAN-AMERICAN > 60
[2016-12-27 07:56] LABS: ALT/SGPT 38 U/L (9-52); BLOOD UREA NITROGEN 20 mg/dL (7-17); CALCIUM 7.9 mg/dl (8.6-10.4); GLUCOSE,RANDOM 229 mg/dL (65-105); MAGNESIUM 1.9 mg/dL (1.6-2.3); PHOSPHOROUS 2.6 mg/dL (2.5-4.5)
--- NOTE | 2016-12-27 08:34 | CP.PCM.PN ---
Subjective - Date & Time of Evaluation Date of Evaluation: 12/27/16 Time of Evaluation: 08:31 - Subjective Subjective: Patient is obtunded, going for CT scan. Objective - Vital Signs/Intake and Output Vital Signs (last 24 hours): Temp Pulse Resp BP Pulse Ox 98.9 F 94 H 20 135/77 95 12/26/16 23:15 12/26/16 23:15 12/26/16 23:15 12/26/16 23:15 12/26/16 23:15 - Medications Medications: Current Medications Acetaminophen (Tylenol 650mg/20.3ml Solution Ud) 650 mg PEG Q6 PRN PRN Reason: Temperature Last Admin: 12/24/16 21:00 Dose: 650 mg Bacitracin (Bacitracin) 1 gm TOP QSHIFT [facility] Last Admin: 12/27/16 05:27 Dose: 1 applic Carvedilol (Coreg) 3.125 mg PEG DAILY [facility] Clopidogrel Bisulfate (Plavix) 75 mg PEG DAILY [facility] Last Admin: 12/26/16 10:35 Dose: 75 mg Glipizide (Glucotrol) 0.5 mg PEG BID [facility] Last Admin: 12/17/16 11:26 Dose: Not Given Piperacillin Sod/Tazobactam Sod (Zosyn 3.375 Gm Iv Premix) 3.375 gm in 50 mls @ 100 mls/hr IVPB Q6H [facility] Last Admin: 12/26/16 22:17 Dose: 100 mls/hr Vancomycin HCl 1 gm/ Sodium (Chloride) 250 mls @ 166.7 mls/hr IVPB Q24H [facility] Last Admin: 12/26/16 14:24 Dose: 166.7 mls/hr Insulin Aspart (Novolog) 0 unit SC Q6 NITIN PRN Reason: Protocol Last Admin: 12/27/16 05:40 Dose: 3 unit Levothyroxine Sodium (Synthroid) 125 mcg PEG DAILY@0630 [facility] Last Admin: 12/27/16 05:33 Dose: 125 mcg Loratadine (Claritin) 10 mg PO DAILY [facility] Last Admin: 12/26/16 10:35 Dose: 10 mg Magnesium Hydroxide (Milk Of Magnesia) 30 ml PEG DAILY PRN PRN Reason: Constipation Metronidazole (Flagyl) 500 mg PEG Q8 [facility] Last Admin: 12/27/16 05:07 Dose: 500 mg Modafinil (Provigil) 150 mg PEG DAILY [facility] Last Admin: 12/16/16 11:54 Dose: Not Given Petrolatum (Desitin Original) 0 gm TOP QSHIFT [facility] Last Admin: 12/27/16 05:27 Dose: 1 applic Rosuvastatin Calcium (Crestor) 10 mg PO HS [facility] Last Admin: 12/26/16 22:16 Dose: 10 mg Sodium Phosphate (K-Phos Neutral) 250 mg PO DAILY [facility] Last Admin: 12/26/16 10:35 Dose: 250 mg - Labs Labs: 12/27/16 07:19 12/27/16 07:19 PT 11.2 SECONDS (9.7-12.2) 12/16/16 06:25 INR 1.0 12/16/16 06:25 APTT 28 SECONDS (21-34) 12/16/16 06:25 - Constitutional Appears: Other - Head Exam Head Exam: ATRAUMATIC, NORMOCEPHALIC - Neck Exam Neck Exam: absent: Lymphadenopathy, Thyromegaly - Respiratory Exam Respiratory Exam: NORMAL BREATHING PATTERN. absent: Wheezes, Respiratory Distress, Stridor - Cardiovascular Exam Cardiovascular Exam: REGULAR RHYTHM, +S1, +S2. absent: Gallop, Rubs, Murmur - GI/Abdominal Exam GI & Abdominal Exam: Soft, Normal Bowel Sounds. absent: Tenderness, Mass, Organomegaly Additional comments: G tube in epigastrium - Rectal Exam Rectal Exam: Deferred - Extremities Exam Extremities Exam: Pedal Edema Assessment and Plan (1) Anemia Assessment & Plan: Hemoglobin is stable at 11. Will repeat labs. Status: Acute
--- NOTE | 2016-12-27 11:06 | CT ---
PROCEDURE: CT HEAD WITHOUT CONTRAST. HISTORY: Change in mental status COMPARISON: 11/28/2016 TECHNIQUE: Axial computed tomography images were obtained through the head/brain without intravenous contrast. Radiation dose: Total exam DLP = 866 mGy-cm. This CT exam was performed using one or more of the following dose reduction techniques: Automated exposure control, adjustment of the mA and/or kV according to patient size, and/or use of iterative reconstruction technique. FINDINGS: HEMORRHAGE: No intracranial hemorrhage. BRAIN: Scattered focal lucencies in the subcortical and periventricular white matter suggestive for chronic microvascular ischemic change. Additional considerations may include extensive white matter gliosis secondary to long-standing transependymal edema. Atrophy. Parenchymal thinning/ atrophy of the temporal lobes anteriorly. VENTRICLES: Significant dilatation of the lateral and 3rd ventricles with relatively normal appearing 4th ventricle. Findings may represent extensive chronic white matter ischemic changes with a severe ex vacuo dilatation of the ventricular system. Additional considerations may include gliosis from chronic transependymal edema related to long-standing obstructive hydrocephalus. Additional etiologies not excluded including normal pressure hydrocephalus in the clinical triad of dementia, ataxia, and incontinence. CALVARIUM: Unremarkable. PARANASAL SINUSES: Mild mucosal thickening of the ethmoid air cells. Hypoplastic left maxillary sinus. MASTOID AIR CELLS: Unremarkable as visualized. No inflammatory changes. OTHER FINDINGS: None. IMPRESSION: Extensive diffuse/coalescent low-attenuation changes extending from the periventricular into the deep and subcortical white matter of both cerebral hemispheres. Significant dilatation of the lateral and 3rd ventricles with relatively normal-appearing 4th ventricle. Findings may represent extensive chronic white matter ischemic changes with severe ex vacuo dilatation of the ventricular system however the possibility of gliosis from chronic transependymal edema related to longstanding obstructive hydrocephalus to be considered as well. Normal pressure hydrocephalus may be considered if the clinical triad of dementia, ataxia and incontinence present If focal neurologic deficit persists, consider MRI.
[2016-12-27] MEDS ORDERED: Sodium Chloride 0.9% 1,000 ML IV SCH (14:30)
--- NOTE | 2016-12-27 14:32 | CP.PCM.PN ---
<Tal Mccormick - Last Filed: 12/27/16 14:27> Subjective - Date & Time of Evaluation Date of Evaluation: 12/27/16 Time of Evaluation: 09:00 - Subjective Subjective: PGY2 on medicine Dr. Garsia service: Pt seen and examined. No acute events overnight per RN. Clinically unchanged. Objective - Vital Signs/Intake and Output Vital Signs (last 24 hours): Temp Pulse Resp BP Pulse Ox 97.2 F L 90 20 149/76 97 12/27/16 07:40 12/27/16 07:40 12/27/16 07:40 12/27/16 07:40 12/27/16 07:40 - Medications Medications: Current Medications Acetaminophen (Tylenol 650mg/20.3ml Solution Ud) 650 mg PEG Q6 PRN PRN Reason: Temperature Last Admin: 12/24/16 21:00 Dose: 650 mg Bacitracin (Bacitracin) 1 gm TOP QSHIFT [facility] Last Admin: 12/27/16 05:27 Dose: 1 applic Carvedilol (Coreg) 3.125 mg PEG DAILY [facility] Clopidogrel Bisulfate (Plavix) 75 mg PEG DAILY [facility] Last Admin: 12/27/16 09:51 Dose: 75 mg Glipizide (Glucotrol) 0.5 mg PEG BID [facility] Last Admin: 12/17/16 11:26 Dose: Not Given Piperacillin Sod/Tazobactam Sod (Zosyn 3.375 Gm Iv Premix) 3.375 gm in 50 mls @ 100 mls/hr IVPB Q6H [facility] Last Admin: 12/27/16 09:51 Dose: 100 mls/hr Vancomycin HCl 1 gm/ Sodium (Chloride) 250 mls @ 166.7 mls/hr IVPB Q24H [facility] Last Admin: 12/26/16 14:24 Dose: 166.7 mls/hr Sodium Chloride (Sodium Chloride 0.9%) 1,000 mls @ 80 mls/hr IV .[id number] [facility] Insulin Aspart (Novolog) 0 unit SC Q6 NITIN PRN Reason: Protocol Last Admin: 12/27/16 12:35 Dose: 3 unit Levothyroxine Sodium (Synthroid) 125 mcg PEG DAILY@0630 [facility] Last Admin: 12/27/16 05:33 Dose: 125 mcg Loratadine (Claritin) 10 mg PO DAILY [facility] Last Admin: 12/27/16 09:51 Dose: 10 mg Magnesium Hydroxide (Milk Of Magnesia) 30 ml PEG DAILY PRN PRN Reason: Constipation Metronidazole (Flagyl) 500 mg PEG Q8 [facility] Last Admin: 12/27/16 05:07 Dose: 500 mg Modafinil (Provigil) 150 mg PEG DAILY [facility] Last Admin: 12/16/16 11:54 Dose: Not Given Petrolatum (Desitin Original) 0 gm TOP QSHIFT [facility] Last Admin: 12/27/16 05:27 Dose: 1 applic Rosuvastatin Calcium (Crestor) 10 mg PO HS [facility] Last Admin: 12/26/16 22:16 Dose: 10 mg Sodium Phosphate (K-Phos Neutral) 250 mg PO DAILY [facility] Last Admin: 12/27/16 09:50 Dose: 250 mg - Labs Labs: 12/27/16 07:19 12/27/16 07:19 PT 11.2 SECONDS (9.7-12.2) 12/16/16 06:25 INR 1.0 12/16/16 06:25 APTT 28 SECONDS (21-34) 12/16/16 06:25 - Constitutional Appears: Non-toxic, No Acute Distress - Head Exam Head Exam: NORMOCEPHALIC - Eye Exam Pupil Exam: NORMAL ACCOMODATION - Respiratory Exam Respiratory Exam: Clear to Ausculation Bilateral, NORMAL BREATHING PATTERN. absent: Rhonchi, Wheezes - Cardiovascular Exam Cardiovascular Exam: REGULAR RHYTHM, +S1, +S2. absent: Gallop, Rubs - GI/Abdominal Exam GI & Abdominal Exam: Soft, Normal Bowel Sounds Additional comments: PEG - Extremities Exam Extremities Exam: Joint Swelling, Pedal Edema - Neurological Exam Neurological Exam: absent: Alert, Oriented x3 Assessment and Plan - Assessment and Plan (Free Text) Assessment: This is an 86 yo female who [facility], obtunded, with leukocytosis and hypotension Questionable pancreatitis findings on ct were suggestive of pancreatitis repeat CT suggestive of recent acute pancreatitis per report. Likely secondary to hemorrhagic pancreatitis per Dr. Hoffmann elevation of lipase from 157 to 412 yesterday feed were stopped for 24 hours NS@80ml/hr F/U repeat lipase tmr Fever WBC stable at around 12 Afebrile in past 24 hours initially hypotensive and tachypenic. Will need to find the source of white count>> questionable pancreatitis, lipase nl continue zosyn 3.375 g IV q 6 Continue vanco 1 g daily Continue flagyl via peg 500 every 8 hours Blood and urine cultures drawn, negative thus far; stool culture negative ; ova , parasites negative will redraw blood cultures, those are pending Infectious disease, Dr. Leggett consulted Patient is DNR/DNI we are ordering ct chest without contrast>>> ct chest shows bibasilar atelectasis, trace b/l effusions, suspicious for acute pancreatitis f/u ct abdomen pelvis >>>> shows retroperitoneal fluid/proctitis, right inguinal hernia, small pleural effusion ( see full report) continue tylenol prn we have restarted tube feeds (patient is on diabetisource) , continue free water flushes pt is s/p picc line Hypotension/hypernatremia Monitor BP pt no longer hypotensive coreg on hold Na trending down, now normalized nephrology. Dr. Dong. recs appreciated. Dehydration nephro has been consulted recs appreciated. -CR .8 today Solitary kidney nephrology consult. recs appreciated. 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 Head CT reordered 12/26/16 and was unchanged from 11/28/16. Hypothyroidism TSH/T4: TSH is wnl; T4 is low 5.11 continue home synthroid through PEG Diabetes mellitus sliding scale with accu checks Hyperlipidemia Crestor 10 mg PEG HS Prophylactic measure lovenox daily we have restarted tube feeds continue plavix daily we will replete K and Phos, we will replete electrolytes discussed with Dr. Garsia <Cash Garsia - Last Filed: 01/20/17 16:22> Objective - Vital Signs/Intake and Output Vital Signs (last 24 hours): Temp Pulse Resp BP Pulse Ox 99.2 F 86 20 146/73 96 12/29/16 16:00 12/29/16 16:00 12/29/16 16:00 12/29/16 16:00 12/29/16 16:00 - Labs Labs: 12/29/16 06:15 12/29/16 06:15 PT 11.2 SECONDS (9.7-12.2) 12/16/16 06:25 INR 1.0 12/16/16 06:25 APTT 28 SECONDS (21-34) 12/16/16 06:25 Attending/Attestation - Attestation I have personally seen and examined this patient.: Yes I have fully participated in the care of the patient.: Yes I have reviewed all pertinent clinical information, including history, physical exam and plan: Yes Notes (Text): Patient Seen and examined with the resident. Agree with the resident's evaluation, assessment and plan. This is an 86 yo female who initially presented from [facility], obtunded, with leukocytosis and hypotension Leukocytosis/Pneumonia Hypotension/hypernatremia Dehydration solitary kidney Dementia in Alzheimer's disease Hypothyroidism Diabetes mellitus
[2016-12-27 15:36] LABS: ABG ALLEN TEST POS; ARTERIAL BLOOD HGB O2 SAT 95.9 % (95.0-98.0); CARBOXYHEMOGLOBIN 1.7 % (0.5-1.5); DRAW SITE RRADIAL; HHB 1.2 % (0.0-5.0); METHEMOGLOBIN 1.1 % (0.0-3.0)
[2016-12-27] MEDS: Dextrose 5%/0.45% NS 1,000 ML IV SCH (16:11)
[2016-12-27] MEDS ORDERED: Albuterol-Ipratrop 3 mg / 0.5 (3 ml) UD INH STA (17:39)
[2016-12-27] MEDS: Albuterol-Ipratrop 3 mg / 0.5 (3 ml) UD INH SCH (20:28)
[2016-12-28] MEDS: (Novolog) Insulin Aspart, Recombinant 100 u/ml 10 ml vial SC SCH ×4 (00:37→17:28)
[2016-12-28] MEDS: Albuterol-Ipratrop 3 mg / 0.5 (3 ml) UD INH SCH ×4 (01:36→19:44)
[2016-12-28] MEDS: Piperacill/Tazo 3.375gm in Dex 3.375 GM/50 ML BAG IVPB SCH ×4 (04:11→21:36)
[2016-12-28] MEDS: Dextrose 5%/0.45% NS 1,000 ML IV SCH ×2 (04:15→08:24)
[2016-12-28] MEDS: Zinc Oxide Topical 30 gm Tube TOP SCH ×3 (05:34→21:38)
[2016-12-28] MEDS: Bacitracin Ointment 30 GM TUBE TOP SCH ×4 (05:36→21:38)
[2016-12-28] MEDS: Levothyroxine 125 MCG TAB PEG SCH (05:38)
[2016-12-28 07:10] LABS: BASO % 0.4 % (0.0-2.0); EOS # 0.3 K/uL (0.0-0.7); EOS % 3.4 % (0.0-4.0); HEMATOCRIT 31.4 % (34.0-47.0); LYMPH # 1.2 K/uL (1.0-4.3); MEAN CELL VOLUME 91.8 fL (81.0-99.0); MEAN CORPUSCULAR HEMOGLOBIN 30.5 pg (27.0-31.0); MEAN CORPUSCULAR HGB CONC 33.2 g/dL (33.0-37.0); MEAN PLATELET VOLUME 9.1 fL (7.2-11.7); MONO # 0.7 K/uL (0.0-0.8); MONO % 7.7 % (0.0-10.0); RED CELL DISTRIBUTION WIDTH 15.2 % (11.5-14.5)
[2016-12-28 07:24] LABS: CHLORIDE 104 mmol/L (98-107); SODIUM 140 mmol/L (132-148)
[2016-12-28 07:26] LABS: BILIRUBIN,TOTAL 0.6 mg/dL (0.2-1.3); GFR AFRICAN-AMERICAN > 60
[2016-12-28 07:27] LABS: ALB/GLOB RATIO 0.7 (1.0-2.1); ALKALINE PHOSPHATASE 72 U/L (38-126); ALT/SGPT 33 U/L (9-52); AST/SGOT 43 U/L (14-36); BLOOD UREA NITROGEN 14 mg/dL (7-17); CALCIUM 7.3 mg/dl (8.6-10.4); CARBON DIOXIDE 31 mmol/L (22-30); GLUCOSE,RANDOM 192 mg/dL (65-105); MAGNESIUM 1.7 mg/dL (1.6-2.3); PHOSPHOROUS 3.6 mg/dL (2.5-4.5); TOTAL PROTEIN 5.6 g/dL (6.3-8.3)
[2016-12-28] MEDS ORDERED: Potassium Chloride 20 mEq/15 ml LIQ UD PEG STA (07:45)
[2016-12-28] MEDS: Potassium Chloride 20 mEq/15 ml LIQ UD PEG SCH ×2 (10:39→12:38)
--- NOTE | 2016-12-28 11:02 | CP.PCM.PN ---
Subjective - Date & Time of Evaluation Date of Evaluation: 12/28/16 Time of Evaluation: 10:59 - Subjective Subjective: Same unresponsiveness On IV fluids as pt NPO- recent dx pancreatitis Renal function stable BP controlled. K low again- being repleted Objective - Vital Signs/Intake and Output Vital Signs (last 24 hours): Temp Pulse Resp BP Pulse Ox 98 F 78 20 145/72 96 12/28/16 07:15 12/28/16 07:15 12/28/16 07:15 12/28/16 07:15 12/28/16 07:15 - Medications Medications: Current Medications Acetaminophen (Tylenol 650mg/20.3ml Solution Ud) 650 mg PEG Q6 PRN PRN Reason: Temperature Last Admin: 12/24/16 21:00 Dose: 650 mg Albuterol/Ipratropium (Duoneb 3 Mg/0.5 Mg (3 Ml) Ud) 3 ml INH RQ6 [facility] Last Admin: 12/28/16 01:36 Dose: Not Given Bacitracin (Bacitracin) 1 gm TOP QSHIFT [facility] Last Admin: 12/28/16 05:38 Dose: 1 applic Carvedilol (Coreg) 3.125 mg PEG DAILY [facility] Clopidogrel Bisulfate (Plavix) 75 mg PEG DAILY [facility] Last Admin: 12/28/16 10:38 Dose: 75 mg Glipizide (Glucotrol) 0.5 mg PEG BID [facility] Last Admin: 12/17/16 11:26 Dose: Not Given Piperacillin Sod/Tazobactam Sod (Zosyn 3.375 Gm Iv Premix) 3.375 gm in 50 mls @ 100 mls/hr IVPB Q6H [facility] Last Admin: 12/28/16 10:38 Dose: 100 mls/hr Vancomycin HCl 1 gm/ Sodium (Chloride) 250 mls @ 166.7 mls/hr IVPB Q24H [facility] Last Admin: 12/27/16 14:28 Dose: 166.7 mls/hr Dextrose/Sodium Chloride (Dextrose 5%/0.45% Ns 1000 Ml) 1,000 mls @ 80 mls/hr IV .[id number] [facility] Last Admin: 12/28/16 08:24 Dose: 80 mls/hr Insulin Aspart (Novolog) 0 unit SC Q6 NITIN PRN Reason: Protocol Last Admin: 12/28/16 05:58 Dose: 3 unit Levothyroxine Sodium (Synthroid) 125 mcg PEG DAILY@0630 [facility] Last Admin: 12/28/16 05:38 Dose: 125 mcg Loratadine (Claritin) 10 mg PO DAILY [facility] Last Admin: 12/28/16 10:38 Dose: 10 mg Magnesium Hydroxide (Milk Of Magnesia) 30 ml PEG DAILY PRN PRN Reason: Constipation Metronidazole (Flagyl) 500 mg PEG Q8 [facility] Last Admin: 12/28/16 05:38 Dose: 500 mg Modafinil (Provigil) 150 mg PEG DAILY [facility] Last Admin: 12/16/16 11:54 Dose: Not Given Petrolatum (Desitin Original) 0 gm TOP QSHIFT [facility] Last Admin: 12/28/16 05:34 Dose: 1 applic Potassium Chloride (Potassium Chloride Oral Soln) 40 meq PEG Q4 [facility] Stop: 12/28/16 12:01 Last Admin: 12/28/16 10:39 Dose: Not Given Rosuvastatin Calcium (Crestor) 10 mg PO HS [facility] Last Admin: 12/27/16 22:25 Dose: 10 mg Sodium Phosphate (K-Phos Neutral) 250 mg PO DAILY [facility] Last Admin: 12/28/16 10:38 Dose: 250 mg - Labs Labs: 12/28/16 06:56 12/28/16 06:56 PT 11.2 SECONDS (9.7-12.2) 12/16/16 06:25 INR 1.0 12/16/16 06:25 APTT 28 SECONDS (21-34) 12/16/16 06:25 - Constitutional Appears: Non-toxic, Chronically Ill - Head Exam Head Exam: ATRAUMATIC, NORMAL INSPECTION - Neck Exam Neck Exam: Normal Inspection. absent: Tenderness - Respiratory Exam Respiratory Exam: Clear to Ausculation Bilateral, NORMAL BREATHING PATTERN - Cardiovascular Exam Cardiovascular Exam: REGULAR RHYTHM, +S1 - GI/Abdominal Exam GI & Abdominal Exam: Soft. absent: Tenderness - Extremities Exam Extremities Exam: Normal Inspection. absent: Tenderness - Neurological Exam Neurological Exam: Altered, Motor Sensory Deficit - Skin Skin Exam: Dry, Warm Assessment and Plan (1) CAITLYN (acute kidney injury) Status: Resolved (2) Dementia in Alzheimer's disease Status: Chronic (3) History of nephrectomy, unilateral Status: Chronic (4) Hypernatremia Status: Resolved - Assessment and Plan (Free Text) Plan: Add KCL in IV fluids Monitor lytes Await resumption PEG feeds
[2016-12-28] MEDS: Potassium Chloride 20 MEQ in Dextrose 5%/0.45% NS 1,000 ML IV SCH (12:37)
--- NOTE | 2016-12-28 14:18 | CP.PCM.PN ---
<Elaine Menjivar - Last Filed: 12/28/16 14:11> Subjective - Date & Time of Evaluation Date of Evaluation: 12/28/16 Time of Evaluation: 07:30 - Subjective Subjective: Pt seen and examined. No acute events overnight. Clinically unchanged. Patient not verbal, unable to obtain ROS. Resting comfortably in bed in no acute distress. Objective - Vital Signs/Intake and Output Vital Signs (last 24 hours): Temp Pulse Resp BP Pulse Ox 98 F 78 20 145/72 96 12/28/16 07:15 12/28/16 07:15 12/28/16 07:15 12/28/16 07:15 12/28/16 07:15 - Medications Medications: Current Medications Acetaminophen (Tylenol 650mg/20.3ml Solution Ud) 650 mg PEG Q6 PRN PRN Reason: Temperature Last Admin: 12/24/16 21:00 Dose: 650 mg Albuterol/Ipratropium (Duoneb 3 Mg/0.5 Mg (3 Ml) Ud) 3 ml INH RQ6 [facility] Last Admin: 12/28/16 01:36 Dose: Not Given Bacitracin (Bacitracin) 1 gm TOP QSHIFT [facility] Last Admin: 12/28/16 05:38 Dose: 1 applic Carvedilol (Coreg) 3.125 mg PEG DAILY [facility] Clopidogrel Bisulfate (Plavix) 75 mg PEG DAILY [facility] Last Admin: 12/28/16 10:38 Dose: 75 mg Glipizide (Glucotrol) 0.5 mg PEG BID [facility] Last Admin: 12/17/16 11:26 Dose: Not Given Piperacillin Sod/Tazobactam Sod (Zosyn 3.375 Gm Iv Premix) 3.375 gm in 50 mls @ 100 mls/hr IVPB Q6H [facility] Last Admin: 12/28/16 10:38 Dose: 100 mls/hr Vancomycin HCl 1 gm/ Sodium (Chloride) 250 mls @ 166.7 mls/hr IVPB Q24H [facility] Last Admin: 12/27/16 14:28 Dose: 166.7 mls/hr Potassium Chloride 20 meq/ (Dextrose/Sodium Chloride) 1,010 mls @ 80 mls/hr IV .[id number] [facility] Last Admin: 12/28/16 12:37 Dose: 80 mls/hr Insulin Aspart (Novolog) 0 unit SC Q6 NITIN PRN Reason: Protocol Last Admin: 12/28/16 12:37 Dose: 4 unit Levothyroxine Sodium (Synthroid) 125 mcg PEG DAILY@0630 [facility] Last Admin: 12/28/16 05:38 Dose: 125 mcg Loratadine (Claritin) 10 mg PO DAILY [facility] Last Admin: 12/28/16 10:38 Dose: 10 mg Magnesium Hydroxide (Milk Of Magnesia) 30 ml PEG DAILY PRN PRN Reason: Constipation Metronidazole (Flagyl) 500 mg PEG Q8 [facility] Last Admin: 12/28/16 05:38 Dose: 500 mg Modafinil (Provigil) 150 mg PEG DAILY [facility] Last Admin: 12/16/16 11:54 Dose: Not Given Petrolatum (Desitin Original) 0 gm TOP QSHIFT [facility] Last Admin: 12/28/16 05:34 Dose: 1 applic Rosuvastatin Calcium (Crestor) 10 mg PO HS [facility] Last Admin: 12/27/16 22:25 Dose: 10 mg Sodium Phosphate (K-Phos Neutral) 250 mg PO DAILY [facility] Last Admin: 12/28/16 10:38 Dose: 250 mg - Labs Labs: 12/28/16 06:56 12/28/16 06:56 PT 11.2 SECONDS (9.7-12.2) 12/16/16 06:25 INR 1.0 12/16/16 06:25 APTT 28 SECONDS (21-34) 12/16/16 06:25 - Constitutional Appears: Non-toxic, No Acute Distress, Chronically Ill - Head Exam Head Exam: ATRAUMATIC, NORMAL INSPECTION - Eye Exam Eye Exam: EOMI, PERRL - ENT Exam ENT Exam: Mucous Membranes Moist - Respiratory Exam Respiratory Exam: Clear to Ausculation Bilateral, NORMAL BREATHING PATTERN. absent: Accessory Muscle Use, Chest Wall Tenderness, Respiratory Distress - Cardiovascular Exam Cardiovascular Exam: REGULAR RHYTHM, +S1, +S2 - GI/Abdominal Exam GI & Abdominal Exam: Soft, Normal Bowel Sounds. absent: Distended, Firm, Guarding, Tenderness Additional comments: PEG in place - Extremities Exam Extremities Exam: Pedal Edema Additional comments: + edema in upper ext 1+ b/l - Back Exam Back Exam: NORMAL INSPECTION - Neurological Exam Neurological Exam: Awake. absent: Alert - Skin Skin Exam: Dry, Intact, Normal Color, Warm Assessment and Plan - Assessment and Plan (Free Text) Assessment: This is an 86 yo female who initially presented from alf, obtunded, with leukocytosis and hypotension, all improving Plan: Pancreatitis - resolving Lipase trending down 180 today from 412 yesterday Per GI ok to restart Tube feeds - feed were stopped for [address] were suggestive of pancreatitis that has started to resolve repeat CT suggestive of recent acute pancreatitis per report. Likely secondary to hemorrhagic pancreatitis per Dr. Hoffmann NS@80ml/hr Fever WBC stable 9 Afebrile initially hypotensive and tachypenic. Will need to find the source of white count>> questionable pancreatitis, lipase nl continue zosyn 3.375 g IV q 6 Continue vanco 1 g daily Continue flagyl via peg 500 every 8 hours Blood and urine cultures drawn, negative thus far; stool culture negative ; ova , parasites negative Repeat BC negative Infectious disease, Dr. Leggett consulted Patient is DNR/DNI we are ordering ct chest without contrast>>> ct chest shows bibasilar atelectasis, trace b/l effusions, suspicious for acute pancreatitis f/u ct abdomen pelvis >>>> shows retroperitoneal fluid/proctitis, right inguinal hernia, small pleural effusion ( see full report) continue tylenol prn pt is s/p picc line Hypotension/hypernatremia Monitor BP pt no longer hypotensive coreg on hold Na trending down, now normalized nephrology. Dr. Dong. recs appreciated. Dehydration nephro has been consulted recs appreciated. -CR .8 today Kcl in D5NS fluids Solitary kidney nephrology consult. recs appreciated. 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 Head CT reordered 12/26/16 and was unchanged from 11/28/16. Hypothyroidism TSH/T4: TSH is wnl; T4 is low 5.11 continue home synthroid through PEG Diabetes mellitus Insulin sliding scale monitor with accuchecks Hyperlipidemia Crestor 10 mg PEG HS Prophylactic measure lovenox daily we have restarted tube feeds continue plavix daily we will replete K and Phos, we will replete electrolytes <Marco Crews - Last Filed: 12/28/16 16:39> Objective - Vital Signs/Intake and Output Vital Signs (last 24 hours): Temp Pulse Resp BP Pulse Ox 99.2 F 91 H 20 145/71 96 12/28/16 16:21 12/28/16 16:21 12/28/16 16:21 12/28/16 16:21 12/28/16 16:21 - Medications Medications: Current Medications Acetaminophen (Tylenol 650mg/20.3ml Solution Ud) 650 mg PEG Q6 PRN PRN Reason: Temperature Last Admin: 12/24/16 21:00 Dose: 650 mg Albuterol/Ipratropium (Duoneb 3 Mg/0.5 Mg (3 Ml) Ud) 3 ml INH RQ6 [facility] Last Admin: 12/28/16 14:16 Dose: 3 ml Bacitracin (Bacitracin) 1 gm TOP QSHIFT [facility] Last Admin: 12/28/16 14:49 Dose: 1 applic Carvedilol (Coreg) 3.125 mg PEG DAILY [facility] Clopidogrel Bisulfate (Plavix) 75 mg PEG DAILY [facility] Last Admin: 12/28/16 10:38 Dose: 75 mg Glipizide (Glucotrol) 0.5 mg PEG BID [facility] Last Admin: 12/17/16 11:26 Dose: Not Given Piperacillin Sod/Tazobactam Sod (Zosyn 3.375 Gm Iv Premix) 3.375 gm in 50 mls @ 100 mls/hr IVPB Q6H [facility] Last Admin: 12/28/16 10:38 Dose: 100 mls/hr Vancomycin HCl 1 gm/ Sodium (Chloride) 250 mls @ 166.7 mls/hr IVPB Q24H [facility] Last Admin: 12/28/16 14:41 Dose: 166.7 mls/hr Potassium Chloride 20 meq/ (Dextrose/Sodium Chloride) 1,010 mls @ 80 mls/hr IV .[id number] [facility] Last Admin: 12/28/16 12:37 Dose: 80 mls/hr Insulin Aspart (Novolog) 0 unit SC Q6 NITIN PRN Reason: Protocol Last Admin: 12/28/16 12:37 Dose: 4 unit Levothyroxine Sodium (Synthroid) 125 mcg PEG DAILY@0630 [facility] Last Admin: 12/28/16 05:38 Dose: 125 mcg Loratadine (Claritin) 10 mg PO DAILY [facility] Last Admin: 12/28/16 10:38 Dose: 10 mg Magnesium Hydroxide (Milk Of Magnesia) 30 ml PEG DAILY PRN PRN Reason: Constipation Metronidazole (Flagyl) 500 mg PEG Q8 [facility] Last Admin: 12/28/16 14:43 Dose: 500 mg Modafinil (Provigil) 150 mg PEG DAILY [facility] Last Admin: 12/16/16 11:54 Dose: Not Given Petrolatum (Desitin Original) 0 gm TOP QSHIFT [facility] Last Admin: 12/28/16 14:42 Dose: 1 applic Rosuvastatin Calcium (Crestor) 10 mg PO HS [facility] Last Admin: 12/27/16 22:25 Dose: 10 mg Sodium Phosphate (K-Phos Neutral) 250 mg PO DAILY [facility] Last Admin: 12/28/16 10:38 Dose: 250 mg - Labs Labs: 12/28/16 06:56 12/28/16 06:56 PT 11.2 SECONDS (9.7-12.2) 12/16/16 06:25 INR 1.0 12/16/16 06:25 APTT 28 SECONDS (21-34) 12/16/16 06:25 Attending/Attestation - Attestation I have personally seen and examined this patient.: Yes I have fully participated in the care of the patient.: Yes I have reviewed all pertinent clinical information, including history, physical exam and plan: Yes Notes (Text): 12/28/16 16:38 Patient was seen and examined at bedside with the resident today. No signs of acute infection. WBC is within normal limits. Patient is afebrile. Patient is been restarted on tube feeding. Pancreatitis is ruled out. Replete potassium and check the levels again tomorrow. Discharge planning to subacute rehabilitation center if the patient remains medically stable. Discussed with the daughter at bedside and answered all questions. Discussed the plan of care with the resident and I agree with the above history and physical and assessment/plan by the resident.
[2016-12-29] MEDS: (Novolog) Insulin Aspart, Recombinant 100 u/ml 10 ml vial SC SCH ×3 (00:08→11:49)
[2016-12-29] MEDS: Potassium Chloride 20 MEQ in Dextrose 5%/0.45% NS 1,000 ML IV SCH (00:09)
[2016-12-29] MEDS: Albuterol-Ipratrop 3 mg / 0.5 (3 ml) UD INH SCH ×3 (01:49→13:22)
[2016-12-29] MEDS: Piperacill/Tazo 3.375gm in Dex 3.375 GM/50 ML BAG IVPB SCH ×3 (04:07→15:00)
[2016-12-29] MEDS: Zinc Oxide Topical 30 gm Tube TOP SCH ×2 (06:07→14:04)
[2016-12-29] MEDS: Bacitracin Ointment 30 GM TUBE TOP SCH ×2 (06:07→14:04)
[2016-12-29] MEDS: Levothyroxine 125 MCG TAB PEG SCH (06:07)
[2016-12-29 06:30] LABS: EOS # 0.3 K/uL (0.0-0.7); RED CELL DISTRIBUTION WIDTH 15.4 % (11.5-14.5)
[2016-12-29 06:41] LABS: CHLORIDE 105 mmol/L (98-107)
[2016-12-29 06:42] LABS: SODIUM 140 mmol/L (132-148)
[2016-12-29 06:45] LABS: ALB/GLOB RATIO 0.7 (1.0-2.1); ALKALINE PHOSPHATASE 72 U/L (38-126); ALT/SGPT 26 U/L (9-52); AST/SGOT 24 U/L (14-36); BASO # 0.1 K/uL (0.0-0.2); BASO % 0.6 % (0.0-2.0); BILIRUBIN,TOTAL 0.4 mg/dL (0.2-1.3); BLOOD UREA NITROGEN 14 mg/dL (7-17); CALCIUM 7.6 mg/dl (8.6-10.4); CARBON DIOXIDE 29 mmol/L (22-30); EOS % 3.2 % (0.0-4.0); GFR AFRICAN-AMERICAN > 60; GLUCOSE,RANDOM 295 mg/dL (65-105); LYMPH % 10.8 % (20.0-40.0); MAGNESIUM 1.8 mg/dL (1.6-2.3); MEAN CELL VOLUME 91.7 fL (81.0-99.0); MEAN CORPUSCULAR HEMOGLOBIN 30.5 pg (27.0-31.0); MEAN CORPUSCULAR HGB CONC 33.3 g/dL (33.0-37.0); MEAN PLATELET VOLUME 8.9 fL (7.2-11.7); MONO # 0.8 K/uL (0.0-0.8); MONO % 8.7 % (0.0-10.0); NRBC % 0.1 % (0.0-2.0); PHOSPHOROUS 2.5 mg/dL (2.5-4.5); TOTAL PROTEIN 5.5 g/dL (6.3-8.3)
[2016-12-29 08:01] VITALS: O2SAT 96
--- NOTE | 2016-12-29 10:19 | CP.PCM.PN ---
Subjective - Date & Time of Evaluation Date of Evaluation: 12/29/16 Time of Evaluation: 10:17 - Subjective Subjective: no events non verbal labs noted on iv fluids Objective - Vital Signs/Intake and Output Vital Signs (last 24 hours): Temp Pulse Resp BP Pulse Ox 98.5 F 89 18 146/78 96 12/29/16 07:59 12/29/16 07:59 12/29/16 07:59 12/29/16 07:59 12/29/16 07:59 Intake and Output: 12/29/16 12/29/16 06:59 18:59 Intake Total 830 Balance 830 - Medications Medications: Current Medications Acetaminophen (Tylenol 650mg/20.3ml Solution Ud) 650 mg PEG Q6 PRN PRN Reason: Temperature Last Admin: 12/24/16 21:00 Dose: 650 mg Albuterol/Ipratropium (Duoneb 3 Mg/0.5 Mg (3 Ml) Ud) 3 ml INH RQ6 [facility] Last Admin: 12/29/16 07:23 Dose: 3 ml Bacitracin (Bacitracin) 1 gm TOP QSHIFT [facility] Last Admin: 12/29/16 06:07 Dose: 1 applic Carvedilol (Coreg) 3.125 mg PEG DAILY [facility] Clopidogrel Bisulfate (Plavix) 75 mg PEG DAILY [facility] Last Admin: 12/29/16 09:34 Dose: 75 mg Glipizide (Glucotrol) 0.5 mg PEG BID [facility] Last Admin: 12/17/16 11:26 Dose: Not Given Piperacillin Sod/Tazobactam Sod (Zosyn 3.375 Gm Iv Premix) 3.375 gm in 50 mls @ 100 mls/hr IVPB Q6H [facility] Last Admin: 12/29/16 09:34 Dose: 100 mls/hr Vancomycin HCl 1 gm/ Sodium (Chloride) 250 mls @ 166.7 mls/hr IVPB Q24H [facility] Last Admin: 12/28/16 14:41 Dose: 166.7 mls/hr Potassium Chloride 20 meq/ (Dextrose/Sodium Chloride) 1,010 mls @ 80 mls/hr IV .[id number] [facility] Last Admin: 12/29/16 00:09 Dose: Not Given Insulin Aspart (Novolog) 0 unit SC Q6 NITIN PRN Reason: Protocol Last Admin: 12/29/16 06:40 Dose: 6 unit Levothyroxine Sodium (Synthroid) 125 mcg PEG DAILY@0630 [facility] Last Admin: 12/29/16 06:07 Dose: 125 mcg Loratadine (Claritin) 10 mg PO DAILY [facility] Last Admin: 12/29/16 09:34 Dose: 10 mg Magnesium Hydroxide (Milk Of Magnesia) 30 ml PEG DAILY PRN PRN Reason: Constipation Metronidazole (Flagyl) 500 mg PEG Q8 [facility] Last Admin: 12/29/16 06:07 Dose: 500 mg Modafinil (Provigil) 150 mg PEG DAILY [facility] Last Admin: 12/16/16 11:54 Dose: Not Given Petrolatum (Desitin Original) 0 gm TOP QSHIFT [facility] Last Admin: 12/29/16 06:07 Dose: 1 applic Rosuvastatin Calcium (Crestor) 10 mg PO HS [facility] Last Admin: 12/28/16 21:37 Dose: 10 mg Sodium Phosphate (K-Phos Neutral) 250 mg PO DAILY [facility] Last Admin: 12/29/16 09:34 Dose: 250 mg - Labs Labs: 12/29/16 06:15 12/29/16 06:15 PT 11.2 SECONDS (9.7-12.2) 12/16/16 06:25 INR 1.0 12/16/16 06:25 APTT 28 SECONDS (21-34) 12/16/16 06:25 - Constitutional Appears: No Acute Distress, Chronically Ill (obtunded) - Head Exam Head Exam: NORMAL INSPECTION - ENT Exam ENT Exam: Mucous Membranes Dry - Neck Exam Neck Exam: Normal Inspection - Respiratory Exam Respiratory Exam: Decreased Breath Sounds, NORMAL BREATHING PATTERN - Cardiovascular Exam Cardiovascular Exam: REGULAR RHYTHM - GI/Abdominal Exam GI & Abdominal Exam: Distended, Soft (peg tube) - Extremities Exam Extremities Exam: Normal Inspection Assessment and Plan (1) Renal failure Status: Acute (2) Sepsis Status: Acute (3) Dehydration Status: Acute (4) Hypernatremia Status: Acute (5) Hypotension Status: Acute - Assessment and Plan (Free Text) Assessment: maintain hypotonic iv fluids free water via peg once feeds resumed
[2016-12-29 16:20] VITALS: PULSE 86; RESP 20; TEMP 99.2
[2016-12-29 16:37] VITALS: BP 146/73
--- NOTE | 2017-01-27 07:38 | CP.PCM.DIS ---
<Elaine Menjivar - Last Filed: 01/27/17 07:35> Provider - Provider Date of Admission: 12/15/16 23:20 Attending physician: Bob Pak MD Primary care physician: none Consults: Consults. 1. GI- [place] 2. Nephro- [place] 3. ID- [place] Time Spent in preparation of Discharge (in minutes): 35 Hospital Course - Lab Results Lab Results: Micro Results 12/25/16 09:04 Blood Blood Culture - Final NO GROWTH AFTER 5 DAYS 12/25/16 09:04 Blood Gram Stain - Final TEST NOT PERFORMED 12/25/16 09:04 Blood Blood Culture - Final NO GROWTH AFTER 5 DAYS 12/25/16 09:04 Blood Gram Stain - Final TEST NOT PERFORMED 12/16/16 03:29 Stool Stool Culture - Final NO SALMONELLA, SHIGELLA OR CAMPYLOBACTER ISOLATED. 12/16/16 03:29 Stool Ova and Parasite Concentrate Exam - Final Most Recent Lab Values WBC 9.0 K/uL (4.8-10.8) 12/29/16 06:15 RBC 3.38 Mil/uL (3.80-5.20) L 12/29/16 06:15 Hgb 10.3 g/dL (11.0-16.0) L 12/29/16 06:15 Hct 31.0 % (34.0-47.0) L 12/29/16 06:15 MCV 91.7 fL (81.0-99.0) 12/29/16 06:15 MCH 30.5 pg (27.0-31.0) 12/29/16 06:15 MCHC 33.3 g/dL (33.0-37.0) 12/29/16 06:15 RDW 15.4 % (11.5-14.5) H 12/29/16 06:15 Plt Count 393 K/uL (130-400) 12/29/16 06:15 MPV 8.9 fL (7.2-11.7) 12/29/16 06:15 Neut % (Auto) 76.7 % (50.0-75.0) H 12/29/16 06:15 Lymph % (Auto) 10.8 % (20.0-40.0) L 12/29/16 06:15 Swain % (Auto) 8.7 % (0.0-10.0) 12/29/16 06:15 Eos % (Auto) 3.2 % (0.0-4.0) 12/29/16 06:15 Baso % (Auto) 0.6 % (0.0-2.0) 12/29/16 06:15 Neut # 6.9 K/uL (1.8-7.0) 12/29/16 06:15 Lymph # 1.0 K/uL (1.0-4.3) 12/29/16 06:15 Swain # 0.8 K/uL (0.0-0.8) 12/29/16 06:15 Eos # 0.3 K/uL (0.0-0.7) 12/29/16 06:15 Baso # 0.1 K/uL (0.0-0.2) 12/29/16 06:15 Neutrophils % (Manual) 85 % (50-75) H 12/26/16 07:10 Band Neutrophils % 2 % (0-2) 12/26/16 07:10 Lymphocytes % (Manual) 5 % (20-40) L 12/26/16 07:10 Reactive Lymphs % 1 % (0-0) H 12/26/16 07:10 Monocytes % (Manual) 5 % (0-10) 12/26/16 07:10 Eosinophils % (Manual) 1 % (0-4) 12/26/16 07:10 Basophils % (Manual) 1 % (0-2) 12/26/16 07:10 Myelocytes % 1 % (0-0) H 12/15/16 22:37 Toxic Granulation Present 12/26/16 07:10 Platelet Estimate Normal (NORMAL) 12/26/16 07:10 Large Platelets Present 12/26/16 07:10 Giant Platelets Present 12/26/16 07:10 Polychromasia Slight 12/26/16 07:10 Hypochromasia (manual) Slight 12/26/16 07:10 Poikilocytosis (manual Slight 12/26/16 07:10 Basophilic Stippling Slight 12/26/16 07:10 Anisocytosis (manual) Slight 12/26/16 07:10 Microcytosis (manual) Slight 12/22/16 08:32 Tear Drop Cells Slight 12/15/16 22:37 Ovalocytes Slight 12/26/16 07:10 PT 11.2 SECONDS (9.7-12.2) 12/16/16 06:25 INR 1.0 12/16/16 06:25 APTT 28 SECONDS (21-34) 12/16/16 06:25 Puncture Site Rradial 12/27/16 15:30 pCO2 39 mm/Hg (35-45) 12/27/16 15:30 pO2 87 mm/Hg (80-100) 12/27/16 15:30 HCO3 28.3 mmol/L (21-28) H 12/27/16 15:30 ABG pH 7.47 (7.35-7.45) H 12/27/16 15:30 ABG Total CO2 29.6 mmol/L (22-28) H 12/27/16 15:30 ABG O2 Saturation 98.8 % (95-98) H 12/27/16 15:30 ABG Base Excess 4.4 mmol/L (-2.0-3.0) H 12/27/16 15:30 ABG Hemoglobin 11.1 g/dL (11.7-17.4) L 12/27/16 15:30 ABG Carboxyhemoglobin 1.7 % (0.5-1.5) H 12/27/16 15:30 POC ABG HHb (Measured) 1.2 % (0.0-5.0) 12/27/16 15:30 ABG Methemoglobin 1.1 % (0.0-3.0) 12/27/16 15:30 Eddie Test Pos 12/27/16 15:30 VBG pH 7.32 (7.32-7.43) 12/15/16 22:35 VBG pCO2 48 mmHg (40-60) 12/15/16 22:35 VBG HCO3 22.1 mmol/L 12/15/16 22:35 VBG Total CO2 26.2 mmol/L (22-28) 12/15/16 22:35 VBG O2 Sat (Calc) 55.2 % (40-65) 12/15/16 22:35 VBG Base Excess -1.8 mmol/L (0.0-2.0) L 12/15/16 22:35 VBG Potassium 4.9 mmol/L (3.6-5.2) 12/15/16 22:35 A-a O2 Difference 92.0 mm/Hg 12/27/16 15:30 Respiratory Index 1.1 12/27/16 15:30 Hgb O2 Saturation 95.9 % (95.0-98.0) 12/27/16 15:30 Sodium 146.0 mmol/l (132-148) 12/15/16 22:35 Chloride 109.0 mmol/L (98-107) H 12/15/16 22:35 Glucose 323 mg/dl (65-105) H 12/15/16 22:35 Lactate 2.2 mmol/L (0.7-2.1) H 12/15/16 22:35 Liter Flow 3.0 12/27/16 15:30 FiO2 32.0 % 12/27/16 15:30 Sodium 140 mmol/L (132-148) 12/29/16 06:15 Potassium 4.0 mmol/L (3.6-5.2) 12/29/16 06:15 Chloride 105 mmol/L (98-107) 12/29/16 06:15 Carbon Dioxide 29 mmol/L (22-30) 12/29/16 06:15 Anion Gap 9 (10-20) L 12/29/16 06:15 BUN 14 mg/dL (7-17) 12/29/16 06:15 Creatinine 0.8 MG/DL (0.7-1.2) 12/29/16 06:15 Est GFR ( Amer) > 60 12/29/16 06:15 Est GFR (Non-Af Amer) > 60 12/29/16 06:15 POC Glucose (mg/dL) 273 mg/dL (65-110) H 12/29/16 11:06 Random Glucose 295 mg/dL (65-105) H 12/29/16 06:15 Lactic Acid 1.9 mmol/L (0.7-2.1) 12/16/16 03:42 Calcium 7.6 mg/dl (8.6-10.4) L 12/29/16 06:15 Phosphorus 2.5 mg/dL (2.5-4.5) 12/29/16 06:15 Magnesium 1.8 mg/dL (1.6-2.3) 12/29/16 06:15 Total Bilirubin 0.4 mg/dL (0.2-1.3) 12/29/16 06:15 AST 24 U/L (14-36) 12/29/16 06:15 ALT 26 U/L (9-52) 12/29/16 06:15 Alkaline Phosphatase 72 U/L (38-126) 12/29/16 06:15 Total Creatine Kinase 447 U/L (30-135) H 12/16/16 11:43 CK-MB (Mass) 1.70 ng/mL (0.0-3.38) 12/16/16 11:43 Troponin I 0.0130 ng/mL (0.00-0.120) 12/15/16 22:37 Troponin I, Quant 0.0140 ng/mL (0.00-0.120) 12/16/16 11:43 Total Protein 5.5 g/dL (6.3-8.3) L 12/29/16 06:15 Albumin 2.3 g/dL (3.5-5.0) L 12/29/16 06:15 Globulin 3.2 gm/dL (2.2-3.9) 12/29/16 06:15 Albumin/Globulin Ratio 0.7 (1.0-2.1) L 12/29/16 06:15 Triglycerides 205 mg/dL (0-149) H 12/16/16 06:25 Cholesterol 121 mg/dL (0-199) 12/16/16 06:25 LDL Cholesterol Direct 49 mg/dL (0-129) 12/16/16 06:25 HDL Cholesterol 21 mg/dL (30-70) L 12/16/16 06:25 Amylase 74 U/L (30-110) 12/22/16 08:32 Lipase 267 U/L (23-300) 12/29/16 06:15 Procalcitonin 1.30 NG/ML (0.19-0.49) H 12/16/16 06:25 Thyroxine (T4) 5.11 ug/dL (5.5-11.0) L 12/16/16 06:25 TSH 3rd Generation 4.11 mIU/L (0.46-4.68) 12/16/16 06:25 Venous Blood Potassium 4.9 mmol/L (3.6-5.2) 12/15/16 22:35 Urine Color Yellow (YELLOW) 12/15/16 22:57 Urine Clarity Hazy (Clear) 12/15/16 22:57 Urine pH 5.0 (5.0-8.0) 12/15/16 22:57 Ur Specific [place] > 1.030 (1.003-1.030) H 12/15/16 22:57 Urine Protein Negative mg/dL (NEGATIVE) 12/15/16 22:57 Urine Glucose (UA) 250 mg/dL (Normal) 12/15/16 22:57 Urine Ketones 15 mg/dL (NEGATIVE) 12/15/16 22:57 Urine Blood 1+ (NEGATIVE) H 12/15/16 22:57 Urine Nitrate Negative (NEGATIVE) 12/15/16 22:57 Urine Bilirubin Moderate (NEGATIVE) 12/15/16 22:57 Urine Urobilinogen 1.0 mg/dL (0.2-1.0) 12/15/16 22:57 Ur Leukocyte Esterase Negative [place]/uL (Negative) 12/15/16 22:57 Urine WBC (Auto) 5 /hpf (0-5) 12/15/16 22:57 Urine RBC (Auto) 7 /hpf (0-3) H 12/15/16 22:57 Ur Squamous Epith Cells 4 /hpf (0-5) 12/15/16 22:57 Ur Transition Epith Cell < 1 /hpf (0-3) 12/15/16 22:57 Urine Bacteria Occ (<OCC) H 12/15/16 22:57 Stool Occult Blood Negative (NEGATIVE) 12/27/16 21:03 Stool Leukocytes, Qual Negative (NEGATIVE) 12/16/16 03:24 Vancomycin Trough 13.6 ug/mL (5.0-10.0) H 12/22/16 08:32 Random Vancomycin 11.49 ug/mL 12/17/16 08:09 C. difficile Ag & Toxin Negative (NEGATIVE) 12/16/16 03:24 Influenza Typ A,B (EIA) Negative for flu a/b (NEGATIVE) 12/16/16 00:28 Blood Type A POSITIVE 12/24/16 18:20 Blood Type Confirm A POSITIVE 12/24/16 18:20 Antibody Screen Negative 12/24/16 18:20 - Hospital Course Hospital Course: Hospital course: This is an 86 yo female who [facility], obtunded, with leukocytosis and hypotension (1) Leukocytosis/Pneumonia initially placed on telemetry>> discontinued WBC trended down, on day of dc 12.9 initially hypotensive and tachypenic. Will need to find the source of white count>> questionable pancreatitis, lipase nl, pt diagnosed with pna per cxr fluids were started, changed to d5w for hypernatremia pt placed on vanco, zosyn, flagyl>>> pt got picc will continue vanco, zosyn for 7 more days Blood and urine cultures drawn, negative thus far; stool culture negative ; ova , parasites negative Infectious disease, Dr. Leggett consulted Patient is DNR/DNI we are ordering ct chest without contrast>>> ct chest shows bibasilar atelectasis, trace b/l effusions, suspicious for acute pancreatitis f/u ct abdomen pelvis >>>> shows retroperitoneal fluid/proctitis, right inguinal hernia, small pleural effusion ( see full report) continue tylenol prn pt had been on tube feeds, diabetisource>> stopped, then we have restarted tube feeds , will add free water flushes GI consult was placed. Dr. Hoffmann. recs appreciated for questionable pancreatitis>> recommended f/u cat scan (2) Hypotension/hypernatremia fluids changed D5W 100 cc/hr>> na normalized, mental status improved>> discontinued Monitor BP pt no longer hypotensive coreg placed on hold (3) Dehydration nephro was consulted recs appreciated. nephro monitored hypernatremia which was corrected (4) solitary kidney nephrology consult. recs appreciated. 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 (8) Hyperlipidemia Crestor 10 mg was given (9) Prophylactic measure lovenox daily pt placed on tube feeds- diabetisource- with free water flushes continue plavix daily we will replete K and Phos, we will replete electrolytes>> all electrolytes repleted discharged back to [facility] Discharge meds 1. lovenox 30 daily 2. plavix 75 daily 3. aricept 10 hs 4. tylenol 650 q 6 5. albuterol q 6 6. ISS 7. synthroid 125 mcg daily 8. claritin 10 daily 9. zosyn 3.375 iv q 6 10. crestor 10 hs 11. desitin ointment 12. vanco 1 g daily Discharge instructions Pt medically stable for discharge. will need f/u cxr, also vanco and zosyn for addn 7 days. dc neal before going. Discharge Exam - Head Exam Head Exam: NORMAL INSPECTION - Eye Exam Eye Exam: EOMI, Normal appearance, PERRL Pupil Exam: NORMAL ACCOMODATION - ENT Exam ENT Exam: Mucous Membranes Moist - Respiratory Exam Respiratory Exam: NORMAL BREATHING PATTERN. absent: Respiratory Distress - Cardiovascular Exam Cardiovascular Exam: REGULAR RHYTHM, +S1, +S2 - GI/Abdominal Exam GI & Abdominal Exam: Normal Bowel Sounds, Soft. absent: Distended, Firm, Guarding, Tenderness - Extremities Exam Extremities exam: normal inspection - Back Exam Back exam: NORMAL INSPECTION. absent: CVA tenderness (L), CVA tenderness (R), paraspinal tenderness - Neurological Exam Neurological exam: Alert Additional comments: Not oriented - Psychiatric Exam Psychiatric exam: Normal Affect, Normal Mood - Skin Skin Exam: Dry, Intact, Normal Color, Warm Discharge Plan - Follow Up Plan Condition: STABLE Disposition: REHAB FACILITY/REHAB UNIT Instructions: Acute Kidney Injury (DC), Sepsis (GEN) <Cash Garsia - Last Filed: 02/05/17 17:05> Provider - Provider Date of Admission: 12/15/16 23:20 Attending physician: Bob Pak MD Hospital Course - Lab Results Lab Results: Micro Results 12/25/16 09:04 Blood Blood Culture - Final NO GROWTH AFTER 5 DAYS 12/25/16 09:04 Blood Gram Stain - Final TEST NOT PERFORMED 12/25/16 09:04 Blood Blood Culture - Final NO GROWTH AFTER 5 DAYS 12/25/16 09:04 Blood Gram Stain - Final TEST NOT PERFORMED 12/16/16 03:29 Stool Stool Culture - Final NO SALMONELLA, SHIGELLA OR CAMPYLOBACTER ISOLATED. 12/16/16 03:29 Stool Ova and Parasite Concentrate Exam - Final Most Recent Lab Values WBC 9.0 K/uL (4.8-10.8) 12/29/16 06:15 RBC 3.38 Mil/uL (3.80-5.20) L 12/29/16 06:15 Hgb 10.3 g/dL (11.0-16.0) L 12/29/16 06:15 Hct 31.0 % (34.0-47.0) L 12/29/16 06:15 MCV 91.7 fL (81.0-99.0) 12/29/16 06:15 MCH 30.5 pg (27.0-31.0) 12/29/16 06:15 MCHC 33.3 g/dL (33.0-37.0) 12/29/16 06:15 RDW 15.4 % (11.5-14.5) H 12/29/16 06:15 Plt Count 393 K/uL (130-400) 12/29/16 06:15 MPV 8.9 fL (7.2-11.7) 12/29/16 06:15 Neut % (Auto) 76.7 % (50.0-75.0) H 12/29/16 06:15 Lymph % (Auto) 10.8 % (20.0-40.0) L 12/29/16 06:15 Swain % (Auto) 8.7 % (0.0-10.0) 12/29/16 06:15 Eos % (Auto) 3.2 % (0.0-4.0) 12/29/16 06:15 Baso % (Auto) 0.6 % (0.0-2.0) 12/29/16 06:15 Neut # 6.9 K/uL (1.8-7.0) 12/29/16 06:15 Lymph # 1.0 K/uL (1.0-4.3) 12/29/16 06:15 Swain # 0.8 K/uL (0.0-0.8) 12/29/16 06:15 Eos # 0.3 K/uL (0.0-0.7) 12/29/16 06:15 Baso # 0.1 K/uL (0.0-0.2) 12/29/16 06:15 Neutrophils % (Manual) 85 % (50-75) H 12/26/16 07:10 Band Neutrophils % 2 % (0-2) 12/26/16 07:10 Lymphocytes % (Manual) 5 % (20-40) L 12/26/16 07:10 Reactive Lymphs % 1 % (0-0) H 12/26/16 07:10 Monocytes % (Manual) 5 % (0-10) 12/26/16 07:10 Eosinophils % (Manual) 1 % (0-4) 12/26/16 07:10 Basophils % (Manual) 1 % (0-2) 12/26/16 07:10 Myelocytes % 1 % (0-0) H 12/15/16 22:37 Toxic Granulation Present 12/26/16 07:10 Platelet Estimate Normal (NORMAL) 12/26/16 07:10 Large Platelets Present 12/26/16 07:10 Giant Platelets Present 12/26/16 07:10 Polychromasia Slight 12/26/16 07:10 Hypochromasia (manual) Slight 12/26/16 07:10 Poikilocytosis (manual Slight 12/26/16 07:10 Basophilic Stippling Slight 12/26/16 07:10 Anisocytosis (manual) Slight 12/26/16 07:10 Microcytosis (manual) Slight 12/22/16 08:32 Tear Drop Cells Slight 12/15/16 22:37 Ovalocytes Slight 12/26/16 07:10 PT 11.2 SECONDS (9.7-12.2) 12/16/16 06:25 INR 1.0 12/16/16 06:25 APTT 28 SECONDS (21-34) 12/16/16 06:25 Puncture Site Rradial 12/27/16 15:30 pCO2 39 mm/Hg (35-45) 12/27/16 15:30 pO2 87 mm/Hg (80-100) 12/27/16 15:30 HCO3 28.3 mmol/L (21-28) H 12/27/16 15:30 ABG pH 7.47 (7.35-7.45) H 12/27/16 15:30 ABG Total CO2 29.6 mmol/L (22-28) H 12/27/16 15:30 ABG O2 Saturation 98.8 % (95-98) H 12/27/16 15:30 ABG Base Excess 4.4 mmol/L (-2.0-3.0) H 12/27/16 15:30 ABG Hemoglobin 11.1 g/dL (11.7-17.4) L 12/27/16 15:30 ABG Carboxyhemoglobin 1.7 % (0.5-1.5) H 12/27/16 15:30 POC ABG HHb (Measured) 1.2 % (0.0-5.0) 12/27/16 15:30 ABG Methemoglobin 1.1 % (0.0-3.0) 12/27/16 15:30 Eddie Test Pos 12/27/16 15:30 VBG pH 7.32 (7.32-7.43) 12/15/16 22:35 VBG pCO2 48 mmHg (40-60) 12/15/16 22:35 VBG HCO3 22.1 mmol/L 12/15/16 22:35 VBG Total CO2 26.2 mmol/L (22-28) 12/15/16 22:35 VBG O2 Sat (Calc) 55.2 % (40-65) 12/15/16 22:35 VBG Base Excess -1.8 mmol/L (0.0-2.0) L 12/15/16 22:35 VBG Potassium 4.9 mmol/L (3.6-5.2) 12/15/16 22:35 A-a O2 Difference 92.0 mm/Hg 12/27/16 15:30 Respiratory Index 1.1 12/27/16 15:30 Hgb O2 Saturation 95.9 % (95.0-98.0) 12/27/16 15:30 Sodium 146.0 mmol/l (132-148) 12/15/16 22:35 Chloride 109.0 mmol/L (98-107) H 12/15/16 22:35 Glucose 323 mg/dl (65-105) H 12/15/16 22:35 Lactate 2.2 mmol/L (0.7-2.1) H 12/15/16 22:35 Liter Flow 3.0 12/27/16 15:30 FiO2 32.0 % 12/27/16 15:30 Sodium 140 mmol/L (132-148) 12/29/16 06:15 Potassium 4.0 mmol/L (3.6-5.2) 12/29/16 06:15 Chloride 105 mmol/L (98-107) 12/29/16 06:15 Carbon Dioxide 29 mmol/L (22-30) 12/29/16 06:15 Anion Gap 9 (10-20) L 12/29/16 06:15 BUN 14 mg/dL (7-17) 12/29/16 06:15 Creatinine 0.8 MG/DL (0.7-1.2) 12/29/16 06:15 Est GFR ( Amer) > 60 12/29/16 06:15 Est GFR (Non-Af Amer) > 60 12/29/16 06:15 POC Glucose (mg/dL) 273 mg/dL (65-110) H 12/29/16 11:06 Random Glucose 295 mg/dL (65-105) H 12/29/16 06:15 Lactic Acid 1.9 mmol/L (0.7-2.1) 12/16/16 03:42 Calcium 7.6 mg/dl (8.6-10.4) L 12/29/16 06:15 Phosphorus 2.5 mg/dL (2.5-4.5) 12/29/16 06:15 Magnesium 1.8 mg/dL (1.6-2.3) 12/29/16 06:15 Total Bilirubin 0.4 mg/dL (0.2-1.3) 12/29/16 06:15 AST 24 U/L (14-36) 12/29/16 06:15 ALT 26 U/L (9-52) 12/29/16 06:15 Alkaline Phosphatase 72 U/L (38-126) 12/29/16 06:15 Total Creatine Kinase 447 U/L (30-135) H 12/16/16 11:43 CK-MB (Mass) 1.70 ng/mL (0.0-3.38) 12/16/16 11:43 Troponin I 0.0130 ng/mL (0.00-0.120) 12/15/16 22:37 Troponin I, Quant 0.0140 ng/mL (0.00-0.120) 12/16/16 11:43 Total Protein 5.5 g/dL (6.3-8.3) L 12/29/16 06:15 Albumin 2.3 g/dL (3.5-5.0) L 12/29/16 06:15 Globulin 3.2 gm/dL (2.2-3.9) 12/29/16 06:15 Albumin/Globulin Ratio 0.7 (1.0-2.1) L 12/29/16 06:15 Triglycerides 205 mg/dL (0-149) H 12/16/16 06:25 Cholesterol 121 mg/dL (0-199) 12/16/16 06:25 LDL Cholesterol Direct 49 mg/dL (0-129) 12/16/16 06:25 HDL Cholesterol 21 mg/dL (30-70) L 12/16/16 06:25 Amylase 74 U/L (30-110) 12/22/16 08:32 Lipase 267 U/L (23-300) 12/29/16 06:15 Procalcitonin 1.30 NG/ML (0.19-0.49) H 12/16/16 06:25 Thyroxine (T4) 5.11 ug/dL (5.5-11.0) L 12/16/16 06:25 TSH 3rd Generation 4.11 mIU/L (0.46-4.68) 12/16/16 06:25 Venous Blood Potassium 4.9 mmol/L (3.6-5.2) 12/15/16 22:35 Urine Color Yellow (YELLOW) 12/15/16 22:57 Urine Clarity Hazy (Clear) 12/15/16 22:57 Urine pH 5.0 (5.0-8.0) 12/15/16 22:57 Ur Specific [place] > 1.030 (1.003-1.030) H 12/15/16 22:57 Urine Protein Negative mg/dL (NEGATIVE) 12/15/16 22:57 Urine Glucose (UA) 250 mg/dL (Normal) 12/15/16 22:57 Urine Ketones 15 mg/dL (NEGATIVE) 12/15/16 22:57 Urine Blood 1+ (NEGATIVE) H 12/15/16 22:57 Urine Nitrate Negative (NEGATIVE) 12/15/16 22:57 Urine Bilirubin Moderate (NEGATIVE) 12/15/16 22:57 Urine Urobilinogen 1.0 mg/dL (0.2-1.0) 12/15/16 22:57 Ur Leukocyte Esterase Negative [place]/uL (Negative) 12/15/16 22:57 Urine WBC (Auto) 5 /hpf (0-5) 12/15/16 22:57 Urine RBC (Auto) 7 /hpf (0-3) H 12/15/16 22:57 Ur Squamous Epith Cells 4 /hpf (0-5) 12/15/16 22:57 Ur Transition Epith Cell < 1 /hpf (0-3) 12/15/16 22:57 Urine Bacteria Occ (<OCC) H 12/15/16 22:57 Stool Occult Blood Negative (NEGATIVE) 12/27/16 21:03 Stool Leukocytes, Qual Negative (NEGATIVE) 12/16/16 03:24 Vancomycin Trough 13.6 ug/mL (5.0-10.0) H 12/22/16 08:32 Random Vancomycin 11.49 ug/mL 12/17/16 08:09 C. difficile Ag & Toxin Negative (NEGATIVE) 12/16/16 03:24 Influenza Typ A,B (EIA) Negative for flu a/b (NEGATIVE) 12/16/16 00:28 Blood Type A POSITIVE 12/24/16 18:20 Blood Type Confirm A POSITIVE 12/24/16 18:20 Antibody Screen Negative 12/24/16 18:20 Attending/Attestation - Attestation I have personally seen and examined this patient.: Yes I have fully participated in the care of the patient.: Yes I have reviewed all pertinent clinical information, including history, physical exam and plan: Yes Notes (Text): This is an 86 yo female who [facility], obtunded, with leukocytosis and hypotension (1) Leukocytosis/Pneumonia/pancreatitis initially placed on telemetry>> discontinued WBC trended down, on day of dc 12.9 initially hypotensive and tachypenic. Will need to find the source of white count>> questionable pancreatitis, lipase nl, pt diagnosed with pna per cxr fluids were started, changed to d5w for hypernatremia pt placed on vanco, zosyn, flagyl>>> pt got picc will continue vanco, zosyn for 7 more days Blood and urine cultures drawn, negative thus far; stool culture negative ; ova , parasites negative Infectious disease, Dr. Leggett consulted Patient is DNR/DNI we are ordering ct chest without contrast>>> ct chest shows bibasilar atelectasis, trace b/l effusions, suspicious for acute pancreatitis f/u ct abdomen pelvis >>>> shows retroperitoneal fluid/proctitis, right inguinal hernia, small pleural effusion ( see full report) continue tylenol prn pt had been on tube feeds, diabetisource>> stopped, then we have restarted tube feeds , will add free water flushes GI consult was placed. Dr. Hoffmann. recs appreciated for questionable pancreatitis>> recommended f/u cat scan (2) Hypotension/hypernatremia fluids changed D5W 100 cc/hr>> na normalized, mental status improved>> discontinued Monitor BP pt no longer hypotensive coreg placed on hold
== END 2016-12-29 17:30 | DRG 871 ==
LOC: C.ER 21:55 → C.9E 23:20 → C.6T 23:59
PROVIDERS: ADMIT Family Medicine; ATTEND Family Medicine
PROC: 30233N1 Transfusion of Nonautologous Red Blood Cells into Peripheral Vein, Percutaneous Approach (ICD-10-PCS; principal; 2016-12-25)
DX: A41.9 Sepsis, unspecified organism (principal); K85.90 Acute pancreatitis without necrosis or infection, unspecified; N17.9 Acute kidney failure, unspecified; L89.150 Pressure ulcer of sacral region, unstageable; E87.0 Hyperosmolality and hypernatremia; J18.9 Pneumonia, unspecified organism; Q60.0 Renal agenesis, unilateral; N39.0 Urinary tract infection, site not specified; F02.81 Dementia in other diseases classified elsewhere, unspecified severity, with behavioral disturbance; G30.9 Alzheimer's disease, unspecified; E11.22 Type 2 diabetes mellitus with diabetic chronic kidney disease; R65.20 Severe sepsis without septic shock; E78.5 Hyperlipidemia, unspecified; Z66 Do not resuscitate; Z74.01 Bed confinement status; E78.00 Pure hypercholesterolemia, unspecified; E03.9 Hypothyroidism, unspecified; I12.9 Hypertensive chronic kidney disease with stage 1 through stage 4 chronic kidney disease, or unspecified chronic kidney disease; N18.9 Chronic kidney disease, unspecified; E86.0 Dehydration; Z93.1 Gastrostomy status; E87.6 Hypokalemia; Z79.4 Long term (current) use of insulin